=== PATIENT | female | born 1940 | race Caucasian/White ===

== ENCOUNTER 2023-05-02 14:06 | Outpatient (AMB) | payer MEDICARE, SELFPAY ==
--- NOTE | 2023-05-02 14:07 | MHC.OFFVIS ---
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 Pt states Abd pain comes and goes since she was seen in ED 03/14/23 Accompanied by: Son Allergies codeine Allergy (Mild, Verified 05/02/23 14:13) Itching HPI [employer]A HOIST OPERATOR/ Chavez Ref for Celiac Artery stenosis HPI Details Complex 83-year-old female presents to us for evaluation regarding abdominal pain. She originally presented to [facility] towards the beginning of March. At that time she was significantly worked up for her abdominal pain. She had undergone CT of the abdomen pelvis in addition to CT angio of the chest. 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 Upon workup it within the hospital she was noted to have a UTI. Upon discussion with her she notes that it is more so lower abdominal pain with random on set of this discomfort. Is more of a dull toothache. After the hospitalization and seem to resolve but it appears to be recurring. She is having difficulty urinating. Upon further discussion with her she denies any significant weight loss. She is able T a plate of poss and has no problems with any carbohydrates. In addition she reports that she did have a prior history of a DVT which was treated and she was on blood thinners but it was. Subsequently secondary to GI bleed. She now presents to us for vascular evaluation. Also of note she lost her only a few months prior. Symptoms appear to have started since this event. [facility] Medical History (Updated 05/02/23 @ 14:51 by Boby Willoughby MD) TONI (acute kidney injury) Diverticulitis DVT (deep venous thrombosis) Hypertension Surgical History (Updated 05/02/23 @ 14:17 by SEBASTIÁN Gonzales) History of appendectomy Social History (Updated 05/02/23 @ 14:19 by SEBASTIÁN Gonzales) Patient Tobacco Use Status: Former Tobacco user Review of Systems Const All systems reviewed & are unremarkable except as noted in HPI and below Reports no additional complaints ENT Reports Normal hearing present Card Denies chest pain, Denies chest pain at rest, Denies chest pain with activity and Denies pedal edema Resp Denies cough GI Denies abdominal pain Musc Denies abnormal gait, Denies muscle cramps and Denies radiating pain into limb Skin/Breast Denies skin ulcer and Denies wounds Neuro Reports Normal hearing present and Denies abnormal gait Psych Reports no additional complaints Physical Exam Vital Signs: BMI result Body Mass Index 33.8 Const General: cooperative, healthy appearing and comfortable Orientation/consciousness: oriented to person, oriented to place and oriented to time HEENT Head: Yes normal to inspection Neck Neck: Yes normal visual inspection Carotids: no bruits Chest Chest palpation & inspection: normal inspection of the chest Resp Effort & Inspection: normal respiratory effort and able to speak in complete sentences Auscultation: clear to auscultation bilaterally, no crackles, no rales, no rhonchi and no wheezes Cardio Rate: regular rate Rhythm: regular rhythm Heart sounds: S1 normal heart sound present and S2 normal heart sound present Bruits: no carotid bruits Peripheral pulses: Peripheral pulses 2+ throughout GI Inspection: Yes normal to inspection Skin Wounds: no wounds Hair: normal Neuro General: oriented to person, oriented to place and oriented to time Cranial nerves: Yes CN's II-XII intact bilaterally and Yes Normal hearing present Cognition (Neuro): normal cognition Motor exam (neuro): 5/5 motor strength present throughout Extrem Other: venous exam: No significant superficial varicosities or spider telangiectasias, minimal edema General: No clubbing, No cyanosis and No edema Psych Appearance: grossly normal Mental Status: mental status grossly normal Speech and movement: Normal speech and movement present Results Reviewed Results Reviewed: CT angio of chest dated 03/14/2023 there is concern of celiac artery stenosis. CT abdomen and pelvis of 03/14/2023 without contrast demonstrates no significant arterial problems but it is noncontrast. Written reports reviewed only as both studies were performed at [facility]. 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 Clinically she does not appear to demonstrate any symptoms as she denies any food fear or any significant weight loss and is able to tolerate carbohydrates fairly well. We will confirm this as we will get more defined CT angio of the abdomen and pelvis. My concern is that this may be more of a generalized pain secondary to urinary tract infection. She will follow up with us after testing. Thank you for allowing us to assist in her care. If there are any questions or concerns please do not hesitate to contact us. 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
[2023-05-02 14:11] VITALS: BMI 33.8
== END 2023-05-02 15:22 | disposition home or self-care (01) ==
PROVIDERS: PCP Pediatrics; Visit Provider Surgery Vascular Surgery
DX: K55.1 Chronic vascular disorders of intestine (principal)
CPT/HCPCS: 99204

== ENCOUNTER → 2023-05-02 14:06 | Outpatient (BNVA) | payer MEDICARE, SELFPAY | PROVIDERS: PCP Pediatrics; Visit Provider Surgery Vascular Surgery | DX: K55.1 Chronic vascular disorders of intestine (principal) | CPT/HCPCS: 99202 ==

== ENCOUNTER 2023-06-03 10:38 | Outpatient (REF) | payer MEDICARE, SELFPAY ==
[2023-06-03 13:01] LABS: Blood Urea Nitrogen 20 mg/dL (9-16); Estimated Glomerular Filt Rate 35
== END 2023-06-03 10:39 | disposition home or self-care (01) ==
LOC: HO.LAB 10:38
PROVIDERS: PCP Nurse Practitioner Family; Visit Provider Surgery Vascular Surgery
DX: K55.1 Chronic vascular disorders of intestine (principal)
CPT/HCPCS: 36415; 82565; 84520

== ENCOUNTER 2023-06-05 08:22 | Outpatient (REF) | payer MEDICARE, SELFPAY ==
--- NOTE | ~2023-06-05 | CT_ITS ---
EXAMINATION: CT ANGIOGRAPHY ABDOMEN AND PELVIS WITHOUT AND WITH CONTRAST CLINICAL INFORMATION: Chronic vascular disorder of intestine COMPARISON: None TECHNIQUE: Initial noncontrast localizing ammonia print operator images were obtained. A timing bolus at the level of the celiac artery was calculated. Subsequently, arterial phase multidetector volumetric imaging was performed through the abdomen and pelvis following the administration of 80 mL Omnipaque 350 intravenous contrast. No contrast reaction reported. Sagittal and coronal reformatted images were obtained on the technologist workstation. After extensive post-processing on a dedicated 3-D workstation, 3-D reformatted images were uploaded to PACS and reviewed as well. This CT examination was performed using dose optimization techniques as appropriate, variously including the following: *Automated exposure control *Adjustment of mA and/or kV according to patient size (this includes techniques or standardized protocols for targeted exams where dose is matched to indication/reason for exam; i.e. extremities or head) *Use of iterative reconstruction technique DLP: 298 mGy-cm FINDINGS: VASCULAR: 1. Supraceliac Abdominal Aorta: 37 mm 2. Infrarenal Abdominal Aorta: 26.3 mm 3. 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 4. Mesenteric Arteries: Celiac artery is occluded. The tributaries of the celiac artery, including the hepatic arteries and splenic arteries, receive retrograde supply from hypertrophied pancreaticoduodenal arcade. Superior mesenteric artery patent. Inferior mesenteric artery patent. 5. Renal arteries: Single renal arteries bilaterally. Moderate bilateral renal artery atherosclerotic disease without high-grade stenosis. NONVASCULAR: Lung Bases: The visualized lung bases are clear. Liver: Right hepatic cyst measures just centimeters. Additional small hepatic hypodensities too small to characterize, however statistically represent cysts. Gallbladder: Surgically absent. Biliary System: No intrahepatic or extrahepatic biliary dilation. Pancreas: Homogeneous in attenuation. Spleen: Normal in size. Genitourinary: Bilateral kidneys demonstrate symmetric enhancement. Innumerable bilateral focal cortical renal cysts; no follow-up needed. No perinephric fluid collection. No renal calculi. No hydroureteronephrosis. Adrenal Glands: Unremarkable. Reproductive: Anteverted uterus. Cystic right adnexal mass measuring 2.6 cm per Gastrointestinal: Small hiatal hernia. The visualized alimentary tract is normal in course. No evidence of obstruction. Severe diverticular disease of the distal descending and sigmoid colon without diverticulitis. Appendix: The appendix is seen in its entirety and is unremarkable. Peritoneum: No pneumoperitoneum. No intra-abdominal fluid collection. Lymph Nodes: No pathologically enlarged abdominal or pelvic lymph nodes. Soft Tissues/Musculoskeletal: Severe degenerative changes at L1-L3, which results in severe neural foraminal stenosis on the left at L1 to. Degenerative disc disease at L4-L5 no acute fracture. CT/CT angio abdomen pelvis IMPRESSION: 1. Complete occlusion of the celiac artery. Distal tributaries of the celiac artery receive retrograde flow from the patent SMA and pancreaticoduodenal arcade. 2. Moderate to severe mixed atherosclerotic disease of the descending abdominal aorta with areas of aneurysmal dilation. Largest diameter of the descending aorta is at the level of the supraceliac abdominal aorta, where it measures 37 mm. 3. 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 Fleischner guidelines were followed.
[2023-06-05] MEDS: iohexoL 350 MG/ML 100 ML INFUS..BTL IV (09:27)
== END 2023-06-05 08:23 | disposition home or self-care (01) ==
LOC: HO.CT 08:22
PROVIDERS: PCP Nurse Practitioner Family; Visit Provider Surgery Vascular Surgery
DX: K55.1 Chronic vascular disorders of intestine (principal)
CPT/HCPCS: 74174; Q9967

== ENCOUNTER 2023-06-11 09:54 | Outpatient (AMB) | payer MEDICARE, SELFPAY ==
[2023-06-11 09:55] VITALS: BMI 33.8
--- NOTE | 2023-06-11 09:55 | MHC.OFFVIS ---
Intake Vital Signs 06/11/23 09:55 Height 5 ft Weight 173 lb BMI 33.8 Intake Visit Reasons: follow up CTA Abd/pelvis 06/05/2023 Intake Note: follow up CTA Abd/pelvis 06/05/23, pt states that she still has on and off abdominal pain and also complains of hand numbness and pain. Family states that abdominal pain is noted more often Accompanied by: Family/Other Allergies codeine Allergy (Mild, Verified 06/11/23 09:59) Itching HPI follow up CTA Abd/pelvis 06/05/2023 HPI Details Complex 83-year-old female presents for follow-up regarding mesenteric ischemia. She has undergone CT angiogram of the abdomen and pelvis. She does report some general GI discomfort. She is able to tolerate meals on a fairly regular basis but she says ?it feels like it gets stuck and takes 2 hours for it to move down?. She is able to tolerate a slice of pizza and a little bit of pasta. She denies any significant weight loss. She now presents for follow-up with CT angiogram. Also of note she does describe lower extremity discomfort as well. She is unable to walk significant distances, about a half block at most. [facility] Medical History TONI (acute kidney injury) Diverticulitis DVT (deep venous thrombosis) Hypertension Surgical History History of appendectomy Social History Patient Tobacco Use Status: Former Tobacco user Review of Systems Const All systems reviewed & are unremarkable except as noted in HPI and below Reports no additional complaints ENT Reports Normal hearing present Card Denies chest pain, Denies chest pain at rest, Denies chest pain with activity and Denies pedal edema Resp Denies cough GI Denies abdominal pain Musc Denies abnormal gait, Denies muscle cramps and Denies radiating pain into limb Skin/Breast Denies skin ulcer and Denies wounds Neuro Reports Normal hearing present and Denies abnormal gait Psych Reports no additional complaints Physical Exam Vital Signs: BMI result Body Mass Index 33.8 Const General: cooperative, healthy appearing and comfortable Orientation/consciousness: oriented to person, oriented to place and oriented to time HEENT Head: Yes normal to inspection Neck Neck: Yes normal visual inspection Carotids: no bruits Chest Chest palpation & inspection: normal inspection of the chest Resp Effort & Inspection: normal respiratory effort and able to speak in complete sentences Auscultation: clear to auscultation bilaterally, no crackles, no rales, no rhonchi and no wheezes Cardio Other: Bilateral DP signals Rate: regular rate Rhythm: regular rhythm Heart sounds: S1 normal heart sound present and S2 normal heart sound present Bruits: no carotid bruits GI Inspection: Yes normal to inspection Skin Wounds: no wounds Hair: normal Neuro General: oriented to person, oriented to place and oriented to time Cranial nerves: Yes CN's II-XII intact bilaterally and Yes Normal hearing present Cognition (Neuro): normal cognition Motor exam (neuro): 5/5 motor strength present throughout Extrem Other: venous exam: No significant superficial varicosities or spider telangiectasias, minimal edema General: No clubbing, No cyanosis and No edema Psych Appearance: grossly normal Mental Status: mental status grossly normal Speech and movement: Normal speech and movement present Results Reviewed Results Reviewed: CT angiogram dated 06/05/2023 was reviewed written report and images. In terms of the mesenteric vessels celiac artery is occluded but does have good flow through the SMA and CAESAR with good collateral circulation. In addition there is evidence of moderate to severe bilateral iliac artery stenosis. 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 It does not appear to be mesenteric ischemia. Clinically she is able to tolerate a diet but does report of what she feels to be a decrease in transit time. She is able to tolerate carbohydrates to a small degree. She denies any weight loss. She does have good collateral circulation from SMA and CAESAR. This does not appear to be vascular in nature. Would recommend re-evaluation by GI. (2) PAD (peripheral artery disease): Code(s): I73.9 - Peripheral vascular disease, unspecified Plan: She does have evidence of peripheral vascular disease. The concern here is that she does have iliac artery disease. I have taken the liberty of ordering noninvasive lower extremity arterial ultrasounds. In addition I have started her on a baby aspirin. She does have a remote history of GI bleed but would like to try this out prior to any interventions. Once again she will follow up with us after her lower extremity noninvasive testing. (3) Back pain associated with peripheral numbness: Code(s): M54.9 - Dorsalgia, unspecified; R20.0 - Anesthesia of skin Plan: She complains of bilateral upper extremity numbness. In terms of vasculature she does have palpable brachial radial and ulnar pulses. I do believe this may be more spinal related. She may benefit from a spine surgery or pain management evaluation regarding this. Once again she will follow up with us for her lower extremities. Thank you for allowing us to assist in her care. If there are any questions or concerns please do not hesitate to contact us. The patient had an opportunity to ask questions regarding the treatment plan. All questions were answered. Imaging studies, laboratory studies and physical exam results were discussed and reviewed in detail. No major barriers to understanding were identified. The patient expressed understanding and agreement with the above treatment plan. The patient is aware they should contact our office by phone for worsening of the current condition or the appearance of new symptoms. Thank you for allowing me to participate in the vascular care of this patient. If you have any questions or concerns regarding the treatment for the above condition please do not hesitate to contact me. The office telephone contact is [phone]. This note is constructed using voice recognition software. While every effort has been made to ensure accuracy, pathology technician errors may have been included. Thank you for allowing me to participate in the care of your patient. Yours sincerely, Boby Willoughby MD, FACS, R.P.V.I. Orders: Orders US arterial duplex LE BI 1 Week I73.9 - Peripheral vascular disease, unspecified Coding Level of Care Code Est Pt Level 4 (27198) Diagnoses Mesenteric ischemia due to arterial insufficiency K55.1 PAD (peripheral artery disease) I73.9 Back pain associated with peripheral numbness M54.9; R20.0
== END 2023-06-11 10:28 | disposition home or self-care (01) ==
PROVIDERS: PCP Nurse Practitioner Family; Visit Provider Surgery Vascular Surgery
DX: I73.9 Peripheral vascular disease, unspecified (principal); R10.9 Unspecified abdominal pain; M54.9 Dorsalgia, unspecified; R20.0 Anesthesia of skin
CPT/HCPCS: 99214

== ENCOUNTER → 2023-06-11 09:54 | Outpatient (BNVA) | payer MEDICARE, SELFPAY | PROVIDERS: PCP Nurse Practitioner Family; Visit Provider Surgery Vascular Surgery | DX: K55.1 Chronic vascular disorders of intestine (principal); I73.9 Peripheral vascular disease, unspecified; M54.9 Dorsalgia, unspecified; R20.0 Anesthesia of skin | CPT/HCPCS: 99212 ==

== ENCOUNTER 2023-06-24 13:55 | Outpatient (REF) | payer MEDICARE, SELFPAY ==
--- NOTE | ~2023-06-24 | US_ITS ---
EXAMINATION: NONINVASIVE ASSESSMENT OF THE ARTERIES OF BOTH LOWER EXTREMITIES INCLUDING PVR EXAM AND BILATERAL LOWER EXTREMITY DUPLEX CLINICAL INFORMATION: Peripheral vascular disease COMPARISON: None TECHNIQUE: Ankle pulse volume recordings, ankle pressure measurements and ankle brachial indices were obtained of the lower extremity arterial system bilaterally in addition to duplex Doppler techniques with wave form analysis and measurement of velocities in the common femoral, profunda femoral, superficial femoral, popliteal, tibial and peroneal arteries. The study was performed only at rest. FINDINGS: RIGHT LEG 1. Right Ankle-Brachial Index: 0.83 (higher of the DP/PT) >0.97-1.25 = normal - no significant arterial disease 0.75-0.96 = mild peripheral arterial disease 0.5-0.74 = moderate peripheral arterial disease <0.50 = severe peripheral arterial disease <0.30 = critical arterial disease 2. Segmental Pressures (mmHg): Brachial: 148 Ankle: PT 132, DP 104 3. PVR Waveforms: Ankle: Abnormal 4. Direct Duplex: Common femoral artery: 175 cm/s, Multiphasic Profunda femoris artery: 96.3 cm/s, Multiphasic Superficial femoral artery (proximal): 93.2 cm/s, Multiphasic Superficial femoral artery (mid): 129 cm/s, Multiphasic Superficial femoral artery (distal): 122 cm/s, Multiphasic Popliteal artery: 49.4 cm/s, Multiphasic Anterior tibial artery: 67.4 cm/s, Multiphasic Distal posterior tibial artery: 65.9 cm/s, Multiphasic Peroneal artery: 36.8 cm/s, Multiphasic LEFT LE. Left Ankle-Brachial Index: 0.67 (higher of the DP/PT) >0.97-1.25 = normal - no significant arterial disease 0.75-0.96 = mild peripheral arterial disease 0.5-0.74 = moderate peripheral arterial disease <0.50 = severe peripheral arterial disease <0.30 = critical arterial disease 2. Segmental Pressures: Brachial: 159 Ankle: PT 94, DP 170 3. PVR Waveforms: Ankle: Abnormal 4. Direct Duplex: Common femoral artery: 97.1 cm/s, Multiphasic, though there is very minimal diastolic flow reversal Profunda femoris artery: 57.2 cm/s, monophasic Superficial femoral artery (proximal): 82.1 cm/s, monophasic Superficial femoral artery (mid): 116 cm/s, monophasic Collateral at the level of the mid superficial femoral artery: 92.9 cm/s, monophasic Superficial femoral artery (distal): 78.1 cm/s, monophasic Popliteal artery: 52.4 cm/s, monophasic Anterior tibial artery: 60.8 cm/s, Multiphasic Distal posterior tibial artery: 14.6 cm/s, monophasic Peroneal artery: 21.7 cm/s, monophasic US/US arterial duplex LE BI IMPRESSION: On the right the JOSE LUIS is 0.83 and PVR waveforms are abnormal. There is however multiphasic flow throughout the right lower extremity. On the left JOSE LUIS is 0.67. There is very minimal diastolic flow reversal within the common femoral artery and there is monophasic flow throughout the remainder of the lower extremitiy suggesting inflow disease.
--- NOTE | ~2023-06-24 | US_ITS ---
EXAMINATION: US RETROPERITONEAL LIMITED (AORTA) CLINICAL INFORMATION: Evaluate for inflow disease. COMPARISON: None available. TECHNIQUE: Vallejo-scale, color Doppler and spectral Doppler evaluation of the abdominal aorta. FINDINGS: The aorta is atherosclerotic. Proximal: 2.3 cm. PSV 53 cm/s. Normal waveform. Mid: 2.6 cm. PSV 95 cm/s. Normal waveform. Distal: 2.8 cm. 101 cm/s. Normal waveform. The measurements of the common iliac arteries in maximum AP and TRV dimensions are as follows: Right Common Iliac Artery: 0.9 cm. Triphasic waveform in the right external iliac artery Left Common Iliac Artery: 1.3 cm. Monophasic waveform in the left external iliac artery. US/US abdominal aortic aneurysm IMPRESSION: Negative for abdominal aortic aneurysm. Question left iliac inflow disease.
== END 2023-06-24 13:56 | disposition home or self-care (01) ==
LOC: HO.US 13:55
PROVIDERS: PCP Nurse Practitioner Family; Visit Provider Surgery Vascular Surgery
DX: I73.9 Peripheral vascular disease, unspecified (principal)
CPT/HCPCS: 76706; 93923; 93925

== ENCOUNTER 2023-07-11 12:51 | Outpatient (AMB) | payer MEDICARE, SELFPAY ==
[2023-07-11 12:57] VITALS: BMI 33.8
--- NOTE | 2023-07-11 12:57 | MHC.OFFVIS ---
Intake Vital Signs 07/11/23 12:57 07/11/23 13:03 Height 5 ft 5 ft Weight 173 lb 173 lb BMI 33.8 33.8 Intake Visit Reasons: Follow Up 06/24 Arterial Intake Note: 1 week follow up ARterial US 06/24/23 s/pCTA Abd/pelvis 06/05/23 for Abd pain.. Pt states she is still having abd pain.she also says she has bilateral hand tingling and bilateral le weakness Accompanied by: Family/Other Allergies codeine Allergy (Mild, Verified 07/11/23 13:02) Itching HPI Follow Up 06/24 Arterial HPI Details Very pleasant 83-year-old female presents for follow-up with family. The initial concern was of mesenteric ischemia. But upon workup she noted to have lower extremity pain and discomfort as well. She had undergone CT angiogram last time and it demonstrated good flow through the SMA and CAESAR. At the current time she is still having some difficulty holding food down. She is awaiting GI evaluation. She has issues in terms of lower extremity ambulation. Can barely go half a block. Left appears to be more painful than right. She now presents for follow-up with noninvasive arterial testing [facility] Medical History Hypertension TONI (acute kidney injury) Diverticulitis DVT (deep venous thrombosis) Surgical History History of appendectomy Social History Patient Tobacco Use Status: Former Tobacco user Review of Systems Const All systems reviewed & are unremarkable except as noted in HPI and below Reports no additional complaints ENT Reports Normal hearing present Card Denies chest pain, Denies chest pain at rest, Denies chest pain with activity and Denies pedal edema Resp Denies cough GI Denies abdominal pain Musc Denies abnormal gait, Denies muscle cramps and Denies radiating pain into limb Skin/Breast Denies skin ulcer and Denies wounds Neuro Reports Normal hearing present and Denies abnormal gait Psych Reports no additional complaints Physical Exam Vital Signs: BMI result Body Mass Index 33.8 Const General: cooperative, healthy appearing and comfortable Orientation/consciousness: oriented to person, oriented to place and oriented to time HEENT Head: Yes normal to inspection Neck Neck: Yes normal visual inspection Carotids: no bruits Chest Chest palpation & inspection: normal inspection of the chest Resp Effort & Inspection: normal respiratory effort and able to speak in complete sentences Auscultation: clear to auscultation bilaterally, no crackles, no rales, no rhonchi and no wheezes Cardio Other: Bilateral DP signals Rate: regular rate Rhythm: regular rhythm Heart sounds: S1 normal heart sound present and S2 normal heart sound present Bruits: no carotid bruits Peripheral pulses: Peripheral pulses 2+ throughout GI Inspection: Yes normal to inspection Skin Wounds: no wounds Hair: normal Neuro General: oriented to person, oriented to place and oriented to time Cranial nerves: Yes CN's II-XII intact bilaterally and Yes Normal hearing present Cognition (Neuro): normal cognition Motor exam (neuro): 5/5 motor strength present throughout Extrem Other: venous exam: No significant superficial varicosities or spider telangiectasias, minimal edema General: No clubbing, No cyanosis and No edema Psych Appearance: grossly normal Mental Status: mental status grossly normal Speech and movement: Normal speech and movement present Results Reviewed Results Reviewed: Noninvasive arterial testing dated 06/24/2023 demonstrates JOSE LUIS on the right of 0.83 and on the left of 0.67. There is concern of inflow disease on the left. With monophasic waveforms on down. Written report and images were reviewed. Assessment & Plan Assessment & Plan (1) PAD (peripheral artery disease): Code(s): I73.9 - Peripheral vascular disease, unspecified Plan: Patient notes leg pain when walking distances. I have discussed the pathophysiology of peripheral vascular disease with the patient. I have also discussed risk factor modification. I have reviewed the patient's arterial testing which reveals left leg inflow disease. the patient would benefit from a left leg endovascular peripheral angiogram with possible angioplasty, stent, and/or atherectomy. This has been discussed in detail with the patient along with risks, benefits, and complications. This includes but is not limited to bleeding, infection, heart attack, need for emergent surgical repair, limb ischemia, blood vessel damage, bleeding, puncture, kidney injury, bruising, allergic reaction, and skin reaction. The patient demonstrates a clear understanding. We will schedule for the next appropriate time. Thank you for allowing us to assist in this patient's care. (2) Mesenteric ischemia due to arterial insufficiency: Code(s): K55.1 - Chronic vascular disorders of intestine Plan: I do not believe this is mesenteric ischemia. She appears to have some GI a issues including reflux and possibly transit time issues. Would recommend GI evaluation and follow-up. I have requested that she reach back out to her primary care team to get the appropriate referral to a GI doctor. (3) Back pain associated with peripheral numbness: Code(s): M54.9 - Dorsalgia, unspecified; R20.0 - Anesthesia of skin Plan: She does have back pain issues. At 1st we will address her peripheral arterial disease. Should that not provide enough improvement may require pain management evaluation. This was discussed with the patient and family at bedside. Once again we will schedule her for angiogram and proceed from there. Thank you for allowing us to assist in her care. Coding Level of Care Code Est Pt Level 4 (35223) Diagnoses PAD (peripheral artery disease) I73.9 Mesenteric ischemia due to arterial insufficiency K55.1 Back pain associated with peripheral numbness M54.9; R20.0
[2023-07-11 13:03] VITALS: BMI 33.8
== END 2023-07-11 13:27 | disposition home or self-care (01) ==
PROVIDERS: PCP Nurse Practitioner Family; Visit Provider Surgery Vascular Surgery
DX: I73.9 Peripheral vascular disease, unspecified (principal); K55.1 Chronic vascular disorders of intestine; M54.9 Dorsalgia, unspecified; R20.0 Anesthesia of skin
CPT/HCPCS: 99214

== ENCOUNTER → 2023-07-11 12:51 | Outpatient (BNVA) | payer MEDICARE, SELFPAY | PROVIDERS: PCP Nurse Practitioner Family; Visit Provider Surgery Vascular Surgery | DX: K55.1 Chronic vascular disorders of intestine (principal); K73.9 Chronic hepatitis, unspecified; M54.9 Dorsalgia, unspecified; R20.0 Anesthesia of skin | CPT/HCPCS: 99212 ==

== ENCOUNTER 2023-07-17 07:18 | Day surgery (SDC) | payer MEDICARE, SELFPAY ==
[2023-07-17] VITALS (7 sets, daily range): BP systolic 132–167; BP diastolic 64–77; PULSE 71–86; RESP 16–20; TEMP 36.3; O2SAT 93–94; BMI 34.2
[2023-07-17 08:13] LABS: Blood Urea Nitrogen 25 mg/dL (9-16); Creatinine Clr Calc Pharmacy 33.4; Estimated Glomerular Filt Rate 42
--- NOTE | 2023-07-17 11:10 | W.PM.OPN ---
Operative Note Operative Note Date of Service: 07/17/23 Narrative: Angiogram report from [facility] Preoperative diagnosis: Atherosclerosis of left lower extremity with activity limiting claudication Postoperative diagnosis: Same Procedure: 1. Ultrasound-guided right common femoral access 2. Aortogram with bilateral lower extremity runoff 3. Left common iliac plasty Surgeon:Boby Willoughby M.D., FACS, RPVI Case Manager:None Anesthesia: Local with moderate conscious sedation. Total intraservice moderate sedation time was 42 minutes. I monitored the patient's level of consciousness and physiologic status continuously throughout the procedure. Specimens:none Drains:none Estimated blood loss: Less than 10 ml Implant: Medtronic Impact DCB 9 x 40 Indications: Pleasant 83-year-old female with prior history abdominal discomfort upon workup was found to have peripheral vascular disease. She then was discovered to have activity limiting claudication on left lower extremity. She now presents for endovascular intervention. The patient has signed the informed consent after reviewing risks, complications, benefits, and alternatives previously discussed with the patient. The patient was given the opportunity to ask any additional questions or voice any concerns. All questions were answered to the patient's satisfaction. Procedure in detail: Patient was brought to the angiography suite prior to which a time-out was called for patient identification and site verification. Bilateral groins were prepped and draped in the standard surgical fashion. Under ultrasound guidance right common femoral was punctured with micro puncture needle and wire. Subsequently a precision 4 Chadian sheath was then placed. Bentson wire was advanced to the level of the aorta. 4 Chadian Flush catheter was brought up and parked at the level of the renal arteries. Aortogram was then undertaken. Catheter was brought down to the level of the iliac bifurcation. Iliacs were subsequently imaged. Catheter was then brought in up and over to the left side SFA. Runoff study was then undertaken. Once this was accomplished new recognized there was a common iliac high-grade stenosis on the left. At this time 5000 units of systemic heparin was administered. After 5 minutes of circulation time we placed a Glidewire Advantage into the left SFA. We then exchanged out for 7 Chadian sheath. Through this we 1st plasty this area within 8 x 40 regular balloon. We then plasty this area with a 9 x 40 drug coated balloon. This was brought into position in under 3 minutes and insufflated for a total of 3 minutes in duration. Once this was all accomplished we brought the sheath and wire back to the ipsilateral side which was the right side. We did a runoff study through this sheath. No other additional intervention was indicated. StarClose closure device was deployed. At the end the case sponge instrument counts were correct. Interpretation of films: 1. Ultrasound demonstrates appropriate femoral puncture. Image of which was saved. 2. Aortogram demonstrates aorta had significant disease. 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 There appeared to be stenotic ring at the origin of the bifurcation.. Appropriate take-off of the renals. 3. Iliac images demonstrate high-grade stenosis at the left common iliac. 4. Left Leg Common femoral artery: No significant disease Profundus Femoris: No significant disease Superficial femoral artery: No significant disease Popliteal artery (p1,p2,p3): No significant disease Anterior tibial artery: No significant disease Peroneal artery: No significant disease Posterior tibial artery: Patent but diminutive Dorsalis pedis/plantar arch: Incomplete 5. Right Leg Common femoral artery: No significant disease Profundus Femoris: No significant disease Superficial femoral artery: No significant disease Popliteal artery (p1,p2,p3): No significant disease Anterior tibial artery: No significant disease dominant runoff Peroneal artery: No significant disease but smaller in caliber Posterior tibial artery: No significant disease Dorsalis pedis/plantar arch: Incomplete Conclusion: 1. Successful left common iliac plasty 2. Anticoagulation status: Aspirin and Plavix for 6 months This note is constructed using voice recognition software. While every effort has been made to ensure accuracy, kitchen aide errors may have been included. Thank you for allowing me to participate in the care of your patient. Yours sincerely, Boby Willoughby MD, FACS, R.P.V.I.
== END 2023-07-17 13:20 | disposition home or self-care (01) ==
PROVIDERS: PCP Nurse Practitioner Family; Visit Provider Surgery Vascular Surgery
DX: I70.212 Atherosclerosis of native arteries of extremities with intermittent claudication, left leg (principal); K55.1 Chronic vascular disorders of intestine; M54.9 Dorsalgia, unspecified; R20.0 Anesthesia of skin; R10.30 Lower abdominal pain, unspecified; I10 Essential (primary) hypertension; Z86.718 Personal history of other venous thrombosis and embolism; Z87.891 Personal history of nicotine dependence
CPT/HCPCS: 36415; 37220; 76937; 82565; 84520; 85025; 99152; 99153; C1725; C1760; C1769; C1874; C1887; C2623; J1643; J2250; J3010; Q9967

== ENCOUNTER → 2023-07-17 07:18 | Outpatient (BNV) | payer MEDICARE, SELFPAY | PROVIDERS: PCP Nurse Practitioner Family; Visit Provider Surgery Vascular Surgery | DX: I70.212 Atherosclerosis of native arteries of extremities with intermittent claudication, left leg (principal) | CPT/HCPCS: 37220; 75625; 75710; 76937; 99152 ==

== ENCOUNTER 2023-07-30 13:34 | Outpatient (AMB) | payer MEDICARE, SELFPAY ==
--- NOTE | 2023-07-30 13:45 | A.OFFVIS_ITS ---
Intake Intake Visit Reasons: 2 week follow up left leg angiogram Intake Note: 2 week follow up Left LE Angiogram 07/17/23. Pt states some post procedural pain, especially in the left thigh. Pt states she is already walking better. Accompanied by: Daughter Allergies codeine Allergy (Mild, Verified 07/30/23 13:47) Itching HPI 2 week follow up left leg angiogram HPI Details very pleasant 83-year-old female presents for follow-up regarding peripheral vascular disease. She has undergone left common iliac plasty. She appears to be doing relatively well since that time. She reports that she is ambulating better. In addition her abdominal discomfort appears to be feeling somewhat better. She is tolerating p.o. intake. She now presents for follow-up regarding peripheral vascular disease. [facility] Medical History (Updated 07/31/23 @ 09:46 by Boby Willoughby MD) S/P angiogram of extremity (07/17/23) COPD (chronic obstructive pulmonary disease) Hypertension TONI (acute kidney injury) Diverticulitis DVT (deep venous thrombosis) Surgical History History of appendectomy Social History Patient Tobacco Use Status: Former Tobacco user Review of Systems Const All systems reviewed & are unremarkable except as noted in HPI and below Reports no additional complaints ENT Reports Normal hearing present Card Denies chest pain, Denies chest pain at rest, Denies chest pain with activity and Denies pedal edema Resp Denies cough GI Denies abdominal pain Musc Denies abnormal gait, Denies muscle cramps and Denies radiating pain into limb Skin/Breast Denies skin ulcer and Denies wounds Neuro Reports Normal hearing present and Denies abnormal gait Psych Reports no additional complaints Physical Exam Const General: cooperative, healthy appearing and comfortable Orientation/consciousness: oriented to person, oriented to place and oriented to time HEENT Head: Yes normal to inspection Neck Neck: Yes normal visual inspection Carotids: no bruits Chest Chest palpation & inspection: normal inspection of the chest Resp Effort & Inspection: normal respiratory effort and able to speak in complete sentences Auscultation: clear to auscultation bilaterally, no crackles, no rales, no rhonchi and no wheezes Cardio Other: Bilateral DP signals Rate: regular rate Rhythm: regular rhythm Heart sounds: S1 normal heart sound present and S2 normal heart sound present Bruits: no carotid bruits Peripheral pulses: Peripheral pulses 2+ throughout GI Inspection: Yes normal to inspection Skin Wounds: no wounds Hair: normal Neuro General: oriented to person, oriented to place and oriented to time Cranial nerves: Yes CN's II-XII intact bilaterally and Yes Normal hearing present Cognition (Neuro): normal cognition Motor exam (neuro): 5/5 motor strength present throughout Extrem Other: venous exam: No significant superficial varicosities or spider telangiectasias, minimal edema General: No clubbing, No cyanosis and No edema Psych Appearance: grossly normal Mental Status: mental status grossly normal Speech and movement: Normal speech and movement present Assessment & Plan Assessment & Plan (1) PAD (peripheral artery disease): Comment: 07/17/2023 - left common iliac plasty Code(s): I73.9 - Peripheral vascular disease, unspecified Plan: in short patient is doing well status post endovascular intervention. She will be maintained on aspirin and Plavix for 6 months. We did discuss routine risk factor modification and the importance of ambulation. She will follow up with us in approximately 3 months time with routine arterial surveillance. Thank you for allowing us to assist in her care. Orders: Orders US arterial duplex LE BI 3 Months I73.9 - Peripheral vascular disease, unspecified Coding Level of Care Code Est Pt Level 4 (27308) Diagnoses PAD (peripheral artery disease) I73.9
== END 2023-07-30 14:11 | disposition home or self-care (01) ==
PROVIDERS: PCP Nurse Practitioner Family; Visit Provider Surgery Vascular Surgery
DX: I73.9 Peripheral vascular disease, unspecified (principal); Z98.62 Peripheral vascular angioplasty status
CPT/HCPCS: 99213

== ENCOUNTER → 2023-07-30 13:34 | Outpatient (BNVA) | payer MEDICARE, SELFPAY | PROVIDERS: PCP Nurse Practitioner Family; Visit Provider Surgery Vascular Surgery | DX: I73.9 Peripheral vascular disease, unspecified (principal); M79.652 Pain in left thigh; T82.848A Pain due to vascular prosthetic devices, implants and grafts, initial encounter; G89.18 Other acute postprocedural pain | CPT/HCPCS: 99212 ==

== ENCOUNTER 2023-11-12 14:09 | Outpatient (REF) | payer MEDICARE, SELFPAY ==
--- NOTE | ~2023-11-12 | US_ITS ---
EXAMINATION: US RETROPERITONEAL LIMITED (AORTA) US NONINVASIVE ASSESSMENT OF THE ARTERIES OF BOTH LOWER EXTREMITIES INCLUDING PVR EXAM AND BILATERAL LOWER EXTREMITY DUPLEX. CLINICAL INFORMATION: Peripheral vascular disease. COMPARISON: CTA abdomen/pelvis 06/05/2023, lower extremity duplex, JOSE LUIS, abdominal aorta ultrasound 06/24/2023 TECHNIQUE: Vallejo-scale, color Doppler and spectral Doppler evaluation of the abdominal aorta. Ankle pulse volume recordings, ankle pressure measurements and ankle brachial indices were obtained of the lower extremity arterial system bilaterally in addition to duplex Doppler techniques with wave form analysis and measurement of velocities in the common femoral, profunda femoral, superficial femoral, popliteal, tibial and peroneal arteries. The study was performed only at rest. FINDINGS: The aorta is normal. The measurements of the aorta in maximum AP and transverse dimensions respectively are as follows: Proximal: 2.4 cm. Mid: 2.0 cm. Distal: 2.6 cm. PSV: 108 cm/s. The measurements of the common iliac arteries in maximum AP and TRV dimensions are as follows: Right Common Iliac Artery: 0.7 cm. Left Common Iliac Artery: 0.9 cm. RIGHT LE. THE RIGHT ANKLE-BRACHIAL INDEX IS: 1.02 >0.97-1.25 = normal - no significant arterial disease 0.75-0.96 = mild peripheral arterial disease 0.5-0.74 = moderate peripheral arterial disease <0.50 = severe peripheral arterial disease <0.30 = critical arterial disease 2. SEGMENTAL PRESSURES (mmHg): Ankle: PT 152, DP 134 3. PVR WAVEFORMS: Ankle: Loss of dicrotic notch. 4. DIRECT DUPLEX: Common iliac artery: 96 cm/s, biphasic External iliac artery: 106 cm/s, biphasic Common femoral artery: 123 cm/s, Multiphasic Profunda femoris artery: 76 cm/s, Multiphasic Superficial femoral artery (proximal): 101 cm/s, Multiphasic Superficial femoral artery (mid): 107 cm/s, Multiphasic Superficial femoral artery (distal): 66 cm/s, Multiphasic Proximal Popliteal artery: 38 cm/s, Multiphasic Anterior tibial artery: 41 cm/s, biphasic Mid posterior tibial artery: 74 cm/s, Multiphasic Dorsalis pedis: 42 cm/s, biphasic LEFT LE. THE LEFT ANKLE-BRACHIAL INDEX IS: 0.95 >0.97-1.25 = normal - no significant arterial disease 0.75-0.96 = mild peripheral arterial disease 0.5-0.74 = moderate peripheral arterial disease <0.50 = severe peripheral arterial disease <0.30 = critical arterial disease 2. SEGMENTAL PRESSURES: Ankle: PT 136, DP 142 3. PVR WAVEFORMS: Ankle: Normal 4. DIRECT DUPLEX: Common iliac artery: 51 cm/s, biphasic External iliac artery: 1 13 cm/s, biphasic Common femoral artery: 120 cm/s, Multiphasic Profunda femoris artery: 70 cm/s, Multiphasic Superficial femoral artery (proximal): 121 cm/s, Multiphasic Superficial femoral artery (mid): 118 cm/s, Multiphasic Superficial femoral artery (distal): 86 cm/s, Multiphasic Proximal Popliteal artery: 56 cm/s, Multiphasic Anterior tibial artery: 63 cm/s, biphasic Mid posterior tibial artery: 67 cm/s, biphasic Dorsalis pedis: 50 cm/s, biphasic US/US abdominal aortic aneurysm IMPRESSION: 1. No abdominal aortic aneurysm. Previously documented supraceliac abdominal aortic aneurysm was not well imaged on this study. The visualized portions of the abdominal aorta are nonaneurysmal. 2. No hemodynamically significant lower extremity peripheral vascular disease by JOSE LUIS, PVR, or Doppler criteria. Biphasic bilateral tibial flow likely related to mild inflow disease.
== END 2023-11-12 14:10 | disposition home or self-care (01) ==
LOC: HO.US 14:09
PROVIDERS: PCP Nurse Practitioner Family; Visit Provider Surgery Vascular Surgery
DX: I73.9 Peripheral vascular disease, unspecified (principal)
CPT/HCPCS: 76706; 93923; 93925

== ENCOUNTER 2023-11-14 13:23 | Outpatient (AMB) | payer MEDICARE, SELFPAY ==
--- NOTE | 2023-11-14 13:24 | A.OFFVIS_ITS ---
Intake Vital Signs 11/14/23 13:25 Height 5 ft Weight 171 lb 15.369 oz BMI 33.6 BP 120/76 Blood Pressure Location Lt brachial Position Sitting Pulse 71 Intake Visit Reasons: follow up arterial US 11/12/23 Intake Note: Follow-up after u/s c/o still having weakness Equipment Sales Specialist Required: No Accompanied by: Family/Other Allergies codeine Allergy (Mild, Verified 07/30/23 13:47) Itching HPI follow up arterial US 11/12/23 HPI Details Very pleasant 83-year-old female presents for routine surveillance follow-up regarding peripheral vascular disease. She would originally seen us for some abdominal pain which has appear to have resolved with medication from her GI doctor. She reports no abdominal discomfort and is able to tolerate a diet fairly well. She would undergone left common iliac plasty in 07/17/2023 [facility]. She is doing fairly well with that. She is able to ambulate. Although family reports she is not very active. She now presents for routine surveillance arterial ultrasound follow-up [facility] Medical History (Updated 07/31/23 @ 09:46 by Boby Willoughby MD) S/P angiogram of extremity (07/17/23) COPD (chronic obstructive pulmonary disease) Hypertension TONI (acute kidney injury) Diverticulitis DVT (deep venous thrombosis) Surgical History History of appendectomy Social History Patient Tobacco Use Status: Former Tobacco user Review of Systems Const All systems reviewed & are unremarkable except as noted in HPI and below Reports no additional complaints ENT Reports Normal hearing present Card Denies chest pain, Denies chest pain at rest, Denies chest pain with activity and Denies pedal edema Resp Denies cough GI Denies abdominal pain Musc Denies abnormal gait, Denies muscle cramps and Denies radiating pain into limb Skin/Breast Denies skin ulcer and Denies wounds Neuro Reports Normal hearing present and Denies abnormal gait Psych Reports no additional complaints Physical Exam Vital Signs: Last Vital Signs Pulse 71 11/14/23 13:25 BP 120/76 11/14/23 13:25 BMI result Body Mass Index 33.6 Const General: cooperative, healthy appearing and comfortable Orientation/consciousness: oriented to person, oriented to place and oriented to time HEENT Head: Yes normal to inspection Neck Neck: Yes normal visual inspection Carotids: no bruits Chest Chest palpation & inspection: normal inspection of the chest Resp Effort & Inspection: normal respiratory effort and able to speak in complete sentences Auscultation: clear to auscultation bilaterally, no crackles, no rales, no rhonchi and no wheezes Cardio Rate: regular rate Rhythm: regular rhythm Heart sounds: S1 normal heart sound present and S2 normal heart sound present Bruits: no carotid bruits Peripheral pulses: Peripheral pulses 2+ throughout GI Inspection: Yes normal to inspection Skin Wounds: no wounds Hair: normal Neuro General: oriented to person, oriented to place and oriented to time Cranial nerves: Yes CN's II-XII intact bilaterally and Yes Normal hearing present Cognition (Neuro): normal cognition Motor exam (neuro): 5/5 motor strength present throughout Extrem Other: venous exam: No significant superficial varicosities or spider telangiectasias, minimal edema General: No clubbing, No cyanosis and No edema Psych Appearance: grossly normal Mental Status: mental status grossly normal Speech and movement: Normal speech and movement present Results Reviewed Results Reviewed: Noninvasive testing dated 11/12/2023 demonstrates JOSE LUIS on the right of 1.02 and on the left of 0.95 with multi phasic flow all the way down. Written report and images were reviewed. Assessment & Plan Assessment & Plan (1) PAD (peripheral artery disease): Comment: 07/17/2023 - left common iliac plasty Code(s): I73.9 - Peripheral vascular disease, unspecified Plan: In short patient has stable claudication. I did review the pathophysiology of peripheral vascular disease with the patient. In addition we did discuss routine conservative measures including a healthy diet and the importance of exercise and ambulation. We did discuss risk factor modification. The patient will continue to to follow-up with surveillance follow-up in approximately 6 months. Thank you for allowing us to participate in this patient's care. If there are any questions or concerns please do not hesitate to contact us. (2) Mesenteric ischemia due to arterial insufficiency: Code(s): K55.1 - Chronic vascular disorders of intestine Plan: Appears to be resolved. She has tolerating a diet no weight loss and it appears to be controlled by medication from GI. Orders: Orders US abdominal aortic aneurysm 6 Months I73.9 - Peripheral vascular disease, unspecified US arterial duplex LE BI 6 Months I73.9 - Peripheral vascular disease, unspecified Coding Level of Care Code Est Pt Level 4 (11755) Diagnoses PAD (peripheral artery disease) I73.9 Mesenteric ischemia due to arterial insufficiency K55.1
[2023-11-14 13:25] VITALS: BP 120/76; PULSE 71; BMI 33.6
== END 2023-11-14 14:07 | disposition home or self-care (01) ==
PROVIDERS: PCP Nurse Practitioner Family; Visit Provider Surgery Vascular Surgery
DX: I73.9 Peripheral vascular disease, unspecified (principal); K55.1 Chronic vascular disorders of intestine
CPT/HCPCS: 99213

== ENCOUNTER → 2023-11-14 13:23 | Outpatient (BNVA) | payer MEDICARE, SELFPAY | PROVIDERS: PCP Nurse Practitioner Family; Visit Provider Surgery Vascular Surgery | DX: I73.9 Peripheral vascular disease, unspecified (principal); K55.1 Chronic vascular disorders of intestine | CPT/HCPCS: 99212 ==

== ENCOUNTER 2024-05-07 10:15 | Outpatient (REF) | payer MEDICARE, SELFPAY ==
--- NOTE | ~2024-05-07 | US_ITS ---
EXAMINATION: NONINVASIVE ASSESSMENT OF THE ARTERIES OF BOTH LOWER EXTREMITIES INCLUDING PVR EXAM AND BILATERAL LOWER EXTREMITY DUPLEX Abdominal aortic ultrasound CLINICAL INFORMATION: Peripheral vascular disease COMPARISON: Noninvasive vascular imaging 11/12/2023 TECHNIQUE: Ankle pulse volume recordings, ankle pressure measurements and ankle brachial indices were obtained of the lower extremity arterial system bilaterally in addition to duplex Doppler techniques with wave form analysis and measurement of velocities in the common femoral, profunda femoral, superficial femoral, popliteal, tibial and peroneal arteries. The study was performed only at rest. Abdominal aortic ultrasound was performed as well. FINDINGS: RIGHT LEG 1. Right Ankle-Brachial Index: 1.05 (higher of the DP/PT) >0.97-1.25 = normal - no significant arterial disease 0.75-0.96 = mild peripheral arterial disease 0.5-0.74 = moderate peripheral arterial disease <0.50 = severe peripheral arterial disease <0.30 = critical arterial disease 2. Segmental Pressures (mmHg): Brachial: 149 Ankle: PT 166, DP 153 3. PVR Waveforms: Ankle: Normal 4. Direct Duplex: Common femoral artery: 116.7 cm/s, triphasic Profunda femoris artery: 61.3 cm/s, biphasic Superficial femoral artery (proximal): 95 cm/s, triphasic Superficial femoral artery (mid): 77.8 cm/s, triphasic Superficial femoral artery (distal): 79.4 cm/s, triphasic Proximal Popliteal artery: 45.8 cm/s, triphasic Mid posterior tibial artery: 96.5 cm/s, triphasic LEFT LE. Left Ankle-Brachial Index: 0.97 (higher of the DP/PT) >0.97-1.25 = normal - no significant arterial disease 0.75-0.96 = mild peripheral arterial disease 0.5-0.74 = moderate peripheral arterial disease <0.50 = severe peripheral arterial disease <0.30 = critical arterial disease 2. Segmental Pressures: Brachial: 158 Ankle: PT 154, DP 151 3. PVR Waveforms: Ankle: Normal 4. Direct Duplex: Common femoral artery: 118.2 cm/s, triphasic Profunda femoris artery: 55 cm/s, biphasic Superficial femoral artery (proximal): 137 cm/s, triphasic Superficial femoral artery (mid): 120.9 cm/s, triphasic Superficial femoral artery (distal): 91.9 cm/s, triphasic Proximal Popliteal artery: 59.2 cm/s, triphasic Mid posterior tibial artery: 68.6 cm/s, triphasic The aorta is normal. The measurements of the aorta in maximum AP and transverse dimensions respectively are as follows: Proximal: 2.3 cm. Mid: 2.1 cm. Distal: 1.5 cm. PSV: 9.1 cm/s. The measurements of the common iliac arteries in maximum AP and TRV dimensions are as follows: Right Common Iliac Artery: 0.86 cm. Left Common Iliac Artery: 0.7 cm. US/US arterial duplex BI w/ JOSE LUIS IMPRESSION: 1. No abdominal aortic aneurysm. 2. Normal bilateral ankle brachial indices. 3. Minimal atherosclerosis in the left lower extremity causing at most mild stenosis of the left SFA by velocity criteria.
== END 2024-05-07 10:16 | disposition home or self-care (01) ==
LOC: HO.US 10:15
PROVIDERS: Visit Provider Surgery Vascular Surgery
DX: I73.9 Peripheral vascular disease, unspecified (principal)
CPT/HCPCS: 76706; 93922; 93925

== ENCOUNTER 2024-05-12 11:06 | Outpatient (AMB) | payer MEDICARE, SELFPAY ==
--- NOTE | 2024-05-12 11:04 | MHC.OFFVIS ---
Vital Signs 05/12/24 11:09 Height 5 ft Weight 176 lb BMI 34.4 BP 130/70 Blood Pressure Location Rt brachial Position Sitting Intake Visit Reasons: 6 m follow up arterial US Intake Note: Chika is a 84 year old female who presents to the office today for a 6 month follow up arterial US. Pt states both of her legs are painful all the time. Pt denies any swelling in her legs or feet. Pt states the right leg hurts worse than the left. Pt states she gets numbness in her legs at nightime which wakes her up. Accompanied by: Grand Child Allergies codeine Allergy (Mild, Verified 05/12/24 11:05) Itching HPI HPI 6 m follow up arterial US: Details: Very pleasant 84-year-old female presents for follow-up regarding peripheral vascular disease. She had common iliac plasty back in 2022. She reports that she is doing fairly well. She does have pain which is typically more so in the knee and notes from a sitting position. She is able to ambulate fairly well with the use of walker. Also of note all her abdominal discomfort has resolved. She now presents for routine follow-up with noninvasive testing. [facility] Medical History S/P angiogram of extremity (07/17/23) COPD (chronic obstructive pulmonary disease) Hypertension TONI (acute kidney injury) Diverticulitis DVT (deep venous thrombosis) Surgical History History of appendectomy Social History Patient Tobacco Use Status: Former Tobacco user Review of Systems Const All systems reviewed & are unremarkable except as noted in HPI and below Reports no additional complaints ENT Reports Normal hearing present Card Denies chest pain, Denies chest pain at rest, Denies chest pain with activity and Denies pedal edema Resp Denies cough GI Denies abdominal pain Musc Denies abnormal gait, Denies muscle cramps and Denies radiating pain into limb Skin/Breast Denies skin ulcer and Denies wounds Neuro Reports Normal hearing present and Denies abnormal gait Psych Reports no additional complaints Physical Exam Vital Signs: Last Vital Signs BP 130/70 05/12/24 11:09 BMI result Body Mass Index 34.4 Const General: cooperative, healthy appearing and comfortable Orientation/consciousness: oriented to person, oriented to place and oriented to time HEENT Head: Yes normal to inspection Neck Neck: Yes normal visual inspection Carotids: no bruits Chest Chest palpation & inspection: normal inspection of the chest Resp Effort & Inspection: normal respiratory effort and able to speak in complete sentences Auscultation: clear to auscultation bilaterally, no crackles, no rales, no rhonchi and no wheezes Cardio Other: Faintly palpable dorsalis pedis pulses bilaterally Rate: regular rate Rhythm: regular rhythm Heart sounds: S1 normal heart sound present and S2 normal heart sound present Bruits: no carotid bruits Peripheral pulses: Peripheral pulses 2+ throughout GI Inspection: Yes normal to inspection Skin Wounds: no wounds Hair: normal Neuro General: oriented to person, oriented to place and oriented to time Cranial nerves: Yes CN's II-XII intact bilaterally and Yes Normal hearing present Cognition (Neuro): normal cognition Motor exam (neuro): 5/5 motor strength present throughout Extrem Other: venous exam: No significant superficial varicosities or spider telangiectasias, minimal edema General: No clubbing, No cyanosis and No edema Psych Appearance: grossly normal Mental Status: mental status grossly normal Speech and movement: Normal speech and movement present Results Reviewed Results Reviewed: Noninvasive arterial testing demonstrates JOSE LUIS on the right of 1.05 and on the left of 0.97 Assessment & Plan Assessment & Plan (1) PAD (peripheral artery disease): Comment: 07/17/2023 - left common iliac plasty Code(s): I73.9 - Peripheral vascular disease, unspecified Category: Medical Plan: In short patient is doing well from a peripheral vascular standpoint. Arterial testing is within normal limits. She will be scheduled for routine annual surveillance regarding this. Noninvasive testing was discussed with the family. In addition we did discuss risk factor modification. I do feel that some of her pain is more arthritic in nature as it does occur on direct palpation the knee and pretibial surface. Should pain persist may benefit from a pain management and or orthopedic evaluation. Once again she will follow up with us on an annual basis for noninvasive arterial testing. 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 Orders: Orders US arterial duplex LE BI 1 Year I73.9 - Peripheral vascular disease, unspecified US abdominal aortic aneurysm 1 Year I73.9 - Peripheral vascular disease, unspecified Coding Level of Care Code Est Pt Level 4 (81457) Diagnoses PAD (peripheral artery disease) I73.9 Mesenteric ischemia due to arterial insufficiency K55.1
[2024-05-12 11:09] VITALS: BP 130/70; BMI 34.4
== END 2024-05-12 11:28 | disposition home or self-care (01) ==
PROVIDERS: PCP Nurse Practitioner Family; Visit Provider Surgery Vascular Surgery
DX: I73.9 Peripheral vascular disease, unspecified (principal); K55.1 Chronic vascular disorders of intestine
CPT/HCPCS: 99214

== ENCOUNTER → 2024-05-12 11:06 | Outpatient (BNVA) | payer MEDICARE, SELFPAY | PROVIDERS: PCP Nurse Practitioner Family; Visit Provider Surgery Vascular Surgery | DX: I73.9 Peripheral vascular disease, unspecified (principal); K55.1 Chronic vascular disorders of intestine | CPT/HCPCS: 99212 ==

== ENCOUNTER 2025-02-02 09:16 | Outpatient (REF) | payer MEDICARE, SELFPAY ==
--- NOTE | ~2025-02-02 | US_ITS ---
EXAMINATION: Noninvasive assessment of the bilateral lower extremities with ARTERIAL DUPLEX, ANKLE BRACHIAL INDICES (ABIs), and PULSE VOLUME RECORDINGS (PVRs). ULTRASOUND ABDOMINAL AORTA AND ILIAC ARTERIES. CLINICAL INFORMATION: Peripheral vascular disease. Angioplasty, left iliac artery: 2022. TECHNIQUE: Duplex Doppler techniques with waveform analysis and measurement of velocities in the bilateral common femoral, profunda femoris, superficial femoral, popliteal and tibial arteries were performed. Additionally, ankle pulse volume recordings, ankle pressure measurements and ankle brachial indices were obtained of the lower extremity arterial system bilaterally. The study was performed only at rest. Spectral Doppler ultrasound of the abdominal aorta and iliac arteries. COMPARISON: May 07, 2024 FINDINGS: DIRECT DUPLEX DOPPLER FINDINGS: RIGHT LEG: Common femoral artery: 113 cm/s, phasicity: Triphasic. Profunda femoris artery: 70 cm/s, phasicity: Biphasic. Superficial femoral artery (proximal): 84 cm/s, phasicity: Triphasic. Superficial femoral artery (mid): 74 cm/s, phasicity: Triphasic. Superficial femoral artery (distal): 63 cm/s, phasicity: Biphasic. Popliteal artery: 46 cm/s, phasicity: Biphasic. Posterior tibial artery: 72 cm/s, phasicity: Biphasic. Peroneal artery: 74 cm/s, phasicity: Biphasic. Anterior tibial artery: 27 cm/s, phasicity: Biphasic. Dorsalis pedis artery: 24 cm/s, phasicity:Biphasic. LEFT LEG: Common femoral artery: 96 cm/s, phasicity: Triphasic. Profunda femoris artery: 57 cm/s, phasicity: Monophasic. Superficial femoral artery (proximal): 71 cm/s, phasicity: Biphasic. Superficial femoral artery (mid): 136 cm/s, phasicity: Triphasic. Superficial femoral artery (distal): 62 cm/s, phasicity: Biphasic. Popliteal artery: 76 cm/s, phasicity: Biphasic. Posterior tibial artery: 44 cm/s, phasicity: Biphasic. Peroneal artery: No flow on color Doppler. Anterior tibial artery: 68 cm/s, phasicity: Biphasic. Dorsalis pedis artery: 51 cm/s, phasicity: Biphasic. BRACHIAL PRESSURES: Right: 168 Left: 169 ANKLE PRESSURES: Right: PT 152, DP 144 Left: PT 149, DP 125 ANKLE-BRACHIAL INDEX: Right: 0.9 Left: 0.88. ANKLE PVR WAVEFORMS: Right: Abnormal Left: Abnormal ABDOMINAL AORTA: Proximal segment, 44 cm/s and 2.5 cm in maximum diameter. Midsegment: 34 cm/s and 2.2 cm in maximum diameter. Distal segment,: 42 cm/s and 2.0 cm in maximum diameter. RIGHT ILIAC ARTERY: Common iliac artery: 37 cm/s. External iliac artery: 71 cm/s. LEFT ILIAC ARTERY: Common iliac artery: 80 cm/s. External iliac artery: 33 cm/s. US/US arterial duplex BI w/ JOSE LUIS IMPRESSION: Right leg: Moderate inflow disease involving mostly below the knee to the ankle. Left leg: Moderate inflow disease throughout the interrogated arteries. No aneurysm or dissection, abdominal aorta. JOSE LUIS Reference: - >1.4 = calcified vessels - 0.9 - 1.4 = normal - no significant arterial disease - 0.7 - 0.89 = mild peripheral arterial disease - 0.51 - 0.69 = moderate peripheral arterial disease - d 0.50 = severe peripheral arterial disease - < .30 = critical arterial disease Electronically signed by: Ish Guajardo MD 02/04/2025 12:42 PM EDT
--- OUTSIDE RECORDS SUMMARY | 2025-02-02 10:05 | XMS_ITS | Encounter Summary ---
Author Organization [facility], Address [address] [place] [address] Phone Care Team Providers Care Client Account Manager Name Role Phone Isi Royal NP Primary Care Provider [phone] Encounter Details Date Type Department Care Team (Late st Contact Info) Description 05/23/2023 Documentation Only [facility], - [address] [place] [address] Diego Fisher MD [address] [facility] [place] [phone] Social History Tobacco Use Types Packs/Day Years Used Date Smoking Tobacco: Former Cigarettes Alcohol Use Standard Drinks/Week Comments Not Currently 0 (1 standard drink = 0.6 oz pur e alcohol) Comments Unknown Sex and Gender Information Value Date Recorded Sex Assigned at Not on file Legal Sex Female 9:43 AM EST Gender Identity Not on file Sexual Orientation Not on file Occupation Industry Job Start Date Job End Date Retired Not on file Not on file Not on file documented as of this encounter Plan of Treatment Not on file documented as of this encounter Visit Diagnoses Not on filedocumented in this encounter Care Teams Client Account Manager Relationship Specialty Start Date End Date Isi Royal NP [address] [place] [phone] PCP - General Nurse Practitioner 05/23/23 documented as of this encounter
--- OUTSIDE RECORDS SUMMARY | 2025-02-02 10:05 | XMS_ITS | Encounter Summary ---
Author Organization [facility], Address [address] [place] [address] Phone Care Team Providers Care Master Ocean Name Role Phone Isi Royal NP Primary Care Provider [phone] Encounter Details Date Type Department Care Team (Late st Contact Info) Description 05/23/2023 Documentation Only [facility], - [address] [place] [phone] Diego Fisher MD [address] [facility] [place] [phone] Social History Tobacco Use Types Packs/Day Years [...] on filedocumented in this encounter Care Teams Master Ocean Relationship Specialty Start Date End Date Isi Royal NP [address] [place] [phone] PCP - General Nurse Practitioner 05/23/23 documented as of this encounter
--- OUTSIDE RECORDS SUMMARY | 2025-02-02 10:05 | XMS_ITS | Encounter Summary ---
Author Organization [facility], Address [address] [place] [address] Phone Care Team Providers Care Machine Molder Name Role Phone Isi Royal NP Primary Care Provider Encounter Details Date Type Department Care Team (Late st Contact Info) Description 05/23/2023 Documentation Only [facility], - [address] [place] [phone] Diego Fisher MD [address] [facility] [place] [phone] Social History Tobacco Use Types Packs/Day Years [...] on filedocumented in this encounter Care Teams Machine Molder Relationship Specialty Start Date End Date Isi Royal NP [address] [place] [phone] PCP - General Nurse Practitioner 05/23/23 documented as of this encounter
--- OUTSIDE RECORDS SUMMARY | 2025-02-02 10:05 | XMS_ITS | Encounter Summary ---
Author Organization [facility], Address [address] [place] [address] Phone Care Team Providers Care Aerospace Stress Engineer Name Role Phone Isi Royal NP Primary Care Provider [phone] Encounter Details Date Type Department Care Team (Late st Contact Info) Description 05/23/2023 Documentation Only [facility], - [address] [place] [phone] Diego Fisher MD [address] [facility] [place] [phone] Social History Tobacco Use Types Packs/Day Years [...] on filedocumented in this encounter Care Teams Aerospace Stress Engineer Relationship Specialty Start Date End Date Isi Royal NP [address] [place] [phone] PCP - General Nurse Practitioner 05/23/23 documented as of this encounter
--- OUTSIDE RECORDS SUMMARY | 2025-02-02 10:05 | XMS_ITS | Encounter Summary ---
Author Organization [facility], Address [address] [place] [address] Phone Care Team Providers Care Automatic Die Cutting Machine Operator Name Role Phone Isi Royal NP Primary Care Provider [phone] Encounter Details Date Type Department Care Team (Late st Contact Info) Description 05/23/2023 Documentation Only [facility], - [address] [place] [phone] Diego Fisher MD [address] [facility] [place] [phone] Social History Tobacco Use Types Packs/Day Years [...] on filedocumented in this encounter Care Teams Automatic Die Cutting Machine Operator Relationship Specialty Start Date End Date Isi Royal NP [address] [place] [phone] PCP - General Nurse Practitioner 05/23/23 documented as of this encounter
--- OUTSIDE RECORDS SUMMARY | 2025-02-02 10:05 | XMS_ITS | Encounter Summary ---
Author Organization [facility], Address [address] [place] [address] Phone Care Team Providers Care Cylinder Loader Name Role Phone Isi Royal NP Primary Care Provider Encounter Details Date Type Department Care Team (Late st Contact Info) Description 05/23/2023 Documentation Only [facility], - [address] [place] [phone] Diego Fisher MD [address] [facility] [place] [phone] Social History Tobacco Use Types Packs/Day Years [...] on filedocumented in this encounter Care Teams Cylinder Loader Relationship Specialty Start Date End Date Isi Royal NP [address] [place] [phone] PCP - General Nurse Practitioner 05/23/23 documented as of this encounter
--- OUTSIDE RECORDS SUMMARY | 2025-02-02 10:05 | XMS_ITS | Encounter Summary ---
Author Organization [facility], Address [address] [place] [address] Phone Care Team Providers Care Senior Web Engineer Name Role Phone Isi Royal NP Primary Care Provider [phone] Encounter Details Date Type Department Care Team (Late st Contact Info) Description 05/23/2023 Documentation Only [facility], - [address] [place] [phone] Diego Fisher MD [address] [facility] [place] [phone] Social History Tobacco Use Types Packs/Day Years [...] on filedocumented in this encounter Care Teams Senior Web Engineer Relationship Specialty Start Date End Date Isi Royal NP [address] [place] [address] PCP - General Nurse Practitioner 05/23/23 documented as of this encounter
--- OUTSIDE RECORDS SUMMARY | 2025-02-02 10:05 | XMS_ITS ---
Author Organization [facility] on Care Team Providers Care Fire Safety Inspector Name Role Phone Sherrie Negro Unavailable Unavailable , Bria Unavailable Unavailable Tanya, Freeman Unavailable Unavailable Kelly, Courtney Unavailable Unavailable Allergies and adverse reactions Code CodeSystem Substance Reaction Severity StartDate Concern Status 2670 RXNORM Codeine Unknown 10/02/2019 active Care Team Name Role Address Phone Organization Dates Freeman Martínez PCP [address] [place] [address], [address], [facility] (Office): : [facility] 10/02/2019 - 10/08/2019 Sherrie Negro Attending Physician [address] [place] [address], [facility] (Office): [facility] 10/02/2019 - 10/08/2019 Bria Alfaro Attending Physician [address] [place] [address], [address], [facility] (Office): [facility] 10/02/2019 - 10/08/2019 Courtney Mendoza Attending Physician [address] [place] [address], [address], [facility] (Office): : [facility] 10/02/2019 - 10/08/2019 Immunizations Immunization Status Vaccine Details Vaccine Code CodeSystem Chapin e Notes TB 2 Step Mantoux Skin Test completed tuberculin skin test; unspecified formulation lotNumber: [id number] expiry: 02/25/2022 Mfg: [employer] Given 0.1 ml Left Forearm intradermally Step 1 of Multi-step 98 CVX created date: 10/04/2019 consent date: 10/03/2019 administere d date: 10/04/2019 Mental Status Section Date Assessment Total Score Description 10/07/2019 CAM 0 No delirium ind icated Problems Problem # Description Date of onset Resolved Date Code CodeSystem Concern Status 1 CALCULUS OF BILE DUCT WITH ACUTE CHOLECYSTITIS WITHOUT OBSTRUCTION 10/02/[address] active 2 ENCOUNTER FOR SURGICAL AFTERCARE FOLLOWING SURGERY ON THE DIGESTIVE SYSTEM 10/02/[address] active 3 HYPOTHYROIDISM, UNSPECIFIED 10/02/[address] active 4 PERIPHERAL VASCULAR DISEASE, UNSPECIFIED 10/02/[address] active 5 SEPSIS DUE TO ESCHERICHIA COLI [E. COLI] 10/02/[address] active 6 TYPE 2 DIABETES MELLITUS WITHOUT COMPLICATIONS 10/02/[address] active Reason for Referral No Reasons for Referral Entered Social History Social History Observation Description Start Date End Date Code Code System Current Smoking Status Tobacco smoking consumption unknown 040287738 SNOMED CT Sex Assigned At Female 1940 28148-2 [facility] Vital Signs Code Code System Vitals Name Values and Units Timing Information 31216-7 [facility] Pain Level Value=0.0 10/08/2019 9279-1 LOINC Respiratory Rate Value=17.0 Units=/m in 10/08/2019 8310-5 LOINC Body Temperature Value=98.7 Units=?? F 10/08/2019 14873-0 INC O2 % BldC Oximetry Value=95.0 Units= % 10/08/2019 8462-4 LOINC Blood Pressure-Diastolic Value=74 Un its=mmHg 10/08/2019 8480-6 LOINC Blood Pressure-Systolic Btipi=988 Un its=mmHg 10/08/2019 8867-4 LOINC Heart rate Value=96.0 Units=/min 11/2019 2339-0 LOINC Blood Sugar Value=92.0 Units=mg/dL 10/07/2019 88117-1 LOINC Weight Jgluy=982.0 Units=Lbs 8302-2 LOINC Height Value=60.0 Units=Inches 10/02/2019
--- OUTSIDE RECORDS SUMMARY | 2025-02-02 10:05 | XMS_ITS | Encounter Summary ---
Author Organization [facility], Address [address] [place] [address] Phone Care Team Providers Care Hedis Review Nurse Name Role Phone Isi Royal NP Primary Care Provider [phone] Encounter Details Date Type Department Care Team (Late st Contact Info) Description 05/30/2023 Documentation Only [facility], - [address] [place] [phone] Diego Fisher MD [address] [facility] [place] [phone] Social History Tobacco Use Types Packs/Day Years [...] on filedocumented in this encounter Care Teams Hedis Review Nurse Relationship Specialty Start Date End Date Isi Royal NP [address] [place] [phone] PCP - General Nurse Practitioner 05/23/23 documented as of this encounter
--- OUTSIDE RECORDS SUMMARY | 2025-02-02 10:05 | XMS_ITS | Encounter Summary ---
Author Organization [facility], Address [address] [place] [address] Phone Care Team Providers Care Case Management Associate Name Role Phone Isi Royal NP Primary Care Provider [phone] Encounter Details Date Type Department Care Team (Late st Contact Info) Description 05/23/2023 Documentation Only [facility], - [address] [place] [phone] Diego Fisher MD [address] [facility] [place] [phone] Social History Tobacco Use Types Packs/Day Years [...] on filedocumented in this encounter Care Teams Case Management Associate Relationship Specialty Start Date End Date Isi Royal NP [address] [place] [phone] PCP - General Nurse Practitioner 05/23/23 documented as of this encounter
--- OUTSIDE RECORDS SUMMARY | 2025-02-02 10:05 | XMS_ITS | Encounter Summary ---
Author Organization [facility], Address [address] [place] [address] Phone Care Team Providers Care Consulting Software Engineer Name Role Phone Isi Royal AWNING HANGER HELPER Primary Care Provider [phone] Encounter Details Date Type Department Care Team (Late st Contact Info) Description 11/02/2022 Documentation Only [facility], - [address] [place] [phone] Courtney Judge NP [address] [place] [address] Social History Tobacco Use Types Packs/Day Years Used Date Smoking Tobacco: Never Assessed Comments Unknown Sex and Gender Information Value Date Recorded Sex Assigned at Not on file Legal Sex Female 9:43 AM EST Gender Identity Not on file Sexual Orientation Not on file documented as of this encounter Plan of Treatment Not on file documented as of this encounter Visit Diagnoses Not on filedocumented in this encounter Care Teams Consulting Software Engineer Relationship Specialty Start Date End Date Isi Royal NP [address] [place] [address] PCP - General Nurse Practitioner 05/23/23 documented as of this encounter
--- OUTSIDE RECORDS SUMMARY | 2025-02-02 10:05 | XMS_ITS | Encounter Summary ---
Author Organization [facility], Address [address] [place] [address] Phone Care Team Providers Care Oracle Data Warehouse Developer Name Role Phone Isi Royal NP Primary Care Provider [phone] Encounter Details Date Type Department Care Team (Late st Contact Info) Description 05/23/2023 Documentation Only [facility], - [address] [place] [address] Diego Fisher MD [address] [facility] [place] [phone] Social History Tobacco Use Types Packs/Day Years [...] on filedocumented in this encounter Care Teams Oracle Data Warehouse Developer Relationship Specialty Start Date End Date Isi Royal NP [address] [place] [phone] PCP - General Nurse Practitioner 05/23/23 documented as of this encounter
--- OUTSIDE RECORDS SUMMARY | 2025-02-02 10:05 | XMS_ITS | Clinical Summary ---
Author Organization [facility], Address [address] [place] [address] Phone Care Team Providers Care Solid Fiber Paster Operator Name Role Phone Isi Royal NP Primary Care Provider Allergies Active Allergy Reactions Criticality Noted Date Comments Codeine 06/02/2018 Medications acetaminophen (Tylenol) 325 MG tablet Take 650 mg by mouth 10/02/2019 Active amLODIPine (NORVASC) 5 MG tablet Take 5 mg by mouth in the morning. 07/04/2022 Active aspirin 81 MG chewable tablet Chew 81 mg in the morning. Active atorvastatin (LIPITOR) 80 MG tablet Take 80 mg by mouth in the morning. Active cholecalciferol (VITAMIN D-3 SUPER STRENGTH) 50 MCG (2000 UT) tablet Take 1,000 Units by mouth in the morning. Active gabapentin (NEURONTIN) 600 MG tablet Take 600 mg by mouth in the morning. Active levothyroxine (SYNTHROID, LEVOTHROID) 100 MCG tablet Take 100 mcg by mouth every morning 06/05/2019 Active losartan (COZAAR) 100 MG tablet Take 100 mg by mouth in the morning. 05/22/2022 Active metFORMIN (GLUCOPHAGE) 500 MG tablet Take 500 mg by mouth in the morning and 500 mg in the evening. 12/06/2016 Active ondansetron (ZOFRAN) 4 MG tablet Take 4 mg by mouth Active pantoprazole (PROTONIX) 40 MG EC tablet 07/30/2022 Active senna (SENOKOT) 8.6 MG tablet Take 1 tablet by mouth in the morning. Active traMADol (ULTRAM) 50 MG tablet Take 50 mg by mouth every 6 (six) hours if needed 07/23/2022 Active Multiple Vitamin (MULTIVITAMIN PO) Take by mouth 10/02/2019 Active gabapentin (NEURONTIN) 300 MG capsule Take 600 mg by mouth every night 04/29/2023 Active Melatonin 5 MG tablet TAKE 1-2 TABLETS BY MOUTH AT BEDTIME FOR SLEEP 03/28/2023 Active Active Problems Problem Noted Date Diagnosed Date Renal disorder due to type 2 diabetes mellitus 0 05/23/2023 Essential hypertension 12/21/2022 Overview (12/21/2022): Last Assessment & Plan: Controlled --Continue losartan and amlodipine Hyperlipidemia 12/21/2022 Disorder of nervous system due to type 2 diabete s mellitus 12/21/2022 Overview (12/21/2022): Last Assessment & Plan: Sugars have been stable. Metformin is on hold. Diet will be advanced today. -monitor on SSI only for now, titrate as needed Peripheral neuropathy 12/21/2022 Stage 3b chronic kidney disease 12/21/2022 Type 2 diabetes mellitus without complication Hypokalemia 06/04/2019 Overview (12/21/2022): Last Assessment & Plan: Replace K, check Mag Acquired hypothyroidism 06/02/2018 Overview (12/21/2022): Last Assessment & Plan: Continue her usual dose lthyroxine. Iron deficiency anemia 06/02/2018 Overview (12/21/2022): Last Assessment & Plan: Etiology for her FE deficient anemia is unclear. Possibly of about 6 months duration given that is the duration of her fatigue and decreased activity level. Upper endoscopy was negative by Dr. Thorpe. Colonoscopy planned for tomorrow Immunizations Immunization Administration Dates Next Due H1N1 Inj 10/06/2009 Influenza Split High Dose Pr eservative Free IM 07/23/2020,07/06/2019,07/11/2015 Influenza TIV (IM) 06/13/2012, 1,07/05/2010,06/14 Influenza, Unspecified 07/01/2008,2006,09/03/2006,09/06,10/04/2004,07/26/2003,09/11/2000 Moderna SARS-COV-2 12/15/2020,11/17/2020 PPD Test 10/04/2019,10/03/2019 Pneumococcal Polysaccharide 09/16/2007 Td, Not Adsorbed 10/07/2006 Family History Medical History Relation Comments Hypertension Father Diabetes Sister Relation Status Comments Father Sister Social History Tobacco Use Types Packs/Day Years Used Date Smoking Tobacco: Former Cigarettes Tobacco Cessation:Counseling Given: Not Answered Alcohol Use Standard Drinks/Week Comments Not Currently [...] file Not on file Not on file Plan of Treatment Health Maintenance Due Date Last Done Comments Pneumococcal Vaccine: 50+ Years (2 of 2 - PCV) 09/16/2008 09/16/2007 Diabetes: Hemoglobin A1C 10/29/2022 Diabetes: Ophthalmology Exam 10/29/2022 Diabetes: Pedal Pulse Checked 10/29/2022 Diabetes: Sensory Foot Exam 10/29/2022 Diabetes: Visual Foot Exam 10/29/2022 Influenza Vaccine (Season Ended) 2025 07/23/2020, 07/06/2019, 07/11/2015, Additional history exists Hepatitis B Vaccine Aged Out No longe r eligible based on patient's age to complete this topic Insurance [facility] Care Teams Solid Fiber Paster Operator Relationship Specialty Start Date End Date Isi Royal NP [address] [place] [address] PCP - General Nurse Practitioner 05/23/23
--- OUTSIDE RECORDS SUMMARY | 2025-02-02 10:05 | XMS_ITS | Encounter Summary ---
Author Organization [facility], Address [address] [place] [address] Phone Care Team Providers Care Manager Of Community Relations Name Role Phone Isi Royal NP Primary Care Provider [phone] Encounter Details Date Type Department Care Team (Late st Contact Info) Description 05/23/2023 Documentation Only [facility], - [address] [place] [phone] Diego Fisher MD [address] [facility] [place] [phone] Social History Tobacco Use Types Packs/Day Years [...] on filedocumented in this encounter Care Teams Manager Of Community Relations Relationship Specialty Start Date End Date Isi Royal NP [address] [place] [phone] PCP - General Nurse Practitioner 05/23/23 documented as of this encounter
--- OUTSIDE RECORDS SUMMARY | 2025-02-02 10:05 | XMS_ITS | Encounter Summary ---
Author Organization [facility], Address [address] [place] [address] Phone Care Team Providers Care Field Examiner Name Role Phone Isi Royal NP Primary Care Provider [phone] Encounter Details Date Type Department Care Team (Late st Contact Info) Description 05/23/2023 Documentation Only [facility], - [address] [place] [phone] Diego Fisher MD [address] [facility] [place] [phone] Social History Tobacco Use Types Packs/Day Years [...] on filedocumented in this encounter Care Teams Field Examiner Relationship Specialty Start Date End Date Isi Royal NP [address] [place] [phone] PCP - General Nurse Practitioner 05/23/23 documented as of this encounter
--- OUTSIDE RECORDS SUMMARY | 2025-02-02 10:05 | XMS_ITS | Encounter Summary ---
Author Organization [facility], Address [address] [place] [address] Phone Care Team Providers Care Marketing Intelligence Analyst Name Role Phone Isi Royal NP Primary Care Provider [phone] Encounter Details Date Type Department Care Team (Late st Contact Info) Description 05/23/2023 Documentation Only [facility], - [address] [place] [phone] Diego Fisher MD [address] [place] [phone] Social History Tobacco Use Types Packs/Day Years [...] on filedocumented in this encounter Care Teams Marketing Intelligence Analyst Relationship Specialty Start Date End Date Isi Royal NP [address] [place] [phone] PCP - General Nurse Practitioner 05/23/23 documented as of this encounter
== END 2025-02-02 09:17 | disposition home or self-care (01) ==
LOC: HO.US 09:16
PROVIDERS: PCP Nurse Practitioner; Visit Provider Surgery Vascular Surgery
DX: I73.9 Peripheral vascular disease, unspecified (principal); Z98.62 Peripheral vascular angioplasty status
CPT/HCPCS: 76706; 93922; 93925

== ENCOUNTER → 2025-02-02 09:18 | Outpatient (BNV) | payer MEDICARE, SELFPAY | PROVIDERS: PCP Nurse Practitioner; Visit Provider Radiology Diagnostic Radiology | DX: I73.9 Peripheral vascular disease, unspecified (principal); Z13.6 Encounter for screening for cardiovascular disorders | CPT/HCPCS: 76706; 93922; 93925 ==

== ENCOUNTER 2025-02-11 12:54 | Outpatient (AMB) | payer MEDICARE, SELFPAY ==
--- NOTE | 2025-02-11 13:00 | A.OFFVIS_ITS ---
Vital Signs 02/11/25 13:01 Height 5 ft Weight 176 lb BMI 34.4 Intake Visit Reasons: follow up s/p AAA/Arterial US Intake Note: follow up Abd/ARterial US 02/02/25 . PT states bilateral LE pain, Right LE worse than Left LE w/ numbness during the night. Motorcycle Engine Assembler Required: No Accompanied by: Family/Other Allergies codeine Allergy (Mild, Verified 02/11/25 13:06) Itching HPI HPI follow up s/p AAA/Arterial US: Details: The patient is an 84-year-old female presenting with routine surveillance follow-up for bilateral leg pain and restless leg symptoms following an iliac stent placement on July 17, 2023. The right leg experiences more pronounced symptoms, with the patient describing ongoing involuntary movements indicating Restless Leg Syndrome, significantly affecting her nocturnal routine and overall sleep quality. She reports enduring bilateral leg soreness exacerbating upon walking, with the greatest discomfort during nighttime hours. Gabapentin usage, at a dose of 350 mg taken throughout the night, provides minimal relief to her leg symptoms. The patient highlights a persistent painful lump upon the foot's surface, identified through the conversation as a bone spur, contributing to additional discomfort. Despite being free of recent falls, her mobility is hindered, and she opts against using an assistive device like a walker, despite finding brief walks such as from a car to a store challenging due to leg soreness. The patient's medical records do not indicate recent neurological or podiatric consultations regarding these conditions. [facility] Medical History S/P angiogram of extremity (07/17/23) COPD (chronic obstructive pulmonary disease) Hypertension TONI (acute kidney injury) Diverticulitis DVT (deep venous thrombosis) Surgical History History of appendectomy Social History Patient Tobacco Use Status: Former Tobacco user Review of Systems Const All systems reviewed & are unremarkable except as noted in HPI and below Reports no additional complaints ENT Reports Normal hearing present Card Denies chest pain, Denies chest pain at rest, Denies chest pain with activity and Denies pedal edema Resp Denies cough GI Denies abdominal pain Musc Denies abnormal gait, Denies muscle cramps and Denies radiating pain into limb Skin/Breast Denies skin ulcer and Denies wounds Neuro Reports Normal hearing present and Denies abnormal gait Psych Reports no additional complaints Physical Exam Vital Signs: BMI result Body Mass Index 34.4 Const General: cooperative, healthy appearing and comfortable Orientation/consciousness: oriented to person, oriented to place and oriented to time HEENT Head: Yes normal to inspection Neck Neck: Yes normal visual inspection Carotids: no bruits Chest Chest palpation & inspection: normal inspection of the chest Resp Effort & Inspection: normal respiratory effort and able to speak in complete sentences Auscultation: clear to auscultation bilaterally, no crackles, no rales, no rhonchi and no wheezes Cardio Rate: regular rate Rhythm: regular rhythm Heart sounds: S1 normal heart sound present and S2 normal heart sound present Bruits: no carotid bruits Peripheral pulses: Peripheral pulses 2+ throughout GI Inspection: Yes normal to inspection Skin Wounds: no wounds Hair: normal Neuro General: oriented to person, oriented to place and oriented to time Cranial nerves: Yes CN's II-XII intact bilaterally and Yes Normal hearing present Cognition (Neuro): normal cognition Motor exam (neuro): 5/5 motor strength present throughout Extrem Other: venous exam: No significant superficial varicosities or spider telangiectasias, minimal edema General: No clubbing, No cyanosis and No edema Psych Appearance: grossly normal Mental Status: mental status grossly normal Speech and movement: Normal speech and movement present Results Reviewed Results Reviewed: Noninvasive testing dated 02/02/2025 demonstrates JOSE LUIS on the right of 0.9 and on the left of 0.88 written report and images were reviewed. Assessment & Plan Assessment & Plan (1) PAD (peripheral artery disease): Comment: 07/17/2023 - left common iliac plasty Code(s): I73.9 - Peripheral vascular disease, unspecified Category: Medical Plan: In short patient has stable claudication. I did review the pathophysiology of peripheral vascular disease with the patient. In addition we did discuss routine conservative measures including a healthy diet and the importance of exercise and ambulation. We did discuss risk factor modification. The patient will continue to to follow-up with surveillance follow-up in approximately 1 year. Thank you for allowing us to participate in this patient's care. If there are any questions or concerns please do not hesitate to contact us. (2) Restless leg: Code(s): G25.81 - Restless legs syndrome Category: Medical Plan: She has increasing requirements of gabapentin. Family reports generalized spasms. May benefit from neurological evaluation. (3) Bone spur of foot: Code(s): M77.50 - Other enthesopathy of unspecified foot and ankle Category: Medical Plan: Bone spur was identified on physical exam. She may benefit from a podiatric evaluation with possible shoe inserts. This was discussed with the patient as well. Thank you for allowing us to assist in her care. Orders: Orders US arterial duplex LE BI 1 Year I73.9 - Peripheral vascular disease, unspecified Coding Level of Care Code Est Pt Level 4 (53666) Complex EM visit Add On G2211 Diagnoses PAD (peripheral artery disease) I73.9 Restless leg G25.81 Bone spur of foot M77.50
[2025-02-11 13:01] VITALS: BMI 34.4
--- OUTSIDE RECORDS SUMMARY | 2025-02-11 14:02 | XMS_ITS | Encounter Summary ---
Author Organization [facility], Address [address] [place] [address] Phone Care Team Providers Care Chute Loader Name Role Phone Isi Royal NP Primary Care Provider [phone] Encounter Details Date Type Department Care Team (Late st Contact Info) Description 05/30/2023 Documentation Only [facility], - [address] [place] [phone] Diego Fisher MD [address] [facility] [address] [place] [phone] Social History Tobacco Use Types Packs/Day Years [...] on filedocumented in this encounter Care Teams Chute Loader Relationship Specialty Start Date End Date Isi Royal NP [address] [place] [phone] PCP - General Nurse Practitioner 05/23/23 documented as of this encounter
--- OUTSIDE RECORDS SUMMARY | 2025-02-11 14:02 | XMS_ITS | Encounter Summary ---
Author Organization [facility], Address [address] [place] [address] Phone Care Team Providers Care Tape Maker Name Role Phone Isi Royal NP Primary Care Provider [phone] Encounter Details Date Type Department Care Team (Late st Contact Info) Description 05/23/2023 Documentation Only [facility], - [address] [place] [phone] Diego Fisher MD [address] [facility] [place] [phone] Social History Tobacco Use Types Packs/Day Years [...] on filedocumented in this encounter Care Teams Tape Maker Relationship Specialty Start Date End Date Isi Royal NP [address] [place] [phone] PCP - General Nurse Practitioner 05/23/23 documented as of this encounter
--- OUTSIDE RECORDS SUMMARY | 2025-02-11 14:02 | XMS_ITS | Encounter Summary ---
Author Organization [facility], Address [address] [place] [address] Phone Care Team Providers Care Scaler Packer Name Role Phone Isi Royal NP Primary Care Provider [phone] Encounter Details Date Type Department Care Team (Late st Contact Info) Description 05/23/2023 Documentation Only [facility], - [address] [place] [phone] Diego Fisher MD [address] [facility] [place] [phone] Social History Tobacco Use Types Packs/Day Years [...] on filedocumented in this encounter Care Teams Scaler Packer Relationship Specialty Start Date End Date Isi Royal NP [address] [place] [phone] PCP - General Nurse Practitioner 05/23/23 documented as of this encounter
--- OUTSIDE RECORDS SUMMARY | 2025-02-11 14:02 | XMS_ITS | Encounter Summary ---
Author Organization [facility], Address [address] [place] [address] Phone Care Team Providers Care Right Of Way Manager Name Role Phone Isi Royal NP Primary Care Provider [phone] Encounter Details Date Type Department Care Team (Late st Contact Info) Description 05/23/2023 Documentation Only [facility], - [address] [place] [phone] Diego Fisher MD [address] [facility] [address] [place] [phone] Social History Tobacco Use Types Packs/Day Years [...] on filedocumented in this encounter Care Teams Right Of Way Manager Relationship Specialty Start Date End Date Isi Royal NP [address] [place] [phone] PCP - General Nurse Practitioner 05/23/23 documented as of this encounter
--- OUTSIDE RECORDS SUMMARY | 2025-02-11 14:02 | XMS_ITS | Encounter Summary ---
Author Organization [facility], Address [address] [place] [address] Phone Care Team Providers Care Supervisor Machine Setter Name Role Phone Isi Royal NP Primary Care Provider [phone] Encounter Details Date Type Department Care Team (Late st Contact Info) Description 05/23/2023 Documentation Only [facility], - [address] [place] [phone] Diego Fisher MD [address] [facility] [place] [phone] Social History Tobacco Use Types Packs/Day Years [...] on filedocumented in this encounter Care Teams Supervisor Machine Setter Relationship Specialty Start Date End Date Isi Royal NP [address] [place] [phone] PCP - General Nurse Practitioner 05/23/23 documented as of this encounter
--- OUTSIDE RECORDS SUMMARY | 2025-02-11 14:02 | XMS_ITS | Encounter Summary ---
Author Organization [facility], Address [address] [place] [address] Phone Care Team Providers Care Nuclear Fuels Research Engineer Name Role Phone Isi Royal NP Primary Care Provider [phone] Encounter Details Date Type Department Care Team (Late st Contact Info) Description 05/23/2023 Documentation Only [facility], - [address] [place] [phone] Diego Fisher MD [address] [facility] [place] [phone] Social History Tobacco Use Types Packs/Day Years [...] on filedocumented in this encounter Care Teams Nuclear Fuels Research Engineer Relationship Specialty Start Date End Date Isi Royal NP [address] [place] [phone] PCP - General Nurse Practitioner 05/23/23 documented as of this encounter
--- OUTSIDE RECORDS SUMMARY | 2025-02-11 14:02 | XMS_ITS | Encounter Summary ---
Author Organization [facility], Address [address] [place] [address] Phone Care Team Providers Care Bus Person Name Role Phone Isi Royal VOICE COACH Primary Care Provider [phone] Encounter Details Date Type Department Care Team (Late st Contact Info) Description 11/02/2022 Documentation Only [facility], - [address] [place] [phone] Courtney Judge NP [address] [place] [address] Social History Tobacco Use Types Packs/Day Years [...] on filedocumented in this encounter Care Teams Bus Person Relationship Specialty Start Date End Date Isi Royal NP [address] [place] [address] PCP - General Nurse Practitioner 05/23/23 documented as of this encounter
--- OUTSIDE RECORDS SUMMARY | 2025-02-11 14:02 | XMS_ITS | Encounter Summary ---
Author Organization [facility], Address [address] [place] [address] Phone Care Team Providers Care License Examiner Name Role Phone Isi Royal NP Primary Care Provider [phone] Encounter Details Date Type Department Care Team (Late st Contact Info) Description 05/23/2023 Documentation Only [facility], - [address] [place] [phone] Diego Fisher MD [address] [facility] [place] [phone] Social History Tobacco Use Types Packs/Day Years [...] on filedocumented in this encounter Care Teams License Examiner Relationship Specialty Start Date End Date Isi Royal NP [address] [place] [phone] PCP - General Nurse Practitioner 05/23/23 documented as of this encounter
--- OUTSIDE RECORDS SUMMARY | 2025-02-11 14:02 | XMS_ITS | Encounter Summary ---
Author Organization [facility], Address [address] [place] [address] Phone Care Team Providers Care Home Health Care Coordinator Name Role Phone Isi Royal NP Primary Care Provider Encounter Details Date Type Department Care Team (Late st Contact Info) Description 05/23/2023 Documentation Only [facility], - [address] [place] [phone] Diego Fisher MD [address] [facility] [place] [phone] Social History Tobacco Use Types Packs/Day Years [...] on filedocumented in this encounter Care Teams Home Health Care Coordinator Relationship Specialty Start Date End Date Isi Royal NP [address] [place] [phone] PCP - General Nurse Practitioner 05/23/23 documented as of this encounter
--- OUTSIDE RECORDS SUMMARY | 2025-02-11 14:02 | XMS_ITS | Encounter Summary ---
Author Organization [facility], Address [address] [place] [address] Phone Care Team Providers Care It Security Manager Name Role Phone Isi Royal NP Primary Care Provider [phone] Encounter Details Date Type Department Care Team (Late st Contact Info) Description 05/23/2023 Documentation Only [facility], - [address] [place] [phone] Diego Fisher MD [address] [facility] [place] [phone] Social History Tobacco Use Types Packs/Day Years [...] on filedocumented in this encounter Care Teams It Security Manager Relationship Specialty Start Date End Date Isi Royal NP [address] [place] [phone] PCP - General Nurse Practitioner 05/23/23 documented as of this encounter
--- OUTSIDE RECORDS SUMMARY | 2025-02-11 14:02 | XMS_ITS | Encounter Summary ---
Author Organization [facility], Address [address] [place] [address] Phone Care Team Providers Care Order Packer Name Role Phone Isi Royal NP Primary Care Provider [phone] Encounter Details Date Type Department Care Team (Late st Contact Info) Description 05/23/2023 Documentation Only [facility], - [address] [place] [phone] Diego Fisher MD [address] [facility] [place] [phone] Social History Tobacco Use Types Packs/Day Years [...] on filedocumented in this encounter Care Teams Order Packer Relationship Specialty Start Date End Date Isi Royal NP [address] [place] [phone] PCP - General Nurse Practitioner 05/23/23 documented as of this encounter
--- OUTSIDE RECORDS SUMMARY | 2025-02-11 14:02 | XMS_ITS | Encounter Summary ---
Author Organization [facility], Address [address] [place] [address] Phone Care Team Providers Care Pole Tester Name Role Phone Isi Royal NP Primary Care Provider [phone] Encounter Details Date Type Department Care Team (Late st Contact Info) Description 05/23/2023 Documentation Only [facility], - [address] [place] [phone] Diego Fisher MD [address] [facility] [place] [phone] Social History Tobacco Use Types Packs/Day Years [...] on filedocumented in this encounter Care Teams Pole Tester Relationship Specialty Start Date End Date Isi Royal NP [address] [place] [phone] PCP - General Nurse Practitioner 05/23/23 documented as of this encounter
--- OUTSIDE RECORDS SUMMARY | 2025-02-11 14:02 | XMS_ITS | Clinical Summary ---
Author Organization [facility], Address [address] [place] [address] Phone Care Team Providers Care Core Feeder Name Role Phone Isi Royal NP Primary Care Provider [phone] Allergies Active Allergy Reactions Criticality Noted Date [...] patient's age to complete this topic Insurance [facility] Care Teams Core Feeder Relationship Specialty Start Date End Date Isi Royal NP [address] [place] [address] PCP - General Nurse Practitioner 05/23/23
--- OUTSIDE RECORDS SUMMARY | 2025-02-11 14:02 | XMS_ITS | Encounter Summary ---
Author Organization [facility], Address [address] [place] [address] Phone Care Team Providers Care Cancer Center Director Name Role Phone Isi Royal NP Primary Care Provider [phone] Encounter Details Date Type Department Care Team (Late st Contact Info) Description 05/23/2023 Documentation Only [facility], - [address] [place] [phone] Diego Fisher MD [address] [facility] [place] [phone] Social History Tobacco Use Types Packs/Day Years [...] on filedocumented in this encounter Care Teams Cancer Center Director Relationship Specialty Start Date End Date Isi Royal NP [address] [place] [phone] PCP - General Nurse Practitioner 05/23/23 documented as of this encounter
--- OUTSIDE RECORDS SUMMARY | 2025-02-11 14:02 | XMS_ITS | Encounter Summary ---
Author Organization [facility], Address [address] [place] [address] Phone Care Team Providers Care Taste Tester Name Role Phone Isi Royal NP Primary Care Provider [phone] Encounter Details Date Type Department Care Team (Late st Contact Info) Description 05/23/2023 Documentation Only [facility], - [address] [place] [phone] Diego Fisher MD [address] [facility] [place] [phone] Social History Tobacco Use Types Packs/Day Years [...] on filedocumented in this encounter Care Teams Taste Tester Relationship Specialty Start Date End Date Isi Royal NP [address] [place] [phone] PCP - General Nurse Practitioner 05/23/23 documented as of this encounter
== END 2025-02-11 13:30 | disposition home or self-care (01) ==
LOC: HO.HVS 12:55
PROVIDERS: PCP Nurse Practitioner; Visit Provider Surgery Vascular Surgery
DX: I73.9 Peripheral vascular disease, unspecified (principal); G25.81 Restless legs syndrome; M77.50 Other enthesopathy of unspecified foot and ankle
CPT/HCPCS: 99214; G2211

== ENCOUNTER → 2025-02-11 12:54 | Outpatient (BNVA) | payer MEDICARE, SELFPAY | PROVIDERS: PCP Nurse Practitioner; Visit Provider Surgery Vascular Surgery | DX: I73.9 Peripheral vascular disease, unspecified (principal); G25.81 Restless legs syndrome; M77.50 Other enthesopathy of unspecified foot and ankle | CPT/HCPCS: 99212 ==

== ENCOUNTER 2025-07-20 13:10 | Outpatient (AMB) | payer MEDICARE, SELFPAY ==
--- OUTSIDE RECORDS SUMMARY | 2025-05-23 12:17 | XMS_ITS | Encounter Summary ---
Author Organization [facility] Address [address] [facility] [address] [place] [address] Phone Care Team Providers Care Director Pharmacovigilance Name Role Phone LeeRaul DO Unavailable Karely Cabrera PA-C Unavailable [phone] Raul Howard DO Unavailable Courtney Judge HAND MARKER Primary Care Provider [phone] Encounter Details Date Type Department Care Team (Late st Contact Info) Description 05/23/2025 12:17 PM EDT Hospital Encounter [facility], Emergency - [facility] [address] [place] [address] Wilton Strickland MD [address] [place] [address], [address] [place] [address] [email or web address] Social History Tobacco Use Types Packs/Day Years [...] got money to buy more. Never True 07/02/2025 Within the past 6 months the food we bought just didn't last and we didn't have enough money to get more. Never True Residential Stability Answer Date Recor ded What is your housing situation today? I have vamshi sing 07/02/2025 How many times have you move d in the past 12 months? Zero (I did not move) 07/02/2025 Paying for Meds Answer Date Recorded Do you have trouble paying for medicines? No 07/02/2025 Paying Utility Bills Answer Date Record ed Do you have trouble paying your heating or elect ricity bill? No 07/02/2025 Transportation Answer Date Recorded Has the lack of transportati on kept you from medical appointments or from getting medications? No 07/02/2025 Digital Access Answer Date Recorded No 07/02/2025 Yes 07/02/2025 Do you have reliable internet access at home? Ye s 07/02/2025 Do you have a device (e.g., phone, tablet, computer) with a working camera? Yes 07/02/2025 Intimate Partner Violence Answer Date R ecorded Are you denied basic needs s uch as food, clothing, or medical care? No 07/02/2025 In the past 12 months have y ou been in a relationship with a person who hurts, threatens, or tries to control you? No 07/02/2025 Are you denied basic needs s uch as food, clothing, or medical care? No 07/02/2025 In the past 12 months have y ou been in a relationship with a person who hurts, threatens, or tries to control you? No 07/02/2025 Comments No Sex and Gender Information Value Date Recorded Sex Assigned at Female 06/02/2018 5:26 PM EDT Legal Sex Female 10:11 PM EDT Gender Identity Female 06/02/2018 5:26 PM EDT Sexual Orientation Straight 06/02/2018 5: 26 PM EDT documented as of this encounter Functional Status * Calculated C-SSRS Risk Score (Lifetime/Recent) Answer Date of Assessment Author No Risk Indicated 07/02/2025 10:37 AM EDT Rosalva Her RN * [place] Suicide Severity Rating Scale (Screener/Recent Self-Report) Question Answer Date of Assessment Author 1. Wish to be (Past 1 Month) No 025 10:37 AM EDT Rosalva Tyson RN 2. Non-Specific Active Suici fariba Thoughts (Past 1 Month) No 07/02/2025 10:37 AM EDT Jona Tyson RN 6. Suicidal Behavior (Lifetime) No 10:37 AM EDT Rosalva Tyson RN documented as of this encounter Plan of Treatment Upcoming Encounters Date Type Department Care Team (Late st Contact Info) Description 12/27/2025 2:30 PM EDT Office [place] [facility] [place], Allergy and Critical Care Medicine [address] [place] [address] Juan Ventura MD [address] [place] [phone] [email or web address] 02/24/2026 8:30 AM EDT Office Visit [facility] Neurology [address] [place] [address] Rafael España MD [address] [place] [phone] documented as of this encounter Procedures Procedure [...] clinician's provided indication for this examination in [facility]: Outside Radiology Order; Foreign Body COMPARISON: 04/23/2025, [...] foot, initial encounter documented in this encounter Care Teams Director Pharmacovigilance Relationship Specialty Start Date End Date Courtney Judge NP [address] [place] [address] PCP - General Nurse Practitioner 07/09/24 Raul Howard DO [address] [place] [address] [email or web address] Primary Oncologist Hematology and Oncology 07/28/18 Karely Cabrera PA-C [address] [place] [address] [email or web address] Physician Incident Engineer Hematology 10/18/20 Raul Howard DO [address] [place] [address] [email or web address] Primary Oncologist Hematology and Oncology 07/31/22 documented as of this encounter Additional Source Comments The information contained in this document represents components of the legal health record. It is not the complete legal health record.[facility]
--- OUTSIDE RECORDS SUMMARY | 2025-07-07 10:00 | XMS_ITS | Encounter Summary ---
Author Organization [facility] Address [address] [place] [address] Phone Care Team Providers Care Loss Prevention Investigator Name Role Phone LeeRaul DO Unavailable Karely Cabrera PA-C Unavailable Raul Howard DO Unavailable [phone] Courtney Judge ELASTIC ATTACHER OVERLOCK Primary Care Provider [phone] Reason for Visit * Auth/Cert (Routine) Specialty Diagnoses / Procedures Referred By Boni t Referred To Contact Referral ID Status Reason Start Date Expiration Date Visits Re quested Visits Authorized [id number] 1 1 Encounter Details Date Type Department Care Team (Late st Contact Info) Description 07/07/2025 10:00 AM EDT Home Care Visit [facility] [address] [place], [place] [phone] Nancy Carmona RN [address] [place], [place] [phone] SN OASIS DISCHARGE VISIT Social History Tobacco Use Types Packs/Day Years Used Date Smoking Tobacco: Former Cigarettes 1 15 2 - 2016 Smokeless Tobacco: Never Alcohol Use [...] PM EDT documented as of this encounter Last Filed Vital Signs Vital Sign Reading Time Taken Comments Blood Pressure 110/70 07/07/2025 2:00 PM EDT Pulse 60 07/07/2025 2:00 PM EDT Temperature 36.3 C (97.4 F) 07/07/2025 2:00 PM EDT Respiratory Rate 16 07/07/2025 2:00 PM EDT Oxygen Saturation 98% 07/07/2025 2:00 PM EDT Inhaled Oxygen Concentration - - Weight - - Height - - Body Mass Index - - documented in this encounter Plan of Treatment Upcoming Encounters Date Type Department Care Team (Late st Contact Info) Description 12/27/2025 2:30 PM EDT Office Visit [facility], Allergy and Critical Care Medicine [address] [place] [phone] Juan Ventura MD [address] [place] [phone] [email or web address] 02/24/2026 8:30 AM EDT Office Visit [facility] Neurology [address] [place] [address] Rafael España MD [address] [place] [address] documented as of this encounter Visit Diagnoses Not on filedocumented in this encounter Home Health Visit - Care Plan Visit Details Visit Type -SN OASIS DISCHAR GE VISIT Discipline -Fdc Problems Problem Description Start Date Status Goals Interve ntions HH - Medication Management Disciplines: All Active Home Health Disciplines 05/21/2025 Active 1 goal linked to scheduled/document ed intervention 2 goal interventions scheduled/document ed in this visit HH - Focus of Care and Teaching Disciplines: All Active Home Health Disciplines w/RD 05/21/2025 Active 1 goal linked to scheduled/document ed intervention 1 goal intervention scheduled/document ed in this visit HH - Standard of Care Disciplines: All Active Home Health Disciplines 05/21/2025 Active 1 goal linked to scheduled/document ed intervention 2 goal interventions scheduled/document ed in this visit Goals Goal Associated Problem Outcome Goal Met? Visit Notes HH - Safe medication management, avoid unnecessary harm related to medication errors and/or interactions HH - Medication Management No HH - Communication and collaboration to achieve patient goals HH - Focus of Care and Teaching No HH - Achieve care management for a safe to home/community discharge from homecare HH - Standard of Care No Interventions Intervention Associated Problem/Goal Status Variance Visit Notes HH - I/E medication management: administration, purpose, dosages, preparation, setup, scheduling, side effects, food/drug interactions, and potential complications as indicated Description: Update patient's copy of medication list as needed. Problem: - Medication Management Goal:HH - Safe medication management, avoid unnecessary harm related to medication errors and/or interactions Completed - Complete medication review every visit and medication reconciliation as indicated. Pharmacy information: Problem: - Medication Management Goal:HH - Safe medication management, avoid unnecessary harm related to medication errors and/or interactions Completed - Focus of care, teaching completed and plan for next visit Problem: - Focus of Care and Teaching Goal:HH - Communication and collaboration to achieve patient goals Completed Primary Clinical Focus this Visit & Instruction Provided: Patient was seen today for a discharge visit, vital signs remained stable. Patient has maxed out goals and has had no falls since being on services. PCP updated on discharge. Instruction Provided to: patient and caregiver Response to Instruction/Teachin g: Is partially able to teach back topics as evidenced by verbalizing understanding. Plan for Next Visit Specific Focus & Education Needed: Patient is discharged from homecare services. New Orders: None Updated Discharge Plan: Patient is discharged. HH - Assess vital signs, pulse oximetry, pain, and as indicated, orthostatic vital signs Description: use agency-specific parameters Problem:HH - Standard of Care Goal:HH - Achieve care management for a safe to home/community discharge from homecare Completed HH - Assess skin integrity Problem: - Standard of Care Goal:HH - Achieve care management for a safe to home/community discharge from homecare Completed documented in this encounter Care Teams Loss Prevention Investigator Relationship Specialty Start Date End Date Alfie Courtney TAHIRA Winn [address] [place] [address] PCP - General Nurse Practitioner 07/09/24 Raul Howard DO [address] [place] [address] [email or web address] Primary Oncologist Hematology and Oncology 07/28/18 Karely Cabrera PA-C [address] [place] [address] [email or web address] Physician Laminating Machine Offbearer Hematology 10/18/20 Raul Howard DO [address] [place] [address] [email or web address] Primary Oncologist Hematology and Oncology 07/31/22 documented as of this encounter Additional Source Comments The information contained in this document represents components of the legal health record. It is not the complete legal health record.[facility]
[2025-07-20 13:29] VITALS: BMI 34.4
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
--- OUTSIDE RECORDS SUMMARY | 2025-07-20 15:55 | XMS_ITS | Clinical Summary ---
Author Organization [facility], Address [address] [place] [address] [place] [address] Phone Care Team Providers Care Internet Marketing Assistant Name Role Phone Courtney Judge FIELD HORTICULTURAL SPECIALTY GROWER Primary Care Provider [phone] Allergies Active Allergy Reactions Criticality Noted Date Comments Aspirin Other (see comments) 12/11/2024 Other Reaction(s): Not available Codeine 06/02/2018 Medications acetaminophen (Tylenol) 325 MG [...] Problems Problem Noted Date Diagnosed Date Renal mass 05/03/2025 Proteinuria 04/22/2025 Renal artery stenosis 03/22/2025 Kidney lesion 03/22/2025 Iron deficiency 03/06/2024 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 Thorpe. Colonoscopy planned for tomorrow Encounters Date Type Department Care Team Description 05/03/2025 2:15 PM EDT Office Visit [facility] [address] [place] [address] Diego Fisher MD Stage 3b chronic kidney disease (HCC) (Primary Dx); Essential hypertension; Renal mass 04/22/2025 Documentation Only [facility] [address] [place] [address] Hamida Fuetnes from Last 3 Months Immunizations Immunization Administration Dates Next Due H1N1 Inj 10/06/2009 Influenza (IM) Preservative Free 07/14/2013 Influenza Split High Dose Pr eservative Free IM 06/23/2024,07/23/2020,07/06/2019,06/27,06/11/2017,06/26/2016,07/11/2015 ,07/17/2014 Influenza TIV (IM) 06/13/2012, 1,07/05/2010,06/14 Influenza, Unspecified 07/01/2008,2006,09/03/2006,09/06,10/04/2004,07/26/2003,09/11/2000 Moderna SARS-COV-2 12/15/2020,11/17/2020 PPD Test 10/04/2019,10/03/2019 Pfizer SARS-COV-2 09/15/2021 Pneumococcal Conjugate 13-Valent 11/18/2014 Pneumococcal Polysaccharide 05/08/2022, 7 Td 09/26/2016 Td, Not Adsorbed 10/07/2006 Tuberculin Skin Test; Unspec ified Formulation 10/03/2019 Family History Medical History Relation Comments Hypertension [...] file Not on file Plan of Treatment Upcoming Encounters Date Type Department Care Team (Late st Contact Info) Description 08/30/2025 2:00 PM EST Office Visit [facility], [facility] [address] [place] [phone] Diego Fisher MD [address] [place] [phone] Health Maintenance Due Date Last Done Comments Diabetes: Hemoglobin A1C 10/29/2022 Diabetes: Ophthalmology Exam 10/29/2022 Diabetes: Pedal Pulse Checked 10/29/2022 Diabetes: Sensory Foot Exam 10/29/2022 Diabetes: Visual Foot Exam 10/29/2022 Influenza Vaccine (#1) 2025 , 07/23/2020, 07/06/2019, Additional history exists Pneumococcal Vaccine: 50+ Years Completed 05/08/2022, 11/18/2014, 09/16/2007 Hepatitis B Vaccine Aged Out No longe r eligible based on patient's age to complete this topic Insurance [facility] Care Teams Internet Marketing Assistant Relationship Specialty Start Date End Date Courtney Judge NP [address] [place] [phone] PCP - General 05/03/25
--- OUTSIDE RECORDS SUMMARY | 2025-07-20 15:55 | XMS_ITS | Encounter Summary ---
Author Organization [facility], Address [address] [place] [address] Phone Care Team Providers Care Pocket Stitcher Name Role Phone Courtney Judge POWERHOUSE TENDER Primary Care Provider [phone] Encounter Details Date Type Department Care Team (Late Contact Info) Description 05/23/2023 Documentation Only [facility] [place] [address] [place] [address] Diego Fisher MD [address] [place] [address] [place] [address] Social History Tobacco Use Types Packs/Day Years [...] Visit [facility] [place] [address] [place] [address] Diego Fisher MD [address] [place] [address] [place] [address] documented as of this encounter Visit Diagnoses Not on filedocumented in this encounter Care Teams Pocket Stitcher Relationship Specialty Start Date End Date Courtney Judge NP [address] [place] [phone] PCP - General 05/03/25 documented as of this encounter
--- OUTSIDE RECORDS SUMMARY | 2025-07-20 15:55 | XMS_ITS | Encounter Summary ---
Author Organization [facility] Address [address] [place] [address] Phone Care Team Providers Care Exerciser Horse Name Role Phone LeeRaul DO Unavailable Karely Cabrera PA-C Unavailable [phone] Raul Howard DO Unavailable Courtney Judge ASSEMBLER ADJUSTER Primary Care Provider [phone] Encounter Details Date Type Department Care Team (Late st Contact Info) Description 05/03/2025 Procedure [facility] [address] [place] [address] Social History Tobacco Use Types Packs/Day Years Used Date Smoking Tobacco: Former Cigarettes 1 15 2 - 2016 Smokeless Tobacco: Never Alcohol Use Standard Drinks/Week Comments No 0 (1 standard drink = 0.6 oz pur e alcohol) Home Health Assessment: Transportation Answer Date Recorded Lack of Transportation (Medical) No 04/16/2023 Lack of Transportation (Non-Medical) No 04/16/2023 Patient Unable or Declines to Respond No 04/16/2023 Education Answer Date Recorded Are you interested in more education? Not on brnenen e 02/01/2023 Are you concerned about learning? Not on file 02/01/2023 No 02/01/2023 No 02/01/2023 Food Answer Date Recorded Within the past 6 months we worried whether our food would run out before we got money to buy more. Never True 04/25/2025 Within the past 6 months the food we bought just didn't last and we didn't have enough money to get more. Never True Residential Stability Answer Date Recor ded What is your housing situation today? I have vamshi sing 04/25/2025 How many times have you move d in the past 12 months? Zero (I did not move) 04/25/2025 Paying for Meds Answer Date Recorded Do you have trouble paying for medicines? No 04/25/2025 Paying Utility Bills Answer Date Record ed Do you have trouble paying your heating or elect ricity bill? No 04/25/2025 Transportation Answer Date Recorded Has the lack of transportati on kept you from medical appointments or from getting medications? No 04/25/2025 Digital Access Answer Date Recorded No 04/25/2025 Yes 04/25/2025 Do you have reliable internet access at home? Ye s 04/25/2025 Do you have a device (e.g., phone, tablet, computer) with a working camera? Yes 04/25/2025 Intimate Partner Violence Answer Date R ecorded Are you denied basic needs s uch as food, clothing, or medical care? No 04/28/2025 In the past 12 months have y ou been in a relationship with a person who hurts, threatens, or tries to control you? No 04/28/2025 Are you denied basic needs s uch as food, clothing, or medical care? No 04/28/2025 In the past 12 months have y ou been in a relationship with a person who hurts, threatens, or tries to control you? No 04/28/2025 Comments No Sex and Gender Information Value Date Recorded Sex Assigned at Female 06/02/2018 5:26 PM EDT Legal Sex Female 10:11 PM EDT Gender Identity Female 06/02/2018 5:26 PM EDT Sexual Orientation Straight 06/02/2018 5: 26 PM EDT documented as of this encounter Plan of Treatment Upcoming Encounters Date Type Department Care Team (Late st Contact Info) Description 12/27/2025 2:30 PM EDT Office Visit [facility], Allergy [facility] Critical Care Medicine [address] [place] [address] Juan Ventura MD [address] [address] [email or web address] 02/24/2026 8:30 AM EDT Office Visit [facility] Neurology [address] [place] [address] Rafael España MD [address] [place] [phone] [email or web address] documented as of this encounter Visit Diagnoses Not on filedocumented in this encounter Additional Health Concerns Infection Onset Date Last Indicated Resolved Time CoV-Risk 04/25/2025 04/25/2025 05/06/2025 1:21 AM EDT documented as of this encounter Care Teams Exerciser Horse Relationship Specialty Start Date End Date Courtney Judge NP [address] [place] [id number] PCP - General Nurse Practitioner 07/09/24 Raul Howard DO [address] [place] [address] [email or web address] Primary Oncologist Hematology and Oncology 07/28/18 Karely Cabrera PA-C [address] [place] [phone] [email or web address] Physician Senior Treasury Consultant Hematology 10/18/20 Raul Howard DO [address] [place] [address] [email or web address] Primary Oncologist Hematology and Oncology 07/31/22 documented as of this encounter Additional Source Comments The information contained in this document represents components of the legal health record. It is not the complete legal health record.[facility]
--- OUTSIDE RECORDS SUMMARY | 2025-07-20 15:55 | XMS_ITS | Encounter Summary ---
Author Organization [facility], Address [address] [place] [address] Phone Care Team Providers Care Cocoa Milling Machine Operator Name Role Phone Courtney Judge WOOL CLEANER Primary Care Provider [phone] Encounter Details Date Type Department Care Team (Late Contact Info) Description 05/30/2023 Documentation Only [facility] [address] [place] [address] Diego Fisher MD [address] [place] [address] [place] [address] Social History Tobacco Use Types [...] Visit [facility] [place] [address] [place] [address] Diego Fisher MD [address] [place] [address] [place] [address] documented as of this encounter Visit Diagnoses Not on filedocumented in this encounter Care Teams Cocoa Milling Machine Operator Relationship Specialty Start Date End Date Courtney Judge NP [address] [place] [id number] PCP - General 05/03/25 documented as of this encounter
--- OUTSIDE RECORDS SUMMARY | 2025-07-20 15:55 | XMS_ITS | Encounter Summary ---
Author Organization [facility], Address [address] [place] [address] Phone Care Team Providers Care Atomic Spectroscopist Name Role Phone Courtney Judge BINDER AND BOX BUILDER Primary Care Provider [phone] Encounter Details Date Type Department Care Team (Late Contact Info) Description 05/23/2023 Documentation Only [facility] [address] [place] [address] Diego Fisher MD [address] [place] [address] [place] [address] Social History Tobacco Use Types [...] Visit [facility] [place] [address] [place] [address] Diego Fisher MD [address] [place] [address] [place] [address] documented as of this encounter Visit Diagnoses Not on filedocumented in this encounter Care Teams Atomic Spectroscopist Relationship Specialty Start Date End Date Courtney Judge NP [address] [place] [phone] PCP - General 05/03/25 documented as of this encounter
--- OUTSIDE RECORDS SUMMARY | 2025-07-20 15:55 | XMS_ITS | Encounter Summary ---
Author Organization [facility] Address [address] [facility] [address] [place] [address] Phone Care Team Providers Care Packaging Associate Name Role Phone Isi Royal FRUIT LOADER MACHINE OPERATOR Primary Care Provider [phone] Raul Howard DO Unavailable [phone] Karely Cabrera PA-C Unavailable [phone] Raul Howard DO Unavailable [phone] Courtney Judge FRUIT LOADER MACHINE OPERATOR Primary Care Provider Encounter Details Date Type Department Care Team (Late st Contact Info) Description 05/26/2020 Procedure Pass [facility], Ct Scan - [facility] [address] [place], [place] [id number] Social History Tobacco Use Types Packs/Day Years Used Date Smoking Tobacco: Former Cigarettes 1 15 2 2016 Smokeless Tobacco: Never Alcohol Use Standard Drinks/Week Comments No 0 (1 standard drink = 0.6 oz pur e alcohol) Comments No Sex and Gender Information Value [...] Pulmonary, Allergy and Critical Care Medicine 10 [place] [address] Juan Ventura MD [address] [address] [email or web address] 02/24/2026 8:30 AM EDT Office Visit [facility] Neurology [address] [place] [address] Rafael España MD [address] [place] [address] [email or web address] documented as of this encounter Visit Diagnoses Not on filedocumented in this encounter Additional Health Concerns Infection Onset Date Last Indicated Resolved Time CoV-Risk 04/25/2025 04/25/2025 05/06/2025 1:21 AM EDT documented as of this encounter Care Teams Packaging Associate Relationship Specialty Start Date End Date Isi Royal NP 70 [place] [address] PCP - General Family Medicine 07/03/18 07/08/24 Courtney Judge NP 70 [place] [address] PCP - General Nurse Practitioner 07/09/24 Raul Howard DO 30 [place] [address] [email or web address] Primary Oncologist Hematology and Oncology 07/28/18 Karely Cabrera PA-C [address] [place] [address] [email or web address] Physician Business Development Sales Executive Hematology 10/18/20 Raul Howard DO [address] [place] [address] [email or web address] Primary Oncologist Hematology and Oncology 07/31/22 documented as of this encounter Additional Source Comments The information contained in this document represents components of the legal health record. It is not the complete legal health record.[facility]
--- OUTSIDE RECORDS SUMMARY | 2025-07-20 15:55 | XMS_ITS | Encounter Summary ---
Author Organization [facility] Address [address] [facility] [address] [place] [address] Phone Care Team Providers Care Critical Care Cns Name Role Phone Raul Howard DO Unavailable [phone] Karely Cabrera PA-C Unavailable [phone] Raul Howard DO Unavailable Courtney Judge ANIMAL REHABILITATOR Primary Care Provider [phone] Encounter Details Date Type Department Care Team (Late st Contact Info) Description 05/23/2025 Ancillary Orders [facility], X-Ray - [facility] 30 [place] [address] Avi Pagan MD [address] [place] [address] [email or web address] Foreign body in left foot, initial encounter (Primary Dx) Social History Tobacco Use Types Packs/Day Years Used Date Smoking Tobacco: Former Cigarettes 1 15 2 - 2016 Smokeless Tobacco: Never Alcohol Use Standard Drinks/Week Comments No 0 (1 standard drink = 0.6 oz pur e alcohol) Home Health Assessment: Transportation Answer Date Recorded Lack of Transportation (Medical) No 05/21/2025 Lack of Transportation (Non-Medical) No 05/21/2025 Patient Unable or Declines to Respond No 05/21/2025 Education Answer Date Recorded Are you interested [...] Pulmonary, Allergy and Critical Care Medicine 10 [place] [address] Juan Ventura MD [address] [address] [email or web address] 02/24/2026 8:30 AM EDT Office Visit [facility] Neurology [address] [place] [address] Rafael España MD [address] [place] [address] [email or web address] documented as of this encounter Visit Diagnoses Diagnosis Foreign body in left foot, initial encounter- Primary documented in this encounter Care Teams Critical Care Cns Relationship Specialty Start Date End Date Courtney Judge NP 70 [place] [address] PCP - General Nurse Practitioner 07/09/24 Raul Howard DO 30 [place] [address] [email or web address] Primary Oncologist Hematology and Oncology 07/28/18 Karely Cabrera PA-C 30 [place] [address] Physician Physical Therapist Aide Hematology 10/18/20 Raul Howard DO [address] [place] [address] [email or web address] Primary Oncologist Hematology and Oncology 07/31/22 documented as of this encounter Additional Source Comments The information contained in this document represents components of the legal health record. It is not the complete legal health record.[facility]
--- OUTSIDE RECORDS SUMMARY | 2025-07-20 15:55 | XMS_ITS | Encounter Summary ---
Author Organization [facility] Address [address] [facility] [address] [place] [address] Phone Care Team Providers Care Roller Gold Leaf Name Role Phone Ayad Vera MD Primary Care Provider [phone] Isi Royal BRAND COMMUNICATIONS MANAGER Primary Care Provider [phone] Raul Howard DO Unavailable Karely Cabrera PA-C Unavailable [phone] Raul Howard DO Unavailable [phone] Courtney Judge BRAND COMMUNICATIONS MANAGER Primary Care Provider Encounter Details Date Type Department Care Team (Late st Contact Info) Description 06/03/2018 Procedure Pass [facility] Endoscopy Admitting Dept Virtual Department 30 [place], [place] [id number] Social History Tobacco Use Types Packs/Day Years Used Date Smoking Tobacco: Never Smokeless Tobacco: Never Alcohol Use Standard Drinks/Week [...] Pulmonary, Allergy and Critical Care Medicine 10 [place] [address] Juan Ventura MD [address] [address] [email or web address] 02/24/2026 8:30 AM EDT Office Visit [facility] Neurology [address] [place] [address] Rafael España MD [address] [place] [address] [email or web address] documented as of this encounter Visit Diagnoses Not on filedocumented in this encounter Additional Health Concerns Infection Onset Date Last Indicated Resolved Time CoV-Risk 04/25/2025 04/25/2025 05/06/2025 1:21 AM EDT documented as of this encounter Care Teams Roller Gold Leaf Relationship Specialty Start Date End Date Ayad Vera MD 70 [place] [address] [email or web address] PCP - General 07/22/17 07/02/18 Isi Royal NP 70 [place] [address] PCP - General Family Medicine 07/03/18 07/08/24 Courtney Judge NP 70 [place] [address] PCP - General Nurse Practitioner 07/09/24 Raul Howard DO 30 [place] [address] [email or web address] Primary Oncologist Hematology and Oncology 07/28/18 Karely Cabrera PA-C 30 [place] [address] [email or web address] Physician Heel Lining Paster Hematology 10/18/20 Raul Howard DO 30 [place] [address] [email or web address] Primary Oncologist Hematology and Oncology 07/31/22 documented as of this encounter Additional Source Comments The information contained in this document represents components of the legal health record. It is not the complete legal health record.[facility]
--- OUTSIDE RECORDS SUMMARY | 2025-07-20 15:55 | XMS_ITS | Encounter Summary ---
Author Organization [facility], Address [address] [place] [address] Phone Care Team Providers Care Flask Handler Name Role Phone Courtney Judge GASOLINE CATALYST OPERATOR Primary Care Provider [phone] Encounter Details Date Type Department Care Team (Late Contact Info) Description 05/23/2023 Documentation Only [facility] David [address] [place] [address] Diego Fisher MD [address] [place] [address] [place] [address] Social History Tobacco Use Types [...] Visit [facility] REYNA [address] [place] [address] Diego Fisher MD [address] [place] [address] [place] [address] documented as of this encounter Visit Diagnoses Not on filedocumented in this encounter Care Teams Flask Handler Relationship Specialty Start Date End Date Courtney Judge NP [address] [place] [address] PCP - General 05/03/25 documented as of this encounter
--- OUTSIDE RECORDS SUMMARY | 2025-07-20 15:55 | XMS_ITS | Encounter Summary ---
Author Organization [facility], Address [address] [place] [address] Phone Care Team Providers Care Glass Artist Name Role Phone Courtney Judge MOLD PREPARER Primary Care Provider [phone] Encounter Details Date Type Department Care Team (Late Contact Info) Description 05/23/2023 Documentation Only [facility] David [address] [place] [address] Diego Fisher MD [address] [place] [address] [place] [address] Social History Tobacco Use Types [...] Visit [facility] REYNA [address] [place] [address] Diego Fisher MD [address] [place] [address] [place] [address] documented as of this encounter Visit Diagnoses Not on filedocumented in this encounter Care Teams Glass Artist Relationship Specialty Start Date End Date Courtney Judge NP [address] [place] [address] PCP - General 05/03/25 documented as of this encounter
--- OUTSIDE RECORDS SUMMARY | 2025-07-20 15:55 | XMS_ITS | Encounter Summary ---
Author Organization [facility], Address [address] [place] [address] Phone Care Team Providers Care Electrical Line Worker Name Role Phone Courtney Judge LIVESTOCK TRUCKER Primary Care Provider [phone] Encounter Details Date Type Department Care Team (Late Contact Info) Description 05/23/2023 Documentation Only [facility] David [address] [place] [address] Diego Fisher MD [address] [place] [address] [place] [address] Social History Tobacco Use Types [...] Visit [facility] REYNA [address] [place] [address] Diego Fisher MD [address] [place] [address] [place] [address] documented as of this encounter Visit Diagnoses Not on filedocumented in this encounter Care Teams Electrical Line Worker Relationship Specialty Start Date End Date Courtney Judge NP [address] [place] [address] PCP - General 05/03/25 documented as of this encounter
--- OUTSIDE RECORDS SUMMARY | 2025-07-20 15:55 | XMS_ITS | Encounter Summary ---
Author Organization [facility] Address [address] [facility] [address] [place] [address] Phone Care Team Providers Care Charging Manipulator Name Role Phone Raul Howard DO Unavailable Karely Cabrera PA-C Unavailable Raul Howard DO Unavailable Courtney Judge PIPEFITTER HELPER Primary Care Provider [phone] Encounter Details Date Type Department Care Team (Late st Contact Info) Description 05/23/2025 Ancillary Orders Virtual Department 30 [place] [address] Wilton Strickland MD [facility], [address] [place] [address] [email or web address] 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); Foreign body in left foot, initial encounter Social History Tobacco Use Types Packs/Day Years [...] [facility] Pulmonary, Allergy and Critical Care Medicine [address] [place] [address] Juan Ventura MD [address] [place] [address] [email or web address] 02/24/2026 8:30 AM EDT Office Visit [facility] Neurology [address] [place] [address] Rafael España MD [address] [place] [phone] [email or web address] documented as of this encounter Results * XR FOOT 3 [...] Diagnosis Neoplasm of uncertain behavior of right kidney- Primary Foreign body in left foot, initial encounter Neoplasm of uncertain behavior of right kidney Foreign body in left foot, initial encounter documented in this encounter Care Teams Charging Manipulator Relationship Specialty Start Date End Date Courtney Judge NP [address] [place] [address] [id number] PCP - General Nurse Practitioner 07/09/24 Raul Howard DO [address] [place] [address] [email or web address] Primary Oncologist Hematology and Oncology 07/28/18 Karely Cabrera PA-C [address] [place] [address] [email or web address] Physician Clam Grower Hematology 10/18/20 Raul Howard DO [address] [place] [address] [email or web address] Primary Oncologist Hematology and Oncology 07/31/22 documented as of this encounter Additional Source Comments The information contained in this document represents components of the legal health record. It is not the complete legal health record.[facility]
--- OUTSIDE RECORDS SUMMARY | 2025-07-20 15:55 | XMS_ITS | Encounter Summary ---
Author Organization [facility], Address [address] [place] [address] Phone Care Team Providers Care Scallop Shucker Name Role Phone Courtney Judge PYTHON PROGRAMMER Primary Care Provider [phone] Encounter Details Date Type Department Care Team (Late Contact Info) Description 05/23/2023 Documentation Only [facility] David [address] [place] [address] Diego Fisher MD [address] [place] [address] [place] [address] Social History Tobacco Use Types [...] Visit [facility] REYNA HARRINGTON [address] [place] [address] Diego Fisher MD [address] [place] [address] [place] [address] documented as of this encounter Visit Diagnoses Not on filedocumented in this encounter Care Teams Scallop Shucker Relationship Specialty Start Date End Date Courtney Judge NP [address] [place] [address] PCP - General 05/03/25 documented as of this encounter
--- OUTSIDE RECORDS SUMMARY | 2025-07-20 15:56 | XMS_ITS | Clinical Summary ---
Author Organization [facility] Address [address] [facility] [address] [place] [address] Phone Care Team Providers Care Corrections Cadet Name Role Phone LeeRaul DO Unavailable Karely Cabrera PA-C Unavailable Raul Howard DO Unavailable [phone] Courtney Judge COMMISSION SPECIALIST Primary Care Provider [phone] Allergies Active Allergy Reactions Criticality Noted Date Comments Aspirin Other (See Comments) 12/11/2024 Codeine 06/02/2018 Medications levothyroxine (SYNTHROID, LEVOTHROID) 100 MCG tablet Take 88 mcg by mouth every morning. take 2 on Tuesdays 5 Active gabapentin (NEURONTIN) 600 MG tablet Take 600 mg by mouth daily. Active amLODIPine (NORVASC) 5 MG tablet Take 2.5 mg by mouth daily. 2 Active albuterol 90 mcg/actuation inhaler Inhale 2 puffs into the lungs every 6 (six) hours as needed for wheezing. 6.7 g 06/14/202 3 Active OXYGEN-AIR DELIVERY SYSTEMS MISC 1-2 L/min by continuous inhalation route continuous. 2 LPM via NC with ambulation, 1 LPM via NC with rest At night or when feeling over-exerted 3 Active losartan (COZAAR) 100 MG tablet Take 1 tablet by mouth every morning. 3 Active umeclidinium-anastasiia anteroL (ANORO ELLIPTA) 62.5-25 mcg/actuation diskus inhalerIndicatio ns:Centrilobular emphysema [The details of the medication are not available because there are pending changes by a home health clinician.] 60 each 5 4 Active Additional Information Patient not taking.Reported on 05/21/2025 aspirin 81 MG EC tablet Take 81 mg by mouth daily. Active fluticasone propionate (FLONASE) 50 mcg/actuation nasal sprayIndications :Chronic respiratory failure with hypoxia,Centrilo bular emphysema SPRAY 1 SPRAY BY NASAL ROUTE EVERY DAY 48 mL 3 4 Active ipratropium-albu teroL (DUONEB) 0.5-3 mg (2.5 mg base)/3 mL nebulizer solution INHALE CONTENTS OF 1 VIAL VIA NEBULIZER FOUR TIMES A DAY Active omeprazole (PRILOSEC) 20 MG capsule TAKE 1 CAPSULE BY MOUTH EVERY DAY 30 MINUTES BEFORE MORNING MEAL 5 Active metFORMIN (GLUCOPHAGE) 500 MG tablet Take 500 mg by mouth daily. 5 Active Active Problems Patient Care Coordination No te Formatting of this note migh t be different from the original. Height 153.7cm no shoes on 08/05/19 CA Problem Noted Date Diagnosed Date Acute bronchitis 12/11/2024 Assessment & Plan (12/11/2024 10:31 AM EST): Presents with symptoms of a viral infection leading to acute bronchitis, characterized by wheezing and production of thick mucus. Likely exacerbated by underlying emphysema. No clinical evidence of pneumonia. - Prescribe prednisone 40 mg daily for 5 days - Prescribe azithromycin 500 mg daily for 3 days - Recommend retrying DuoNeb nebulizer as needed to help open airways, clear mucus, and help with dyspnea Centrilobular emphysema 05/16/2023 Assessment & Plan (12/11/2024 10:34 AM EST): Patient carries a chart diagnosis of COPD, however, this diagnosis is not supported based on prior lung function testing. She is a former smoker. PFTs from 06/2021 did not demonstrate airflow limitation or significant postbronchodilator change and were unremarkable aside from a moderately impaired diffusion capacity. CTPA from 03/2023 was negative for PE and demonstrated moderate apical predominant centrilobular emphysema. The isolated moderate diffusion impairment is likely predominantly secondary to known emphysema. She was treated empirically for COPD exacerbation during hospitalization in 03/2023 in the context of acute on chronic hypoxic respiratory failure. Her exertional shortness of breath could be secondary to known emphysema in addition to possible COPD. Previously, we discussed a trial of LABA/LAMA inhaler therapy to see if this could help her exertional dyspnea. PFTs from 05/2023 without airflow limitation (thus, she does not have COPD and rather, has isolated emphysema) and with a mild diffusion impairment. Thus, it is possible that she may not benefit from bronchodilator therapy. Previously, Anoro (LABA/LAMA) was prescribed but she did not tolerate this medication nor did it resulted in improvement of her dyspnea. Most recent PFTs from 11/12/2024 with interval normalization of diffusion capacity (patient carries a chart history of anemia, so I wonder whether she could have been anemic during prior testing since our PFT laboratory does not adjust for HGB level). Unclear present baseline of exertional dyspnea at present due to acute bronchitis, as above. Plan: - Encourage DuoNeb as needed - Albuterol as needed - Ordered PFTs + 6MWT (on room air) 12 months from prior (approximately 11/12/2025) Assessment & Plan (01/30/2024 2:37 PM EDT): Patient carries a chart diagnosis of COPD, however, this diagnosis is not supported based on prior lung function testing. She is a former smoker. PFTs from 06/2021 did not demonstrate airflow limitation or significant postbronchodilator change and were unremarkable aside from a moderately impaired diffusion capacity. CTPA from 03/2023 was negative for PE and demonstrated moderate apical predominant centrilobular emphysema. The isolated moderate diffusion impairment is likely predominantly secondary to known emphysema. She was treated empirically for COPD exacerbation during hospitalization in 03/2023 in the context of acute on chronic hypoxic respiratory failure. Her exertional shortness of breath could be secondary to known emphysema in addition to possible COPD. We again discussed a trial of LABA/LAMA inhaler therapy to see if this helps with her exertional dyspnea. Interval PFTs from 05/2023 without airflow limitation (thus, she does not have COPD and rather, has isolated emphysema) and with a mild diffusion impairment. Thus, it is possible that she may not benefit from bronchodilator therapy. However, is reasonable to try given her ongoing mild exertional shortness of breath. Plan: -Trial of Anoro (LABA/LAMA) -Albuterol as needed Assessment & Plan (05/16/2023 3:53 PM EDT): Patient carries a chart diagnosis of COPD, however, this diagnosis is not supported based on prior lung function testing. She is a former smoker. PFTs from 06/2021 did not demonstrate airflow limitation or significant postbronchodilator change and were unremarkable aside from a moderately impaired diffusion capacity. CTPA from 03/2023 was negative for PE and demonstrated moderate apical predominant centrilobular emphysema. The isolated moderate diffusion impairment is likely predominantly secondary to known emphysema. She was treated empirically for COPD exacerbation during hospitalization in 03/2023 in the context of acute on chronic hypoxic respiratory failure. It is certainly possible that the patient has developed overt obstructive physiology since her prior PFTs in 2020, so it would be prudent to obtain interval PFTs. She was previously prescribed an ICS inhaler but is currently not on any inhaler therapy. Her exertional shortness of breath could be secondary to known emphysema in addition to possible COPD. We discussed trial of LABA/LAMA inhaler therapy to see if this helps with her exertional dyspnea. -Start Anoro (LABA/LAMA)--patient was provided with a 2 week sample and was advised to call the office after about 1 week to let us know if it is helpful (if so, would prescribe Anoro) -Albuterol as needed -Obtain interval PFTs Abnormal chest CT 05/16/2023 Assessment & Plan (12/11/2024 10:04 AM EST): Chest CT from 03/19/2023 notable for mild posterior predominant reticular changes which could represent atelectasis versus early interstitial lung disease. This study was performed during a hospitalization in the context of presumed COPD exacerbation. HRCT chest performed 8 months later with similar minimal right lower lobe bronchiectasis with minimal right lower lobe subpleural reticulation and possible early honeycombing (versus known emphysematous changes). As before, findings could reflect early interstitial lung disease (though, the stability on imaging thus far is reassuring). Interval chest CT approximately 12 months from prior on 11/12/2024 without significant change from prior. PFTs from 11/12/2024 with stable mild restrictive ventilatory defect (and as above, interval normalization of diffusion capacity). - Follow PFTs 12 months from prior (approximately 11/12/2025) Assessment & Plan (01/30/2024 2:35 PM EDT): Chest CT from 03/19/2023 notable for mild posterior predominant reticular changes which could represent atelectasis versus early interstitial lung disease. This study was performed during a hospitalization in the context of presumed COPD exacerbation. HRCT chest performed 8 months later with similar minimal right lower lobe bronchiectasis with minimal right lower lobe subpleural reticulation and possible early honeycombing (versus known emphysematous changes). As before, findings could reflect early interstitial lung disease (though, the stability on imaging thus far is reassuring). -Obtain interval chest CT 12 months from prior (approximately 11/29/2024) -Obtain interval PFTs around the same time as next chest CT Assessment & Plan (05/16/2023 3:49 PM EDT): Chest CT from 03/19/2023 notable for mild posterior predominant reticular changes which could represent atelectasis versus early interstitial lung disease. This study was performed during a hospitalization in the context of presumed COPD exacerbation. We discussed obtaining an interval chest CT 6 months from prior to assess for any interval change. -Obtain chest CT 6 months from prior (approximately 09/18/2023) Chronic respiratory failure with hypoxia 023 Assessment & Plan (12/11/2024 10:34 AM EST): Secondary to emphysema and atelectasis versus mild early interstitial lung disease. Discharged from hospitalization in 03/2023 on 1 L/min oxygen with rest and 2 L/min with exertion--subsequently on 1-2 L/min with sleep and exertion, not requiring oxygen at rest. Goal SpO2 > 89% and < 96%. Presently, patient notes maintaining adequate oxygen saturations in 1 L/min when using supplemental oxygen. Assessment & Plan (01/30/2024 2:36 PM EDT): Secondary to emphysema and atelectasis versus mild early interstitial lung disease. Discharged from hospitalization in 03/2023 on 1 L/min oxygen with rest and 2 L/min with exertion--now currently on 1-2 L/min with sleep and exertion, not requiring oxygen at rest. Goal SpO2 > 90% and < 96%. Assessment & Plan (05/16/2023 3:52 PM EDT): Secondary to emphysema and atelectasis versus mild early interstitial lung disease. Discharged from hospitalization in 03/2023 on 1 L/min oxygen with rest and 2 L/min with exertion--now currently on 2 L/min with sleep and exertion. Goal SpO2 > 88% and < 96%. Left lower quadrant abdominal pain 03/16/2023 TONI (acute kidney injury) 03/14/2023 Assessment & Plan (03/19/2023 5:25 PM EDT): Resolved. Losartan held on admission - Renal function back to baseline with creatinine of 1.2 after IV fluid hydration digesting hypovolemia as etiology. History of chronic kidney disease, baseline creatinine 1.2. She is followed by Dr. Fisher of nephrology. -Continue to hold losartan, blood pressures are adequately controlled for the time being Will continue to monitor UTI (urinary tract infection) 03/14/2023 Assessment & Plan (03/18/2023 6:05 PM EDT): Symptoms are consistent with UTI she had several weeks ago, treated with ciprofloxacin. Culture data from previous infection is not available this evening, she was seen at [facility]. -Completed 5 days ceftriaxone for what appears to be an uncomplicated UTI. -Urine cx NGTD Renal cyst 03/14/2023 Assessment & Plan (03/19/2023 5:25 PM EDT): Noted to have multiple renal cysts on CT with signs of ruptured cyst on the left. Unclear if this contributed to her abdominal discomfort. No complaints of pain for 2 days. Will continue analgesia as needed. Upper GI bleed 10/07/2019 Assessment & Plan (10/09/2019 9:31 AM EST): Upper GI bleeding in the setting of running daily dual antiplatelet therapy and daily vomiting. She had an EGD on 10/08/2019 and was found to have angiodysplasia that was actively bleeding well as multiple duodenal ulcers . Recommendations following the EGD include a twice daily PPI. Status post 2 units of packed red blood cells on 10/08. He is having no melanotic stools at this time. She has been on aspirin and Plavix secondary to vascular stent in her right femoral artery that was placed in December 2016 for an acute arterial occlusion. Discuss the case with her vascular surgeon at [facility]. Continue to hold aspirin and Plavix for now. H. Pylori stool antigen is pending. -Continue IV PPI times the next 24 hours and then to oral -Continue to monitor CBC Chronic vomiting 10/07/2019 Assessment & Plan (10/09/2019 9:32 AM EST): It was presumed that the diagnosis was gastroparesis in the setting of no diabetes prior to admission although patient did not have a gastric emptying study. During this hospitalization her Zofran was exchanged for Reglan. -Advance diet as tolerated Septicemia due to Gram negative organism 019 Assessment & Plan (09/24/2019 8:27 AM EST): Patient's blood cultures now growing gram-negative rods. MRCP demonstrated choledocholithiasis. Sepsis most likely originating from the biliary tree. She is remained afebrile since admission. Her white count still remains elevated, currently at 18.6. Will continue Zosyn for now. 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 Carries diagnosis of COPD but is on no medications. Will simply monitor and provide updrafts if indicated Arterial thrombosis 06/05/2019 Hypokalemia 06/04/2019 Assessment & Plan (06/04/2019 3:30 PM EDT): Replace K, check Mag Choledocholithiasis with acute cholecystitis Assessment & Plan (09/24/2019 8:26 AM EST): MRCP documented choledocholithiasis. Some dilatation of the common duct. Most likely etiology of her symptoms and fever. Currently on Zosyn. Have consulted surgery Dr. Morillo, and GI . Patient will need ERCP Assessment & Plan (06/04/2019 3:13 PM EDT): Localized to the LUQ. CT scan with some sludge, but no signs of cholecystitis. No dilatation of the biliary tree. Abdominal ultrasound with cholelithiasis but no acute cholecystitis, no obstruction. No Huber sign no adri-cholestatic fluid. She had a capsule endoscopy on 08/15/2018 shows normal esophagus and stomach. Vascular ectasias with bleeding in the small bowel, proximal jejunum and duodenum. Pain symptoms persist, despite relief of constipation --GI follow-up appreciated. EGD may be considered given persistent pain symptoms despite relief of constipation. Will review with Dr. Del Cid --EGD to be considered to rule out peptic ulcer disease, but given increased O2 requirement will need to be considered CKD (chronic kidney disease), stage III 06/02/20 19 Iron deficiency anemia 06/02/2018 Assessment & Plan (06/03/2018 4:43 PM EDT): Etiology for her FE deficient anemia is unclear. Possibly of about 6 months duration given that is the duration of her fatigue and decreased activity level. Upper endoscopy was negative by Dr. Thorpe. Colonoscopy planned for tomorrow Acquired hypothyroidism 06/02/2018 Assessment & Plan (06/02/2018 10:28 PM EDT): Continue her usual dose lthyroxine. Essential hypertension Assessment & Plan (06/04/2019 3:14 PM EDT): Controlled --Continue losartan and amlodipine History of DVT (deep vein thrombosis) Overview (06/02/2019): Of femoral vein. Treated with Plavix. Assessment & Plan (06/04/2019 3:16 PM EDT): She describes previous history of DVT that was treated with vascular intervention and Plavix at [facility]. 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 Metformin is on hold. Diet will be advanced today. -monitor on SSI only for now, titrate as needed Assessment & Plan (09/24/2019 8:28 AM EST): Patient on metformin as outpatient. Holding, follow POC glucose. No nutritional insulin at this time as blood sugars running in the low 100s. Her A1c was normal at 5.2. Assessment & Plan (06/04/2019 3:17 PM EDT): Blood sugar levels hovering in to upper 100 --Holding metformin. Lantus 5 units subcu at night with POC mealtime insulin ` Resolved Problems Problem Noted Date Diagnosed Date Resolved Date Acute respiratory failure with hypoxia 03/15/2023 05/16/2023 Assessment & Plan (03/19/2023 5:24 PM EDT): Found to have sats in 70swith wheeze. Does not have a diagnosis of lung disease, though a PFT done a few years ago did reveal reduced diffusion. CXR looks like it could be LLL pneumonia Patient remains hypoxic requiring 2 L of oxygen to maintain sats -Complete a 5-day course of ceftriaxone and 3 days of azithromycin today for underlying pneumonia Ongoing hypoxia of unclear etiology. -Chest x-ray with no acute findings. 04/05 - Patient now with wheezing on exam however moving better air with 4 times daily nebulizers. -D-dimer elevated to 1414 Plan - Continue DuoNebs 4 times daily -Incentive spirometry every hour throughout the course of the day -Wean O2 as tolerated. Out of bed as tolerated. -Start prednisone 40 mg daily and Flovent inhaled steroid. - Given elevated D-dimer will obtain CTPA rule out PE Encounters Date Type Department Care Team Description 07/07/2025 10:00 AM EDT Home Care Visit [facility] [address] [place] [phone] Nancy Carmona RN SN OASIS DISCHARGE VISIT 07/02/2025 11:46 AM EDT - 07/02/2025 4:16 PM EDT Emergency [facility] [address] [place] [id number] Discharge Disposition: Home or Self Care 06/30/2025 2:15 PM EDT Home Care Visit [facility] [address] [place] [address] Estrellita Elizalde LPN NEWS CLERK HOME VISIT 06/22/2025 11:30 AM EDT Home Care Visit [facility] [address] [place] [address] Shanae Fowler I, PT PT DISCIPLINE DISCHARGE VISIT 06/17/2025 10:00 AM EDT Home Care Visit [facility] [address] [place] [address] Shanae Fowler I, PT PT HOME VISIT 06/16/2025 10:00 AM EDT Home [facility] Visit [facility] [address] [place] [address] Nancy Carmona RN SN HOME VISIT 06/14/2025 Episode Documentation Update [facility] [address] [place] [address] Radha Lara 06/11/2025 9:45 AM EDT Home Care Visit [facility] [address] [place] [address] Lisette Daly, RN SN HOME VISIT 06/10/2025 12:00 PM EDT Home Care Visit [facility] [address] [place] [phone] Shanae Fowler I, PT PT HOME VISIT 06/04/2025 12:00 PM EDT Home Care Visit [facility] [address] [place] [phone] Shanae Fowler I, PT PT HOME VISIT 06/03/2025 2:06 PM EDT - 06/03/2025 11:59 PM EDT Hospital Encounter Non-Invasive Cardiology [address] [place] [address] Ronnell Ferrer MD Discharge Disposition: Home or Self Care 06/03/2025 1:02 PM EDT - 06/03/2025 2:05 PM EDT Hospital Encounter [facility] [address] [place] [address] Ronnell Ferrer MD Discharge Disposition: Home or Self Care 06/03/2025 11:00 AM EDT Home Care Visit [facility] [address] [place] [phone] AndNancy Curtis, MONICA SN HOME VISIT 06/02/2025 Episode Documentation Update [facility] [address] [place] [phone] Hue Stiles 06/02/2025 Home Care Visit [facility] [address] [place] [phone] Radha Lara CASE COMMUNICATION 06/01/2025 12:00 PM EDT Home Care Visit [facility] [address] [place] [phone] Shanae Fowler I, PT PT EVALUATION 06/01/2025 1:13 AM EDT - 06/01/2025 6:36 AM EDT Emergency [facility] [address] [place] [id number] Uday Villaseñor, DO Discharge Disposition: Home or Self Care 06/01/2025 Procedure Pass [facility], Ct Scan - [address] [address] 05/29/2025 10:14 AM EDT - 05/29/2025 11:59 PM EDT Hospital Encounter [address] [address] Ronnell Ferrer MD Discharge Disposition: Home or Self Care 05/27/2025 12:00 PM EDT Home Care Visit [facility] [address] [place] [phone] Nancy Carmona, MONICA SN HOME VISIT 05/25/2025 1:00 AM EDT Home Care Visit [facility] [address] [place] [phone] Nancy Carmona RN SN HOME VISIT 05/25/2025 Home Care Visit [facility] [address] [place] [phone] Mirta Solis, PT TELEPHONE ENCOUNTER 05/24/2025 Plan of Care Documentation [facility] [address] [place] [address] 05/23/2025 12:17 PM EDT Hospital Encounter [facility] Emergency - [address] [address] Wilton Strickland MD 05/23/2025 10:58 AM EDT - 05/23/2025 12:16 PM EDT Hospital Encounter [address] [phone] Wilton Strickland MD Discharge Disposition: Home or Self Care 05/23/2025 Ancillary Orders Virtual Department [address] [place] [id number] Wilton Strickland MD 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); Foreign body in left foot, initial encounter 05/23/2025 Ancillary Orders [facility], X-Ray - [address] [address] Avi Pagan MD Foreign body in left foot, initial encounter (Primary Dx) 05/21/2025 3:00 AM EDT [facility] [address] [place] [phone] Holli Lundy, MONICA SN OASIS START OF CARE (SOC) 05/19/2025 12:28 PM EDT - 05/19/2025 11:59 PM EDT Hospital Encounter [address] [address] Ronnell Ferrer MD Discharge Disposition: Home or Self Care 05/19/2025 Orders Only [facility] [address] [place] [phone] Homehealth, Interface ProviderMD 05/03/2025 Procedure Pass [facility] [address] [place] [address] 05/03/2025 Procedure Pass Non-Invasive Cardiology [address] [place] [id number] 05/03/2025 Procedure Pass [address] [address] 05/03/2025 Transcribe Orders Virtual Department [address] [place] [phone] Ronnell Ferrer MD Cerebrovascular accident (CVA), unspecified mechanism (Primary Dx); Seizure 04/30/2025 Procedure Pass [address] [address] 04/30/2025 Transcribe Orders Virtual Department [address] [place] [id number] Wilton Strickland MD 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) 04/29/2025 Telephone [facility] [address] [place] [id number] Juan Ventura MD Advice on Treatment Plan 04/28/2025 3:21 AM EDT - 04/28/2025 10:48 AM EDT Emergency [facility] [address] [place] [id number] Uday Villaseñor DO Chapin, Ethan Adair, MD Discharge Disposition: Home or Self Care 04/28/2025 Procedure [facility], [address] [address] 04/28/2025 Procedure [facility], [address] [address] 04/28/2025 Procedure [facility], [address] [address] 04/25/2025 8:58 PM EDT - 04/26/2025 12:22 AM EDT Emergency [facility] Emergency [address] [place] [phone] Uday Villaseñor DO Discharge Disposition: Home or Self Care 04/25/[address] [address] 04/23/2025 5:56 PM EDT - 04/23/2025 5:59 PM EDT Emergency [facility] Emergency [address] [place] [phone] Discharge Disposition: Left Without Being Seen from Last 3 Months Immunizations Immunization Administration Dates Next Due COVID-19 (Pre-07/29) Moderna Vaccine, mRNA, PF 12/15/2020,11/17/2020 INFLUENZA, SPLIT VIRUS, TRIVALENT PF 07/14/2013 INFLUENZA, SPLIT VIRUS, TRIV ALENT W/ PRESERVATIVE IM 06/13/2012,06/05/2011,07/05/2010,06/14 Influenza High-Dose Quadriva lent Preservative Free IM 07/06/2023,06/07/2023,07/13/2022,07/21,07/23/2020 Influenza High-Dose Trivalen t Preservative Free IM 06/23/2024,07/06/2019,06/27/2018,06/11,06/26/2016,07/11/2015,07/17/2014 Influenza, Unspecified Formulation 07/01,07/16/2007,09/03/2006,09/06,10/04/2004,07/26/2003,09/11/2000 Novel [id number], Injectable 10/06/2009 PPD Test 10/04/2019 Pneumococcal conjugate PCV13 11/18/2014 Pneumococcal polysaccharide PPSV23 05/08/2022, Td (adult), not adsorbed 10/07/2006 Td (adult),2 Lf Tetanus Toxo id, PF, Adsorbed 09/26/2016 Family History Medical History Relation Comments Lung cancer Mother Relation Status Comments Father Mother Social History Tobacco Use Types Packs/Day Years Used Date Smoking Tobacco: Former Cigarettes 1 15 2 - 2016 Smokeless Tobacco: Never Tobacco Cessation:Counseling Given: Not Answered Alcohol Use Standard Drinks/Week Comments No 0 [...] Orientation Straight 06/02/2018 5: 26 PM EDT Last Filed Vital Signs Vital Sign Reading Time Taken Comments Blood Pressure 110/70 07/07/2025 2:00 PM EDT Pulse 60 07/07/2025 2:00 PM EDT Temperature 36.3 C (97.4 F) 07/07/2025 2:00 PM EDT Respiratory Rate 16 07/07/2025 2:00 PM EDT Oxygen Saturation 98% 07/07/2025 2:00 PM EDT Inhaled Oxygen Concentration - - Weight 79.4 kg (175 lb) 07/02/2025 10:39 AM EDT Height 152.4 cm (5') 07/02/2025 10:39 AM EDT Body Mass Index 34.18 07/02/2025 10:39 AM EDT Plan of Treatment Upcoming Encounters Date Type Department Care Team (Late st Contact Info) Description 12/27/2025 2:30 PM EDT Office Visit [facility] [address] [place] [address] [id number] Juan Ventura MD [address] [place] [id number] [email or web address] 02/24/2026 8:30 AM EDT Office Visit [facility] Neurology [address] [place] [address] Rafael España MD [address] [facility], [address]nd [place] [address] Health Maintenance Due Date Last Done Comments DEPRESSION SCREENING 1954 ZOSTER VACCINES (1 of 2) 1992 OSTEOPOROSIS SCREENING INITIAL (ONE-TIME) 2007 LIPID PANEL 09/16/2009 09/16/2008, 01/2007, 07/16/2007, Additional history exists RSV VACCINE (1 - 1-dose 75+ series) 2017 DIABETIC EYE EXAM 06/02/2018 HEMOGLOBIN A1C 03/24/2020 09/23/2019, 05/08, 05/13/2009, Additional history exists TSH LEVEL 06/03/2020 06/03/2019 INFLUENZA VACCINE (#1) 2025 , 07/06/2023, 06/07/2023, Additional history exists COVID-19 VACCINE ( season) 2025 10/03/2022, 09/15/2021, 12/15/2020, Additional history exists BLOOD PRESSURE 01/05/2026 07/07/2025 CREATININE LEVEL 07/02/2026 07/02/2025, , 04/25/2025, Additional history exists POTASSIUM LEVEL 07/02/2026 07/02/2025, 05/08, 04/25/2025, Additional history exists Adult Td,Tdap Booster 09/26/2026 09/26/2016, 007 PNEUMOCOCCAL VACCINES (50+ years) Completed 05/08/2022, 11/18/2014, 09/16/2007 HEPATITIS A VACCINES Aged Out No long er eligible based on patient's age to complete this topic HIB VACCINES Aged Out No longer eligi ble based on patient's age to complete this topic MENINGOCOCCAL VACCINES (ACWY) Aged Out No longer eligible based on patient's age to complete this topic MENINGOCOCCAL VACCINES (B) Aged Out N o longer eligible based on patient's age to complete this topic Medical Devices Implanted Type Area [employer] Device Identifier Shelf Expiration Date Model / Serial / Lot Clip Hemostasis Resolution 360 Lf Nonsterile 2.8mm Channel 360deg 235cm Bx/20ea - [id number] Implanted:Qty: 4 on 10/08/2019 by Horacio Milian MD at [facility] N/A: [employer] [id number] 06/30/2022 [id number] / / [id number] Description:BLEEDING SOURCE LOCATED IN [employer] Procedures Procedure Name Priority Date/Time Associated Diagnosis Comments MCT (MOBILE CARDIAC TELEMETRY) Routine 07/09/2025 12:35 PM EDT Cerebrovascular accident (CVA), unspecified mechanism US LOWER EXTREMITY VEINS DUPLEX COMPLETE (BILATERAL) Routine 07/02/2025 2:26 PM EDT Left leg pain Right leg pain CPK (CREATINE KINASE) STAT 07/02/2025 12:24 PM EDT D-DIMER STAT 07/02/2025 12:24 PM EDT MAGNESIUM STAT 07/02/2025 12:24 PM EDT BASIC METABOLIC PANEL STAT 07/02/2025 12:24 PM EDT CBC AND DIFFERENTIAL STAT 07/02/2025 12:24 PM EDT TTE COMPREHENSIVE Routine 06/03/2025 2:0 5 PM EDT Cerebrovascular accident (CVA), unspecified mechanism CT ABDOMEN/PELVIS WITH CONTRAST Routine 06/01/2025 2:24 AM EDT LIPASE STAT 06/01/2025 1:43 AM EDT LFTS (HEPATIC PANEL) STAT 06/01/2025 1:43 AM EDT BASIC METABOLIC PANEL STAT 06/01/2025 1:43 AM EDT CBC AND DIFFERENTIAL STAT 06/01/2025 1:43 AM EDT MRI BRAIN (SEIZURE) WITHOUT CONTRAST Routine 05/29/2025 11:14 AM EDT Cerebrovascular accident (CVA), unspecified mechanism Seizure MRI ABDOMEN (KIDNEYS) WITH AND WITHOUT CONTRAST Routine 05/23/2025 1:43 PM EDT Neoplasm of uncertain behavior of right kidney XR FOOT 3 OR MORE VIEWS (LEFT) Urgent/patient waiting 05/23/2025 12:21 PM EDT Neoplasm of uncertain behavior of right kidney Foreign body in left foot, initial encounter US CAROTID DUPLEX COMPLETE (BILATERAL) Routine 05/19/2025 1:21 PM EDT Cerebrovascular accident (CVA), unspecified mechanism XR FOREARM 2 VIEWS (LEFT) Routine 04/28/2025 4:58 AM EDT XR HAND 3 OR MORE VIEWS (LEFT) Routine 04/28/2025 3:[address] FACE WITHOUT CONTRAST Routine 04/28/2025 3:[address] CERVICAL SPINE WITHOUT CONTRAST Routine 04/28/2025 3:[address] HEAD WITHOUT CONTRAST Routine 04/28/2025 3:32 AM EDT MAGNESIUM STAT 04/25/2025 10:50 PM EDT BASIC METABOLIC PANEL STAT 04/25/2025 10:50 PM EDT CBC AND DIFFERENTIAL STAT 04/25/2025 10:[address] CERVICAL SPINE (NEURO) WITHOUT CONTRAST Routine 04/25/2025 10:40 PM EDT XR CHEST 1 VIEW Routine 04/25/2025 10:35 PM EDT COVID PANDEMIC RESPIRATORY VIRAL ORDER (PRO) STAT 04/25/2025 10:23 PM EDT XR FOOT 3 OR MORE VIEWS (LEFT) Routine 04/23/2025 4:20 PM EDT HEMOGLOBIN A1C Routine 09/23/2019 12:35 PM EST TSH WITH REFLEX Routine 06/03/2019 5:13 AM EDT from Last 3 Months or Most Recently Relevant to Health Maintenance Results * MCT (Mobile Cardiac Telemetry) (07/09/2025 12:35 PM EDT) Anatomical Region Laterality Modality Heart Other Narrative 07/09/2025 12:37 PM EDT Impression: All normal sinus rhythm with normal minimum average and max heart rates. There is no evidence of atrial fibrillation or heart block. If this suspicion for atrial fibrillation is high as a cause of TIA or stroke consideration to implantable loop monitoring should be given. us Ronnell Ferrer MD CV CARDIAC SERVICES ORDERABL ES Final Result * US Lower Extremity Veins Duplex Complete (Bilateral) (07/02/2025 2:26 PM EDT) Anatomical Region Laterality Modality Ultrasound 07/02/2025 3:19 PM EDT Impressions 07/02/2025 3:21 PM EDT No deep vein thrombosis in the visualized veins of either lower extremity. Narrative 07/02/2025 3:21 PM EDT US LOWER EXTREMITY VEINS DUPLEX COMPLETE (BILATERAL) Referring clinician's provided indication for this examination in Epic: Left Leg Pain; Right Leg Pain TECHNIQUE: Lower extremity venous ultrasound with color and spectral Doppler. COMPARISON: Left lower extremity duplex from June 06, 2024. FINDINGS: Right lower extremity Common femoral vein: Normal compressibility and flow characteristics. Femoral vein: Normal compressibility and flow characteristics. Proximal profunda femoral vein: Normal compressibility. Popliteal vein: Normal compressibility and flow characteristics. Posterior tibial veins: Normal compressibility. Peroneal veins: Normal compressibility. Gastrocnemius veins: Normal compressibility. Great saphenous vein: Normal compressibility at the saphenofemoral junction. Other: None. Left lower extremity Common femoral vein: Normal compressibility and flow characteristics. Femoral vein: Normal compressibility and flow characteristics. Proximal profunda femoral vein: Normal compressibility. Popliteal vein: Normal compressibility and flow characteristics. Posterior tibial veins: Normal compressibility. Peroneal veins: Normal compressibility. Gastrocnemius veins: Normal compressibility. Great saphenous vein: Normal compressibility at the saphenofemoral junction. Other: None. Procedure Note Leon Ricks MD - 07/02/2025 US LOWER EXTREMITY VEINS DUPLEX COMPLETE (BILATERAL) Referring clinician's provided indication for this examination in Epic:Left Leg Pain; Right Leg Pain TECHNIQUE: Lower extremity venous ultrasound with color and spectralDoppler. COMPARISON: Left lower extremity duplex from June 06, 2024. FINDINGS: Right lower extremity Common femoral vein: Normal compressibility and flow characteristics. Femoral vein: Normal compressibility and flow characteristics. Proximal profunda femoral vein: Normal compressibility. Popliteal vein: Normal compressibility and flow characteristics. Posterior tibial veins: Normal compressibility. Peroneal veins: Normal compressibility. Gastrocnemius veins: Normal compressibility. Great saphenous vein: Normal compressibility at the saphenofemoraljunction. Other: None. Left lower extremity Common femoral vein: Normal compressibility and flow characteristics. Femoral vein: Normal compressibility and flow characteristics. Proximal profunda femoral vein: Normal compressibility. Popliteal vein: Normal compressibility and flow characteristics. Posterior tibial veins: Normal compressibility. Peroneal veins: Normal compressibility. Gastrocnemius veins: Normal compressibility. Great saphenous vein: Normal compressibility at the saphenofemoraljunction. Other: None. IMPRESSION: No deep vein thrombosis in the visualized veins of either lowerextremity. Cassie Chaudhari PA-C CV US VASCULAR Final Result * (ABNORMAL) D-dimer (07/02/2025 12:24 PM EDT) D-DIMER 679(H) <500 ng/mL FEU [facility] Comment:In patients with low to moderate pre-test probability scores for VTE (PE or DVT), a D-Dimer cut-off less than 500 ng/mL (FEU) has a negative predictive value (NPV) of 97 to 100%. Blood 07/02/2025 12:2 4 PM EDT 07/02/2025 12:34 PM EDT us Cassie Chaudhari PA-C LAB BLOOD ORDERABLES Final Result [address] [address] * (ABNORMAL) CBC and differential (07/02/2025 12:24 PM EDT) Only the most recent of3 resultswithin the time period is included. WBC 8.82 4.00 - 11.00 K/uL [facility] RBC 5.07 4.00 - 5.20 M/uL [facility] HGB 11.6(L) 12.0 - 16.0 g/dL [facility] HCT 41.0 36.0 - 46.0 % [facility] PLT 370 150 - 450 K/uL [facility] MCV 80.9 80.0 - 100.0 fL [facility] MCH 22.9(L) 27.0 - 31.0 pg [facility] MCHC 28.3(L) 32.0 - 36.0 g/dL [facility] RDW 16.4(H) 11.5 - 14.5 % [facility] MPV 9.0 8.4 - 12.0 fL [facility] NRBC 0.00 0.00 /100 WBCs [facility] ABSOLUTE NRBC 0.00 0.00 K/uL [facility] DIFF METHOD Auto [facility] NEUTS 68.7 48.0 - 76.0 % [facility] LYMPHS 15.8(L) 18.0 - 41.0 % [facility] MONOS 10.3 4.0 - 11.0 % [facility] EOS 3.9 0.0 - 5.0 % [facility] BASOS 0.8 0.0 - 1.5 % [facility] Granulocytes, immature (%) 0.5 0.0 - 0.9 % [facility] ABSOLUTE NEUTS 6.07 1.92 - 7.60 K/uL [facility] ABSOLUTE LYMPHS 1.39 0.72 - 4.10 K/uL [facility] ABSOLUTE MONOS 0.91 0.16 - 1.10 K/uL [facility] ABSOLUTE EOS 0.34 0.00 - 0.50 K/uL [facility] ABSOLUTE BASOS 0.07 0.00 - 0.15 K/uL [facility] Granulocytes, immature 0.04 0.00 - 0.09 K/uL [facility] Blood 07/02/2025 12:2 4 PM EDT 07/02/2025 12:34 PM EDT Cassie Demi RoaCAILabshaydee PA-C LAB BLOOD ORDERABLES Final Result Performing Organization Address City/[facility]/ZIP Co de Phone Number [address] [address] * Magnesium (07/02/2025 12:24 PM EDT) Only the most recent of2 resultswithin the time period is included. MAGNESIUM 2.0 1.6 - 2.6 mg/dL [facility] Blood 07/02/2025 12:2 4 PM EDT 07/02/2025 12:34 PM EDT [email or web address] PA-C LAB BLOOD ORDERABLES Final Result [address] [address] * CPK (creatine kinase) (07/02/2025 12:24 PM EDT) CREATINE KINASE 49 21 - 215 U/L [facility] Blood 07/02/2025 12:2 4 PM EDT 07/02/2025 12:34 PM EDT Cassie Demi Chaudhari PA-C LAB BLOOD ORDERABLES Final Result [address] [address] * (ABNORMAL) Basic metabolic panel (07/02/2025 12:24 PM EDT) Only the most recent of3 resultswithin the time period is included. Pathologist [facility] SODIUM 138 133 - 146 mmol/L [facility] CHLORIDE 104 96 - 108 mmol/L [facility] POTASSIUM 5.0 3.3 - 5.1 mmol/L [facility] CO2 24 21 - 35 mmol/L [facility] BUN 22(H) 6 - 19 mg/dL [facility] CREATININE 1.20 0.5 - 1.5 mg/dL [facility] GLUCOSE 138(H) 70 - 99 mg/dL [facility] CALCIUM 9.4 8.4 - 10.3 mg/dL [facility] EGFR 45(L) >59 mL/min/1.7 3m2 [facility] Comment:Estimated glomerular filtration rate calculated using the CKD-EPI refit equation. ANION GAP 15 10 - 20 mmol/L [facility] Blood 07/02/2025 12:2 4 PM EDT 07/02/2025 12:34 PM EDT Cassie Demi Chaudhari PA-C LAB BLOOD ORDERABLES Final Result [address] [address] * TTE COMPREHENSIVE (06/03/2025 2:05 PM EDT) Body Surface Area 1.76 m2 Height 152 cm Weight 79 kg Systolic BP 130 mmHg Diastolic BP 75 mmHg Interventricular Septum Thickness 12 6 - 11 mm Left Ventricle Internal Diameter End Diastole 43 37 - 52 mm Left Ventricle Internal Diameter End Systole 28 <35 mm Left Ventricular Outflow Tract Diameter 20.0 mm LVOT VTI REST 219.0 mm Left Ventricular Outflow Tract Velocity 1.0 m/s Left Ventricular Outflow Tract Gradient at Rest 4 mmHg Left Ventricular Posterior Wall Thickness 9 6 - 11 mm Left Ventricle Ea Lateral Wave Speed 7.4 cm/s Left Ventricle Ea Septal Wave Speed 6.0 cm/s Ejection Fraction 60 50 - 75 Percent Aortic Valve Mean Gradient 5 mmHg Aortic Valve Time Velocity Integral 300.0 mm Aortic Valve Peak Velocity 1.6 m/s Aortic Valve Peak Gradient 10 mmHg Aortic Arch Diameter 25 mm Aortic Sinus Diameter 34 <40 mm Ascending Aorta Diameter 38 <36 mm Inferior Vena Cava Diameter 18 <21 mm Left Ventricle A Wave Speed 106.0 cm/s Left Ventricle E Wave Speed 92.1 cm/s Mitral Valve Mean Gradient 2 mmHg Mitral Valve Peak Gradient 4 mmHg Mitral Valve Area Continuity Equation 2.20 cm2 Pulmonary Valve Peak Velocity 0.9 m/s Pulmonary Valve Peak Gradient 3 mmHg Right Ventricle Basal Diameter 34 25 - 41 mm Tricuspid Valve Peak Velocity 2.4 m/s Raw LV EF% 58 % MV E/E' Tissue Velocity Lateral 12.45 Relative Wall Thickness 0.42 0.22 - 0.42 Left Ventricle indexed to BSA 86.7 g/m2 MV E/A ratio 0.9 MV E/e' septal 15.35 Left Ventricle E/e' Average 13.9 Aortic Valve Prosthetic Peak Gradient 10 mmHg Aortic Valve Sinus Index by BSA 19 mm/m2 Aorta Sinus Index by Height 2.24 cm/m Aorta Sinus CSA index by Height 5.97 cm2/m Ascending Aorta Index 22 mm/m2 Asc Aorta CSA Index by Height 7.46 cm2/m Mitral Valve Prosthetic Peak Gradient 4 mmHg Mitral Valve Prosthetic Mean Gradient 2 mmHg Right Ventricle to Right Atrium Pressure Gradient 23 mmHg Right Ventricle Peak Systolic Pressure (Assuming RAP 10) 33 mmHg MGB CV ECHO TV RVSP (ASSUMING RAP OF 5) 28 mmHg RVSP (Exclusive of RAP) 23 mmHg Pulmonic Valve Prosthetic Peak Gradient 3 mmHg MGB CV AV DIMENSIONLESS INDEX (PEAK) - STRESS ECHO DOBUT - REST 0.63 Ascending Aorta Index 22 mm Aortic Sinus Index 19 mm Ascending Aorta Diameter 22 mm Aortic Valve Sinus Index 1 19 19 - 27 mm AO ASC DIAM BSA INDEX 21.59 Echo E/Ea 15.35 Left Atrial Volume Index 24 16 - 34 mL/m2 Right Ventricle TAPSE 18 >=17 mm Right Ventricle Pulse Doppler S Wave 15.3 >=9.5 cm/s Left Atrial Volume 42 mL Left Atrial Volume Index by Height 28 mL/m Right Atrium Area 14 cm2 Right Atrium Area index 8 cm2/m2 Aortic Valve Prosthetic Mean Gradient 5 mmHg Right Ventricle Peak Systolic Pressure 26 mmHg Right Atrium Pressure Estimated 3 mmHg Anatomical Region Laterality Modality Heart Ultrasound Narrative 06/04/2025 12:00 PM EDT Mild LVH with normal LV systolic function EF 60 to 65%. Normal PA pressure estimation. Borderline elevated E/E prime ratio Normal left atrial size. Normal RV size and function. No significant valvular heart disease is seen. No source of embolism identified. Compared to prior study from 2020, no real significant changes. Left Ventricle The left ventricle is normal in size. There is discrete upper septal hypertrophy without outflow obstruction. There is normal left ventricular systolic function. The LV ejection fraction is 60% (calculated via biplane measurement). LV diastolic function appears within normal limits for age. The E/A ratio is 0.9. The e' septal wave velocity is 6.0 cm/s. The e' lateral wave velocity is 7.4 cm/s. The average E/e' ratio is 13.9. Right Ventricle The right ventricle is normal in size. There is normal right ventricular systolic function. TAPSE is 18 mm. RV S' wave is 15.3 cm/s. Left Atrium The left atrium is normal in size. The left atrial volume is 42 mL. The left atrial volume index by BSA is 24 mL/m2. Right Atrium The right atrium is normal in size. The right atrial area is 14 cm2. The IVC is normal in size with normal inspiratory collapse. Mitral Valve There is mitral annular calcification. There is no mitral stenosis. There is trace mitral regurgitation. Tricuspid Valve The tricuspid valve appears normal. There is no tricuspid stenosis. There is trace tricuspid regurgitation. The RV systolic pressure was calculated at 26 mmHg (using TR peak velocity of 2.4 m/s and assuming an RA pressure of 3 mmHg). Aortic Valve The aortic valve is tricuspid. There is leaflet thickening. There is no aortic stenosis. There is no aortic regurgitation. The aortic sinus diameter is 34 mm. The ascending aorta is mildly dilated. The ascending aortic diameter is 38 mm. Pulmonic Valve The pulmonic valve appears normal. There is no pulmonic stenosis. There is trace pulmonic regurgitation. Pericardium There is no pericardial effusion. General Findings The image quality was fair (3). Technique(s) used in the evaluation: Color flow Doppler and Spectral Doppler. Consent was obtained from: patient The predominant rhythm during the study was sinus. Patient tolerated the procedure well. No complications observed during the procedure. Comparison Findings Compared to prior TTE on 06/20/2021, IAS/IVS The interatrial septum appears normal. us Ronnell Ferrer MD CV ECHO ORDERABLES Final Res ult * CT ABDOMEN/PELVIS WITH CONTRAST (06/01/2025 2:24 AM EDT) Anatomical Region Laterality Modality Abdomen, Pelvis Computed Tomogra phy 06/01/2025 4:55 AM EDT Impressions 06/01/2025 5:02 AM EDT 1. No acute abdominopelvic abnormality. 2. Similar abdominal aortic aneurysm. Narrative 06/01/2025 5:[address] ABDOMEN/PELVIS WITH CONTRAST Reason for exam (per EHR order): * LLQ abdominal pain TECHNIQUE: Multidetector-row CT of the abdomen and pelvis was performed after administration of intravenous contrast using tailored dose modulation techniques. Images were reconstructed in the axial, coronal, and sagittal planes. COMPARISON: CT ABDOMEN/PELVIS WITH CONTRAST FINDINGS: Lower Chest: Bibasilar atelectasis. Coronary artery atherosclerotic calcifications. Mitral annular calcifications. Liver: Subcentimeter hypodensities too small to characterize. Biliary System: Cholecystectomy. Mild biliary ductal dilatation, likely reservoir effect. Pancreas: Normal. Spleen: Normal. Adrenal Glands: Normal. Kidneys: Similar bilateral renal cysts and additional subcentimeter hypodensities, which are too small to characterize. No hydronephrosis. Bowel: Sigmoidectomy. Small hiatal hernia. Colonic diverticulosis. No bowel thickening or distention. Normal appendix. Mesentery, Omentum, and Peritoneum: Normal. Pelvic Organs: Similar thickening of the endometrium, which measures up to 6 mm. Lymph Nodes: Normal. Vasculature: Atherosclerotic calcifications. Similar abdominal aortic aneurysm measuring up to 39 mm at the level of the hiatus. Bones and Soft Tissues: Multilevel degenerative changes. Procedure Note Adriana Jones MD - 06/01/2025 CT ABDOMEN/PELVIS WITH CONTRAST Reason for exam (per EHR order): * LLQ abdominal pain TECHNIQUE: Multidetector-row CT of the abdomen and pelvis was performed afteradministration of intravenous contrast using tailored dose modulationtechniques. Images were reconstructed in the axial, coronal, and sagittalplanes. COMPARISON: CT ABDOMEN/PELVIS WITH CONTRAST FINDINGS: Lower Chest: Bibasilar atelectasis. Coronary artery atheroscleroticcalcifications. Mitral annular calcifications. Liver: Subcentimeter hypodensities too small to characterize. Biliary System: Cholecystectomy. Mild biliary ductal dilatation, likelyreservoir effect. Pancreas: Normal. Spleen: Normal. Adrenal Glands: Normal. Kidneys: Similar bilateral renal cysts and additional subcentimeterhypodensities, which are too small to characterize. No hydronephrosis. Bowel: Sigmoidectomy. Small hiatal hernia. Colonic diverticulosis. Nobowel thickening or distention. Normal appendix. Mesentery, Omentum, and Peritoneum: Normal. Pelvic Organs: Similar thickening of the endometrium, which measures up to6 mm. Lymph Nodes: Normal. Vasculature: Atherosclerotic calcifications. Similar abdominal aorticaneurysm measuring up to 39 mm at the level of the hiatus. Bones and Soft Tissues: Multilevel degenerative changes. IMPRESSION: 1. No acute abdominopelvic abnormality. 2. Similar abdominal aortic aneurysm. us Uday Villaseñor DO IMG CT ABD/PELVIS Final Resul t * (ABNORMAL) LFTs (hepatic panel) (06/01/2025 1:43 AM EDT) ALKALINE PHOSPHATASE 123(H) 39 - 117 U/L [facility] TOTAL BILIRUBIN <0.2 0.0 - 1.2 mg/dL [facility] DIRECT BILIRUBIN 0.1 0.0 - 0.2 mg/dL [facility] Bilirubin (Indirect) NOT CALCULATED 0 - 1.5 mg/dL [facility] AST 12 0 - 37 U/L [facility] ALT 8 0 - 40 U/L [facility] TOTAL PROTEIN 6.5 6.5 - 8.0 g/dL [facility] ALBUMIN 3.8(L) 3.9 - 4.8 g/dL [facility] GLOBULIN 2.7 1 - 4.8 g/dL [facility] A/G Ratio 1.41 1.00 - 4.80 RATIO [facility] Blood 06/01/2025 1:43 AM EDT 06/01/2025 1:47 AM EDT us Uday Villaseñor DO LAB BLOOD ORDERABLES Final Re sult Performing Organization Address [facility] Co de Phone Number [address] [address] * Lipase (06/01/2025 1:43 AM EDT) LIPASE 34 16 - 63 U/L [facility] Blood 06/01/2025 1:43 AM EDT 06/01/2025 1:47 AM EDT us Uday Villaseñor LAB BLOOD ORDERABLES Final Re sult Performing Organization Address [facility] Phone Number [address] [address] * MRI BRAIN (SEIZURE) WITHOUT CONTRAST (05/29/2025 11:14 AM EDT) Anatomical Region Laterality Modality Head Magnetic Resonan ce 05/31/2025 3:06 PM EDT Impressions 05/31/2025 3:17 PM EDT 1. 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 2. Moderate to severe chronic small vessel disease. 3. Diffuse cerebral and cerebellar volume loss. Narrative 05/31/2025 3:17 PM EDT MRI BRAIN (SEIZURE) WITHOUT CONTRAST Referring clinician's provided indication for this examination in Epic: Outside Radiology Order; CVA, Seizure TECHNIQUE: Multi-sequence, multi-planar MRI of the brain was performed without intravenous contrast. COMPARISON: CT head from 04/28/25 FINDINGS: Brain Parenchyma: The hippocampi are symmetric in size with symmetric volume loss. There is no abnormal signal intensity in the mesial temporal structures. No evidence of cortical dysplasia or heterotopia. Chronic infarcts in the left occipital lobe and right parietal lobe. Lacunar infarct in the lateral left basal ganglia. Moderate foci and confluent FLAIR hyperintensities in the periventricular and deep white matter as well as in the basal ganglia. No evidence of acute or subacute infarct, mass lesion or hemorrhage. Ventricular System and Extra-Axial Spaces: Diffuse prominence of the ventricles, cerebral and cerebellar sulci. No evidence of midline shift or hydrocephalus. Extracranial Structures: Expected arterial flow signal is observed at the skull base. Mild mucosal thickening in the paranasal sinuses and small fluid layering in the lateral recess of the left sphenoid sinus. Procedure Note Madai Gottlieb MD - 05/31/2025 MRI BRAIN (SEIZURE) WITHOUT CONTRAST Referring clinician's provided indication for this examination in [facility]:Outside Radiology Order; CVA, Seizure TECHNIQUE: Multi-sequence, multi-planar MRI of the brain was performedwithout intravenous contrast. COMPARISON: CT head from 04/28/25 FINDINGS: Brain Parenchyma: The hippocampi are symmetric in size with symmetricvolume loss. There is no abnormal signal intensity in the mesial temporalstructures. No evidence of cortical dysplasia or heterotopia. Chronic infarcts in the left occipital lobe and right parietal lobe.Lacunar infarct in the lateral left basal ganglia. Moderate foci andconfluent FLAIR hyperintensities in the periventricular and deep whitematter as well as in the basal ganglia. No evidence of acute or subacuteinfarct, mass lesion or hemorrhage. Ventricular System and Extra-Axial Spaces: Diffuse prominence of theventricles, cerebral and cerebellar sulci. No evidence of midline shift orhydrocephalus. Extracranial Structures: Expected arterial flow signal is observed at theskull base. Mild mucosal thickening in the paranasal sinuses and smallfluid layering in the lateral recess of the left sphenoid sinus. IMPRESSION: 1. 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 2. Moderate to severe chronic small vessel disease. 3. Diffuse cerebral and cerebellar volume loss. us Ronnell Ferrer MD IMG MR HEAD/NECK Final Resul t * MRI ABDOMEN (KIDNEYS) WITH AND WITHOUT CONTRAST (05/23/2025 1:43 PM EDT) Anatomical Region Laterality Modality Abdomen Magnetic Resonan ce 05/27/2025 10:1 0 AM EDT Impressions 05/27/2025 10:24 AM EDT 1. Motion degraded examination. 2. Multiple bilateral renal cysts, some hemorrhagic/proteinaceous. No definite solid enhancing renal mass, within the limitations of motion. Consider further follow- up with renal protocol CT. Narrative 05/27/2025 10:24 AM EDT MRI ABDOMEN (KIDNEYS) WITH AND WITHOUT CONTRAST Referring clinician's provided indication for this examination in Epic: Outside Radiology Order TECHNIQUE: Multiplanar MR imaging of the abdomen was performed using T1, T2, fat saturated, and diffusion weighted techniques. Dynamic multiphase imaging was also performed after administration of an intravenous gadolinium contrast agent. COMPARISON: MRI CHOLANGIOPANCREATOGRAPHY (MRCP) WITHOUT CONTRAST ; CT ABDOMEN/PELVIS WITH CONTRAST FINDINGS: Motion degraded examination. Lower chest: No pleural effusions. Liver: No global parenchymal signal abnormality. Multiple cysts. No suspicious focal lesions. Biliary: No biliary ductal dilatation. Noninflamed gallbladder. Spleen: No splenomegaly or focal lesions. Pancreas: No solid masses or ductal dilatation. Unchanged 4 mm cyst in the neck, likely side branch IPMN. Adrenal glands: No nodules. Kidneys/ureters: No hydronephrosis. Multiple bilateral renal cysts, some hemorrhagic/proteinaceous. No definite solid enhancing mass. Bowel: No dilation or wall thickening. Colonic diverticulosis. Peritoneum/retroperitoneum: No mass or fluid. Lymph nodes: No lymphadenopathy. Vessels: Atherosclerosis. Ectatic infrarenal abdominal aorta measuring up to 2.8 cm. Bones/soft tissues: No marrow replacing lesions. Simple right adnexal cyst measuring 3.2 cm. Procedure Note Yury Espinoza DO, MPH - 05/27/2025 MRI ABDOMEN (KIDNEYS) WITH AND WITHOUT CONTRAST Referring clinician's provided indication for this examination in Epic:Outside Radiology Order TECHNIQUE: Multiplanar MR imaging of the abdomen was performed using T1,T2, fat saturated, and diffusion weighted techniques. Dynamic multiphaseimaging was also performed after administration of an intravenousgadolinium contrast agent. COMPARISON: MRI CHOLANGIOPANCREATOGRAPHY (MRCP) WITHOUT [id number]; CT ABDOMEN/PELVIS WITH CONTRAST FINDINGS: Motion degraded examination. Lower chest: No pleural effusions. Liver: No global parenchymal signal abnormality. Multiple cysts. Nosuspicious focal lesions. Biliary: No biliary ductal dilatation. Noninflamed gallbladder. Spleen: No splenomegaly or focal lesions. Pancreas: No solid masses or ductal dilatation. Unchanged 4 mm cyst in theneck, likely side branch IPMN. Adrenal glands: No nodules. Kidneys/ureters: No hydronephrosis. Multiple bilateral renal cysts, somehemorrhagic/proteinaceous. No definite solid enhancing mass. Bowel: No dilation or wall thickening. Colonic diverticulosis. Peritoneum/retroperitoneum: No mass or fluid. Lymph nodes: No lymphadenopathy. Vessels: Atherosclerosis. Ectatic infrarenal abdominal aorta measuring upto 2.8 cm. Bones/soft tissues: No marrow replacing lesions. Simple right adnexal cystmeasuring 3.2 cm. IMPRESSION: 1. Motion degraded examination. 2. Multiple bilateral renal cysts, some hemorrhagic/proteinaceous. Nodefinite solid enhancing renal mass, within the limitations of motion.Consider further follow- up with renal protocol CT. us Wilton Strickland MD IMG MR ABDOMEN Final Result * XR FOOT 3 OR MORE VIEWS [...] clinician's provided indication for this examination in [facility]: Outside Radiology Order; Foreign Body COMPARISON: 04/23/2025, [...] clinician's provided indication for this examination in [facility]:Outside Radiology Order; Foreign Body COMPARISON: 04/23/2025, 09/23/2024 [...] foreign bodies identified within the left foot. us Wilton Strickland MD IMG XR LOWER EXTREMITY Final Re sult * US Carotid Duplex Complete (Bilateral) (05/19/2025 1:21 PM EDT) Anatomical Region Laterality Modality Heart, Thoracic Vasculature, Neck Ultrasound 05/19/2025 2:09 PM EDT Narrative 05/19/2025 10:44 PM EDT US CAROTID DUPLEX COMPLETE (BILATERAL) Referring clinician's provided indication for this examination in [facility]: Outside Radiology Order; CVA TECHNIQUE: A duplex ultrasound evaluation of the common carotid, internal carotid, external carotid, vertebral, and subclavian arteries was performed using jenkins scale, color duplex and spectral Doppler analysis. COMPARISON: No previous relevant examinations FINDINGS: Exam Quality: Technically adequate exam. RIGHT Common Carotid Artery (cm/s): Proximal Systolic: 53 Proximal Diastolic: 10 Mid Systolic: 72.4 Mid Diastolic: 19.3 Distal Systolic: 76 Distal Diastolic: 21 Internal Carotid Artery (cm/s): Proximal Systolic: 127 Proximal Diastolic: 42 Mid Systolic: 120 Mid Diastolic: 40 Distal Systolic: 153 Distal Diastolic: 34.7 External Carotid Artery (cm/s): Systolic: 113 Diastolic: 14 Vertebral Artery (cm/s): Systolic: 41 Diastolic: 9 Subclavian Artery (cm/s): Systolic: 100 Diastolic: 0 ICA/CCA Ratio: 2.0 ICA Stenosis: 50-69% ICA Plaque: Heterogeneous LEFT Common Carotid Artery (cm/s): Proximal Systolic: 54 Proximal Diastolic: 7 Mid Systolic: 52 Mid Diastolic: 9 Distal Systolic: 37 Distal Diastolic: 8 Internal Carotid Artery (cm/s): Proximal Systolic: 419 Proximal Diastolic: 169 Mid Systolic: NA Mid Diastolic: NA Distal Systolic: NA Distal Diastolic: NA External Carotid Artery (cm/s): Systolic: 116 Diastolic: 14 Vertebral Artery (cm/s): Systolic: 42 Diastolic: 11 Subclavian Artery(cm/s): Systolic: 68 Diastolic: 0 ICA/CCA Ratio: 11 ICA Stenosis: >70% ICA Plaque: Heterogeneous Abbreviations: CCA = Common Carotid Artery. ICA = Internal Carotid Artery. ECA = External Carotid Artery. Vert = Vertebral Artery. ICA/CCA Ratio = maximal ICA PSV divided by the distal CCA PSV. DIRECT TEST FINDINGS: Right: Doppler flow velocities are elevated in the internal carotid artery. Doppler flow velocities and waveform contours demonstrate no hemodynamically significant elevation in the common carotid artery. The external carotid artery demonstrates no elevated velocities. Antegrade flow is noted in the vertebral artery with no elevated velocities. The subclavian artery demonstrates no elevated velocities. Left: Doppler flow velocities are significantly elevated in the proximal internal carotid artery. Doppler flow velocities and waveform contours demonstrate no hemodynamically significant elevation in the common carotid artery. The external carotid artery demonstrates no elevated velocities. Antegrade flow is noted in the vertebral artery with no elevated velocities. The subclavian artery demonstrates no elevated velocities. IMPRESSIONS: 1. 50-69% stenosis noted in the right internal carotid artery. 2. >70% stenosis noted in the left internal carotid artery. 3. No hemodynamically significant stenosis noted in the common carotid arteries bilaterally. 4. No hemodynamically significant stenosis noted in the external carotid arteries bilaterally. 5. Antegrade flow noted in the bilateral vertebral arteries. 6. Normal examination of the visualized right and left subclavian arteries. RECOMMENDATION: A CTA of the head and neck is recommended for further evaluation of the above mentioned vessels. STENOSIS: Internal carotid artery stenosis by duplex ultrasonography has been validated by comparing findings with angiographic stenosis. NASCET methods were used, where the most severe stenosis represents the numerator, and the normal internal carotid artery diameter distal to the stenosis where the diallo are parallel represents the denominator. Procedure Note Yuli Arvizu MD - 05/19/2025 US CAROTID DUPLEX COMPLETE (BILATERAL) Referring clinician's provided indication for this examination in Epic:Outside Radiology Order; CVA TECHNIQUE: A duplex ultrasound evaluation of the common carotid, internalcarotid, external carotid, vertebral, and subclavian arteries wasperformed using jenkins scale, color duplex and spectral Doppler analysis. COMPARISON: No previous relevant examinations FINDINGS: Exam Quality: Technically adequate exam. RIGHT Common Carotid Artery (cm/s): Proximal Systolic: 53 Proximal Diastolic: 10 Mid Systolic: 72.4 Mid Diastolic: 19.3 Distal Systolic: 76 Distal Diastolic: 21 Internal Carotid Artery (cm/s): Proximal Systolic: 127 Proximal Diastolic: 42 Mid Systolic: 120 Mid Diastolic: 40 Distal Systolic: 153 Distal Diastolic: 34.7 External Carotid Artery (cm/s): Systolic: 113 Diastolic: 14 Vertebral Artery (cm/s): Systolic: 41 Diastolic: 9 Subclavian Artery (cm/s): Systolic: 100 Diastolic: 0 ICA/CCA Ratio: 2.0 ICA Stenosis: 50-69% ICA Plaque: Heterogeneous LEFT Common Carotid Artery (cm/s): Proximal Systolic: 54 Proximal Diastolic: 7 Mid Systolic: 52 Mid Diastolic: 9 Distal Systolic: 37 Distal Diastolic: 8 Internal Carotid Artery (cm/s): Proximal Systolic: 419 Proximal Diastolic: 169 Mid Systolic: NA Mid Diastolic: NA Distal Systolic: NA Distal Diastolic: NA External Carotid Artery (cm/s): Systolic: 116 Diastolic: 14 Vertebral Artery (cm/s): Systolic: 42 Diastolic: 11 Subclavian Artery(cm/s): Systolic: 68 Diastolic: 0 ICA/CCA Ratio: 11 ICA Stenosis: >70% ICA Plaque: Heterogeneous Abbreviations: CCA = Common Carotid Artery. ICA = Internal Carotid Artery. ECA =External Carotid Artery. Vert = Vertebral Artery. ICA/CCA Ratio = maximalICA PSV divided by the distal CCA PSV. DIRECT TEST FINDINGS: Right: Doppler flow velocities are elevated in the internal carotidartery. Doppler flow velocities and waveform contours demonstrate nohemodynamically significant elevation in the common carotid artery. Theexternal carotid artery demonstrates no elevated velocities. Antegradeflow is noted in the vertebral artery with no elevated velocities. Thesubclavian artery demonstrates no elevated velocities. Left: Doppler flow velocities are significantly elevated in the proximalinternal carotid artery. Doppler flow velocities and waveform contoursdemonstrate no hemodynamically significant elevation in the common carotidartery. The external carotid artery demonstrates no elevated velocities.Antegrade flow is noted in the vertebral artery with no elevatedvelocities. The subclavian artery demonstrates no elevated velocities. IMPRESSIONS: 1. 50-69% stenosis noted in the right internal carotid artery. 2. >70% stenosis noted in the left internal carotid artery. 3. No hemodynamically significant stenosis noted in the common carotidarteries bilaterally. 4. No hemodynamically significant stenosis noted in the external carotidarteries bilaterally. 5. Antegrade flow noted in the bilateral vertebral arteries. 6. Normal examination of the visualized right and left subclavianarteries. RECOMMENDATION: A CTA of the head and neck is recommended for furtherevaluation of the above mentioned vessels. STENOSIS: Internal carotid artery stenosis by duplex ultrasonography hasbeen validated by comparing findings with angiographic stenosis. NASCETmethods were used, where the most severe stenosis represents thenumerator, and the normal internal carotid artery diameter distal to thestenosis where the diallo are parallel represents the denominator. us Ronnell Ferrer MD CV US NEUROVASCULAR Final Re sult * XR Forearm 2 Views (Left) (04/28/2025 4:58 AM EDT) Anatomical Region Laterality Modality Forearm Left Computed Radiogr aphy 04/28/2025 6:31 AM EDT Impressions 04/28/2025 6:32 AM EDT Age-indeterminate fracture of the coronoid process of the ulna with associated elbow joint effusion. Narrative 04/28/2025 6:32 AM EDT XR HAND 3 OR MORE VIEWS (LEFT), XR FOREARM 2 VIEWS (LEFT) INDICATION: Pain COMPARISON: None. FINDINGS: Age-indeterminate fracture of the coronoid process of the ulna. Elbow joint effusion. Triceps insertional enthesopathy. No fracture or dislocation of the hand. The bones are diffusely osteopenic. Procedure Note Doron Maya MD - 04/28/2025 XR HAND 3 OR MORE VIEWS (LEFT), XR FOREARM 2 VIEWS (LEFT) INDICATION: Pain COMPARISON: None. FINDINGS: Age-indeterminate fracture of the coronoid process of the ulna. Elbowjoint effusion. Triceps insertional enthesopathy. No fracture ordislocation of the hand. The bones are diffusely osteopenic. IMPRESSION: Age-indeterminate fracture of the coronoid process of the ulna withassociated elbow joint effusion. us Uday Villaseñor DO IMG XR UPPER EXTREMITY Final Result * XR HAND 3 OR MORE VIEWS (LEFT) (04/28/2025 3:51 AM EDT) Anatomical Region Laterality Modality Hand Left Computed Radiogr aphy 04/28/2025 6:31 AM EDT Impressions 04/28/2025 6:32 AM EDT Age-indeterminate fracture of the coronoid process of the ulna with associated elbow joint effusion. Narrative 04/28/2025 6:32 AM EDT XR HAND 3 OR MORE VIEWS (LEFT), XR FOREARM 2 VIEWS (LEFT) INDICATION: Pain COMPARISON: None. FINDINGS: Age-indeterminate fracture of the coronoid process of the ulna. Elbow joint effusion. Triceps insertional enthesopathy. No fracture or dislocation of the hand. The bones are diffusely osteopenic. Procedure Note Doron Maya MD - 04/28/2025 XR HAND 3 OR MORE VIEWS (LEFT), XR FOREARM 2 VIEWS (LEFT) INDICATION: Pain COMPARISON: None. FINDINGS: Age-indeterminate fracture of the coronoid process of the ulna. Elbowjoint effusion. Triceps insertional enthesopathy. No fracture ordislocation of the hand. The bones are diffusely osteopenic. IMPRESSION: Age-indeterminate fracture of the coronoid process of the ulna withassociated elbow joint effusion. us Uday Villaseñor DO IMG XR UPPER EXTREMITY Final Result * CT FACE WITHOUT CONTRAST (04/28/2025 3:32 AM EDT) Anatomical Region Laterality Modality Face Computed Tomogra phy 04/28/2025 6:05 AM EDT Impressions 04/28/2025 6:10 AM EDT * Acute comminuted bilateral nasal arch fractures. * Acute fractures of the anterior bony and cartilaginous nasal septum. * No acute intracranial abnormality. * No acute fracture or traumatic malalignment of the cervical spine. Narrative 04/28/2025 6:[address] HEAD WITHOUT CONTRAST, CT FACE WITHOUT CONTRAST, CT CERVICAL SPINE WITHOUT CONTRAST TECHNIQUE: Multidetector-row CT of the head, face, and cervical spine was performed without intravenous contrast using tailored dose modulation techniques. Images were reconstructed in the axial, coronal, and sagittal planes. 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 Lacunar infarct in the left basal ganglia. Patchy hypoattenuation in the periventricular and subcortical white matter appears typical for chronic small vessel ischemic disease. Generalized cerebral and cerebellar volume loss with ex vacuo expansion of the ventricles. Calcified intracranial atherosclerosis. Ventricular System & Extra-Axial Spaces: The ventricles and sulci are prominent, reflecting ex vacuo expansion in the setting of parenchymal volume loss. No extra-axial fluid collections. Basilar cisterns are patent. No hydrocephalus. Skull & Scalp: No scalp hematoma. No fracture of the calvarium or skull base. FACE: Facial Bones: Acute comminuted bilateral nasal arch fractures. Acute fractures of the anterior bony and cartilaginous nasal septum. Orbits: The globes are symmetric. No intraorbital injury. Paranasal Sinuses & Mastoids: Blood products in the nasopharynx, left greater the right. Blood products in the sphenoid sinuses. No mastoid effusion. Oropharynx: No significant periodontal disease. Soft Tissues: No hematoma. CERVICAL SPINE: Alignment & Vertebrae: No facet malalignment. Vertebral bodies and posterior elements are intact. Discs & Endplates: Multilevel degenerative changes worst at C4-C5. Craniocervical Junction: No acute findings. Soft Tissue: No prevertebral soft tissue thickening. Upper Chest: No apical pneumothorax. Procedure Note MayaDoron MD - 04/28/2025 CT HEAD WITHOUT CONTRAST, CT FACE WITHOUT CONTRAST, CT CERVICAL SPINEWITHOUT CONTRAST TECHNIQUE: Multidetector-row CT of the head, face, and cervical spine wasperformed without intravenous contrast using tailored dose modulationtechniques. Images were reconstructed in the axial, coronal, and sagittalplanes. 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 Lacunar infarct in the left basal ganglia. Patchyhypoattenuation in the periventricular and subcortical white matterappears typical for chronic small vessel ischemic disease. Generalizedcerebral and cerebellar volume loss with ex vacuo expansion of theventricles. Calcified intracranial atherosclerosis. Ventricular System & Extra-Axial Spaces: The ventricles and sulci areprominent, reflecting ex vacuo expansion in the setting of parenchymalvolume loss. No extra-axial fluid collections. Basilar cisterns arepatent. No hydrocephalus. Skull & Scalp: No scalp hematoma. No fracture of the calvarium or skullbase. FACE: Facial Bones: Acute comminuted bilateral nasal arch fractures. Acutefractures of the anterior bony and cartilaginous nasal septum. Orbits: The globes are symmetric. No intraorbital injury. Paranasal Sinuses & Mastoids: Blood products in the nasopharynx, leftgreater the right. Blood products in the sphenoid sinuses. No mastoideffusion. Oropharynx: No significant periodontal disease. Soft Tissues: No hematoma. CERVICAL SPINE: Alignment & Vertebrae: No facet malalignment. Vertebral bodies andposterior elements are intact. Discs & Endplates: Multilevel degenerative changes worst at C4-C5. Craniocervical Junction: No acute findings. Soft Tissue: No prevertebral soft tissue thickening. Upper Chest: No apical pneumothorax. IMPRESSION: * Acute comminuted bilateral nasal arch fractures. * Acute fractures of the anterior bony and cartilaginous nasal septum. * No acute intracranial abnormality. * No acute fracture or traumatic malalignment of the cervical spine. Esther Babb PA-C IMG CT HEAD/NECK Final Resu lt * CT CERVICAL SPINE WITHOUT CONTRAST (04/28/2025 3:32 AM EDT) Anatomical Region Laterality Modality C-spine Computed Tomogra phy 04/28/2025 6:05 AM EDT Impressions 04/28/2025 6:10 AM EDT * Acute comminuted bilateral nasal arch fractures. * Acute fractures of the anterior bony and cartilaginous nasal septum. * No acute intracranial abnormality. * No acute fracture or traumatic malalignment of the cervical spine. Narrative 04/28/2025 6:[address] HEAD WITHOUT CONTRAST, CT FACE WITHOUT CONTRAST, CT CERVICAL SPINE WITHOUT CONTRAST TECHNIQUE: Multidetector-row CT of the head, face, and cervical spine was performed without intravenous contrast using tailored dose modulation techniques. Images were reconstructed in the axial, coronal, and sagittal planes. 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 Lacunar infarct in the left basal ganglia. Patchy hypoattenuation in the periventricular and subcortical white matter appears typical for chronic small vessel ischemic disease. Generalized cerebral and cerebellar volume loss with ex vacuo expansion of the ventricles. Calcified intracranial atherosclerosis. Ventricular System & Extra-Axial Spaces: The ventricles and sulci are prominent, reflecting ex vacuo expansion in the setting of parenchymal volume loss. No extra-axial fluid collections. Basilar cisterns are patent. No hydrocephalus. Skull & Scalp: No scalp hematoma. No fracture of the calvarium or skull base. FACE: Facial Bones: Acute comminuted bilateral nasal arch fractures. Acute fractures of the anterior bony and cartilaginous nasal septum. Orbits: The globes are symmetric. No intraorbital injury. Paranasal Sinuses & Mastoids: Blood products in the nasopharynx, left greater the right. Blood products in the sphenoid sinuses. No mastoid effusion. Oropharynx: No significant periodontal disease. Soft Tissues: No hematoma. CERVICAL SPINE: Alignment & Vertebrae: No facet malalignment. Vertebral bodies and posterior elements are intact. Discs & Endplates: Multilevel degenerative changes worst at C4-C5. Craniocervical Junction: No acute findings. Soft Tissue: No prevertebral soft tissue thickening. Upper Chest: No apical pneumothorax. Procedure Note MayaDoron MD - 04/28/2025 CT HEAD WITHOUT CONTRAST, CT FACE WITHOUT CONTRAST, CT CERVICAL SPINEWITHOUT CONTRAST TECHNIQUE: Multidetector-row CT of the head, face, and cervical spine wasperformed without intravenous contrast using tailored dose modulationtechniques. Images were reconstructed in the axial, coronal, and sagittalplanes. 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 Lacunar infarct in the left basal ganglia. Patchyhypoattenuation in the periventricular and subcortical white matterappears typical for chronic small vessel ischemic disease. Generalizedcerebral and cerebellar volume loss with ex vacuo expansion of theventricles. Calcified intracranial atherosclerosis. Ventricular System & Extra-Axial Spaces: The ventricles and sulci areprominent, reflecting ex vacuo expansion in the setting of parenchymalvolume loss. No extra-axial fluid collections. Basilar cisterns arepatent. No hydrocephalus. Skull & Scalp: No scalp hematoma. No fracture of the calvarium or skullbase. FACE: Facial Bones: Acute comminuted bilateral nasal arch fractures. Acutefractures of the anterior bony and cartilaginous nasal septum. Orbits: The globes are symmetric. No intraorbital injury. Paranasal Sinuses & Mastoids: Blood products in the nasopharynx, leftgreater the right. Blood products in the sphenoid sinuses. No mastoideffusion. Oropharynx: No significant periodontal disease. Soft Tissues: No hematoma. CERVICAL SPINE: Alignment & Vertebrae: No facet malalignment. Vertebral bodies andposterior elements are intact. Discs & Endplates: Multilevel degenerative changes worst at C4-C5. Craniocervical Junction: No acute findings. Soft Tissue: No prevertebral soft tissue thickening. Upper Chest: No apical pneumothorax. IMPRESSION: * Acute comminuted bilateral nasal arch fractures. * Acute fractures of the anterior bony and cartilaginous nasal septum. * No acute intracranial abnormality. * No acute fracture or traumatic malalignment of the cervical spine. Esther Babb PA-C IM CT XSPECIALTY ORDERABLE S Final Result * CT HEAD WITHOUT CONTRAST (04/28/2025 3:32 AM EDT) Anatomical Region Laterality Modality Head Computed Tomogra phy 04/28/2025 6:05 AM EDT Impressions 04/28/2025 6:10 AM EDT * Acute comminuted bilateral nasal arch fractures. * Acute fractures of the anterior bony and cartilaginous nasal septum. * No acute intracranial abnormality. * No acute fracture or traumatic malalignment of the cervical spine. Narrative 04/28/2025 6:[address] HEAD WITHOUT CONTRAST, CT FACE WITHOUT CONTRAST, CT CERVICAL SPINE WITHOUT CONTRAST TECHNIQUE: Multidetector-row CT of the head, face, and cervical spine was performed without intravenous contrast using tailored dose modulation techniques. Images were reconstructed in the axial, coronal, and sagittal planes. 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 Lacunar infarct in the left basal ganglia. Patchy hypoattenuation in the periventricular and subcortical white matter appears typical for chronic small vessel ischemic disease. Generalized cerebral and cerebellar volume loss with ex vacuo expansion of the ventricles. Calcified intracranial atherosclerosis. Ventricular System & Extra-Axial Spaces: The ventricles and sulci are prominent, reflecting ex vacuo expansion in the setting of parenchymal volume loss. No extra-axial fluid collections. Basilar cisterns are patent. No hydrocephalus. Skull & Scalp: No scalp hematoma. No fracture of the calvarium or skull base. FACE: Facial Bones: Acute comminuted bilateral nasal arch fractures. Acute fractures of the anterior bony and cartilaginous nasal septum. Orbits: The globes are symmetric. No intraorbital injury. Paranasal Sinuses & Mastoids: Blood products in the nasopharynx, left greater the right. Blood products in the sphenoid sinuses. No mastoid effusion. Oropharynx: No significant periodontal disease. Soft Tissues: No hematoma. CERVICAL SPINE: Alignment & Vertebrae: No facet malalignment. Vertebral bodies and posterior elements are intact. Discs & Endplates: Multilevel degenerative changes worst at C4-C5. Craniocervical Junction: No acute findings. Soft Tissue: No prevertebral soft tissue thickening. Upper Chest: No apical pneumothorax. Procedure Note MayaDoron MD - 04/28/2025 CT HEAD WITHOUT CONTRAST, CT FACE WITHOUT CONTRAST, CT CERVICAL SPINEWITHOUT CONTRAST TECHNIQUE: Multidetector-row CT of the head, face, and cervical spine wasperformed without intravenous contrast using tailored dose modulationtechniques. Images were reconstructed in the axial, coronal, and sagittalplanes. 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 Lacunar infarct in the left basal ganglia. Patchyhypoattenuation in the periventricular and subcortical white matterappears typical for chronic small vessel ischemic disease. Generalizedcerebral and cerebellar volume loss with ex vacuo expansion of theventricles. Calcified intracranial atherosclerosis. Ventricular System & Extra-Axial Spaces: The ventricles and sulci areprominent, reflecting ex vacuo expansion in the setting of parenchymalvolume loss. No extra-axial fluid collections. Basilar cisterns arepatent. No hydrocephalus. Skull & Scalp: No scalp hematoma. No fracture of the calvarium or skullbase. FACE: Facial Bones: Acute comminuted bilateral nasal arch fractures. Acutefractures of the anterior bony and cartilaginous nasal septum. Orbits: The globes are symmetric. No intraorbital injury. Paranasal Sinuses & Mastoids: Blood products in the nasopharynx, leftgreater the right. Blood products in the sphenoid sinuses. No mastoideffusion. Oropharynx: No significant periodontal disease. Soft Tissues: No hematoma. CERVICAL SPINE: Alignment & Vertebrae: No facet malalignment. Vertebral bodies andposterior elements are intact. Discs & Endplates: Multilevel degenerative changes worst at C4-C5. Craniocervical Junction: No acute findings. Soft Tissue: No prevertebral soft tissue thickening. Upper Chest: No apical pneumothorax. IMPRESSION: * Acute comminuted bilateral nasal arch fractures. * Acute fractures of the anterior bony and cartilaginous nasal septum. * No acute intracranial abnormality. * No acute fracture or traumatic malalignment of the cervical spine. Esther Babb PA-C IMG CT HEAD/NECK Final Resu lt * CT CERVICAL SPINE (NEURO) WITHOUT CONTRAST (04/25/2025 10:40 PM EDT) Anatomical Region Laterality Modality C-spine Computed Tomogra phy 04/25/2025 11:1 5 PM EDT Impressions 04/25/2025 11:20 PM EDT No acute fracture or malalignment. Narrative 04/25/2025 11:[address] CERVICAL SPINE (NEURO) WITHOUT CONTRAST Referring clinician's provided indication for this examination in Epic: * Neck trauma (Age >= 65y) TECHNIQUE: Multidetector-row CT of the cervical spine was performed without intravenous contrast using tailored dose modulation techniques. Images were reconstructed in the axial, coronal, and sagittal planes. COMPARISON: None FINDINGS: Alignment and Vertebrae: Alignment is atraumatic. Minimal multilevel listhesis likely degenerative. Vertebral bodies and posterior elements are intact. Discs and Endplates: Multilevel degenerative disc disease and facet osteoarthritis. Other Findings: None. Procedure Note Jonatan Delgadillo MD - 04/25/2025 CT CERVICAL SPINE (NEURO) WITHOUT CONTRAST Referring clinician's provided indication for this examination in [facility]: *Neck trauma (Age >= 65y) TECHNIQUE: Multidetector-row CT of the cervical spine was performedwithout intravenous contrast using tailored dose modulation techniques.Images were reconstructed in the axial, coronal, and sagittal planes. COMPARISON: None FINDINGS: Alignment and Vertebrae: Alignment is atraumatic. Minimal multilevellisthesis likely degenerative. Vertebral bodies and posterior elements areintact. Discs and Endplates: Multilevel degenerative disc disease and facetosteoarthritis. Other Findings: None. IMPRESSION: No acute fracture or malalignment. us Uday Villaseñor DO IMG CT XSPECIALTY ORDERABLES Final Result * XR CHEST 1 VIEW (04/25/2025 10:35 PM EDT) Anatomical Region Laterality Modality Chest Computed Radiogr aphy 04/25/2025 11:0 7 PM EDT Impressions 04/25/2025 11:43 PM EDT Pulmonary vascular congestion. ATTESTATION: I, Adriana Jones as teaching physician, have reviewed the images for this case and if necessary edited the report originally created by Delvin Grande. Narrative 04/25/2025 11:43 PM EDT XR CHEST 1 VIEW Referring clinician's provided indication for this examination in [facility]: Cough COMPARISON: XR CHEST PORTABLE FINDINGS: Devices/Tubes/Lines: None. Lungs: Engorged perihilar vasculature. Pleura: No pleural effusion or pneumothorax. Heart/Mediastinum: Unchanged in appearance. Bones/Soft Tissues: Normal. Procedure Note Adriana Jones MD - 04/25/2025 XR CHEST 1 VIEW Referring clinician's provided indication for this examination in Epic:Cough COMPARISON: XR CHEST PORTABLE FINDINGS: Devices/Tubes/Lines: None. Lungs: Engorged perihilar vasculature. Pleura: No pleural effusion or pneumothorax. Heart/Mediastinum: Unchanged in appearance. Bones/Soft Tissues: Normal. IMPRESSION: Pulmonary vascular congestion. ATTESTATION: I, Adriana Jones as teaching physician, have reviewed theimages for this case and if necessary edited the report originally createdby Delvin Grande. us Uday Villaseñor DO IMG XR CHEST Final Result * COVID Pandemic Respiratory Viral Order (PRO) (04/25/2025 10:23 PM EDT) Test Ordered Rapid COVID has been ordered [facility] Specimen Source/Description NASAL [facility] SARS-CoV 2 (COVID-19) PCR Not Detected Not Detected [facility] Comment: SARS-CoV-2 not detected Negative results do not preclude SARS-CoV-2 infection and should not be used as the sole basis for patient management decisions. Negative results must be combined with clinical observations, patient history, and epidemiological information. Other (Nasopharyngeal swab) 04/25/2025 10:23 PM EDT 04/25/2025 11:11 PM EDT us Uday Villaseñor DO BODY FLUIDS AND STOOLS ORDERA BLES Final Result [facility] [address] [place] [address] * XR FOOT 3 OR MORE VIEWS (LEFT) (04/23/2025 4:20 PM EDT) Anatomical Region Laterality Modality Foot Left Computed Radiogr aphy 04/23/2025 4:39 PM EDT Impressions 04/23/2025 4:43 PM EDT 1. No displaced fracture or dislocation. 2. 9 mm linear density along the plantar surface of the forefoot overlying the first metatarsal, suggestive of a radiopaque foreign body. Narrative 04/23/2025 4:43 PM EDT XR FOOT 3 OR MORE VIEWS (LEFT) Referring clinician's provided indication for this examination in [facility]: Pain COMPARISON: XR FOOT 3 OR MORE VIEWS (LEFT) FINDINGS: No displaced fracture or dislocation. There is a 9 mm linear density along the plantar surface/subcutaneous tissue of the forefoot and overlying the body of the first metatarsal. Mild degenerative change at the first metatarsophalangeal joint. Procedure Note Chase Douglass, [facility] - 04/23/2025 XR FOOT 3 OR MORE VIEWS (LEFT) Referring clinician's provided indication for this examination in [facility]:Pain COMPARISON: XR FOOT 3 OR MORE VIEWS (LEFT) FINDINGS: No displaced fracture or dislocation. There is a 9 mm linear density alongthe plantar surface/subcutaneous tissue of the forefoot and overlying thebody of the first metatarsal. Mild degenerative change at the firstmetatarsophalangeal joint. IMPRESSION: 1. No displaced fracture or dislocation. 2. 9 mm linear density along the plantar surface of the forefootoverlying the first metatarsal, suggestive of a radiopaque foreign body. us Elpidio Medina MD IMG XR LOWER EXTREMITY Final Re sult * Hemoglobin A1c (09/23/2019 12:35 PM EST) HEMOGLOBIN A1C 5.2 4.3 - 5.8 % [facility] Blood 09/23/2019 12:3 5 PM EST 09/23/2019 12:40 PM EST Comment:#TO BE ADDED TO AM L ABS SPOKE WITH RADHA IN HEMO us Dalton Roman MD LAB BLOOD ORDERABLES Final Result [facility] [address] [place] [address] * TSH with reflex (06/03/2019 5:13 AM EDT) TSH 0.39 0.27 - 4.20 uIU/mL [facility] Blood 06/03/2019 5:13 AM EDT 06/03/2019 6:28 AM EDT us Leon Bentley DO LAB BLOOD ORDERABLES Final Re sult [address] [address] from Last 3 Months or Most Recently Relevant to Health Maintenance Insurance PROGRESSIVE INSURANCE [facility] MEDICARE PPO BLUE REPLACEMENT Advance Directives For more information, please contact: [phone] (9AM - 5PM Mary/[facility], Saturday-Saturday) Documents on File Type Date Recorded Patient Video Game Animator Expl anation Healthcare Proxy 06/10/2019 1:37 PM HC PROX Y * Full Code (Latest Code Status on File) Date Activated Date Inactivated Comments 03/14/2023 7:52 PM Question Answer Comments Code Status Confirmed With: Patient * Full Code (Confirmed) Date Activated Date Inactivated Comments 10/07/2019 10:50 PM 10/10/2019 3:28 PM Question Answer Comments Code Status Confirmed With: Patient * Full Code (Confirmed) Date Activated Date Inactivated Comments 09/23/2019 11:43 AM 09/25/2019 3:39 PM Question Answer Comments Code Status Confirmed With: Patient Code Status Communicated To: Inpatient Attending * Full Code (Confirmed) Date Activated Date Inactivated Comments 06/02/2019 10:40 PM 06/05/2019 8:46 PM Question Answer Comments Code Status Confirmed With: Patient * Full Code (Confirmed) Date Activated Date Inactivated Comments 06/02/2018 9:40 PM 06/04/2018 5:58 PM Question Answer Comments Code Status Confirmed With: Patient Healthcare Agents on File Name Relationship Healthcare Agent Relationship Communication Doron Singer .Primary Health Care Agent (Proxy form on file) Rich Jerry II Son Alternate Heal thcare Agent (Proxy form on file) Care Teams Corrections Cadet Relationship Specialty Start Date End Date Courtney Judge NP [address] [place] [address] PCP - General Nurse Practitioner 07/09/24 Raul Howard DO [address] [place] [address] [email or web address] Primary Oncologist Hematology and Oncology 07/28/18 Karely Cabrera PA-C [address] [place] [email or web address] Physician Physician Practice Manager Hematology 10/18/20 Raul Howard DO [address] [place] [address] [email or web address] Primary Oncologist Hematology and Oncology 07/31/22 Additional Source Comments The information contained in this document represents components of the legal health record. It is not the complete legal health record.[facility]
--- OUTSIDE RECORDS SUMMARY | 2025-07-20 15:56 | XMS_ITS | Encounter Summary ---
Author Organization [facility], Address [address] [place] [address] Phone Care Team Providers Care Race And Sports Book Writer Name Role Phone Courtney Judge MACHINE COMPOSITOR Primary Care Provider [phone] Encounter Details Date Type Department Care Team (Late Contact Info) Description 05/23/2023 Documentation Only [facility] [address] [place] [address] Diego Fisher MD [address] [place] [address] [place] [address] Social History Tobacco Use Types [...] Visit [facility] REYNA [address] [place] [address] Diego Fisher MD [address] [place] [address] [place] [address] documented as of this encounter Visit Diagnoses Not on filedocumented in this encounter Care Teams Race And Sports Book Writer Relationship Specialty Start Date End Date Courtney Judge NP [address] [place] [id number] PCP - General 05/03/25 documented as of this encounter
--- OUTSIDE RECORDS SUMMARY | 2025-07-20 15:56 | XMS_ITS | Encounter Summary ---
Author Organization [facility] Address [address] [facility] [address] [place] [address] Phone Care Team Providers Care Trim Sawyer Name Role Phone LeeRaul DO Unavailable [phone] Karely Cabrera PA-C Unavailable [phone] Raul Howard DO Unavailable Courtney Judge CERTIFIED HEARING INSTRUMENT DISPENSER Primary Care Provider [phone] Encounter Details Date Type Department Care Team (Late st Contact Info) Description 06/01/2025 Procedure Pass [facility], Ct Scan - [facility] [address] [place] [address] Social History Tobacco Use Types Packs/Day Years Used Date Smoking Tobacco: Former Cigarettes 1 2016 Smokeless Tobacco: Never Alcohol Use Standard [...] got money to buy more. Never True 06/01/2025 Within the past 6 months the food we bought just didn't last and we didn't have enough money to get more. Never True Residential Stability Answer Date Recor ded What is your housing situation today? I have vamshi sing 06/01/2025 How many times have you move d in the past 12 months? Zero (I did not move) 06/01/2025 Paying for Meds Answer Date Recorded Do you have trouble paying for medicines? No 06/01/2025 Paying Utility Bills Answer Date Record ed Do you have trouble paying your heating or elect ricity bill? No 06/01/2025 Transportation Answer Date Recorded Has the lack of transportati on kept you from medical appointments or from getting medications? No 06/01/2025 Digital Access Answer Date Recorded No 06/01/2025 Yes 06/01/2025 Do you have reliable internet access at home? Ye s 06/01/2025 Do you have a device (e.g., phone, tablet, computer) with a working camera? Yes 06/01/2025 Intimate Partner Violence Answer Date R ecorded Are you denied basic needs s uch as food, clothing, or medical care? No 06/01/2025 In the past 12 months have y ou been in a relationship with a person who hurts, threatens, or tries to control you? No 06/01/2025 Are you denied basic needs s uch as food, clothing, or medical care? No 06/01/2025 In the past 12 months have y ou been in a relationship with a person who hurts, threatens, or tries to control you? No 06/01/2025 Comments No Sex and Gender Information Value Date Recorded Sex Assigned at Female 06/02/2018 5:26 PM EDT Legal Sex Female 10:11 PM EDT Gender Identity Female 06/02/2018 5:26 PM EDT Sexual Orientation Straight 06/02/2018 5: 26 PM EDT documented as of this encounter Functional Status * Calculated C-SSRS Risk Score (Lifetime/Recent) Answer Date of Assessment Author No Risk Indicated 06/01/2025 1:18 AM EDT Kary Staley RN * [place] Suicide Severity Rating Scale (Screener/Recent Self-Report) Question Answer Date of Assessment Author 1. Wish to be (Past 1 Month) No 025 1:18 AM EDT Kary Staley RN 2. Non-Specific Active Suici fariba Thoughts (Past 1 Month) No 06/01/2025 1:18 AM EDT Kary Staley RN 6. Suicidal Behavior (Lifetime) No 1:18 AM EDT Kary Staley RN documented as of this encounter Plan of Treatment Upcoming Encounters Date Type Department Care Team (Late st Contact Info) Description 12/27/2025 2:30 PM EDT Office Visit [facility] Pulmonary, Allergy and Critical Care Medicine [address] [place] [address] Juna Ventura MD [address] [place] [address] [email or web address] 02/24/2026 8:30 AM EDT Office Visit [facility] Neurology [address] [place] [id number] Rafael España MD [address] [place] [address] documented as of this encounter Visit Diagnoses Not on filedocumented in this encounter Care Teams Trim Sawyer Relationship Specialty Start Date End Date Courtney Judge NP [address] [place] [address] PCP - General Nurse Practitioner 07/09/24 Raul Howard DO [address] [place] [address] [email or web address] Primary Oncologist Hematology and Oncology 07/28/18 Karely Cabrera PA-C [address] [place] [address] [email or web address] Physician Early Childhood Educator Aide Hematology 10/18/20 Raul Howard DO [address] [place] [id number] [email or web address] Primary Oncologist Hematology and Oncology 07/31/22 documented as of this encounter Additional Source Comments The information contained in this document represents components of the legal health record. It is not the complete legal health record.[facility]
--- OUTSIDE RECORDS SUMMARY | 2025-07-20 15:56 | XMS_ITS | Encounter Summary ---
Author Organization [facility], Address [address] [place] [address] Phone Care Team Providers Care Manager Of Business Name Role Phone Courtney Judge MANAGER SOCIAL MEDIA Primary Care Provider [phone] Encounter Details Date Type Department Care Team (Late Contact Info) Description 05/23/2023 Documentation Only [facility] [address] [place] [address] Diego Fisher MD [address] [place] [address] [place] [address] Social History Tobacco Use Types [...] Visit [facility] REYNA [address] [place] [address] Diego Fisher MD [address] [place] [address] [place] [address] documented as of this encounter Visit Diagnoses Not on filedocumented in this encounter Care Teams Manager Of Business Relationship Specialty Start Date End Date Courtney Judge NP [address] [place] [address] PCP - General 05/03/25 documented as of this encounter
--- OUTSIDE RECORDS SUMMARY | 2025-07-20 15:56 | XMS_ITS | Encounter Summary ---
Author Organization [facility], Address [address] [place] [address] Phone Care Team Providers Care Automotive Service Management Teacher Name Role Phone Courtney Judge MAIL MACHINE OPERATOR Primary Care Provider [phone] Encounter Details Date Type Department Care Team (Late Contact Info) Description 05/23/2023 Documentation Only [facility] David [address] [place] [address] Diego Fisher MD [address] [place] [address] [place] [address] Social History Tobacco Use Types [...] Visit [facility] REYNA [address] [place] [address] Diego Fisher MD [address] [place] [address] [place] [address] documented as of this encounter Visit Diagnoses Not on filedocumented in this encounter Care Teams Automotive Service Management Teacher Relationship Specialty Start Date End Date Courtney Judge NP [address] [place] [address] PCP - General 05/03/25 documented as of this encounter
--- OUTSIDE RECORDS SUMMARY | 2025-07-20 15:56 | XMS_ITS | Encounter Summary ---
Author Organization [facility], Address [address] [place] [address] Phone Care Team Providers Care General Ledger Accountant Name Role Phone Courtney Judge DECKHAND SHRIMP BOAT Primary Care Provider [phone] Encounter Details Date Type Department Care Team (Late Contact Info) Description 05/23/2023 Documentation Only [facility] David [address] [place] [address] Diego Fisher MD [address] [place] [address] [place] [address] Social History Tobacco Use Types [...] Visit [facility] REYNA [address] [place] [address] Diego Fisher MD [address] [place] [address] [place] [address] documented as of this encounter Visit Diagnoses Not on filedocumented in this encounter Care Teams General Ledger Accountant Relationship Specialty Start Date End Date Courtney Judge NP [address] [place] [address] PCP - General 05/03/25 documented as of this encounter
--- OUTSIDE RECORDS SUMMARY | 2025-07-20 15:56 | XMS_ITS | Encounter Summary ---
Author Organization [facility], Address [address] [place] [address] Phone Care Team Providers Care Nut Orchardist Name Role Phone Courtney Judge HOME SERVICE TECHNICIAN Primary Care Provider [phone] Encounter Details Date Type Department Care Team (Late Contact Info) Description 05/23/2023 Documentation Only [facility] David [address] [place] [address] Diego Fisher MD [address] [place] [address] [place] [address] Social History Tobacco Use Types [...] Visit [facility] REYNA [address] [place] [address] Diego Fisher MD [address] [place] [address] [place] [address] documented as of this encounter Visit Diagnoses Not on filedocumented in this encounter Care Teams Nut Orchardist Relationship Specialty Start Date End Date Courtney Judge NP [address] [place] [address] PCP - General 05/03/25 documented as of this encounter
--- OUTSIDE RECORDS SUMMARY | 2025-07-20 15:56 | XMS_ITS | Encounter Summary ---
Author Organization [facility] [place], Address [address] [place] [address] Phone Care Team Providers Care Toll Settlement Clerk Name Role Phone Courtney Judge INTERNET DEVELOPER Primary Care Provider [phone] Encounter Details Date Type Department Care Team (Late Contact Info) Description 05/23/2023 Documentation Only [facility] David H[address] [place] [address] Diego Fisher MD [address] [place] [address] [place] [address] Social History Tobacco Use Types [...] Visit [facility] REYNA H[address] [place] [address] Diego Fisher MD [address] [place] [address] [place] [address] documented as of this encounter Visit Diagnoses Not on filedocumented in this encounter Care Teams Toll Settlement Clerk Relationship Specialty Start Date End Date Courtney Judge NP [address] [place] [address] PCP - General 05/03/25 documented as of this encounter
--- OUTSIDE RECORDS SUMMARY | 2025-07-20 15:56 | XMS_ITS | Encounter Summary ---
Author Organization [facility] Address [address] [facility] [address] [place] [address] Phone Care Team Providers Care Production Hand Name Role Phone LeeRaul DO Unavailable Karely Cabrera PA-C Unavailable [phone] Raul Howard DO Unavailable Courtney Judge R D MANAGER Primary Care Provider [phone] Encounter Details Date Type Department Care Team (Late st Contact Info) Description 05/03/2025 Procedure Pass [facility] Echo Lab 30 [place] [address] Social History Tobacco Use Types Packs/Day Years [...] Pulmonary, Allergy and Critical Care Medicine 10 [place] [address] Juan Ventura MD [address] [address] [email or web address] 02/24/2026 8:30 AM EDT Office Visit [facility] Neurology [address] [place] [address] Rafael España MD [address] [place] [address] [email or web address] documented as of this encounter Visit Diagnoses Not on filedocumented in this encounter Additional Health Concerns Infection Onset Date Last Indicated Resolved Time CoV-Risk 04/25/2025 04/25/2025 05/06/2025 1:21 AM EDT documented as of this encounter Care Teams Production Hand Relationship Specialty Start Date End Date Courtney Judge NP [address] [place] [address] PCP - General Nurse Practitioner 07/09/24 Raul Howard DO 30 [place] [address] [email or web address] Primary Oncologist Hematology and Oncology 07/28/18 Karely Cabrera PA-C [address] [place] [address] Physician Tobacco Packing Machine Operator Hematology 10/18/20 Raul Howard DO 30 [place] [address] [email or web address] Primary Oncologist Hematology and Oncology 07/31/22 documented as of this encounter Additional Source Comments The information contained in this document represents components of the legal health record. It is not the complete legal health record.[facility]
--- OUTSIDE RECORDS SUMMARY | 2025-07-20 15:58 | XMS_ITS | Encounter Summary ---
Author Organization [facility] [place], Address [address] [place] [address] Phone Care Team Providers Care Manager Of Exhibitions And Collections Name Role Phone Courtney Judge AUTO POLISHER Primary Care Provider [phone] Encounter Details Date Type Department Care Team (Late Contact Info) Description 03/24/2025 Documentation Only [facility] [address] [place] [address] Valeri Witt [address] [place] [address] Social History Tobacco Use Types Packs/Day Years [...] Visit [facility] Colt H[place] [address] [place] [address] Diego Fisher MD [address] [place] [address] [place] [phone] documented as of this encounter Visit Diagnoses Not on filedocumented in this encounter Care Teams Manager Of Exhibitions And Collections Relationship Specialty Start Date End Date Courtney Judge NP [address] [place] [address] PCP - General 05/03/25 documented as of this encounter
--- OUTSIDE RECORDS SUMMARY | 2025-07-20 15:58 | XMS_ITS | Encounter Summary ---
Author Organization [facility] Address [address] [facility] [address] [facility] [address] [place] [address] Phone Care Team Providers Care Lamp Shade Joiner Name Role Phone Isi Royal CARDROOM ATTENDANT Primary Care Provider [phone] Raul Howard DO Unavailable [phone] Karely Cabrera PA-C Unavailable [phone] Raul Howard DO Unavailable Courtney Judge CARDROOM ATTENDANT Primary Care Provider [phone] Encounter Details Date Type Department Care Team (Latest Contact Info) Description 03/19/2019 Transcribe Orders [facility] Laboratory 30 [place] [address] Raul Howard DO 30 [place] [address] [email or web address] Screening for unspecified condition (Primary Dx) Social History Tobacco Use Types Packs/Day Years Used Date Smoking Tobacco: Former Cigarettes 016 - 2017 Smokeless Tobacco: Never Alcohol Use Standard Drinks/Week [...] [facility] Pulmonary, Allergy and Critical Care Medicine [address] [place] [address] Juan Ventura MD [address] [place] [address] [email or web address] 02/24/2026 8:30 AM EDT Office Visit [facility] Neurology [address] [place] [address] Rafael España MD [address] [place] [address] [email or web address] documented as of this encounter Visit Diagnoses Diagnosis Screening for unspecified condition- Primary documented in this encounter Additional Health Concerns Infection Onset Date Last Indicated Resolved Time CoV-Risk 04/25/2025 04/25/2025 05/06/2025 1:21 AM EDT documented as of this encounter Care Teams Lamp Shade Joiner Relationship Specialty Start Date End Date Isi Royal NP 70 [place] [address] PCP - General Family Medicine 07/03/18 07/08/24 Courtney Judge NP 70 [place] [address] PCP - General Nurse Practitioner 07/09/24 Raul Howard DO 30 [place] [address] [email or web address] Primary Oncologist Hematology and Oncology 07/28/18 Karely Cabrera PA-C [address] [place] [address] [email or web address] Physician Electric Welder Hematology 10/18/20 Raul Howard DO [address] [place] [address] [email or web address] Primary Oncologist Hematology and Oncology 07/31/22 documented as of this encounter Additional Source Comments The information contained in this document represents components of the legal health record. It is not the complete legal health record.[facility]
--- OUTSIDE RECORDS SUMMARY | 2025-07-20 15:58 | XMS_ITS | Encounter Summary ---
Author Organization [facility] Address [address] [facility] [address] [place] [address] Phone Care Team Providers Care Lode Miner Name Role Phone Ayad Vera MD Primary Care Provider [phone] Isi Royal MAIL CARRIER AND CLERK Primary Care Provider [phone] Raul Howard DO Unavailable [phone] Karely Cabrera PA-C Unavailable [phone] Raul Howard DO Unavailable [phone] Courtney Judge MAIL CARRIER AND CLERK Primary Care Provider Encounter Details Date Type Department Care Team (Late st Contact Info) Description 06/04/2018 Procedure Pass [facility] Endoscopy Admitting Dept Virtual Department 30 [place], [place] [id number] Social History Tobacco Use Types Packs/Day Years [...] Pulmonary, Allergy and Critical Care Medicine 10 [place] [address] Juan Ventura MD [address] [address] [email or web address] 02/24/2026 8:30 AM EDT Office Visit [facility] Neurology [address] [place] [address] Rafael España MD [address] [place] [address] [email or web address] documented as of this encounter Visit Diagnoses Not on filedocumented in this encounter Additional Health Concerns Infection Onset Date Last Indicated Resolved Time CoV-Risk 04/25/2025 04/25/2025 05/06/2025 1:21 AM EDT documented as of this encounter Care Teams Lode Miner Relationship Specialty Start Date End Date Ayad Vera MD 70 [place] [address] [email or web address] PCP - General 07/22/17 07/02/18 Isi Royal NP 70 [place] [address] PCP - General Family Medicine 07/03/18 07/08/24 Courtney Judge NP 70 [place] [address] PCP - General Nurse Practitioner 07/09/24 Raul Howard DO 30 [place] [address] [email or web address] Primary Oncologist Hematology and Oncology 07/28/18 Karely Cabrera PA-C 30 [place] [address] [email or web address] Physician Caddie Supervisor Hematology 10/18/20 Raul Howard DO 30 [place] [address] [email or web address] Primary Oncologist Hematology and Oncology 07/31/22 documented as of this encounter Additional Source Comments The information contained in this document represents components of the legal health record. It is not the complete legal health record.[facility]
--- OUTSIDE RECORDS SUMMARY | 2025-07-20 15:58 | XMS_ITS | Encounter Summary ---
Author Organization [facility] Address [address] [facility] [address] [place] [address] Phone Care Team Providers Care Manager Group Name Role Phone Isi Royal CUSTOMER SERVICE REP Primary Care Provider [phone] Raul Howard DO Unavailable [phone] Karely Cabrera PA-C Unavailable [phone] Raul Howard DO Unavailable [phone] Courtney Judge CUSTOMER SERVICE REP Primary Care Provider [phone] Encounter Details Date Type Department Care Team (Late st Contact Info) Description 05/08/2021 Procedure Pass [facility] Echo Lab 30 [place], [place] [phone] Social History Tobacco Use Types Packs/Day Years [...] Pulmonary, Allergy and Critical Care Medicine 10 [place] [address] Juan Ventura MD [address] [address] [email or web address] 02/24/2026 8:30 AM EDT Office Visit [facility] Neurology [address] [place] [address] Rafael España MD [address] [place] [address] [email or web address] documented as of this encounter Visit Diagnoses Not on filedocumented in this encounter Additional Health Concerns Infection Onset Date Last Indicated Resolved Time CoV-Risk 04/25/2025 04/25/2025 05/06/2025 1:21 AM EDT documented as of this encounter Care Teams Manager Group Relationship Specialty Start Date End Date Isi Royal NP 70 [place] [address] PCP - General Family Medicine 07/03/18 07/08/24 Courtney Judge NP 70 [place] [address] PCP - General Nurse Practitioner 07/09/24 Raul Howard DO [address] [place] [address] [email or web address] Primary Oncologist Hematology and Oncology 07/28/18 Karely Cabrera PA-C [address] [place] [address] [email or web address] Physician Court Collections Officer Hematology 10/18/20 Raul Howard DO 30 [place] [address] [email or web address] Primary Oncologist Hematology and Oncology 07/31/22 documented as of this encounter Additional Source Comments The information contained in this document represents components of the legal health record. It is not the complete legal health record.[facility]
--- OUTSIDE RECORDS SUMMARY | 2025-07-20 15:58 | XMS_ITS | Encounter Summary ---
Author Organization [facility] [place], Address [address] [place] [address] Phone Care Team Providers Care Hammer Repairer Name Role Phone Courtney Judge WESTERN PHILOSOPHY PROFESSOR Primary Care Provider [phone] Encounter Details Date Type Department Care Team (Late Contact Info) Description 04/02/2025 Documentation Only [facility] [address] [place] [address] Es Garcia [address] [place] [phone] Social History Tobacco Use Types Packs/Day [...] Visit [facility] Colt HARRINGTON [address] [place] [address] Diego Fisher MD [address] [place] [address] [place] [address] documented as of this encounter Visit Diagnoses Not on filedocumented in this encounter Care Teams Hammer Repairer Relationship Specialty Start Date End Date Courtney Judge NP [address] [place] [address] PCP - General 05/03/25 documented as of this encounter
--- OUTSIDE RECORDS SUMMARY | 2025-07-20 15:58 | XMS_ITS | Encounter Summary ---
Author Organization [facility] Address [address] [facility] [address] [place] [address] Phone Care Team Providers Care Stable Cleaner Name Role Phone Isi Royal HARDWOOD FLOOR REFINISHER Primary Care Provider [phone] Raul Howard DO Unavailable Karely Cabrera PA-C Unavailable [phone] Raul Howard DO Unavailable [phone] Courtney Judge HARDWOOD FLOOR REFINISHER Primary Care Provider Encounter Details Date Type Department Care Team (Late st Contact Info) Description 03/19/2023 Procedure Pass [facility], Ct Scan - [facility] 30 [place], [place] [id number] Social History Tobacco Use Types Packs/Day Years Used Date Smoking Tobacco: Former Cigarettes 1 15 2 - 2016 Smokeless Tobacco: Never Alcohol Use Standard Drinks/Week Comments No 0 (1 standard drink = 0.6 oz pur e alcohol) Education Answer Date Recorded Are you interested in more education? Not on brennen e 02/01/2023 Are you concerned about learning? Not on file 02/01/2023 No 02/01/2023 No 02/01/2023 Digital Access Answer Date Recorded No 03/02/2023 No 03/02/2023 Reliable internet access at home? Not on file 03/02/2023 Device with a working camera? Not on file Comments No Sex and Gender Information Value Date Recorded Sex Assigned at Female 06/02/2018 5:26 PM EDT Legal Sex Female 10:11 PM EDT Gender Identity Female 06/02/2018 5:26 PM EDT Sexual Orientation Straight 06/02/2018 5: 26 PM EDT documented as of this encounter Plan of Treatment Upcoming Encounters Date Type Department Care Team ([facility] st Contact Info) Description 12/27/2025 2:30 PM EDT Office Visit [facility] Pulmonary, Allergy and Critical Care Medicine 10 [place] [address] Juan Ventura MD [address] [place] [address] [email or web address] 02/24/2026 8:30 AM EDT Office Visit [facility] Neurology [address] [place] [address] Rafael España MD [address] [place] [address] documented as of this encounter Visit Diagnoses Not on filedocumented in this encounter Additional Health Concerns Infection Onset Date Last Indicated Resolved Time CoV-Risk 04/25/2025 04/25/2025 05/06/2025 1:21 AM EDT documented as of this encounter Care Teams Stable Cleaner Relationship Specialty Start Date End Date Isi Royal NP 70 [place] [address] PCP - General Family Medicine 07/03/18 07/08/24 Courtney Judge NP 70 [place] [address] PCP - General Nurse Practitioner 07/09/24 Raul Howard DO [address] [place] [address] [email or web address] Primary Oncologist Hematology and Oncology 07/28/18 Karely Cabrera PA-C [address] [place] [address] [email or web address] Physician Bonderizer Hematology 10/18/20 Raul Howard DO [address] [place] [address] [email or web address] Primary Oncologist Hematology and Oncology 07/31/22 documented as of this encounter Additional Source Comments The information contained in this document represents components of the legal health record. It is not the complete legal health record.[facility]
--- OUTSIDE RECORDS SUMMARY | 2025-07-20 15:58 | XMS_ITS | Encounter Summary ---
Author Organization [facility] Address [address] [email or web address] [address] [place] [address] Phone Care Team Providers Care Construction Estimator Name Role Phone Isi Royal JOURNEYMAN LINEMAN Primary Care Provider [phone] Raul Howard DO Unavailable [phone] Karely Cabrera PA-C Unavailable [phone] Raul Howard DO Unavailable [phone] Courtney Judge JOURNEYMAN LINEMAN Primary Care Provider Encounter Details Date Type Department Care Team (Late st Contact Info) Description 03/14/2023 Procedure Pass [facility], Ct Scan - [facility] 30 [place], [place] [id number] Social History Tobacco Use Types Packs/Day Years [...] Date of Assessment Author No Risk Indicated 03/14/2023 8:00 PM EDT Tri Tucker RN * Thayer Suicide Severity Rating Scale (Screener/Recent Self-Report) Question Answer Date of Assessment Author 1. Wish to be (Past 1 Month) No 03/14/2023 8:00 PM EDT Bar Tucker RN 2. Non-Specific Active Suicidal Thoughts (Past 1 Month) No 03/14/2023 8:00 PM EDT Bar Tucker RN 6. Suicidal Behavior (Lifetime) No 03/14/2023 8:00 PM EDT Bar Tucker RN documented as of this encounter Plan of Treatment Upcoming Encounters Date Type Department Care Team (Late st Contact Info) Description 12/27/2025 2:30 PM EDT Office Visit [facility] Pulmonary, Allergy and Critical Care Medicine [address] [place] [address] Juan Ventura MD [address] [place] [address] [email or web address] 02/24/2026 8:30 AM EDT Office Visit [facility] Neurology [address] [place] [address] Rafael España MD [address] [place] [address] [email or web address] documented as of this encounter Visit Diagnoses Not on filedocumented in this encounter Additional Health Concerns Infection Onset Date Last Indicated Resolved Time CoV-Risk 04/25/2025 04/25/2025 05/06/2025 1:21 AM EDT documented as of this encounter Care Teams Construction Estimator Relationship Specialty Start Date End Date Isi Royal NP 70 [place] [address] PCP - General Family Medicine 07/03/18 07/08/24 Courtney Judge NP 70 [place] [address] PCP - General Nurse Practitioner 07/09/24 Raul Howard DO [address] [place] [address] [email or web address] Primary Oncologist Hematology and Oncology 07/28/18 Karely Cabrera PA-C [address] [place] [address] [email or web address] Physician Oracle Distribution Consultant Hematology 10/18/20 Raul Howard DO [address] [place] [address] [email or web address] Primary Oncologist Hematology and Oncology 07/31/22 documented as of this encounter Additional Source Comments The information contained in this document represents components of the legal health record. It is not the complete legal health record.[facility]
--- OUTSIDE RECORDS SUMMARY | 2025-07-20 15:58 | XMS_ITS | Encounter Summary ---
Author Organization [facility] Address [address] [facility] [address] [place] [address] Phone Care Team Providers Care Plating Inspector Name Role Phone Isi Royal SQUADRON WORKER Primary Care Provider [phone] Raul Howard DO Unavailable Karely Cabrera PA-C Unavailable [phone] Raul Howard DO Unavailable Courtney Judge SQUADRON WORKER Primary Care Provider [phone] Reason for Referral * MRI/CAT Scan - Closed Specialty Diagnoses / Procedures Referred By Boni abdul Referred To Contact Radiology Diagnoses Left lower quadrant pain Procedures CT Abdomen/Pelvis Isi Royal NP Phone: tel: Referral ID Status Reason Start Date Expiration Date Visits Re quested Visits Authorized [id number] Closed 01/30/2019 03/30/2019 1 1 Encounter Details Date Type Department Care Team (Latest Contact Info) Description 01/30/2019 Transcribe Orders Virtual Department 30 [place] [address] Isi Royal NP 70 [place] [address] Left lower quadrant pain (Primary Dx) Social History Tobacco Use Types [...] Upcoming Encounters Date Type Department Care Team ([facility] st Contact Info) Description 12/27/2025 2:30 PM EDT Office Visit [facility] Pulmonary, Allergy and Critical Care Medicine 10 [place] [address] Juan Ventura MD [address] [place] [address] [email or web address] 02/24/2026 8:30 AM EDT Office Visit [facility] Neurology [address] [place] [phone] Rafael España MD [address] [place] [address] documented as of this encounter Results * CT ABDOMEN/PELVIS WITH CONTRAST (02/05/2019 1:48 PM EDT) Anatomical Region Laterality Modality Abdomen, Pelvis Computed Tomogra phy 02/05/2019 1:57 PM EDT Impressions 02/05/2019 2:10 PM EDT Sigmoid diverticulosis with a prominent amount of stool present in the upper sigmoid but without evidence of acute diverticulitis. No progressive colonic distention. Numerous chronic hepatic and renal cysts and non-obstructing right nephrolithiasis. Chronic cholelithiasis. No other acute intra-abdominal pathology apparent. Minimal interval enlargement of chronic thrombus-containing distal thoracic aortic aneurysm and minimal progressive enlargement of the distal abdominal aorta. TOTAL CTDIvol: 10.20 mGy POS - [id number] Narrative 02/05/2019 2:10 PM EDT COMPARISON: 11/20/2014 CT TECHNIQUE: After the administration of oral and intravenous contrast, multidetector CT is obtained from dome of the liver through the inferior pubic rami. Multiplanar reformatted images generated. Automated exposure control utilized FINDINGS: Numerous chronic hypodense lesions scattered throughout the liver are consistent with cysts measuring up to approximately 1.5 cm in diameter in the medial left hepatic lobe lobe. There are a few small calcifications consistent with granulomas scattered throughout the right lobe. No solid hepatic mass, duct dilatation, or perihepatic ascites are noted. There is chronic cholelithiasis. Gallbladder is currently contracted. Chronic prominence of the extrahepatic biliary tree without choledocholithiasis apparent. Portal vein is grossly patent. No splenic mass apparent. Chronic fullness of the adrenal glands is unchanged and may reflect an element of hyperplasia. No pancreatic mass, duct dilatation, or peripancreatic inflammatory changes are noted. Numerous chronic bilateral renal cortical cysts of varying density are present without discrete solid renal mass identified. There are small chronic non-obstructing calculi in the right kidney. Tiny calculi previously evident on the left could be obscured by the enhanced renal parenchyma. No hydronephrosis or perinephric stranding identified. Bladder is unremarkable in appearance. There is no evidence of small bowel obstruction. Appendix unremarkable in appearance. Stool and gas are present throughout nonopacified colonic loops with a moderate amount of stool present in the upper sigmoid. There is chronic sigmoid diverticulosis without surrounding inflammatory stranding to imply acute diverticulitis. No significant free fluid collections are seen in the dependent portion of the pelvis. No uterine or adnexal enlargement apparent. There has been slight interval increase in size of the chronic thrombus- containing aortic aneurysm at the level of the diaphragmatic hiatus, currently measuring approximately 4.3 x 3.7 cm in transverse dimensions at a level level where prior measurements of 3.7 x 3.3 cm were obtained. There is minimal progressive distention of the terminal abdominal aorta which is currently measured at 2.9 x 2.3 cm in transverse dimensions where prior measurements of 2.6 x 2.1 cm was present. No iliac artery aneurysm. No pathologically enlarged mesenteric, para-aortic, iliac chain, or inguinal lymph nodes have developed. No bowel-containing abdominal wall hernia. No acute infiltrate or pleural effusion noted at the lung bases. Chronic and progressive degenerative disc changes are demonstrated at the L1-2 level. No acute traumatic or destructive skeletal lesions are seen. Procedure Note Nataly Morris MD - 02/05/2019 COMPARISON: 11/20/2014 CT TECHNIQUE: After the administration of oral and intravenous contrast,multidetector CT is obtained from dome of the liver through the inferiorpubic rami. Multiplanar reformatted images generated. Automated exposurecontrol utilized FINDINGS: Numerous chronic hypodense lesions scattered throughout the liver areconsistent with cysts measuring up to approximately 1.5 cm in diameter inthe medial left hepatic lobe lobe. There are a few small calcificationsconsistent with granulomas scattered throughout the right lobe. No solidhepatic mass, duct dilatation, or perihepatic ascites are noted. There ischronic cholelithiasis. Gallbladder is currently contracted. Chronicprominence of the extrahepatic biliary tree without choledocholithiasisapparent. Portal vein is grossly patent. No splenic mass apparent. Chronic fullness of the adrenal glands isunchanged and may reflect an element of hyperplasia. No pancreatic mass,duct dilatation, or peripancreatic inflammatory changes are noted. Numerous chronic bilateral renal cortical cysts of varying density arepresent without discrete solid renal mass identified. There are smallchronic non-obstructing calculi in the right kidney. Tiny calculipreviously evident on the left could be obscured by the enhanced renalparenchyma. No hydronephrosis or perinephric stranding identified.Bladder is unremarkable in appearance. There is no evidence of small bowel obstruction. Appendix unremarkable inappearance. Stool and gas are present throughout nonopacified colonicloops with a moderate amount of stool present in the upper sigmoid. Thereis chronic sigmoid diverticulosis without surrounding inflammatorystranding to imply acute diverticulitis. No significant free fluidcollections are seen in the dependent portion of the pelvis. No uterineor adnexal enlargement apparent. There has been slight interval increase in size of the chronicthrombus- containing aortic aneurysm at the level of the diaphragmatichiatus, currently measuring approximately 4.3 x 3.7 cm in transversedimensions at a level level where prior measurements of 3.7 x 3.3 cm wereobtained. There is minimal progressive distention of the terminalabdominal aorta which is currently measured at 2.9 x 2.3 cm in transversedimensions where prior measurements of 2.6 x 2.1 cm was present. No iliacartery aneurysm. No pathologically enlarged mesenteric, para-aortic,iliac chain, or inguinal lymph nodes have developed. No bowel-containingabdominal wall hernia. No acute infiltrate or pleural effusion noted at the lung bases. Chronicand progressive degenerative disc changes are demonstrated at the L1-2level. No acute traumatic or destructive skeletal lesions are seen. IMPRESSION: Sigmoid diverticulosis with a prominent amount of stool present in theupper sigmoid but without evidence of acute diverticulitis. Noprogressive colonic distention. Numerous chronic hepatic and renal cysts and non-obstructing rightnephrolithiasis. Chronic cholelithiasis. No other acute intra-abdominalpathology apparent. Minimal interval enlargement of chronic thrombus-containing distalthoracic aortic aneurysm and minimal progressive enlargement of the distalabdominal aorta. TOTAL CTDIvol: 10.20 mGy POS - [id number] Isi Royal NP IMG CT ABD/PELVIS Final Result documented in this encounter Visit Diagnoses Diagnosis Left lower quadrant pain- Primary Abdominal pain, left lower quadrant Left lower quadrant pain Abdominal pain, left lower quadrant documented in this encounter Additional Health Concerns Infection Onset Date Last Indicated Resolved Time CoV-Risk 04/25/2025 04/25/2025 05/06/2025 1:21 AM EDT documented as of this encounter Care Teams Plating Inspector Relationship Specialty Start Date End Date Isi Royal NP 70 [place] [address] PCP - General Family Medicine 07/03/18 07/08/24 Courtney Judge NP 70 [place] [address] PCP - General Nurse Practitioner 07/09/24 Raul Howard DO [address] [place] [address] [email or web address] Primary Oncologist Hematology and Oncology 07/28/18 Karely Cabrera PA-C [address] [place] [address] [email or web address] Physician Guide Escort Hematology 10/18/20 Raul Howard DO [address] [place] [address] [email or web address] Primary Oncologist Hematology and Oncology 07/31/22 documented as of this encounter Additional Source Comments The information contained in this document represents components of the legal health record. It is not the complete legal health record.[facility]
--- OUTSIDE RECORDS SUMMARY | 2025-07-20 15:58 | XMS_ITS | Encounter Summary ---
Author Organization [facility] Address [address] [facility] [address] [place] [address] Phone Care Team Providers Care Cardiac Tech Name Role Phone Isi Royal NP Primary Care Provider [phone] Raul Howard DO Unavailable Karely Cabrera PA-C Unavailable [phone] Raul Howard DO Unavailable Courtney Judge ASSEMBLER KNIFE Primary Care Provider [phone] Encounter Details Date Type Department Care Team (Late st Contact Info) Description 05/08/2021 Transcribe Orders Virtual Department 30 [place], [place] [phone] Isi Royal NP 70 [place], [place] [phone] Social History Tobacco Use Types Packs/Day Years [...] Pulmonary, Allergy and Critical Care Medicine 10 [place] [address] Juan Ventura MD [address] [address] [email or web address] 02/24/2026 8:30 AM EDT Office Visit [facility] Neurology [address] [place] [address] Rafael España MD [address] [place] [address] [email or web address] documented as of this encounter Visit Diagnoses Not on filedocumented in this encounter Additional Health Concerns Infection Onset Date Last Indicated Resolved Time CoV-Risk 04/25/2025 04/25/2025 05/06/2025 1:21 AM EDT documented as of this encounter Care Teams Cardiac Tech Relationship Specialty Start Date End Date Isi Royal NP 70 [place] [address] PCP - General Family Medicine 07/03/18 07/08/24 Courtney Judge NP 70 [place] [address] PCP - General Nurse Practitioner 07/09/24 Raul Howard DO 30 [place] [address] [email or web address] Primary Oncologist Hematology and Oncology 07/28/18 Karely Cabrera PA-C [address] [place] [address] [email or web address] Physician Film Examiner Hematology 10/18/20 Raul Howard DO [address] [place] [address] [email or web address] Primary Oncologist Hematology and Oncology 07/31/22 documented as of this encounter Additional Source Comments The information contained in this document represents components of the legal health record. It is not the complete legal health record.[facility]
--- OUTSIDE RECORDS SUMMARY | 2025-07-20 15:58 | XMS_ITS | Encounter Summary ---
Author Organization [facility], Address [address] [place] [address] Phone Care Team Providers Care Jewelry Drilling Machine Operator Name Role Phone Courtney Judge LABORATORY ANALYST Primary Care Provider [phone] Encounter Details Date Type Department Care Team (Late st Contact Info) Description 04/22/2025 Documentation Only [facility] [address] [place] [address] Hamida Fuentes [address] [place] [phone] Social History Tobacco Use Types Packs/Day [...] Visit [facility] [place] [address] Diego Fisher MD [address] [place] [phone] documented as of this encounter Visit Diagnoses Not on filedocumented in this encounter Care Teams Jewelry Drilling Machine Operator Relationship Specialty Start Date End Date Courtney Judge NP [address] [place] [address] PCP - General 05/03/25 documented as of this encounter
--- OUTSIDE RECORDS SUMMARY | 2025-07-20 15:58 | XMS_ITS | Encounter Summary ---
Author Organization [facility] Address [address] [facility] [address] [place] [address] Phone Care Team Providers Care Agricultural Engineer Name Role Phone Isi Royal LIFE SCIENCES TEACHER Primary Care Provider [phone] Raul Howard DO Unavailable Karely Cabrera PA-C Unavailable [phone] Raul Howard DO Unavailable [phone] Courtney Judge LIFE SCIENCES TEACHER Primary Care Provider [phone] Encounter Details Date Type Department Care Team (Late st Contact Info) Description 06/07/2021 Transcribe Orders [facility] 30 [place] [address] Isi Royal NP 70 [place], [place] [phone] Social History Tobacco Use Types Packs/Day Years Used Date Smoking Tobacco: Former Cigarettes 1 15 2 - 2017 Smokeless Tobacco: Never Alcohol Use [...] Allergy and Critical Care Medicine 10 [place] [address] Juan Ventura MD [address] [address] [email or web address] 02/24/2026 8:30 AM EDT Office Visit [facility] Neurology [address] [place] [address] Rafael España MD [address] [place] [address] [email or web address] documented as of this encounter Visit Diagnoses Not on filedocumented in this encounter Additional Health Concerns Infection Onset Date Last Indicated Resolved Time CoV-Risk 04/25/2025 04/25/2025 05/06/2025 1:21 AM EDT documented as of this encounter Care Teams Agricultural Engineer Relationship Specialty Start Date End Date Isi Royal NP [address] [place] [address] PCP - General Family Medicine 07/03/18 07/08/24 Courtney Judge NP 70 [place] [address] PCP - General Nurse Practitioner 07/09/24 Raul Howard DO 30 [place] [address] [email or web address] Primary Oncologist Hematology and Oncology 07/28/18 Karely Cabrera PA-C [address] [place] [address] [email or web address] Physician Exceptional Needs Teacher Hematology 10/18/20 Raul Howard DO [address] [place] [address] [email or web address] Primary Oncologist Hematology and Oncology 07/31/22 documented as of this encounter Additional Source Comments The information contained in this document represents components of the legal health record. It is not the complete legal health record.[facility]
--- OUTSIDE RECORDS SUMMARY | 2025-07-20 15:58 | XMS_ITS | Encounter Summary ---
Author Organization [facility], Address [address] [place] [address] Phone Care Team Providers Care High School Professional Name Role Phone Courtney Judge RIVER CROSSING SUPERVISOR Primary Care Provider [phone] Encounter Details Date Type Department Care Team (Late Contact Info) Description 04/02/2025 Documentation Only [facility] [address] [place] [address] Es Garcia [address] [place] [phone] Social History Tobacco Use Types Packs/Day [...] [facility] [address] [place] [address] [place] [phone] Diego Fisher MD [address] [place] [address] [place] [address] documented as of this encounter Visit Diagnoses Not on filedocumented in this encounter Care Teams High School Professional Relationship Specialty Start Date End Date Courtney Judge NP [address] [place] [address] PCP - General 05/03/25 documented as of this encounter
--- OUTSIDE RECORDS SUMMARY | 2025-07-20 15:58 | XMS_ITS | Encounter Summary ---
Author Organization [facility] Address [address] [facility] [address] [place] [address] Phone Care Team Providers Care Foam Gun Operator Name Role Phone Isi Royal LATHE SCALPER OPERATOR Primary Care Provider [phone] Raul Howard DO Unavailable [phone] Karely Cabrera PA-C Unavailable [phone] Lee Raul Pedroza DO Unavailable [phone] Courtney Judge LATHE SCALPER OPERATOR Primary Care Provider Encounter Details Date Type Department Care Team (Latest Contact Info) Description 08/26/2018 Transcribe Orders [facility] [address] 2[address] [place] [address] Christophe Del Cid MD [address] [facility] 2 [place], [place] [phone] Iron deficiency anemia secondary to blood loss (chronic) (Primary Dx) Social History Tobacco Use Types Packs/Day Years Used Date Smoking Tobacco: Former Cigarettes 1 10 08 016 - 2017 Smokeless Tobacco: Never Alcohol [...] [facility] Pulmonary, Allergy and Critical Care Medicine [address] [place] [address] Juan Ventura MD [address] [place] [address] [email or web address] 02/24/2026 8:30 AM EDT Office Visit [facility] Neurology [address] [place] [address] Rafael España MD [address] [place] [address] [email or web address] documented as of this encounter Results * Ferritin (08/26/2018 8:41 AM EST) FERRITIN 28 13 - 150 ug/L [facility] Blood 08/26/2018 8:41 AM EST 08/26/2018 8:47 AM EST us Christophe Del Cid MD LAB BLOOD ORDERABLES Final Result [facility] 30 [place] [address] * Iron and iron binding capacity (08/26/2018 8:41 AM EST) IRON 52 30 - 160 ug/dL [facility] IRON BINDING CAPACITY 303 228 - 428 ug/dL [facility] TRANSFERRIN SATURAT. 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 documented in this encounter Additional Health Concerns Infection Onset Date Last Indicated Resolved Time CoV-Risk 04/25/2025 04/25/2025 05/06/2025 1:21 AM EDT documented as of this encounter Care Teams Foam Gun Operator Relationship Specialty Start Date End Date Isi Royal NP 70 [place] [address] PCP - General Family Medicine 07/03/18 07/08/24 Courtney Judge NP 70 [place] [address] PCP - General Nurse Practitioner 07/09/24 Raul Howard DO [address] [place] [address] [email or web address] Primary Oncologist Hematology and Oncology 07/28/18 Karely Cabrera PA-C [address] [place] [email or web address] Physician Chain Carrier Hematology 10/18/20 Raul Howard DO [address] [place] [address] [email or web address] Primary Oncologist Hematology and Oncology 07/31/22 documented as of this encounter Additional Source Comments The information contained in this document represents components of the legal health record. It is not the complete legal health record.[facility]
--- OUTSIDE RECORDS SUMMARY | 2025-07-20 15:59 | XMS_ITS | Encounter Summary ---
Author Organization [facility] Address [address] [place] [address] Phone Care Team Providers Care Refrigerator Repair Technician Name Role Phone LeeRaul DO Unavailable [phone] Karely Cabrera PA-C Unavailable [phone] Raul Howard DO Unavailable Courtney Judge AMBULANCE PARAMEDIC Primary Care Provider [phone] Encounter Details Date Type Department Care Team (Late st Contact Info) Description 03/06/2025 Procedure Pass [facility], Ct Scan - [facility] [address] [place] [address] Social History Tobacco Use Types Packs/Day Years [...] got money to buy more. Never True 03/06/2025 Within the past 6 months the food we bought just didn't last and we didn't have enough money to get more. Never True Residential Stability Answer Date Recor ded What is your housing situation today? I have vamshi sing 03/06/2025 How many times have you move d in the past 12 months? Zero (I did not move) 03/06/2025 Paying for Meds Answer Date Recorded Do you have trouble paying for medicines? No 03/06/2025 Paying Utility Bills Answer Date Record ed Do you have trouble paying your heating or elect ricity bill? No 03/06/2025 Transportation Answer Date Recorded Has the lack of transportati on kept you from medical appointments or from getting medications? No 03/06/2025 Digital Access Answer Date Recorded No 03/06/2025 Yes 03/06/2025 Do you have reliable internet access at home? Ye s 03/06/2025 Do you have a device (e.g., phone, tablet, computer) with a working camera? Yes 03/06/2025 Intimate Partner Violence Answer Date R ecorded Are you denied basic needs s uch as food, clothing, or medical care? No 03/06/2025 In the past 12 months have y ou been in a relationship with a person who hurts, threatens, or tries to control you? No 03/06/2025 Are you denied basic needs s uch as food, clothing, or medical care? No 03/06/2025 In the past 12 months have y ou been in a relationship with a person who hurts, threatens, or tries to control you? No 03/06/2025 Comments No Sex and Gender Information Value Date Recorded Sex Assigned at Female 06/02/2018 5:26 PM EDT Legal Sex Female 10:11 PM EDT Gender Identity Female 06/02/2018 5:26 PM EDT Sexual Orientation Straight 06/02/2018 5: 26 PM EDT documented as of this encounter Functional Status * Calculated C-SSRS Risk Score (Lifetime/Recent) Answer Date of Assessment Author No Risk Indicated 03/06/2025 11:35 AM EDT Disha Archibald RN * [place] Suicide Severity Rating Scale (Screener/Recent Self-Report) Question Answer Date of Assessment Author 1. Wish to be (Past 1 Month) No 025 11:35 AM EDT Disha Archibald RN 2. Non-Specific Active Suici fariba Thoughts (Past 1 Month) No 03/06/2025 11:35 AM EDT Disha Archibald RN 6. Suicidal Behavior (Lifetime) No 11:35 AM EDT Disha Archibald RN documented as of this encounter Plan of Treatment Upcoming Encounters Date Type Department Care Team (Late st Contact Info) Description 12/27/2025 2:30 PM EDT Office Visit [facility] Pulmonary, Allergy and Critical Care Medicine [address] [place] [address] Juan Ventura MD [address] [address] [email or web address] 02/24/2026 8:30 AM EDT Office Visit [facility] Neurology [address] [place] [address] Rafael España MD [address] [place] [phone] documented as of this encounter Visit Diagnoses Not on filedocumented in this encounter Additional Health Concerns Infection Onset Date Last Indicated Resolved Time CoV-Risk 04/25/2025 04/25/2025 05/06/2025 1:21 AM EDT documented as of this encounter Care Teams Refrigerator Repair Technician Relationship Specialty Start Date End Date Courtney Judge NP [address] [place] [address] PCP - General Nurse Practitioner 07/09/24 Raul Howard DO [address] [place] [phone] [email or web address] [email or web address] Primary Oncologist Hematology and Oncology 07/28/18 Karely Cabrera PA-C [address] [place] [phone] [email or web address] Physician Dairy Farm Supervisor Hematology 10/18/20 Raul Howard DO [address] [place] [phone] [email or web address] [email or web address] Primary Oncologist Hematology and Oncology 07/31/22 documented as of this encounter Additional Source Comments The information contained in this document represents components of the legal health record. It is not the complete legal health record.[facility]
--- OUTSIDE RECORDS SUMMARY | 2025-07-20 15:59 | XMS_ITS | Encounter Summary ---
Author Organization [facility] Address [address] [address] [facility] [address] [place] [address] Phone Care Team Providers Care Brokerage Coordinator Name Role Phone Isi Royal DYEHOUSE WORKER Primary Care Provider [phone] Lee Raul Pedroza DO Unavailable [phone] Karely Cabrera PA-C Unavailable Lee Carter Kasia DO Unavailable [phone] Courtney Judge DYEHOUSE WORKER Primary Care Provider Encounter Details Date Type Department Care Team (Latest Contact Info) Description 08/25/2019 Transcribe Orders Virtual Department [address] [place] [address] Christophe Del Cid MD [address] [place] [address] [phone] [email or web address] Vomiting, intractability of vomiting not specified, presence of nausea not specified, unspecified vomiting type (Primary Dx) Social History Tobacco Use Types Packs/Day Years Used Date Smoking Tobacco: Former Cigarettes 1 1 2 016 2016 Smokeless Tobacco: Never Alcohol Use Standard [...] Description 12/27/2025 2:30 PM EDT Office Visit [facility] Pulmonary, Allergy and Critical Care Medicine [address] [place] [address] Juan Ventura MD [address] [place] [address] [email or web address] 02/24/2026 8:30 AM EDT Office Visit [facility] Neurology [address] [place] [address] Rafael España MD [address] [place] [phone] [email or web address] documented as of this encounter Results * FL UGI SERIES SINGLE CONTRAST (09/07/2019 10:17 AM EST) Anatomical Region Laterality Modality Abdomen Radiographic Betty ging 09/07/2019 9:50 AM EST Impressions 09/07/2019 10:35 AM EST No findings to account for the patient's vomiting. FLUOROSCOPY TIME: 2 min. 24 sec; 33 IMAGES/FRAMES POS - [id number] Narrative 09/07/2019 10:35 AM EST COMPARISON: CT abdomen pelvis 06/02/2019. CTPA 06/04/2019. No prior Upper GI series. UPPER GI SERIES FINDINGS: Lube Worker abdomen radiograph was obtained. Lung bases are clear. Heart is normal in size. Chronic osteopenia, lumbar scoliosis and multilevel disc disease. Bowel gas pattern is unremarkable. Stable multiple small right renal calculi and cortical calcifications. A single contrast upper GI series was performed the patient could not tolerate the effervescent crystals due to nausea. Low dose pulsed fluoroscopy was utilized with limited exposures to reduce radiation dose. Chronic small hiatal hernia. No mass, ulceration or reflux. No gastric outlet obstruction, mass or ulceration. Duodenal bulb and C sweep are unremarkable. The barium tablet passed into the stomach without difficulty. Procedure Note Mario Alberto Brown MD - 09/07/2019 COMPARISON: CT abdomen pelvis 06/02/2019. CTPA 06/04/2019. No priorUpper GI series. UPPER GI SERIES FINDINGS: Lube Worker abdomen radiograph was obtained. Lung bases are clear. Heart isnormal in size. Chronic osteopenia, lumbar scoliosis and multilevel discdisease. Bowel gas pattern is unremarkable. Stable multiple small rightrenal calculi and cortical calcifications. A single contrast upper GIseries was performed the patient could not tolerate the effervescentcrystals due to nausea. Low dose pulsed fluoroscopy was utilized withlimited exposures to reduce radiation dose. Chronic small hiatal hernia.No mass, ulceration or reflux. No gastric outlet obstruction, mass orulceration. Duodenal bulb and C sweep are unremarkable. The bariumtablet passed into the stomach without difficulty. IMPRESSION: No findings to account for the patient's vomiting. FLUOROSCOPY TIME: 2 min. 24 sec; 33 IMAGES/FRAMES POS - [id number] [facility] lt documented in this encounter Visit Diagnoses Diagnosis Vomiting, intractability of vomiting not specified, presence of nausea not specified, unspecified vomiting type- Primary Vomiting, intractability of vomiting not specified, presence of nausea not specified, unspecified vomiting type documented in this encounter Additional Health Concerns Infection Onset Date Last Indicated Resolved Time CoV-Risk 04/25/2025 04/25/2025 05/06/2025 1:21 AM EDT documented as of this encounter Care Teams Brokerage Coordinator Relationship Specialty Start Date End Date Isi Royal NP [address] [place] [address] PCP - General Family Medicine 07/03/18 07/08/24 Courtney Judge NP [address] [place] [address] PCP - General Nurse Practitioner 07/09/24 Raul Howard DO [address] [place] [address] [email or web address] Primary Oncologist Hematology and Oncology 07/28/18 Karely Cabrera PA-C [address] [place] [address] [email or web address] Physician Office Rep Hematology 10/18/20 Raul Howard DO [address] [place] [address] [email or web address] Primary Oncologist Hematology and Oncology 07/31/22 documented as of this encounter Additional Source Comments The information contained in this document represents components of the legal health record. It is not the complete legal health record.[facility]
--- OUTSIDE RECORDS SUMMARY | 2025-07-20 15:59 | XMS_ITS | Encounter Summary ---
Author Organization [facility] Address [address] [employer] [facility] [address] [place] [address] Phone Care Team Providers Care Balance Engineer Name Role Phone Isi Royal ASSEMBLER SURGICAL GARMENT Primary Care Provider [phone] Raul Howard DO Unavailable [phone] Karely Cabrera PA-C Unavailable [phone] Raul Howard DO Unavailable [phone] Courtney Judge ASSEMBLER SURGICAL GARMENT Primary Care Provider Encounter Details Date Type Department Care Team (Late st Contact Info) Description 01/30/2024 Procedure Pass [facility], Ct Scan - [address] [phone] Social History Tobacco Use Types Packs/Day Years [...] Upcoming Encounters Date Type Department Care Team ([facility] st Contact Info) Description 12/27/2025 2:30 PM EDT Office Visit [facility] Pulmonary, Allergy and Critical Care Medicine [address] [place] [address] Juan Ventura MD [address] [place] [phone] [email or web address] 02/24/2026 8:30 AM EDT Office Visit [facility] Neurology [address] [place] [address] Rafael España MD [address] [place] [address] documented as of this encounter Visit Diagnoses Not on filedocumented in this encounter Additional Health Concerns Infection Onset Date Last Indicated Resolved Time CoV-Risk 04/25/2025 04/25/2025 05/06/2025 1:21 AM EDT documented as of this encounter Care Teams Balance Engineer Relationship Specialty Start Date End Date Isi Royal NP [address] [place] [address] PCP - General Family Medicine 07/03/18 07/08/24 Alfie Courtneylillian Winn NP [address] [place] [address] PCP - General Nurse Practitioner 07/09/24 Raul Howard DO [address] [place] [address] [email or web address] Primary Oncologist Hematology and Oncology 07/28/18 Karely Cabrera PA-C [address] [place] [address] [email or web address] Physician Nematology Teacher Hematology 10/18/20 Raul Howard DO [address] [place] [address] [email or web address] Primary Oncologist Hematology and Oncology 07/31/22 documented as of this encounter Additional Source Comments The information contained in this document represents components of the legal health record. It is not the complete legal health record.[facility]
--- OUTSIDE RECORDS SUMMARY | 2025-07-20 15:59 | XMS_ITS | Encounter Summary ---
Author Organization [facility] Address [address] [facility] [address] [place] [address] Phone Care Team Providers Care Self Sealing Fuel Tank Repairer Name Role Phone Isi Royal VENUE COORDINATOR Primary Care Provider [phone] Raul Howard DO Unavailable Karely Cabrera PA-C Unavailable [phone] Raul Howard DO Unavailable [phone] Courtney Judge VENUE COORDINATOR Primary Care Provider [phone] Encounter Details Date Type Department Care Team (Late st Contact Info) Description 10/08/2019 Procedure Pass [facility] Endoscopy Admitting Dept Virtual Department [address] [place], [place] [phone] Social History Tobacco Use Types Packs/Day Years [...] Upcoming Encounters Date Type Department Care Team ([facility] st Contact Info) Description 12/27/2025 2:30 PM EDT Office Visit [facility] Pulmonary, Allergy and Critical Care Medicine [address] [place] [address] Juan Ventura MD [address] [address] [email or web address] 02/24/2026 8:30 AM EDT Office Visit [facility] Neurology [address] [place] [address] Rafael España MD [address] [place] [phone] [email or web address] documented as of this encounter Visit Diagnoses Not on filedocumented in this encounter Additional Health Concerns Infection Onset Date Last Indicated Resolved Time CoV-Risk 04/25/2025 04/25/2025 05/06/2025 1:21 AM EDT documented as of this encounter Care Teams Self Sealing Fuel Tank Repairer Relationship Specialty Start Date End Date Isi Royal NP [address] [place] [address] PCP - General Family Medicine 07/03/18 07/08/24 Courtney Judge NP [address] [place] [address] PCP - General Nurse Practitioner 07/09/24 Raul Howard DO [address] [place] [phone] [email or web address] Primary Oncologist Hematology and Oncology 07/28/18 Karely Cabrera PA-C [address] [place] [address] [email or web address] Physician Warp Hand Hematology 10/18/20 Raul Howard DO [address] [place] [address] [email or web address] Primary Oncologist Hematology and Oncology 07/31/22 documented as of this encounter Additional Source Comments The information contained in this document represents components of the legal health record. It is not the complete legal health record.[facility]
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
--- OUTSIDE RECORDS SUMMARY | 2025-07-20 15:59 | XMS_ITS | Encounter Summary ---
Author Organization [facility], Address [address] [place] [address] Phone Care Team Providers Care Cloth Cutting Inspector Name Role Phone Courtney Judge INTEGRATED LOGISTICS OPERATIONS MANAGER Primary Care Provider [phone] Encounter Details Date Type Department Care Team (Late st Contact Info) Description 11/02/2022 Documentation Only [facility] [address] Colt H[place] [address] [place] [phone] Courtney Judge NP [address] [place] [address] Social History Tobacco Use Types Packs/Day Years [...] Visit [facility] David [address] [place] [phone] Diego Fisher MD [address] [facility] [place] [phone] documented as of this encounter Visit Diagnoses Not on filedocumented in this encounter Care Teams Cloth Cutting Inspector Relationship Specialty Start Date End Date Courtney Judge NP [address] [place], [place] [phone] PCP - General 05/03/25 documented as of this encounter
--- OUTSIDE RECORDS SUMMARY | 2025-07-20 15:59 | XMS_ITS | Encounter Summary ---
Author Organization [facility] Address [address] [address] [facility] [address] [place] [address] Phone Care Team Providers Care Pmo Lead Name Role Phone LeeRaul DO Unavailable Karely Cabrera PA-C Unavailable [phone] Raul Howard DO Unavailable [phone] Courtney Judge TUNE UP MECHANIC Primary Care Provider [phone] Encounter Details Date Type Department Care Team (Late st Contact Info) Description 04/25/2025 Procedure Pass [facility], Ct Scan - [facility] [address] [place] [address] Social History Tobacco Use Types Packs/Day Years [...] Date of Assessment Author No Risk Indicated 04/28/2025 3:33 AM EDT Javon Leija RN * [place] Suicide Severity Rating Scale (Screener/Recent Self-Report) Question Answer Date of Assessment Author 1. Wish to be (Past 1 Month) No 3:33 AM EDT Javon Leija RN 2. Non-Specific Active Suici fariba Thoughts (Past 1 Month) No 04/28/2025 3:33 AM EDT Javon Leija RN 6. Suicidal Behavior (Lifetime) No 3:33 AM EDT Javon Leija RN documented as of this encounter Plan of Treatment Upcoming Encounters Date Type Department Care Team (Late st Contact Info) Description 12/27/2025 2:30 PM EDT Office Visit [facility] Pulmonary, Allergy and Critical Care Medicine [address] [place] [address] Juan Ventura MD [address] [place] [address] [email or web address] 02/24/2026 8:30 AM EDT [facility] Neu[facility] [address] [place] [address] Rafael España MD [address] [place] [phone] documented as of this encounter Visit Diagnoses Not on filedocumented in this encounter Additional Health Concerns Infection Onset Date Last Indicated Resolved Time CoV-Risk 04/25/2025 04/25/2025 05/06/2025 1:21 AM EDT documented as of this encounter Care Teams Pmo Lead Relationship Specialty Start Date End Date Courtney Judge NP [address] [place] [address] PCP - General Nurse Practitioner 07/09/24 Raul Howard DO [address] [place] [address] [email or web address] Primary Oncologist Hematology and Oncology 07/28/18 Karely Cabrera PA-C [address] [place] [phone] [email or web address] Physician Drug Inspector Hematology 10/18/20 Raul Howard DO [address] [place] [address] [email or web address] Primary Oncologist Hematology and Oncology 07/31/22 documented as of this encounter Additional Source Comments The information contained in this document represents components of the legal health record. It is not the complete legal health record.[facility]
--- OUTSIDE RECORDS SUMMARY | 2025-07-20 15:59 | XMS_ITS | Encounter Summary ---
Author Organization [facility] Address [address] [facility] [address] [place] [address] Phone Care Team Providers Care Automation Qtp Tester Name Role Phone LeeRaul DO Unavailable Karely Cabrera PA-C Unavailable [phone] Raul Howard DO Unavailable Courtney Judge AGRONOMY TEACHER Primary Care Provider [phone] Encounter Details Date Type Department Care Team (Late st Contact Info) Description 02/19/2025 Procedure Pass [facility], Ct Scan - [facility] [address] [place] [address] Social History Tobacco Use Types Packs/Day Years [...] got money to buy more. Never True 02/19/2025 Within the past 6 months the food we bought just didn't last and we didn't have enough money to get more. Never True Residential Stability Answer Date Recor ded What is your housing situation today? I have vamshi sing 02/19/2025 How many times have you move d in the past 12 months? Zero (I did not move) 02/19/2025 Paying for Meds Answer Date Recorded Do you have trouble paying for medicines? No 02/19/2025 Paying Utility Bills Answer Date Record ed Do you have trouble paying your heating or elect ricity bill? No 02/19/2025 Transportation Answer Date Recorded Has the lack of transportati on kept you from medical appointments or from getting medications? No 02/19/2025 Digital Access Answer Date Recorded No 02/19/2025 Yes 02/19/2025 Do you have reliable internet access at home? Ye s 02/19/2025 Do you have a device (e.g., phone, tablet, computer) with a working camera? Yes 02/19/2025 Intimate Partner Violence Answer Date R ecorded Are you denied basic needs s uch as food, clothing, or medical care? No 02/19/2025 In the past 12 months have y ou been in a relationship with a person who hurts, threatens, or tries to control you? No 02/19/2025 Are you denied basic needs s uch as food, clothing, or medical care? No 02/19/2025 In the past 12 months have y ou been in a relationship with a person who hurts, threatens, or tries to control you? No 02/19/2025 Comments No Sex and Gender Information Value Date Recorded Sex Assigned at Female 06/02/2018 5:26 PM EDT Legal Sex Female 10:11 PM EDT Gender Identity Female 06/02/2018 5:26 PM EDT Sexual Orientation Straight 06/02/2018 5: 26 PM EDT documented as of this encounter Functional Status * Calculated C-SSRS Risk Score (Lifetime/Recent) Answer Date of Assessment Author No Risk Indicated 02/19/2025 4:22 PM EDT Ita Linton RN * [place] Suicide Severity Rating Scale (Screener/Recent Self-Report) Question Answer Date of Assessment Author 1. Wish to be (Past 1 Month) No 02/19/2025 4:22 PM EDT Ita Linton RN 2. Non-Specific Active Suici fariba Thoughts (Past 1 Month) No 02/19/2025 4:22 PM EDT Ita Linton, MONICA 6. Suicidal Behavior (Lifetime) No 4:22 PM EDT Ita Linton RN documented as of this encounter Plan of Treatment Upcoming Encounters Date Type Department Care Team (Late st Contact Info) Description 12/27/2025 2:30 PM EDT Office [place] [facility] [place]monary, Allergy and Critical Care Medicine [address] [place] [address] Juan Ventura MD [address] [address] [email or web address] 02/24/2026 8:30 AM EDT Office Visit [facility] Neurology [address] [place] [address] Rafael España MD [address] [place] [address] [email or web address] documented as of this encounter Visit Diagnoses Not on filedocumented in this encounter Additional Health Concerns Infection Onset Date Last Indicated Resolved Time CoV-Risk 04/25/2025 04/25/2025 05/06/2025 1:21 AM EDT documented as of this encounter Care Teams Automation Qtp Tester Relationship Specialty Start Date End Date Courtney Judge NP [address] [place] [address] PCP - General Nurse Practitioner 07/09/24 Raul Howard DO [address] [place] [phone] [email or web address] Primary Oncologist Hematology and Oncology 07/28/18 Karely Cabrera PA-C [address] [place] [address] [email or web address] Physician Needle Molder Hematology 10/18/20 Raul Howard DO [address] [place] [phone] [email or web address] Primary Oncologist Hematology and Oncology 07/31/22 documented as of this encounter Additional Source Comments The information contained in this document represents components of the legal health record. It is not the complete legal health record.[facility]
--- OUTSIDE RECORDS SUMMARY | 2025-07-20 15:59 | XMS_ITS | Encounter Summary ---
Author Organization [facility] Address [address] [facility] [address] [place] [address] Phone Care Team Providers Care Sandblaster Supervisor Name Role Phone LeeRaul DO Unavailable Karely Cabrera PA-C Unavailable [phone] Raul Howard DO Unavailable Courtney Judge ANTISQUEAK CHALKER Primary Care Provider [phone] Encounter Details Date Type Department Care Team (Late st Contact Info) Description 04/28/2025 Procedure Pass [facility], Ct Scan - [facility] [address] [place] [address] Social History Tobacco Use Types Packs/Day Years [...] 3:33 AM EDT Javon Leija RN * [place] Suicide Severity Rating Scale (Screener/Recent Self-Report) Question [...] Description 12/27/2025 2:30 PM EDT Office Visit [facility] Pulmonary, Allergy and Critical Care Medicine [address] [place] [address] Juan Ventura MD [address] [place] [address] [email or web address] 02/24/2026 8:30 AM EDT [facility] [address] [place] [address] Rafael España MD [address] [place] [phone] documented as of this encounter Visit Diagnoses Not on filedocumented in this encounter Additional Health Concerns Infection Onset Date Last Indicated Resolved Time CoV-Risk 04/25/2025 04/25/2025 05/06/2025 1:21 AM EDT documented as of this encounter Care Teams Sandblaster Supervisor Relationship Specialty Start Date End Date Courtney Judge NP [address] [place] [address] PCP - General Nurse Practitioner 07/09/24 Raul Howard DO [address] [place] [phone] [email or web address] Primary Oncologist Hematology and Oncology 07/28/18 Karely Cabrera PA-C [address] [place] [address] [email or web address] Physician Mold Polisher Hematology 10/18/20 Raul Howard DO [address] [place] [phone] [email or web address] Primary Oncologist Hematology and Oncology 07/31/22 documented as of this encounter Additional Source Comments The information contained in this document represents components of the legal health record. It is not the complete legal health record.[facility]
--- OUTSIDE RECORDS SUMMARY | 2025-07-20 15:59 | XMS_ITS | Encounter Summary ---
Author Organization [facility] Address [address] [facility] [address] [place] [address] Phone Care Team Providers Care Veneer Stock Layer Name Role Phone Isi Royal PEOPLESOFT PROGRAMMER Primary Care Provider [phone] Raul Howard DO Unavailable Karely Cabrera PA-C Unavailable [phone] Raul Howard DO Unavailable [phone] Courtney Judge PEOPLESOFT PROGRAMMER Primary Care Provider [phone] Encounter Details Date Type Department Care Team (Late st Contact Info) Description 09/23/2019 Procedure Pass [facility] [address] [place] [address] Social History Tobacco Use Types Packs/Day Years [...] Pulmonary, Allergy and Critical Care Medicine 10 [place] [address] Juan Ventura MD [address] [address] [email or web address] 02/24/2026 8:30 AM EDT Office Visit [facility] Neurology [address] [place] [address] Rafael España MD [address] [place] [phone] [email or web address] documented as of this encounter Visit Diagnoses Not on filedocumented in this encounter Additional Health Concerns Infection Onset Date Last Indicated Resolved Time CoV-Risk 04/25/2025 04/25/2025 05/06/2025 1:21 AM EDT documented as of this encounter Care Teams Veneer Stock Layer Relationship Specialty Start Date End Date Isi [place] NP 70 [place] [address] PCP - General Family Medicine 07/03/18 07/08/24 Courtney Judge NP [address] [place] [address] PCP - General Nurse Practitioner 07/09/24 Raul Howard DO [address] [place] [phone] [email or web address] Primary Oncologist Hematology and Oncology 07/28/18 Karely Cabrera PA-C [address] [place] [phone] @[email or web address] Physician Food Management Aide Hematology 10/18/20 Raul Howard DO [address] [place] [address] [email or web address] Primary Oncologist Hematology and Oncology 07/31/22 documented as of this encounter Additional Source Comments The information contained in this document represents components of the legal health record. It is not the complete legal health record.[facility]
--- OUTSIDE RECORDS SUMMARY | 2025-07-20 15:59 | XMS_ITS | Encounter Summary ---
Author Organization [facility] Address [address] [facility] [address] [place] [address] Phone Care Team Providers Care Steam Shovel Oiler Name Role Phone Isi [place] BEAM SAW OPERATOR Primary Care Provider [phone] Raul Howard DO Unavailable [phone] Karely Cabrera PA-C Unavailable [phone] Raul Howard DO Unavailable [phone] Courtney Judge BEAM SAW OPERATOR Primary Care Provider Encounter Details Date Type Department Care Team (Latest Contact Info) Description 08/28/2023 Transcribe Orders [facility] Laboratory [address] [facility] 2nd Floor [place], [place] [phone] Liliana Arenas CNP 10 [place], [place] [phone] Abdominal pain, unspecified abdominal location (Primary Dx); Iron deficiency anemia, unspecified iron deficiency anemia type Social History Tobacco Use Types Packs/Day Years [...] Description 12/27/2025 2:30 PM EDT Office Visit [facility] Pulmonary, Allergy and Critical Care Medicine [address] [place] [address] Juan Ventura MD [address] [place] [address] [email or web address] 02/24/2026 8:30 AM EDT Office Visit [facility] Neurology [address] [place] [address] Rafael España MD [address] [place] [address] documented as of this encounter Results * (ABNORMAL) LFTs (hepatic panel) (08/28/2023 2:56 PM EST) ALKALINE PHOSPHATASE 130(H) 39 - 117 U/L [facility] TOTAL BILIRUBIN 0.3 0.0 - 1.2 mg/dL [facility] DIRECT BILIRUBIN <0.2 0 - 0.3 mg/dL [facility] Bilirubin (Indirect) NOT CALCULATED 0 - 1.5 mg/dL [facility] AST 23 0 - 37 U/L [facility] ALT 9 0 - 40 U/L [facility] TOTAL PROTEIN 7.2 6.5 - 8.0 g/dL [facility] ALBUMIN 4.0 3.9 - 4.8 g/dL [facility] GLOBULIN 3.2 1 - 4.8 g/dL [facility] A/G Ratio 1.25 1.00 - 4.80 RATIO [facility] Blood 08/28/2023 2:56 PM EST 08/28/2023 2:59 PM EST Liliana Arenas [facility] BLOOD ORDERABLES Final Result Performing Organization Address [facility] Co de Phone Number [address] [address] * GGT (Gamma glutamyl transferase) (08/28/2023 2:56 PM EST) GGT 30 7 - 33 U/L [facility] Blood 08/28/2023 2:56 PM EST 08/28/2023 2:59 PM EST Result [facility] Liliana Willaalethea Arenas [facility] BLOOD ORDERABLES Final Result Performing Organization Address [facility] Co de Phone Number [address] [address] documented in this encounter Visit Diagnoses Diagnosis Abdominal pain, unspecified abdominal location- Primary Iron deficiency anemia, unspecified iron deficiency anemia type documented in this encounter Additional Health Concerns Infection Onset Date Last Indicated Resolved Time CoV-Risk 04/25/2025 04/25/2025 05/06/2025 1:21 AM EDT documented as of this encounter Care Teams Steam Shovel Oiler Relationship Specialty Start Date End Date Isi [place] NP [address] [place] [address] PCP - General Family Medicine 07/03/18 07/08/24 Courtney Judge NP [address] [place] [address] PCP - General Nurse Practitioner 07/09/24 Raul Howard DO [address] [place] [address] [email or web address] Primary Oncologist Hematology and Oncology 07/28/18 Karely Cabrera PA-C [address] [place] [address] [email or web address] Physician Status Controller Hematology 10/18/20 Raul Howard DO [address] [place] [address] [email or web address] Primary Oncologist Hematology and Oncology 07/31/22 documented as of this encounter Additional Source Comments The information contained in this document represents components of the legal health record. It is not the complete legal health record.[facility]
--- OUTSIDE RECORDS SUMMARY | 2025-07-20 15:59 | XMS_ITS | Encounter Summary ---
Author Organization [facility] Address [address] [facility] [address] [place] [address] Phone Care Team Providers Care Hl7 Interface Developer Name Role Phone LeeRaul DO Unavailable Karely Cabrera PA-C Unavailable [phone] Raul Howard DO Unavailable Courtney Judge PROJECT PORTFOLIO ANALYST Primary Care Provider [phone] Encounter Details Date Type Department Care Team (Late st Contact Info) Description 04/28/2025 Procedure Pass [facility], Ct Scan - [facility] 30 [place] [address] Social History Tobacco Use Types Packs/Day Years [...] 3:33 AM EDT Javon Leija RN * [place] Suicide Severity Rating Scale (Screener/Recent Self-Report) Question [...] Description 12/27/2025 2:30 PM EDT Office Visit [facility] Pulmonary, Allergy and Critical Care Medicine [address] [place] [address] Juan Ventura MD [address] [place] [address] [email or web address] 02/24/2026 8:30 AM EDT [facility] [address] [place] [address] Rafael España MD [address] [place] [address] documented as of this encounter Visit Diagnoses Not on filedocumented in this encounter Additional Health Concerns Infection Onset Date Last Indicated Resolved Time CoV-Risk 04/25/2025 04/25/2025 05/06/2025 1:21 AM EDT documented as of this encounter Care Teams Hl7 Interface Developer Relationship Specialty Start Date End Date Courtney Judge NP 70 [place] [address] PCP - General Nurse Practitioner 07/09/24 Raul Howard DO [address] [place] [phone] [email or web address] Primary Oncologist Hematology and Oncology 07/28/18 Karely Cabrera PA-C [address] [place] [address] [email or web address] Physician Medicare Compliance Auditor Hematology 10/18/20 Raul Howard DO [address] [place] [phone] [email or web address] Primary Oncologist Hematology and Oncology 07/31/22 documented as of this encounter Additional Source Comments The information contained in this document represents components of the legal health record. It is not the complete legal health record.[facility]
--- OUTSIDE RECORDS SUMMARY | 2025-07-20 15:59 | XMS_ITS | Encounter Summary ---
Author Organization [facility] Address [address] [facility] [address] [place] [address] Phone Care Team Providers Care Commercial Designer Name Role Phone Isi [place] STITCHING MACHINE FEEDER OR OFFBEARER Primary Care Provider [phone] Raul Howard DO Unavailable [phone] Karely Cabrera PA-C Unavailable [phone] Raul Howard DO Unavailable [phone] Courtney Judge STITCHING MACHINE FEEDER OR OFFBEARER Primary Care Provider Encounter Details Date Type Department Care Team (Late st Contact Info) Description 05/16/2023 Procedure Pass [facility], Ct Scan - [address] [phone] Social History Tobacco Use Types Packs/Day Years [...] Upcoming Encounters Date Type Department Care Team ([facility] st Contact Info) Description 12/27/2025 2:30 PM EDT Office Visit [facility] Pulmonary, Allergy and Critical Care Medicine 10 [place] [address] Juan Ventura MD [address] [place] [phone] [email or web address] 02/24/2026 8:30 AM EDT Office Visit [facility] Neurology [address] [place] [address] Rafael España MD [address] [place] [address] documented as of this encounter Visit Diagnoses Not on filedocumented in this encounter Additional Health Concerns Infection Onset Date Last Indicated Resolved Time CoV-Risk 04/25/2025 04/25/2025 05/06/2025 1:21 AM EDT documented as of this encounter Care Teams Commercial Designer Relationship Specialty Start Date End Date Isi [place] NP 70 [place] [address] PCP - General Family Medicine 07/03/18 07/08/24 Alfie Courtneylillian Winn NP 70 [place] [address] PCP - General Nurse Practitioner 07/09/24 Raul [place] DO 30 [place] [address] [email or web address] Primary Oncologist Hematology and Oncology 07/28/18 Karely Cabrera PA-C 30 [place] [address] @[email or web address] Physician Clinical Transplant Coordinator Hematology 10/18/20 Raul Howard DO 30 [place] [address] [email or web address] Primary Oncologist Hematology and Oncology 07/31/22 documented as of this encounter Additional Source Comments The information contained in this document represents components of the legal health record. It is not the complete legal health record.[facility]
--- OUTSIDE RECORDS SUMMARY | 2025-07-20 16:00 | XMS_ITS | Encounter Summary ---
Author Organization [facility] Address [address] [place] [address] Phone Care Team Providers Care Superintendent Menagerie Name Role Phone Isi Royal PROFESSOR OF FRENCH Primary Care Provider [phone] Raul Howard DO Unavailable Karely Cabrera PA-C Unavailable [phone] Raul Howard DO Unavailable [phone] Courtney Judge PROFESSOR OF FRENCH Primary Care Provider [phone] Encounter Details Date Type Department Care Team (Late st Contact Info) Description 12/09/2019 Procedure Pass [facility] Endoscopy Admitting Dept Virtual Department 30 [place], [place] [phone] Social History Tobacco Use Types Packs/Day Years [...] Upcoming Encounters Date Type Department Care Team ([facility] st Contact Info) Description 12/27/2025 2:30 PM EDT Office Visit [facility] Pulmonary, Allergy and Critical Care Medicine 10 [place] [address] Juan Ventura MD [address] [address] [email or web address] 02/24/2026 8:30 AM EDT Office Visit [facility] Neurology [address] [place] [address] Rafael España MD [address] [place] [address] [email or web address] documented as of this encounter Visit Diagnoses Not on filedocumented in this encounter Additional Health Concerns Infection Onset Date Last Indicated Resolved Time CoV-Risk 04/25/2025 04/25/2025 05/06/2025 1:21 AM EDT documented as of this encounter Care Teams Superintendent Menagerie Relationship Specialty Start Date End Date Isi Royal NP 70 [place] [address] PCP - General Family Medicine 07/03/18 07/08/24 Courtney Judge NP 70 [place] [address] PCP - General Nurse Practitioner 07/09/24 Raul Howard DO [address] [place] [address] [email or web address] Primary Oncologist Hematology and Oncology 07/28/18 Karely Cabrera PA-C [address] [place] [address] [email or web address] Physician Naturopathic Doctor Hematology 10/18/20 Raul Howard DO [address] [place] [address] [email or web address] Primary Oncologist Hematology and Oncology 07/31/22 documented as of this encounter Additional Source Comments The information contained in this document represents components of the legal health record. It is not the complete legal health record.[facility]
--- OUTSIDE RECORDS SUMMARY | 2025-07-20 16:00 | XMS_ITS | Encounter Summary ---
Author Organization [facility] Address [address] [place] [address] Phone Care Team Providers Care Coating Mixer Tender Name Role Phone Isi Royal CASTING FINISHER Primary Care Provider [phone] Raul Howard DO Unavailable [phone] Karely Cabrera PA-C Unavailable [phone] Raul Howard DO Unavailable [phone] Courtney Judge CASTING FINISHER Primary Care Provider Encounter Details Date Type Department Care Team (Latest Contact Info) Description 11/09/2019 Transcribe Orders [facility] Laboratory [address] [phone] Liliana Arenas CNP 10 [place], [place] [id number] [email or web address] Duodenal ulcer (Primary Dx); Iron deficiency anemia secondary to blood loss (chronic) Social History Tobacco Use Types Packs/Day Years [...] [facility] Pulmonary, Allergy and Critical Care Medicine [address] [place] [address] Juan Ventura MD [address] [place] [address] [email or web address] 02/24/2026 8:30 AM EDT Office Visit [facility] Neurology [address] [place] [address] Rafael España MD [address] [place] [address] [email or web address] documented as of this encounter Results * Vitamin B12 (11/09/2019 2:01 PM EST) VITAMIN B12 556 232 - 1,245 pg/mL [facility] Blood 11/09/2019 2:01 PM EST 11/09/2019 2:05 PM EST us Liliana Arenas [facility] BLOOD ORDERABLES Final Result [facility] [address] [place] [address] * Ferritin (11/09/2019 2:01 PM EST) FERRITIN 18 13 - 150 ug/L [facility] Blood 11/09/2019 2:01 PM EST 11/09/2019 2:05 PM EST Liliana Arenas [facility] BLOOD ORDERABLES Final Result Performing Organization Address City/[facility] Co de Phone Number [address] [address] * Folate (11/09/2019 2:01 PM EST) FOLIC ACID 8.8 4.2 - 19.9 ng/mL [facility] Blood 11/09/2019 2:01 PM EST 11/09/2019 2:05 PM EST Liliana Arenas [facility] BLOOD ORDERABLES Final Result Performing Organization Address [facility] de Phone Number [address] [address] * (ABNORMAL) Iron and iron binding capacity (11/09/2019 2:01 PM EST) Pathologist [facility] IRON 20(L) 30 - 160 ug/dL [facility] IRON BINDING CAPACITY 266 228 - 428 ug/dL [facility] TRANSFERRIN SATURAT. 8(L) 15 - 50 % [facility] Blood 11/09/2019 2:01 PM EST 11/09/2019 2:05 PM EST Liliana Arenas [facility] BLOOD ORDERABLES Final Result Performing Organization Address [facility] Co de Phone Number [address] [address] * (ABNORMAL) Comprehensive metabolic panel (11/09/2019 2:01 PM EST) SODIUM 138 133 - 146 mmol/L [facility] POTASSIUM 4.8 3.3 - 5.1 mmol/L [facility] CHLORIDE 102 96 - 108 mmol/L [facility] CO2 24 21 - 35 mmol/L [facility] BUN 15 6 - 19 mg/dL [facility] CREATININE 1.10 0.5 - 1.5 mg/dL [facility] GLUCOSE 131(H) 70 - 99 mg/dL [facility] ALBUMIN 3.7(L) 3.9 - 4.8 g/dL [facility] TOTAL PROTEIN 7.4 6.5 - 8.0 g/dL [facility] CALCIUM 9.6 8.4 - 10.3 mg/dL [facility] ALKALINE PHOSPHATASE 117 39 - 117 U/L [facility] TOTAL BILIRUBIN 0.3 0.0 - 1.2 mg/dL [facility] AST 19 0 - 37 U/L [facility] ALT 8 0 - 40 U/L [facility] GLOBULIN 3.7 1 - 4.8 g/dL [facility] EGFR 48(L) >59 mL/min/1.7 3m2 [facility] Comment:If patient is black, multiply result by 1.159. Estimated glomerular filtration rate calculated using the CKD-EPI equation. ANION GAP 17 10 - 20 mmol/L [facility] Blood 11/09/2019 2:01 PM EST 11/09/2019 2:05 PM EST Liliana Arenas [facility] BLOOD ORDERABLES Final Result [facility] [address] [place] [address] * (ABNORMAL) CBC and differential (11/09/2019 2:01 PM EST) WBC 11.69(H) 4.00 - 11.00 K/uL [facility] Comment:Note Reference Range updates to all CBC and Differential results. RBC 4.65 3.72 - 5.30 M/uL [facility] HGB 11.0(L) 11.4 - 15.9 g/dL [facility] Comment:Note updated Referen ce Ranges for all CBC and Differential results. HCT 37.1 34.2 - 46.8 % [facility] PLT 720(H) 140 - 430 K/uL [facility] MCV 79.8 78.0 - 97.0 fL [facility] MCH 23.7(L) 25.0 - 33.0 pg [facility] MCHC 29.6(L) 32.0 - 36.0 g/dL [facility] RDW 18.0(H) 11.0 - 16.0 % [facility] MPV 10.6 8.4 - 12.8 fl [facility] NRBC 0.00 0 /100 WBCs [facility] ABSOLUTE NRBC 0.00 0 K/uL [facility] DIFF METHOD Auto [facility] NEUTS 72.9 43.0 - 75.0 % [facility] LYMPHS 16.1(L) 18.2 - 47.4 % [facility] MONOS 7.1 4.00 - 11.00 % [facility] EOS 2.8 0.0 - 8.0 % [facility] BASOS 0.8 0.0 - 2.0 % [facility] Granulocytes, immature (%) 0.3 0.0 - 0.9 % [facility] ABSOLUTE NEUTS 8.52(H) 1.80 - 7.70 K/uL [facility] ABSOLUTE LYMPHS 1.88 1.00 - 3.10 K/uL [facility] ABSOLUTE MONOS 0.83(H) 0.20 - 0.80 K/uL [facility] ABSOLUTE EOS 0.33 0.00 - 0.80 K/uL [facility] ABSOLUTE BASOS 0.09 0.00 - 0.09 K/uL [facility] Granulocytes, immature 0.04 0.00 - 0.05 K/uL [facility] Blood 11/09/2019 2:01 PM EST 11/09/2019 2:05 PM EST Liliana Arenas [facility] BLOOD ORDERABLES Final Result Performing Organization Address City/State/[facility] Co de Phone Number [address] [address] documented in this encounter Visit Diagnoses Diagnosis Duodenal ulcer- Primary Iron deficiency anemia secondary to blood loss (chronic) documented in this encounter Additional Health Concerns Infection Onset Date Last Indicated Resolved Time CoV-Risk 04/25/2025 04/25/2025 05/06/2025 1:21 AM EDT documented as of this encounter Care Teams Coating Mixer Tender Relationship Specialty Start Date End Date Isi Royal NP 70 [place] [address] PCP - General Family Medicine 07/03/18 07/08/24 Courtney Judge NP 70 [place] [address] PCP - General Nurse Practitioner 07/09/24 Raul Howard DO 30 [place] [address] [email or web address] Primary Oncologist Hematology and Oncology 07/28/18 Karely Cabrera PA-C 30 [place] [address] [email or web address] Physician Coffee Shop Attendant Hematology 10/18/20 Raul Howard DO 30 [place] [address] [email or web address] Primary Oncologist Hematology and Oncology 07/31/22 documented as of this encounter Additional Source Comments The information contained in this document represents components of the legal health record. It is not the complete legal health record.[facility]
--- OUTSIDE RECORDS SUMMARY | 2025-07-20 16:00 | XMS_ITS | Encounter Summary ---
Author Organization [facility] Address [address] [address] [place] [address] Phone Care Team Providers Care Front End Driver Name Role Phone Isi Royal CORPORATE ASSOCIATE Primary Care Provider [phone] Raul Howard DO Unavailable Karely Cabrera PA-C Unavailable [phone] Lee Raul Pedroza DO Unavailable [phone] Courtney Judeg CORPORATE ASSOCIATE Primary Care Provider Encounter Details Date Type Department Care Team (Latest Contact Info) Description 03/16/2020 Transcribe Orders Virtual Department 30 [place] [address] Christophe Del Cid MD [address] [place] [address] [phone] Duodenal stricture (Primary Dx) Social History Tobacco Use Types [...] CD Pulmonary, Allergy and Critical Care Medicine [address] [place] [address] Juan Ventura MD [address] [place] [address] [email or web address] 02/24/2026 8:30 AM EDT Office Visit [facility] Neurology [address] [place] [address] Rafael España MD [address] [place] [address] [email or web address] documented as of this encounter Results * FL UGI SERIES SINGLE CONTRAST (05/05/2020 9:35 AM EDT) Anatomical Region Laterality Modality Abdomen Computed Radiogr aphy 05/05/2020 10:0 2 AM EDT Addenda Addendum by Christophe Ding MD on 05/05/2020 4:42 PM EDT ADDENDUM: Spontaneous gastroesophageal reflux was also noted during course of this examination. The results were reviewed with Dr. Del Cid on the afternoon of 05/05/2020. Impressions 05/05/2020 10:15 AM EDT No mechanical obstructing lesion or other significant esophageal, gastric, or duodenal mucosal pathology apparent. Jejunal diverticulum. FLUOROSCOPY TIME: 2 min. 31 sec; 20 IMAGES/FRAMES POS - [id number] Narrative 05/05/2020 10:15 AM EDT COMPARISON: 09/07/2019 FINDINGS: A preliminary view of the abdomen reveals an unremarkable bowel gas pattern. As the patient declined effervescent agent a single contrast study was performed. Following ingestion of the contrast mixture deglutition was assessed fluoroscopically and found to be grossly normal. No mechanical obstructing lesion or merari aspiration noted. Stomach and duodenal cap filled moderately well and without evidence of intrinsic disease or involvement of or displacement by extrinsic lesions. It was difficult to obtain optimal gastric distention and subtle rugal fold abnormalities could be occult. Proximal duodenum unremarkable. 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 Procedure Note Christpohe Ding MD - 05/05/2020 COMPARISON: 09/07/2019 FINDINGS: A preliminary view of the abdomen reveals an unremarkable bowel gaspattern. As the patient declined effervescent agent a single contraststudy was performed. Following ingestion of the contrast mixturedeglutition was assessed fluoroscopically and found to be grossly normal.No mechanical obstructing lesion or merari aspiration noted. Stomach andduodenal cap filled moderately well and without evidence of intrinsicdisease or involvement of or displacement by extrinsic lesions. It wasdifficult to obtain optimal gastric distention and subtle rugal foldabnormalities could be occult. Proximal duodenum unremarkable. Thereappears to be at least one jejunal diverticulum present. IMPRESSION: No mechanical obstructing lesion or other significant esophageal, gastric,or duodenal mucosal pathology apparent. Jejunal diverticulum. FLUOROSCOPY TIME: 2 min. 31 sec; 20 IMAGES/FRAMES POS - [id number] Christophe Del Cid MD [facility] [place] MISC Edited Res ult - Final documented in this encounter Visit Diagnoses Diagnosis Duodenal stricture- Primary Other obstruction of duodenum Duodenal stricture Other obstruction of duodenum documented in this encounter Additional Health Concerns Infection Onset Date Last Indicated Resolved Time CoV-Risk 04/25/2025 04/25/2025 05/06/2025 1:21 AM EDT documented as of this encounter Care Teams Front End Driver Relationship Specialty Start Date End Date Isi Royal NP 70 [place] [address] PCP - General Family Medicine 07/03/18 07/08/24 Courtney Judge, TAHIRA 70 [place] [address] PCP - General Nurse Practitioner 07/09/24 Raul Howard DO 30 [place] [address] [email or web address] Primary Oncologist Hematology and Oncology 07/28/18 Karely Cabrera PA-C 30 [place] [address] [email or web address] Physician Eeg Technician Hematology 10/18/20 Raul Howard DO 30 [place] [address] [email or web address] Primary Oncologist Hematology and Oncology 07/31/22 documented as of this encounter Additional Source Comments The information contained in this document represents components of the legal health record. It is not the complete legal health record.[facility]
--- OUTSIDE RECORDS SUMMARY | 2025-07-20 16:00 | XMS_ITS | Encounter Summary ---
Author Organization [facility] Address [address] [facility] [address] [place] [address] Phone Care Team Providers Care Junior Web Developer Name Role Phone LeeRaul DO Unavailable Karely Cabrera PA-C Unavailable [phone] Raul Howard DO Unavailable Courtney Judge LEVELER Primary Care Provider [phone] Encounter Details Date Type Department Care Team (Late st Contact Info) Description 04/30/2025 Procedure Pass [facility], [facility] 30 [place] [address] Social History Tobacco Use Types Packs/Day Years [...] Pulmonary, Allergy and Critical Care Medicine 10 [place] [address] Juan Ventura MD [address] [address] [email or web address] 02/24/2026 8:30 AM EDT Office Visit [facility] Neurology [address] [place] [address] Rafael España MD [address] [place] [address] [email or web address] documented as of this encounter Visit Diagnoses Not on filedocumented in this encounter Additional Health Concerns Infection Onset Date Last Indicated Resolved Time CoV-Risk 04/25/2025 04/25/2025 05/06/2025 1:21 AM EDT documented as of this encounter Care Teams Junior Web Developer Relationship Specialty Start Date End Date Courtney Judge NP [address] [place] [address] PCP - General Nurse Practitioner 07/09/24 Raul Howard DO 30 [place] [address] [email or web address] Primary Oncologist Hematology and Oncology 07/28/18 Karely Cabrera PA-C [address] [place] [address] Physician Manager Of Allied Health Services Hematology 10/18/20 Raul Howard DO 30 [place] [address] [email or web address] Primary Oncologist Hematology and Oncology 07/31/22 documented as of this encounter Additional Source Comments The information contained in this document represents components of the legal health record. It is not the complete legal health record.[facility]
--- OUTSIDE RECORDS SUMMARY | 2025-07-20 16:00 | XMS_ITS | Encounter Summary ---
Author Organization [facility] Address [address] [facility] [address] [place] [address] Phone Care Team Providers Care Doctor Of Veterinary Medicine Name Role Phone eLeaRul DO Unavailable Karely Cabrera PA-C Unavailable [phone] Raul Howard DO Unavailable oCurtney Judge SPINNER CAP FRAME Primary Care Provider [phone] Encounter Details Date Type Department Care Team (Late st Contact Info) Description 04/28/2025 Procedure Pass [facility], Ct Scan - [facility] 30 [place] [address] Social History Tobacco Use Types Packs/Day Years [...] 3:33 AM EDT Javon Leija RN * [place] Suicide Severity Rating Scale (Screener/Recent Self-Report) Question [...] Description 12/27/2025 2:30 PM EDT Office Visit [facility] Pulmonary, Allergy and Critical Care Medicine [address] [place] [address] Juan Ventura MD [address] [place] [address] [email or web address] 02/24/2026 8:30 AM EDT [facility] Neurology [address] [place] [address] Rafael España MD [address] [place] [address] documented as of this encounter Visit Diagnoses Not on filedocumented in this encounter Additional Health Concerns Infection Onset Date Last Indicated Resolved Time CoV-Risk 04/25/2025 04/25/2025 05/06/2025 1:21 AM EDT documented as of this encounter Care Teams Doctor Of Veterinary Medicine Relationship Specialty Start Date End Date Courtney Judge NP 70 [place] [address] PCP - General Nurse Practitioner 07/09/24 Raul Howard DO [address] [place] [address] [email or web address] Primary Oncologist Hematology and Oncology 07/28/18 Karely Cabrera PA-C [address] [place] [address] [email or web address] Physician Alarm Investigator Hematology 10/18/20 Raul Howard DO [address] [place] [address] [email or web address] Primary Oncologist Hematology and Oncology 07/31/22 documented as of this encounter Additional Source Comments The information contained in this document represents components of the legal health record. It is not the complete legal health record.[facility]
== END 2025-07-20 14:03 | disposition home or self-care (01) ==
PROVIDERS: PCP Nurse Practitioner; Visit Provider Surgery Vascular Surgery
DX: I65.23 Occlusion and stenosis of bilateral carotid arteries (principal)
CPT/HCPCS: 99214

== ENCOUNTER → 2025-07-20 13:10 | Outpatient (BNVA) | payer MEDICARE, SELFPAY | PROVIDERS: PCP Nurse Practitioner; Visit Provider Surgery Vascular Surgery | DX: Z71.2 Person consulting for explanation of examination or test findings (principal); I65.23 Occlusion and stenosis of bilateral carotid arteries | CPT/HCPCS: 99212 ==

== ENCOUNTER 2025-08-26 13:01 | Outpatient (REF) | payer MEDICARE, SELFPAY ==
[2025-08-26 14:31] LABS: Blood Urea Nitrogen 22 mg/dL (9-16); Estimated Glomerular Filt Rate 39
--- OUTSIDE RECORDS SUMMARY | 2025-08-26 18:39 | XMS_ITS | Data Portability ---
Author Organization [place] [facility] Address [address] [facility] [address] [place] [address] Care Team Providers Care Horse Farm Manager Name Role Phone SILVANO JEAN Primary Care Provider [phone] Assessment Encounter Date Assessment Date Assessment LastModified [...] contr ast No observ ation record ed. [email or web address] Not Available 10/2024 14:20:10 Result Notes None recorded. Problems Name Problem SNOMED Code Status Onset Date Resolution Date Notes Provider Name and Address Organization Details Recorded Time Closed fracture of nasal bones 40997039 Active 025 CAITLYN WEINER MD [address] [facility], [facility] [place], [address], [facility] - [facility] 5 11:52:00 Deviated nasal septum 586961614 Active 025 CAITLYN WEINER MD [address] [facility], [facility] [place], [address], [facility] - [facility] 5 11:52:05 Pulmonary emphysema 10943045 Active 025 CAITLYN WEINER MD [address] [facility], [facility] [place], [address], [facility] - [facility] 5 11:52:28 Problem Notes None recorded. Medical Equipment None Reported. Allergies Allergen ID Allergen Name Allergen Category Reaction Reaction Severity Criticality Documentation Date Start Date Code Code System Note Provider Name and Address Organization Details Recorded Time 542445 codeine medicatio n Not available Not available Not available 05/04/2025 2670 RxNorm ABDIEL felipe [place] [facility] 5 11:41:28 Medications Name Sig Start Date [...] Updated DateTime 05/04/2025 152.4 cm 34.2 kg/m2 02688.66 g ABDIEL QUINN [place] [facility] 05/04/2025 11:41:23 Social History None recorded. Functional Status None recorded. Mental Status None recorded. Family History Nothing Reported. Medical History No medical history recorded. Gynecological HistoryNo gynecological history recorded. Obstetrics History GPAL:G 0 P 0 0 0 0 Past Encounters Encounter ID Performer Location Encounter Start Date Encounter Closed Date Diagnosis/Indication Diagnosis SNOMED-CT Code Diagnosis ICD10 Code Diagnosis IMO Codes Diagnosis Note [id number] CAITLYN WEINER MD [facility] [address] [address] 05/04/2025 11:18:48 05/04/2025 11:53:56 Closed fracture of nasal bones 42589742 S02.2XXA 7402189 Deviated nasal septum 12 9623500 J34.2 230464 Pulmonary emphysema 8743 3001 J43.9 138852300 Health Concerns Section Related Observation LastModified by Organization Detai ls LastModified Time None Recorded Concern Status LastModified by Organization Details LastModified Time None Recorded Advance Directives Directive None Recorded Payers Insurance Date Sequence Insurance Name Policy Number Policy Lara Covered Member ID Lara Member ID Guarantor Name 05/04/2025 1 [facility]IC[place]PO BLUE (MEDICARE REPLACEMENT PPO) [id number] Chika Jerry [id number] Chika Jerry Notes Date Note Type [...] bony and cartilaginous septum CAITLYN WEINER MD [address] [place] [address], [place], [address], [place] [facility] 05/04/2025 11:55:06 OBGyn Episode No OBEpisode recorded.
== END 2025-08-26 13:02 | disposition home or self-care (01) ==
LOC: HO.LAB 13:01
PROVIDERS: PCP Nurse Practitioner; Visit Provider Surgery Vascular Surgery
DX: I65.23 Occlusion and stenosis of bilateral carotid arteries (principal)
CPT/HCPCS: 36415; 82565; 84520

== ENCOUNTER 2025-08-31 13:58 | Outpatient (REF) | payer MEDICARE, SELFPAY ==
--- OUTSIDE RECORDS SUMMARY | 2025-05-23 11:17 | XMS_ITS | Encounter Summary ---
Author Organization [facility] Address [address] [facility] [address] [place] [address] Phone Care Team Providers Care Director Speech And Hearing Name Role Phone Lee Raul Pedroza DO Unavailable Karely Cabrera PA-C Unavailable Lee Raul Pedroza DO Unavailable [phone] Courtney Judge GREENKEEPER Primary Care Provider [phone] Encounter Details Date Type Department Care Team (Late st Contact Info) Description 05/23/2025 12:17 PM EDT Hospital Encounter [facility], Emergency - [address] [address] Wilton Strickland MD [address] [place] [address], [address] [place], [place] [phone] [email or web address] Social History Tobacco Use Types Packs/Day Years Used Date Smoking Tobacco: Former Cigarettes 1 - 2016 Smokeless Tobacco: Never Alcohol Use Standard Drinks/Week Comments No 0 (1 standard drink = 0.6 oz pur e alcohol) Home Health Assessment: Transportation Answer Date Recorded Lack of Transportation (Medical) No 07/07/2025 Lack of Transportation (Non-Medical) No 07/07/2025 Patient Unable or Declines to Respond No 07/07/2025 Education Answer Date Recorded Are you interested in more education? Not on brennen e 02/01/2023 Are you concerned about learning? Not on file 02/01/2023 No 02/01/2023 No 02/01/2023 Food Answer Date Recorded Within the past 6 months we worried whether our food would run out before we got money to buy more. Never True 08/23/2025 Within the past 6 months the food we bought just didn't last and we didn't have enough money to get more. Never True Residential Stability Answer Date Recor ded What is your housing situation today? I have vamshi sing 08/23/2025 How many times have you move d in the past 12 months? Zero (I did not move) 08/23/2025 Paying for Meds Answer Date Recorded Do you have trouble paying for medicines? No 08/23/2025 Paying Utility Bills Answer Date Record ed Do you have trouble paying your heating or elect ricity bill? No 08/23/2025 Transportation Answer Date Recorded Has the lack of transportati on kept you from medical appointments or from getting medications? No 08/23/2025 Digital Access Answer Date Recorded No 08/23/2025 Yes 08/23/2025 Do you have reliable internet access at home? Ye s 08/23/2025 Do you have a device (e.g., phone, tablet, computer) with a working camera? Yes 08/23/2025 Intimate Partner Violence Answer Date R ecorded Are you denied basic needs s uch as food, clothing, or medical care? No 08/23/2025 In the past 12 months have y ou been in a relationship with a person who hurts, threatens, or tries to control you? No 08/23/2025 Are you denied basic needs s uch as food, clothing, or medical care? No 08/23/2025 In the past 12 months have y ou been in a relationship with a person who hurts, threatens, or tries to control you? No 08/23/2025 Comments No Sex and Gender Information Value Date Recorded Sex Assigned at Female 06/02/2018 5:26 PM EDT Legal Sex Female 10:11 PM EDT Gender Identity Female 06/02/2018 5:26 PM EDT Sexual Orientation Straight 06/02/2018 5: 26 PM EDT documented as of this encounter Functional Status * Calculated C-SSRS Risk Score (Lifetime/Recent) Answer Date of Assessment Author No Risk Indicated 08/23/2025 6:27 PM Jojo Eastman RN * [place] Suicide Severity Rating Scale (Screener/Recent Self-Report) Question Answer Date of Assessment Author 1. Wish to be (Past 1 Month) No 025 6:27 PM Jojo Eastman RN 2. Non-Specific Active Suici fariba Thoughts (Past 1 Month) No 08/23/2025 6:27 PM Lisa Eastman RN 6. Suicidal Behavior (Lifetime) No 6:27 PM Jojo Eastman RN documented as of this encounter Plan of Treatment Upcoming Encounters Date Type Department Care Team (Late st Contact Info) Description 12/27/2025 2:30 PM EDT Office Visit [facility] Pulmonary, Allergy and Critical Care Medicine [address] [place] [address] Juan Ventura MD [address] [place] [phone] [email or web address] 02/24/2026 8:30 AM EDT Office Visit [facility] Neurology [address] [place] [address] [place] [address] Rafael España MD [address] [place] [phone] documented as of this encounter Procedures Procedure Name Priority Date/Time Associated Diagnosis Comments XR FOOT 3 OR MORE VIEWS (LEFT) Urgent/patient waiting 05/23/2025 12:21 PM EDT Neoplasm of uncertain behavior of right kidney Foreign body in left foot, initial encounter documented in this encounter Results * XR FOOT 3 OR MORE VIEWS (LEFT) (05/23/2025 12:21 PM EDT) Anatomical Region Laterality Modality Foot Left Computed Radiogr aphy 05/23/2025 12:3 6 PM EDT Impressions 05/23/2025 12:42 PM EDT Redemonstration of 8 mm linear radiopaque foreign body in the superficial plantar soft tissues of the forefoot at the level of the first metatarsal bone unchanged. No radiopaque metallic foreign bodies identified within the left foot. Narrative 05/23/2025 12:42 PM EDT XR FOOT 3 OR MORE VIEWS (LEFT) Referring clinician's provided indication for this examination in Epic: Outside Radiology Order; Foreign Body COMPARISON: 04/23/2025, 09/23/2024 FINDINGS: No acute displaced fracture or dislocation. Mild degenerative changes in the interphalangeal joints. There is redemonstration 8 mm linear radiopaque foreign body that appears less dense than metal within the superficial plantar soft tissues of the forefoot level of the midshaft of the first metatarsal bone. This appears unchanged in size and position compared to prior examination. There is a small spur off the plantar and posterior surface the calcaneus. No radiopaque metallic foreign bodies identified in the left foot Procedure Note Leon Trevizo MD - 05/23/2025 XR FOOT 3 OR MORE VIEWS (LEFT) Referring clinician's provided indication for this examination in Epic:Outside Radiology Order; Foreign Body COMPARISON: 04/23/2025, 09/23/2024 FINDINGS: No acute displaced fracture or dislocation. Mild degenerative changes inthe interphalangeal joints. There is redemonstration 8 mm linearradiopaque foreign body that appears less dense than metal within thesuperficial plantar soft tissues of the forefoot level of the midshaft ofthe first metatarsal bone. This appears unchanged in size and positioncompared to prior examination. There is a small spur off the plantar andposterior surface the calcaneus. No radiopaque metallic foreign bodiesidentified in the left foot IMPRESSION: Redemonstration of 8 mm linear radiopaque foreign body in the superficialplantar soft tissues of the forefoot at the level of the first metatarsalbone unchanged. No radiopaque metallic foreign bodies identified within the left foot. 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 body in left foot, initial encounter documented in this encounter Additional Health Concerns Infection Onset Date Last Indicated Resolved Time Resp-Risk 08/23/2025 08/23/2025 documented as of this encounter Care Teams Director Speech And Hearing Relationship Specialty Start Date End Date Courtney Judge NP [address] [place] [address] PCP - General Nurse Practitioner 07/09/24 Raul Howard DO [address] [place] [phone] [email or web address] Primary Oncologist Hematology and Oncology 07/28/18 Karely Cabrera PA-C [address] [place] [address] [email or web address] Physician Marketing Account Manager Hematology 10/18/20 Raul Howard DO [address] [place] [address] [email or web address] Primary Oncologist Hematology and Oncology 07/31/22 documented as of this encounter Additional Source Comments The information contained in this document represents components of the legal health record. It is not the complete legal health record.[facility]
--- NOTE | ~2025-08-31 | CT_ITS ---
EXAMINATION: CT ANGIOGRAM NECK CLINICAL INFORMATION: Occlusion and stenosis of bilateral carotid arteries. COMPARISON: None available. TECHNIQUE: Test bolus sequences and neck intravenous bolus administration 70 mL of Omnipaque 350. Helical imaging was performed in the axial plane from the aortic arch to the skull base. The data was processed at the medical technologist hematology's workstation for generation of MIP sequences. Angled MIPs and volume rendered reformatted images were also generated at an offline 3D workstation. Stenoses are assessed in accordance with NASCET criteria unless otherwise indicated. This CT examination was performed using dose optimization techniques as appropriate, variously including the following: *Automated exposure control *Adjustment of mA and/or kV according to patient size (this includes techniques or standardized protocols for targeted exams where dose is matched to indication/reason for exam; i.e. extremities or head) *Use of iterative reconstruction technique NECK CTA: -AORTIC ARCH: Normal in caliber. Abundant soft and calcific plaque present with plaque ulcerations visualized in the proximal descending aorta and distal aortic arch (for example, series 7, image 383). No aneurysm. Diameter of the ascending aorta is 3.8 cm. 2-vessel branching pattern. -GREAT VESSEL ORIGINS: Abundant soft plaque at the origin of the brachiocephalic artery results in an approximate 40% stenosis (series 7, image 319). Mild stenosis of the left common carotid artery at the origin from soft plaque. -RIGHT COMMON CAROTID ARTERY: Proximal CCA is tortuous. Otherwise normal in course and caliber to the level of the bifurcation. -CERVICAL RIGHT INTERNAL CAROTID ARTERY: There is an approximate 50% short segment stenosis of the ICA just after the origin due to calcific plaque (series 7, image 211). The vessel then maintains a retropharyngeal course, is tortuous, but patent into the skull base. -LEFT COMMON CAROTID ARTERY: Proximal CCA is tortuous. Otherwise normal in course and caliber to the level of the bifurcation. -CERVICAL LEFT INTERNAL CAROTID ARTERY: There is a severe 4 mm short segment stenosis with string sign (approximate 95% stenosis) just after the bifurcation (series 7, image 202) the vessel then attains a more normal caliber, course is in the retropharyngeal space, is tortuous, and somewhat small with adaptive narrowing into the skull base. -CERVICAL RIGHT VERTEBRAL ARTERY: Codominant. Mild stenosis at the origin, otherwise normal in course and caliber into the skull base. -CERVICAL LEFT VERTEBRAL ARTERY: Codominant. Normal in origin, tortuous proximally however otherwise normal in course and caliber into the skull base. OTHER, SOFT TISSUES: -No lymphadenopathy or mass. No abnormal fluid collection or soft tissue swelling. -The thyroid is either absent or atrophic. -Imaged superior mediastinal structures normal. -Imaged lung apices demonstrate centrilobular emphysema, and mosaic attenuation, likely hypoventilatory changes from expiratory state. There is an indwelling of the posterior membranous trachea. There is dependent atelectasis. -There is a prominent pulmonary trunk. CTA OF THE IMAGED BRAIN: -INTRACRANIAL INTERNAL CAROTID ARTERIES: Adaptive narrowing of the left ICA . Otherwise mild calcification bilaterally without flow-limiting stenosis. -RIGHT ANTERIOR CEREBRAL ARTERY: Normal A1 segment.. Normal arborization of the distal segments. -LEFT ANTERIOR CEREBRAL ARTERY: Normal A1 segment.. Normal arborization of the distal segments. -ANTERIOR COMMUNICATING ARTERY: Normal. -RIGHT MIDDLE CEREBRAL ARTERY: Normal M1 segment of the MCA without focal stenosis or occlusion. Normal arborization of the distal segments. -LEFT MIDDLE CEREBRAL ARTERY: Normal M1 segment of the MCA without focal stenosis or occlusion. Normal arborization of the distal segments. -RIGHT VERTEBRAL ARTERY V4: Normal in course and caliber. There is an AICA/PICA. -LEFT VERTEBRAL ARTERY V4: Normal in course and caliber. There is an AICA/PICA. -BASILAR ARTERY: Normal without focal stenosis or occlusion. Normal appearance of the proximal superior cerebellar arteries. Normal basilar tip. -RIGHT POSTERIOR CEREBRAL ARTERY: Normal P1 segment. Normal opacification of the distal STONE SAWYER segments. -LEFT POSTERIOR CEREBRAL ARTERY: Normal P1 segment. Normal opacification of the distal STONE SAWYER segments. -POSTERIOR COMMUNICATING ARTERIES: Normal opacification of the imaged major cortical and dural venous sinuses. No space-occupying hemorrhage or definite evolving infarct. CT/CT angio neck IMPRESSION: CTA NECK: 1. There is a severe, approximately 95+% stenosis of the left ICA just after the origin with string sign present. There is adaptive narrowing of more distal cervical left ICA. 2. There is an approximate 50% stenosis of the right ICA just after the origin secondary to calcific plaque. 3. There is extensive soft plaque of the aortic arch with several prominent plaque ulcerations present. 4. Abundant soft plaque at the origin of the brachiocephalic artery results in short segment approximately 40% stenosis. 5. Centrilobular emphysema in the imaged lung apices. CTA HEAD: 1. No high-grade stenosis, occlusion, dissection, or aneurysm in the imaged intracranial arterial vasculature. 2. Imaged major cortical and dural venous sinuses are patent. Electronically signed by: Dmitriy Pemberton MD 08/31/2025 03:17 PM [facility]
[2025-08-31] MEDS: iohexoL 350 MG/ML 100 ML INFUS..BTL IV (14:38)
--- OUTSIDE RECORDS SUMMARY | 2025-08-31 17:53 | XMS_ITS | Encounter Summary ---
Author Organization [facility] Address [address] [facility] [address] [place] [address] Phone Care Team Providers Care Marker Machine Name Role Phone Isi Royal SHANK BREAKER Primary Care Provider [phone] Raul Howard DO Unavailable Karely Cabrera PA-C Unavailable [phone] Raul Howard DO Unavailable [phone] Courtney Judge SHANK BREAKER Primary Care Provider Encounter Details Date Type Department Care Team (Late st Contact Info) Description 05/26/2020 Procedure Pass [facility], Ct Scan - [address] [id number] Social History Tobacco Use Types Packs/Day Years [...] Pulmonary, Allergy and Critical Care Medicine 10 [place] [address] Juan Ventura MD [address] [address] [email or web address] 02/24/2026 8:30 AM EDT Office Visit [facility] Neurology [address] [place] [address] Rafael España MD [address] [place] [address] [email or web address] documented as of this encounter Visit Diagnoses Not on filedocumented in this encounter Additional Health Concerns Infection Onset Date Last Indicated Resolved Time CoV-Risk 04/25/2025 04/25/2025 05/06/2025 1:21 AM EDT Resp-Risk 08/23/2025 08/23/2025 documented as of this encounter Care Teams Marker Machine Relationship Specialty Start Date End Date Isi Royal NP 70 [place] [address] PCP - General Family Medicine 07/03/18 07/08/24 Courtney Judge NP 70 [place] [address] PCP - General Nurse Practitioner 07/09/24 Raul Howard DO 30 [place] [address] [email or web address] Primary Oncologist Hematology and Oncology 07/28/18 Karely Cabrera PA-C 30 [place] [address] [email or web address] Physician Rear Load Truck Driver Hematology 10/18/20 Raul Howard DO [address] [place] [address] [email or web address] Primary Oncologist Hematology and Oncology 07/31/22 documented as of this encounter Additional Source Comments The information contained in this document represents components of the legal health record. It is not the complete legal health record.[facility]
--- OUTSIDE RECORDS SUMMARY | 2025-08-31 17:53 | XMS_ITS | Encounter Summary ---
Author Organization [facility], Address [address] [place] [address] Phone Care Team Providers Care Charge Accounts Audit Clerk Name Role Phone Courtney Judge TRAFFIC INVESTIGATOR Primary Care Provider [phone] Encounter Details Date Type Department Care Team (Late st Contact Info) Description 05/23/2023 Documentation Only [facility] David [address] [place] [address] Diego Fisher MD [address] [place] [address] [place] [address] Social History Tobacco Use Types [...] Care Team (Late st Contact Info) Description 10/11/2025 3:00 PM EST Office Visit [facility] REYNA [place] [address] [place] [address] Diego Fisher MD [address] [place] [address] [place] [address] documented as of this encounter Visit Diagnoses Not on filedocumented in this encounter Care Teams Charge Accounts Audit Clerk Relationship Specialty Start Date End Date Courtney Judge NP [address] [place] [address] PCP - General 05/03/25 documented as of this encounter
--- OUTSIDE RECORDS SUMMARY | 2025-08-31 17:53 | XMS_ITS | Encounter Summary ---
Author Organization [facility] Address [address] [facility] [address] [place] [address] Phone Care Team Providers Care Pharmacy Laboratory Technician Name Role Phone Raul Howard DO Unavailable Karely Cabrera PA-C Unavailable [phone] Raul Howard DO Unavailable Courtney Judge [employer] Primary Care Provider [phone] Encounter Details Date Type Department Care Team (Late st Contact Info) Description 05/23/2025 Ancillary Orders Virtual Department 30 [place] [address] Wilton Strickland MD [facility], [address] [place] [address] [email or web address] 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); Foreign body in left foot, initial encounter Social History Tobacco Use Types Packs/Day Years Used Date Smoking Tobacco: Former Cigarettes 1 15 - 2017 Smokeless Tobacco: Never Alcohol Use [...] CD Pulmonary, Allergy and Critical Care Medicine [address] [place] [address] Juan Ventura MD [address] [place] [address] [email or web address] 02/24/2026 8:30 AM EDT Office Visit [facility] Neurology [address] [place] [address] Rafael España MD [address] [place] [address] documented as of this encounter Results * [...] documented as of this encounter Care Teams Pharmacy Laboratory Technician Relationship Specialty Start Date End Date Courtney Judge NP [address] [place] [address] [phone] PCP - General Nurse Practitioner 07/09/24 Raul Howard DO [address] [place] [address] [email or web address] Primary Oncologist Hematology and Oncology 07/28/18 Karely Cabrera PA-C [address] [place] [address] [email or web address] Physician Certified Dental Assistant Hematology 10/18/20 Raul Howard DO [address] [place] [address] [email or web address] Primary Oncologist Hematology and Oncology 07/31/22 documented as of this encounter Additional Source Comments The information contained in this document represents components of the legal health record. It is not the complete legal health record.[facility]
--- OUTSIDE RECORDS SUMMARY | 2025-08-31 17:53 | XMS_ITS | Encounter Summary ---
Author Organization [facility] Address [address] [employer] [facility] [address] [place] [address] Phone Care Team Providers Care Vp Of Customer Experience Strategy Name Role Phone Lee Raul Pedroza DO Unavailable Karely Cabrera PA-C Unavailable [phone] Lee Raul Pedroza DO Unavailable [phone] Courtney Judge FEATHER EDGER Primary Care Provider [phone] Encounter Details Date Type Department Care Team (Late st Contact Info) Description 05/03/2025 Procedure Pass [facility], [facility] 30 [place] [address] Social History Tobacco Use Types Packs/Day Years [...] Pulmonary, Allergy and Critical Care Medicine 10 [place] [address] Juan Ventura MD [address] [address] [email or web address] 02/24/2026 8:30 AM EDT Office Visit [facility] Neurology [address] [place] [address] Rafael España MD [address] [place] [address] [email or web address] documented as of this encounter Visit Diagnoses Not on filedocumented in this encounter Additional Health Concerns Infection Onset Date Last Indicated Resolved Time CoV-Risk 04/25/2025 04/25/2025 05/06/2025 1:21 AM EDT Resp-Risk 08/23/2025 08/23/2025 documented as of this encounter Care Teams Vp Of Customer Experience Strategy Relationship Specialty Start Date End Date Courtney Judge NP 70 [place] [address] PCP - General Nurse Practitioner 07/09/24 Raul Howard DO 30 [place] [address] [email or web address] [place] Primary Oncologist Hematology and Oncology 07/28/18 Karely Cabrera PA-C 30 [place] [address] Physician Fire Control Technician B Hematology 10/18/20 Raul Howard DO [address] [place] [address] [email or web address] Primary Oncologist Hematology and Oncology 07/31/22 documented as of this encounter Additional Source Comments The information contained in this document represents components of the legal health record. It is not the complete legal health record.[facility]
--- OUTSIDE RECORDS SUMMARY | 2025-08-31 17:53 | XMS_ITS | Encounter Summary ---
Author Organization [facility] Address [address] [employer] [facility] [address] [place] [address] Phone Care Team Providers Care Ice Carver Name Role Phone Lee Carter Kasia DO Unavailable Karely Cabrera PA-C Unavailable [phone] Raul Howard DO Unavailable [phone] Courtney Judge LEGAL RESEARCHER Primary Care Provider [phone] Encounter Details Date Type Department Care Team (Late st Contact Info) Description 05/23/2025 Ancillary Orders [facility], X-Ray - [facility] 30 [place] [address] Avi Pagan MD [address] [place] [address] [email or web address] Foreign body in left foot, initial encounter [...] Pulmonary, Allergy and Critical Care Medicine 10 [place] [address] Juan Ventura MD [address] [place] [address] [email or web address] 02/24/2026 8:30 AM EDT Office Visit [facility] Neurology [address] [place] [address] Rafael España MD [address] [place] [address] [email or web address] documented as of this encounter Visit Diagnoses Diagnosis Foreign body in left foot, initial encounter- Primary documented in this encounter Additional Health Concerns Infection Onset Date Last Indicated Resolved Time Resp-Risk 08/23/2025 08/23/2025 documented as of this encounter Care Teams Ice Carver Relationship Specialty Start Date End Date Courtney Judge NP 70 [place] [address] PCP - General Nurse Practitioner 07/09/24 Raul Howard DO 30 [place] [address] [email or web address] Primary Oncologist Hematology and Oncology 07/28/18 Karely Cabrera PA-C 30 [place] [address] [email or web address] Physician Forensic Specialist Hematology 10/18/20 Raul Howard DO [address] [place] [address] [email or web address] Primary Oncologist Hematology and Oncology 07/31/22 documented as of this encounter Additional Source Comments The information contained in this document represents components of the legal health record. It is not the complete legal health record.[facility]
--- OUTSIDE RECORDS SUMMARY | 2025-08-31 17:53 | XMS_ITS | Encounter Summary ---
Author Organization [facility], Address [address] [place] [address] Phone Care Team Providers Care Regional Sales Engineer Name Role Phone Courtney Judge PUBLIC INFORMATION DIRECTOR Primary Care Provider [phone] Encounter Details Date Type Department Care Team (Late st Contact Info) Description 05/23/2023 Documentation Only [facility] David [address] [place] [address] Diego Fisher MD [address] [place] [address] [place] [address] Social History Tobacco Use Types [...] Visit [facility] REYNA [place] [address] [place] [address] Diego Fisher MD [address] [place] [address] [place] [address] documented as of this encounter Visit Diagnoses Not on filedocumented in this encounter Care Teams Regional Sales Engineer Relationship Specialty Start Date End Date Courtney Judge NP [address] [place] [address] PCP - General 05/03/25 documented as of this encounter
--- OUTSIDE RECORDS SUMMARY | 2025-08-31 17:53 | XMS_ITS | Encounter Summary ---
Author Organization [facility], Address [address] [place] [address] Phone Care Team Providers Care Dealer Support Technician Name Role Phone Courtney Judge STAFFING CLERK Primary Care Provider [phone] Encounter Details Date Type Department Care Team (Late st Contact Info) Description 05/23/2023 Documentation Only [facility] David [address] [place] [address] Diego Fisher MD [address] [address] [place] [address] Social History Tobacco Use Types [...] Of [facility] REYNA [address] [place] [address] Diego Fisher MD [address] [place] [address] [place] [address] documented as of this encounter Visit Diagnoses Not on filedocumented in this encounter Care Teams Dealer Support Technician Relationship Specialty Start Date End Date Courtney Judge NP [address] [place] [address] PCP - General 05/03/25 documented as of this encounter
--- OUTSIDE RECORDS SUMMARY | 2025-08-31 17:53 | XMS_ITS | Clinical Summary ---
Author Organization [facility], Address [address] [address] [place] [address] Phone Care Team Providers Care Assistant Fitness Manager Name Role Phone Courtney Judge MARKETING LIAISON Primary Care Provider [phone] Allergies Active Allergy Reactions Criticality Noted Date [...] MOUTH AT BEDTIME FOR SLEEP 03/28/2023 Active famotidine (PEPCID) 40 MG tablet 08/24/2025 Active amLODIPine (NORVASC) 2.5 MG tablet 08/24/2025 Active Active Problems Problem Noted Date Diagnosed [...] Encounters Date Type Department Care Team Description 08/30/2025 Documentation Only [facility] [place], REYNA [address] [facility] [address] [place] [address] Hamida Fuentes from Last 3 Months Immunizations Immunization Administration [...] Visit [facility], REYNA - [address] [place] [address] Diego Fisher MD [address] [place] [id number] Health Maintenance Due Date Last Done Comments [...] patient's age to complete this topic Insurance [facility] Care Teams Assistant Fitness Manager Relationship Specialty Start Date End Date Courtney Judge NP [address] [place] [address] PCP - General 05/03/25
--- OUTSIDE RECORDS SUMMARY | 2025-08-31 17:53 | XMS_ITS | Encounter Summary ---
Author Organization [facility], Address [address] [place] [address] Phone Care Team Providers Care Laboratory Scientist Name Role Phone Courtney Judge INTEGRATION ARCHITECT Primary Care Provider [phone] Encounter Details Date Type Department Care Team (Late st Contact Info) Description 05/23/2023 Documentation Only [facility] David H[address] [place] [address] Diego Fisher MD [address] [place] [address] [place] [address] Social History Tobacco Use Types [...] Visit [facility] REYNA H[place] [place] [address] Diego Fisher MD [address] [place] [address] [place] [address] documented as of this encounter Visit Diagnoses Not on filedocumented in this encounter Care Teams Laboratory Scientist Relationship Specialty Start Date End Date Courtney Judge NP [address] [place] [address] PCP - General 05/03/25 documented as of this encounter
--- OUTSIDE RECORDS SUMMARY | 2025-08-31 17:53 | XMS_ITS | Encounter Summary ---
Author Organization [facility], Address [address] [place] [address] Phone Care Team Providers Care Maternity Nurse Name Role Phone Courtney Judge OPHTHALMIC TECHNICIAN Primary Care Provider [phone] Encounter Details Date Type Department Care Team (Late st Contact Info) Description 05/23/2023 Documentation Only [facility] David [address] [place] [address] Diego Fisher MD [address] [place] [address] [place] [address] Social History Tobacco Use Types [...] Of [facility] REYNA [address] [place] [address] Diego Fisher MD [address] [place] [address] [place] [address] documented as of this encounter Visit Diagnoses Not on filedocumented in this encounter Care Teams Maternity Nurse Relationship Specialty Start Date End Date Courtney Judge NP [address] [place] [address] PCP - General 05/03/25 documented as of this encounter
--- OUTSIDE RECORDS SUMMARY | 2025-08-31 17:53 | XMS_ITS | Encounter Summary ---
Author Organization [facility] Address [address] [place] [address] [place] [address] Phone Care Team Providers Care Provider Relations Advocate Name Role Phone Ayad Vera MD Primary Care Provider [phone] Isi Royal NP Primary Care Provider [phone] Raul Howard DO Unavailable [phone] Karely Cabrera PA-C Unavailable [phone] Raul Howard DO Unavailable [phone] Courtney Judge PARAMEDICAL AIDE Primary Care Provider Encounter Details Date Type Department Care Team (Late st Contact Info) Description 06/03/2018 Procedure Pass [facility] Admitting Dept Virtual Department 30 [place], [place] [id number] Social History Tobacco Use Types Packs/Day Years [...] Pulmonary, Allergy and Critical Care Medicine 10 [place] [address] Juan Ventura MD [address] [address] [email or web address] 02/24/2026 8:30 AM EDT Office Visit [facility] Neurology [address] [place] [address] Rafael España MD [address] [place] [address] [email or web address] documented as of this encounter Visit Diagnoses Not on filedocumented in this encounter Additional Health Concerns Infection Onset Date Last Indicated Resolved Time CoV-Risk 04/25/2025 04/25/2025 05/06/2025 1:21 AM EDT Resp-Risk 08/23/2025 08/23/2025 documented as of this encounter Care Teams Provider Relations Advocate Relationship Specialty Start Date End Date Ayad Vera MD 70 [place] [address] [email or web address] PCP - General 07/22/17 07/02/18 Isi Royal NP 70 [place] [address] PCP - General Family Medicine 07/03/18 07/08/24 Courtney Judge NP 70 [place] [address] PCP - General Nurse Practitioner 07/09/24 Raul Howard DO [address] [place] [address] [email or web address] Primary Oncologist Hematology and Oncology 07/28/18 Karely Cabrera PA-C [address] [place] [address] [email or web address] Physician Multi Slide Machine Tender Hematology 10/18/20 Raul Howard DO [address] [place] [address] [email or web address] Primary Oncologist Hematology and Oncology 07/31/22 documented as of this encounter Additional Source Comments The information contained in this document represents components of the legal health record. It is not the complete legal health record.[facility]
--- OUTSIDE RECORDS SUMMARY | 2025-08-31 17:53 | XMS_ITS | Encounter Summary ---
Author Organization [facility] [place], Address [address] [place] [address] Phone Care Team Providers Care Director Of Curriculum And Instruction Name Role Phone Courtney Judge ENGINEERING TECHNICAL WRITER Primary Care Provider [phone] Encounter Details Date Type Department Care Team (Late st Contact Info) Description 05/23/2023 Documentation Only [facility] David [address] [place] [address] Diego Fisher MD [address] [place] [address] [place] [address] Social History Tobacco Use Types [...] Visit [facility] REYNA [place] [address] [place] [address] Diego Fisher MD [address] [place] [address] [place] [address] documented as of this encounter Visit Diagnoses Not on filedocumented in this encounter Care Teams Director Of Curriculum And Instruction Relationship Specialty Start Date End Date Courtney Judge NP [address] [place] [address] PCP - General 05/03/25 documented as of this encounter
--- OUTSIDE RECORDS SUMMARY | 2025-08-31 17:53 | XMS_ITS | Encounter Summary ---
Author Organization [facility] [place], Address [address] [place] [address] Phone Care Team Providers Care Patrol Police Lieutenant Name Role Phone Courtney Judge ROVING SIZER Primary Care Provider [phone] Encounter Details Date Type Department Care Team (Late st Contact Info) Description 05/30/2023 Documentation Only [facility] David [address] [place] [address] Diego Fisher MD [address] [place] [address] [place] [address] Social History Tobacco Use Types [...] Visit [facility] REYNA HARR[address] [place] [address] Diego Fisher MD [address] [place] [address] [place] [address] documented as of this encounter Visit Diagnoses Not on filedocumented in this encounter Care Teams Patrol Police Lieutenant Relationship Specialty Start Date End Date Courtney Judge NP [address] [place] [address] PCP - General 05/03/25 documented as of this encounter
--- OUTSIDE RECORDS SUMMARY | 2025-08-31 17:54 | XMS_ITS | Encounter Summary ---
Author Organization [facility], Address [address] [place] [address] Phone Care Team Providers Care Warehouse Packer Name Role Phone Courtney Judge OCCUPANCY SPECIALIST Primary Care Provider [phone] Encounter Details Date Type Department Care Team (Late st Contact Info) Description 05/23/2023 Documentation Only [facility] David [address] [place] [address] Diego Fisher MD [address] [place] [address] [place] [address] Social History Tobacco Use Types [...] Visit [facility] REYNA HARRINGTON [address] [place] [address] Diego Fisher MD [address] [place] [address] [place] [address] documented as of this encounter Visit Diagnoses Not on filedocumented in this encounter Care Teams Warehouse Packer Relationship Specialty Start Date End Date Courtney Judge NP [address] [place] [address] PCP - General 05/03/25 documented as of this encounter
--- OUTSIDE RECORDS SUMMARY | 2025-08-31 17:54 | XMS_ITS | Encounter Summary ---
Author Organization [facility] Address [address] [facility] [address] [place] [address] Phone Care Team Providers Care Computer Meteorologist Name Role Phone Lee Raul Pedroza DO Unavailable Karely Cabrera PA-C Unavailable [phone] Lee Raul Pedroza DO Unavailable Courtney Judge LEARNING AND DEVELOPMENT INTERN Primary Care Provider [phone] Encounter Details Date Type Department Care Team (Late st Contact Info) Description 06/01/2025 Procedure Pass [facility], Ct Scan - [facility] [address] [place] [address] Social History Tobacco Use Types Packs/Day Years [...] 1:18 AM EDT Kary Staley RN * Constantine Suicide Severity Rating Scale (Screener/Recent Self-Report) Question [...] Pulmonary, Allergy and Critical Care Medicine 10 [place] [address] Juan Ventura MD [address] [address] [email or web address] 02/24/2026 8:30 AM EDT Office Visit [facility] Neurology [address] [place] [address] Rafael España MD [address] [place] [address] documented as of this encounter Visit Diagnoses Not on filedocumented in this encounter Additional Health Concerns Infection Onset Date Last Indicated Resolved Time Resp-Risk 08/23/2025 08/23/2025 documented as of this encounter Care Teams Computer Meteorologist Relationship Specialty Start Date End Date Courtney Judge NP [address] [place] [address] PCP - General Nurse Practitioner 07/09/24 Raul Howard DO [address] [place] [phone] [email or web address] Primary Oncologist Hematology and Oncology 07/28/18 Karely Cabrera PA-C [address] [place] [address] [email or web address] Physician International Account Representative Hematology 10/18/20 Raul Howard DO [address] [place] [address] [email or web address] Primary Oncologist Hematology and Oncology 07/31/22 documented as of this encounter Additional Source Comments The information contained in this document represents components of the legal health record. It is not the complete legal health record.[facility]
--- OUTSIDE RECORDS SUMMARY | 2025-08-31 17:54 | XMS_ITS | Encounter Summary ---
Author Organization [facility], Address [address] [place] [address] Phone Care Team Providers Care Quality Assurance Manager Name Role Phone Courtney Judge NUCLEAR EQUIPMENT SALES ENGINEER Primary Care Provider [phone] Encounter Details Date Type Department Care Team (Late st Contact Info) Description 05/23/2023 Documentation Only [facility] David [address] [place] [address] Diego Fisher MD [address] [place] [address] [place] [address] Social History Tobacco Use Types [...] [facility] REYNA [address] [place] [address] Diego Fisher MD [address] [place] [address] [place] [address] documented as of this encounter Visit Diagnoses Not on filedocumented in this encounter Care Teams Quality Assurance Manager Relationship Specialty Start Date End Date Courtney Judge NP [address] [place] [address] PCP - General 05/03/25 documented as of this encounter
--- OUTSIDE RECORDS SUMMARY | 2025-08-31 17:54 | XMS_ITS | Encounter Summary ---
Author Organization [facility] Address [address] [facility] [address] [place] [address] Phone Care Team Providers Care Bottle Washer Machine Name Role Phone Lee Raul Pedroza DO Unavailable Karely Cabrera PA-C Unavailable [phone] Lee Raul Kasia DO Unavailable [phone] Courtney Judge TABLE MACHINE OPERATOR Primary Care Provider [phone] Encounter Details Date Type Department Care Team (Late st Contact Info) Description 05/03/2025 Procedure Pass Non-Invasive Cardiology 30 [place] [address] Social History Tobacco Use Types Packs/Day Years [...] Pulmonary, Allergy and Critical Care Medicine 10 [place] [address] Juan Ventura MD [address] [address] [email or web address] 02/24/2026 8:30 AM EDT Office Visit [facility] Neurology [address] [place] [address] Rafael España MD [address] [place] [address] [email or web address] documented as of this encounter Visit Diagnoses Not on filedocumented in this encounter Additional Health Concerns Infection Onset Date Last Indicated Resolved Time CoV-Risk 04/25/2025 04/25/2025 05/06/2025 1:21 AM EDT Resp-Risk 08/23/2025 08/23/2025 documented as of this encounter Care Teams Bottle Washer Machine Relationship Specialty Start Date End Date Courtney Judge NP 70 [place] [address] PCP - General Nurse Practitioner 07/09/24 Raul Howard DO [address] [place] [address] [email or web address] Primary Oncologist Hematology and Oncology 07/28/18 Karely Cabrera PA-C [address] [place] [address] [email or web address] Physician Hybrid Corn Breeder Hematology 10/18/20 Raul Howard DO [address] [place] [address] [email or web address] Primary Oncologist Hematology and Oncology 07/31/22 documented as of this encounter Additional Source Comments The information contained in this document represents components of the legal health record. It is not the complete legal health record.[facility]
--- OUTSIDE RECORDS SUMMARY | 2025-08-31 17:54 | XMS_ITS | Encounter Summary ---
Author Organization [facility], Address [address] [place] [address] Phone Care Team Providers Care Clam Bed Laborer Name Role Phone Courtney Judge CLIENT RESOURCE SPECIALIST Primary Care Provider [phone] Encounter Details Date Type Department Care Team (Late st Contact Info) Description 05/23/2023 Documentation Only [facility] David [address] [place] [address] Diego Fisher MD [address] [place] [address] [place] [address] Social History Tobacco Use Types [...] Visit [facility] REYNA H[address] [place] [address] Diego Fisher MD [address] [place] [address] [place] [address] documented as of this encounter Visit Diagnoses Not on filedocumented in this encounter Care Teams Clam Bed Laborer Relationship Specialty Start Date End Date Courtney Judge NP [address] [place] [id number] PCP - General 05/03/25 documented as of this encounter
--- OUTSIDE RECORDS SUMMARY | 2025-08-31 17:54 | XMS_ITS | Encounter Summary ---
Author Organization [facility] Address [address] [place] [address] Phone Care Team Providers Care Can Reforming Machine Operator Name Role Phone Isi [place] BRAZER CRAWLER TORCH Primary Care Provider [phone] Raul Howard DO Unavailable [phone] Karely Cabrera PA-C Unavailable [phone] Raul Howard DO Unavailable [phone] Courtney Judge BRAZER CRAWLER TORCH Primary Care Provider [phone] Reason for Referral * Outpatient Procedure - Closed Specialty Diagnoses / Procedures Referred By Contac t Referred To Contact Diagnoses Other form of dyspnea Procedures Adult Echo TTE Isi [place] NP Phone: tel: Referral ID Status Reason Start Date Expiration Date Visits Re quested Visits Authorized [id number] Closed 05/08/2021 05/08/2022 1 1 Encounter Details Date Type Department Care Team (Latest Contact Info) Description 05/08/2021 Transcribe Orders Virtual Department [address] [place] [address] Isi [place] NP [address] [place] [address] Other form of dyspnea (Primary Dx) Social History Tobacco Use Types [...] Pulmonary, Allergy and Critical Care Medicine 10 [place] [address] Juan Ventura MD [address] [address] [email or web address] 02/24/2026 8:30 AM EDT Office Visit [facility] Neurology [address] [place] [address] Rafael España MD [address] [place] [address] documented as of this encounter Results * TTE COMPREHENSIVE (06/20/2021 1:15 PM EDT) Body Surface Area 1.9 m2 Height 157 cm Weight 91 kg Systolic BP 117 mmHg Diastolic BP 73 mmHg Left Atrium Dimension Anterior-Posterior 35 15 - 40 mm Aortic Valve Mean Gradient 2 mmHg Aortic Valve Time Velocity Integral 207 mm Aortic Valve Peak Velocity 103.0 cm/s Aortic Valve Peak Gradient 4 mmHg Aortic Sinus Diameter 30 mm Inferior Vena Cava Diameter 13 0 - 21 mm Interventricular Septum Thickness 6 mm Left Ventricle Internal Diameter End Diastole 42 37 - 52 mm Left Ventricle Internal Diameter End Systole 25 22 - 35 mm Left Ventricular Outflow Tract Diameter 19.0 mm LVOT VTI REST 190 mm Left Ventricular Outflow Tract Velocity 0.9 m/s Left Ventricular Outflow Tract Gradient at Rest 3 mmHg Left Ventricular Posterior Wall Thickness 6 mm Ejection Fraction 65 50 - 75 Percent Mitral Valve A Wave Speed 96.7 cm/s Mitral Valve E Wave Speed 51.8 cm/s Right Ventricle Basal Diameter 29.9 25 - 41 mm Tricuspid Valve Peak Velocity 2.6 m/s Raw LV EF% 65 % Left Atrial Volume 35 mL Left Atrial Volume Index 18.42 mL/m2 Right Ventricle Peak Systolic Pressure 30 mmHg Right Ventricle TAPSE 16 mm Right Atrium Pressure Estimated 3 mmHg Right Ventricle to Right Atrium Pressure Gradient 27 mmHg Right Ventricle Pulse Doppler S Wave 8.5 cm/s Aortic Valve Sinus Index 1 16 19 - 27 mm Aortic Sinus Index 16 mm Anatomical Region Laterality Modality Heart Ultrasound Narrative 06/20/2021 2:11 PM EDT The left ventricle is normal in size and thickness. The left ventricular systolic function is normal with ejection fraction of 65%. There is no significant left ventricular wall motion abnormality. There is normal right ventricular size and function. There is trace mitral, pulmonary, and tricuspid valve regurgitation. Pulmonary artery systolic pressure is normal. No previous studies are available for comparison. Left Ventricle The left ventricular cavity size and wall thickness are normal. Left ventricular systolic function is normal. There are no segmental left ventricular wall motion abnormalities noted. The estimated ejection fraction is 65% (Normal 50-75%). The left ventricular ejection fraction was measured by visual estimate. Left ventricular diastolic function appears within normal limits for age. There is no evidence of left ventricular thrombus. Right Ventricle The right ventricular size is normal. The right ventricular systolic function is normal. Left Atrium The left atrium is normal in size. The LA volume is 35 mL. The LA volume index is 18.42 mL/m2 (normal indexed value is 16-34 mL/m2). Right Atrium The right atrium is normal in size. The IVC measures 13 mm (normal <=21 mm). The IVC demonstrates normal collapse with inspiration which is consistent with normal RA pressure. Mitral Valve E/A ratio is 0.5. E/E' avg is 7.0. Lat E' velocity is 8.81cm/s. Med E' velocity is 5.98cm/s. There is no evidence of mitral stenosis. There is no evidence of mitral valve prolapse. There is trace mitral regurgitation detected by spectral and color Doppler. Tricuspid Valve The tricuspid valve appears normal. There is no evidence of tricuspid stenosis. There is evidence of trace tricuspid regurgitation by color and spectral Doppler. Normal pulmonary pressure. The RV systolic pressure was estimated from the peak TV regurgitant velocity. The estimated RV systolic pressure is 30 mmHg assuming a right atrial pressure of 3 mmHg. The calculated peak RV-RA pressure gradient is 27 mmHg. Aortic Valve Mild aortic valve calcification. The aortic valve is tricuspid. There is no evidence of valvular aortic stenosis. The peak aortic valve gradient is 4 mmHg. The mean aortic gradient is 2 mmHg. There is no evidence of aortic regurgitation by color and spectral Doppler. The visualized portions of the thoracic aorta appear normal. Pulmonic Valve The pulmonary valve appears normal. There is no evidence of pulmonic stenosis. There is evidence of trace pulmonary regurgitation by color and spectral Doppler. Pericardium There is no evidence of pericardial effusion. Interatrial Septum The interatrial septum appears normal. General Findings Technically adequate echocardiogram. Technique(s) used in the evaluation: Color flow Doppler and Spectral Doppler. The predominant rhythm during the study was sinus. Comparison Findings No prior studies for comparison. Isi [place] NP CV ECHO ORDERABLES Final Result documented in this encounter Visit Diagnoses Diagnosis Other form of dyspnea- Primary Other form of dyspnea documented in this encounter Additional Health Concerns Infection Onset Date Last Indicated Resolved Time CoV-Risk 04/25/2025 04/25/2025 05/06/2025 1:21 AM EDT Resp-Risk 08/23/2025 08/23/2025 documented as of this encounter Care Teams Can Reforming Machine Operator Relationship Specialty Start Date End Date Isi [place] NP [address] [place] [address] PCP - General Family Medicine 07/03/18 07/08/24 Courtney Judge NP [address] [place] [address] PCP - General Nurse Practitioner 07/09/24 Raul Howard DO [address] [place] [address] [email or web address] Primary Oncologist Hematology and Oncology 07/28/18 Karely Cabrera PA-C [address] [place] [address] @[email or web address] Physician Screw Down Hematology 10/18/20 Raul Howard DO [address] [place] [address] [email or web address] Primary Oncologist Hematology and Oncology 07/31/22 documented as of this encounter Additional Source Comments The information contained in this document represents components of the legal health record. It is not the complete legal health record.[facility]
--- OUTSIDE RECORDS SUMMARY | 2025-08-31 17:54 | XMS_ITS | Encounter Summary ---
Author Organization [facility], Address [address] [place] [address] Phone Care Team Providers Care Adjuster And Inspector Name Role Phone Courtney Judge SIGNALS INTELLIGENCE SUPERINTENDENT Primary Care Provider [phone] Encounter Details Date Type Department Care Team (Late st Contact Info) Description 05/23/2023 Documentation Only [facility] David [address] [place] [address] Diego Fisehr MD [address] [place] [address] [place] [address] Social History Tobacco Use Types [...] Visit [facility] REYNA H[address] [place] [address] Diego Fisher MD [address] [place] [address] [place] [address] documented as of this encounter Visit Diagnoses Not on filedocumented in this encounter Care Teams Adjuster And Inspector Relationship Specialty Start Date End Date Courtney Judge NP [address] [place] [address] PCP - General 05/03/25 documented as of this encounter
--- OUTSIDE RECORDS SUMMARY | 2025-08-31 17:54 | XMS_ITS | Encounter Summary ---
Author Organization [facility], Address [address] [place] [address] Phone Care Team Providers Care Punch Machine Operator Name Role Phone Courtney Judge ALUMINUM MOLDER Primary Care Provider [phone] Encounter Details Date Type Department Care Team (Late st Contact Info) Description 05/23/2023 Documentation Only [facility] David [address] [place] [address] Diego Fisher MD [address] [place] [address] [place] [address] Social History Tobacco Use Types [...] [facility] REYNA H[address] [place] [address] Diego Fisher MD [address] [place] [address] [place] [address] documented as of this encounter Visit Diagnoses Not on filedocumented in this encounter Care Teams Punch Machine Operator Relationship Specialty Start Date End Date Courtney Judge NP [address] [place] [address] PCP - General 05/03/25 documented as of this encounter
--- OUTSIDE RECORDS SUMMARY | 2025-08-31 17:54 | XMS_ITS | Clinical Summary ---
Author Organization [facility] Address [address] [address] [place] [address] Phone Care Team Providers Care Barn Boss Name Role Phone Lee Raul Pedroza DO Unavailable Karely Cabrera PA-C Unavailable [phone] Lee Raul Pedroza DO Unavailable Courtney Judge STAIN SPRAYER Primary Care Provider [phone] Allergies Active Allergy Reactions Criticality Noted Date Comments Aspirin Other (See Comments) 12/11/2024 Codeine 06/02/2018 Medications levothyroxine (SYNTHROID, LEVOTHROID) 100 MCG tablet Take 88 mcg by mouth every morning. take 2 on Tuesdays05/21/20 25 Active gabapentin (NEURONTIN) 600 MG tablet Take 600 mg by mouth daily. Active amLODIPine (NORVASC) 5 MG tablet Take 2.5 mg by mouth daily. 07/04/20 22 Active albuterol 90 mcg/actuation inhaler Inhale 2 puffs into the lungs every 6 (six) hours as needed for wheezing. 6.7 g 03/20/20 23 Active OXYGEN-AIR DELIVERY SYSTEMS MISC 1-2 L/min by continuous inhalation route continuous. 2 LPM via NC with ambulation, 1 LPM via NC with rest At night or when feeling over-exerted 03/23/20 Active losartan (COZAAR) 100 MG tablet Take 1 tablet by mouth every morning. 05/10/20 23 Active umeclidinium-vi lanteroL (ANORO ELLIPTA) 62.5-25 mcg/actuation diskus inhalerIndicati ons:Centrilobul ar emphysema Inhale 1 puff into the lungs daily. 60 each 5 01/30/20 24 Active aspirin 81 MG EC tablet Take 81 mg by mouth daily. Active fluticasone propionate (FLONASE) 50 mcg/actuation nasal sprayIndication s:Chronic respiratory failure with hypoxia,Centril obular emphysema SPRAY 1 SPRAY BY NASAL ROUTE EVERY DAY 48 mL 3 08/31/20 24 Active ipratropium-alb uteroL (DUONEB) 0.5-3 mg (2.5 mg base)/3 mL nebulizer solution Active metFORMIN (GLUCOPHAGE) 500 MG tablet Take 500 mg by mouth daily. 06/16/20 Active traMADoL (ULTRAM) 50 mg tablet Take 50 mg by mouth every 6 (six) hours as needed for pain (specific location in comments). Active famotidine (PEPCID) 40 MG tablet TAKE 1 TABLET BY MOUTH EVERYDAY AT BEDTIME 90 tablet 3 08/24/20 25 Active omeprazole (PRILOSEC) 20 MG capsule TAKE 1 CAPSULE BY MOUTH EVERY DAY 30 MINUTES BEFORE MORNING MEAL 90 capsule 3 08/24/20 25 Active omeprazole (PRILOSEC) 20 MG capsule Take 1 capsule (20 mg total) by mouth daily. 08/25/20 25 Active omeprazole (PRILOSEC) 20 MG capsule TAKE 1 CAPSULE BY MOUTH EVERY DAY 30 MINUTES BEFORE MORNING MEAL 11/30/19 25 025 Discontinued Active Problems Patient Care Coordination No te Formatting of this note migh t be different from the original. Height 153.7cm no shoes on 08/05/19 CA Problem Noted Date Diagnosed Date Shaking 08/23/2025 Assessment & Plan (08/24/2025 5:19 PM EST): - Unclear if this event was a seizure, patient did not have a postictal period, other etiologies can include a convulsive syncope, no further episodes here but shakes which have been common for her, other neurologic disorders could also be considered including movement disorders-I think infection is much less likely as she has had no fevers or focal complaints and has no leukocytosis. Plan: Teleneurology consulted recs appreciated, did not recommend initiation of AEDs at this time, MRI was unremarkable but noted possible lack of flow in the carotid but I think this is known as she follows with vascular although they did suggest CTA I can check with her vascular team to see if this already been done -Follow-up EEG results Continue telemetry monitoring Seizure precautions Patient no longer is driving for the last few years. Assessment & Plan (08/23/2025 11:45 PM EST): - Unclear if this event was a seizure, patient did not have a postictal period, other etiologies can include a convulsive syncope. -Asymptomatic at this time, patient did not have recollection of the event -Has had prior history of stroke, is on ASA. Plan: Teleneurology consulted recs appreciated, did not recommend initiation of AEDs at this time MRI of the brain seizure protocol ordered and pending Check EEG in the a.m. Continue telemetry monitoring Seizure precautions Patient no longer is driving for the last few years. Elevated serum creatinine 08/23/2025 Assessment & Plan (08/24/2025 5:19 PM EST): See above holding metformin in the setting of CKD as well Assessment & Plan (08/23/2025 11:45 PM EST): Underlying history of CKD stage III, baseline serum creatinine anywhere from 1.2-1.5, creatinine currently 1.6 Plan: Hold nephrotoxic medications including losartan at this time, encourage p.o. hydration Recheck creatinine in the a.m. Recommend discontinuation of metformin given chronic kidney disease. Acute bronchitis 12/11/2024 Assessment & Plan (12/11/2024 [...] (approximately 09/18/2023) Chronic respiratory failure with hypoxia Assessment & Plan (12/11/2024 10:34 AM EST): [...] available this evening, she was seen at [facility]. -Completed 5 days ceftriaxone for what appears [...] the case with her vascular surgeon at [facility]. Continue to hold aspirin and Plavix for [...] CKD (chronic kidney disease), stage III 06/02/20 Iron deficiency anemia 06/02/2018 Assessment & Plan [...] dose lthyroxine. Essential hypertension Assessment & Plan (08/24/2025 5:19 PM EST): - Losartan held amlodipine continued patient's initial creatinine was 1.6 and now improved to 1.4 which is around her baseline Assessment & Plan (08/23/2025 11:45 PM EST): - Hold losartan at this time as creatinine is 1.6, mildly elevated from patient's baseline although not technically TONI. -Continue amlodipine Assessment & Plan (06/04/2019 3:14 PM EDT): Controlled --Continue losartan and amlodipine History of DVT (deep vein thrombosis) Overview (06/02/2019): Of femoral vein. Treated with Plavix. Assessment & Plan (06/04/2019 3:16 PM EDT): She describes previous history of DVT that was treated with vascular intervention and Plavix at [facility]. Will obtain records Hyperlipidemia Peripheral neuropathy Type [...] Encounters Date Type Department Care Team Description 08/24/2025 Procedure [address] [facility] Echo Lab [address] [place] [address] 08/24/[address] [facility] [address] [address] Liliana Arenas CNP Medication Refill 08/23/2025 6:24 PM EST - 08/25/2025 4:37 PM EST Hospital Encounter [facility] [address] [place] [address] Fran Jesus MD Wong, MD Nicolas Cavazos Evan K, DO, MPH Bar Monroy DO Discharge Disposition: Home or Self Care 08/23/2025 Procedure Pass [facility], Mri - [address] [address] 08/23/2025 Procedure Pass [facility], Ct Scan - [address] [address] 07/07/2025 10:00 AM EDT Home Care Visit [facility] [address] [place] [address] Nancy Carmona RN SN OASIS DISCHARGE VISIT 07/02/2025 11:46 AM EDT - 07/02/2025 4:16 PM EDT Emergency [facility] Emergency [address] [place] [address] Discharge Disposition: Home or Self Care 06/30/2025 2:15 PM EDT Home Care Visit [facility] [address] [place] [address] Estrellita Elizalde LPN [employer] HOME VISIT 06/22/2025 11:30 AM EDT Home Care Visit [facility] [address] [place] [address] Shanae Fowler I, PT PT DISCIPLINE DISCHARGE VISIT 06/17/2025 10:00 AM EDT Home Care Visit [facility] [address] [place] [address] Shanae Fowler I, PT PT HOME VISIT 06/16/2025 10:00 AM EDT Home Care Visit [facility] [address] [place] [address] Nancy Carmona RN SN HOME VISIT 06/14/2025 Episode Documentatio n Update [facility] [address] [place] [address] Radha Lara 06/11/2025 9:45 AM EDT Home Care Visit [facility] [address] [place] [address] Lisette Daly, RN SN HOME VISIT 06/10/2025 12:00 PM EDT Home Care Visit [facility] [address] [place] [address] Shanae Fowler I, PT PT HOME VISIT 06/04/2025 12:00 PM EDT Home Care Visit [facility] [address] [place], [place] [phone] Shanae Fowler I, PT PT HOME VISIT 06/03/2025 2:06 PM EDT - 06/03/2025 11:59 PM EDT Hospital Encounter Non-Invasive Cardiology [address] [place] [id number] Ronnell Ferrer MD Discharge Disposition: Home or Self Care 06/03/2025 1:02 PM EDT - 06/03/2025 2:05 PM EDT Hospital Encounter [facility] Echo Lab [address] [place] [id number] Ronnell Ferrer MD Discharge Disposition: Home or Self Care 06/03/2025 11:00 AM EDT Home Care Visit [facility] [address] [place] [address] Nancy Carmona RN SN HOME VISIT 06/02/2025 Episode Documentatio n Update [facility] [address] [place] [address] Hue Stiles 06/02/2025 Home Care Visit [facility] [address] [place] [address] Radha Lara CASE COMMUNICATION 06/01/2025 12:00 PM EDT Home Care Visit [facility] [address] [place] [address] Shanae Fowler I, PT PT EVALUATION 06/01/2025 1:13 AM EDT - 06/01/2025 6:36 AM EDT Emergency [facility] Emergency [address] [place] [id number] Uday Villaseñor, DO Discharge Disposition: Home or Self Care 06/01/2025 Procedure Pass [facility], Ct Scan - [facility] [address] [place] [address] 05/03/2025 Procedure Pass [facility] Echo Lab [address] [place] [address] 05/03/2025 Procedure Pass Non-Invasive Cardiology [address] [place] [address] from Last 3 Months Immunizations Immunization Administration Dates Next Due COVID-19 (Pre-07/29) Moderna Vaccine, mRNA, PF 12/15/2020,11/17/2020 INFLUENZA, SPLIT VIRUS, TRIVALENT PF 07/14/2013 INFLUENZA, SPLIT VIRUS, TRIV ALENT W/ PRESERVATIVE IM 06/13/2012,06/05/2011,07/05/2010,06/14 Influenza High-Dose Quadriva lent Preservative Free IM 07/06/2023,06/07/2023,07/13/2022,07/21,07/23/2020 Influenza High-Dose Trivalen t Preservative Free IM 06/23/2024,07/06/2019,06/27/2018,06/11,06/26/2016,07/11/2015,07/17/2014 Influenza, Unspecified Formulation 07/01,07/16/2007,09/03/2006,09/06,10/04/2004,07/26/2003,09/11/2000 Novel [id number], Injectable 10/06/2009 PPD Test 10/04/2019 Pneumococcal conjugate PCV13 11/18/2014 Pneumococcal polysaccharide PPSV23 05/08/2022, Td (adult), not adsorbed 10/07/2006 Td (adult),2 Lf Tetanus Toxo id, PF, Adsorbed 09/26/2016 Family History Medical History Relation Comments Lung cancer Mother Relation Status Comments Father Mother Social History Tobacco Use Types Packs/Day Years Used Date Smoking Tobacco: Former Cigarettes 1 15 2 - 2017 Smokeless Tobacco: Never Tobacco Cessation:Counseling Given: Not [...] your housing situation today? I have vamshi gray 08/23/2025 How many times have you move [...] Sign Reading Time Taken Comments Blood Pressure 151/83 08/25/2025 11:45 AM EST Pulse 72 08/25/2025 11:45 AM EST Temperature 36.8 C (98.2 F) 08/25/2025 11:45 AM EST Respiratory Rate 16 08/25/2025 11:45 AM EST Oxygen Saturation 91% 08/25/2025 11:45 AM EST Inhaled Oxygen Concentration - - Weight 79.4 kg (175 lb) 08/24/2025 1:22 PM EST Height 152.4 cm (5') 08/24/2025 1:22 PM EST Body Mass Index 34.18 08/24/2025 1:22 PM EST Plan of Treatment Upcoming Encounters Date Type Department Care Team (Late st Contact Info) Description 12/27/2025 2:30 PM EDT Office Visit [facility] Pulmonary, Allergy and Critical Care Medicine [address] [place] [id number] Juan Ventura MD [address] [place] [id number] [email or web address] 02/24/2026 8:30 AM EDT Office Visit [facility] Neurology [address] [place] [id number] Rafael España MD [address] [place] [phone] [email or web address] Health Maintenance Due Date Last Done Comments DEPRESSION SCREENING 1954 ZOSTER VACCINES (1 of 2) 1992 OSTEOPOROSIS SCREENING INITIAL (ONE-TIME) 2007 LIPID PANEL 09/16/2009 09/16/2008, 01/2007, 07/16/2007, Additional history exists RSV VACCINE (1 - 1-dose 75+ series) 2017 DIABETIC EYE EXAM 06/02/2018 HEMOGLOBIN A1C 03/24/2020 09/23/2019, 0805/2019, 05/13/2009, Additional history exists TSH LEVEL 06/03/2020 06/03/2019 INFLUENZA VACCINE (#1) 2025 , 07/06/2023, 06/07/2023, Additional history exists COVID-19 VACCINE ( season) 2025 10/03/2022, 09/15/2021, 12/15/2020, Additional history exists BLOOD PRESSURE 01/05/2026 07/07/2025 CREATININE LEVEL 08/25/2026 08/25/2025, , 08/23/2025, Additional history exists POTASSIUM LEVEL 08/25/2026 08/25/2025, 08/07, 08/23/2025, Additional history exists Adult Td,Tdap Booster 09/26/2026 [...] this topic Medical Devices Implanted Type Area Mill Set Up Device Identifier Shelf Expiration Date Model / Serial / Lot Clip Hemostasis Resolution 360 Lf Nonsterile 2.8mm Channel 360deg 235cm Bx/20ea - [id number] Implanted:Qty: 4 on 10/08/2019 by Horacio Milian MD at [facility] N/A: [id number] [id number] 06/30/2022 [id number] / / [id number] Description:BLEEDING SOURCE LOCATED IN [employer] Procedures Procedure Name Priority Date/Time Associated Diagnosis Comments TTE COMPREHENSIVE Routine 08/25/2025 1:3 7 PM EST Shortness of breath BASIC METABOLIC PANEL (BMP) Timed 08/25/2025 5:53 AM EST CBC Timed 08/25/2025 5:53 AM EST XR CHEST PORTABLE STAT 08/24/2025 10: 23 PM EST MRI BRAIN WITHOUT CONTRAST Required for discharge 08/24/2025 3:42 PM EST EEG Routine 08/24/2025 12:17 PM EST CBC AND DIFFERENTIAL Routine 08/24/2025 6:00 AM EST CBC AND DIFFERENTIAL Routine 08/24/2025 6:00 AM EST PHOSPHORUS Routine 08/24/2025 6:00 AM EST MAGNESIUM Routine 08/24/2025 6:00 AM EST COMPREHENSIVE METABOLIC PANEL (CMP) Routine 08/24/2025 6:00 AM EST D-DIMER STAT 08/23/2025 10:04 PM EST XR CHEST PORTABLE Routine 08/23/2025 10: 01 PM EST SARS-COV-2, INFLUENZA A/B, PCR SAMIRA STAT 08/23/2025 10:01 PM EST COVID PANDEMIC RESPIRATORY VIRAL ORDER (PRO) STAT 08/23/2025 10:01 PM EST ECG 12-LEAD STAT 08/23/2025 9:53 PM EST LAB ADD-ON STAT 08/23/2025 9:48 PM EST URINE SEDIMENT STAT 08/23/2025 8:56 PM EST URINALYSIS WITH REFLEX TO URINE CULTURE STAT 08/23/2025 8:56 PM EST URINE CULTURE STAT 08/23/2025 8:56 PM EST TROPONIN STAT 08/23/2025 7:[address] HEAD WITHOUT CONTRAST Routine 08/23/2025 7:23 PM EST NT-PROBNP STAT 08/23/2025 6:53 PM EST ETHANOL, BLOOD STAT 08/23/2025 6:53 PM EST MAGNESIUM STAT 08/23/2025 6:53 PM EST BASIC METABOLIC PANEL (BMP) STAT 08/23/2025 6:53 PM EST CBC AND DIFFERENTIAL STAT 08/23/2025 6:52 PM EST TROPONIN STAT 08/23/2025 6:52 PM EST LACTATE (BLOOD GAS) STAT 08/23/2025 6 :52 PM EST CBC AND DIFFERENTIAL STAT 08/23/2025 6:52 PM EST POCT GLUCOSE STAT 08/23/2025 6:42 PM EST MCT (MOBILE CARDIAC TELEMETRY) Routine 07/09/2025 12:35 PM EDT Cerebrovascular accident (CVA), unspecified mechanism US LOWER EXTREMITY VEINS DUPLEX COMPLETE (BILATERAL) Routine 07/02/2025 2:26 PM EDT Left leg pain Right leg pain CREATINE KINASE (CK) STAT 07/02/2025 12:24 PM EDT D-DIMER STAT 07/02/2025 12:24 PM EDT MAGNESIUM STAT 07/02/2025 12:24 PM EDT BASIC METABOLIC PANEL (BMP) STAT 07/02/2025 12:24 PM EDT CBC AND DIFFERENTIAL STAT 07/02/2025 12:24 PM EDT TTE COMPREHENSIVE Routine 06/03/2025 2:0 5 PM EDT Cerebrovascular accident (CVA), unspecified mechanism CT ABDOMEN/PELVIS WITH CONTRAST Routine 06/01/2025 2:24 AM EDT LIPASE STAT 06/01/2025 1:43 AM EDT LFTS (HEPATIC PANEL) STAT 06/01/2025 1:43 AM EDT BASIC METABOLIC PANEL (BMP) STAT 06/01/2025 1:43 AM EDT CBC AND DIFFERENTIAL STAT 06/01/2025 1:43 AM EDT HEMOGLOBIN A1C Routine 09/23/2019 12:35 PM EST TSH WITH REFLEX Routine 06/03/2019 5:13 AM EDT from Last 3 Months or Most Recently Relevant to Health Maintenance Results * TTE COMPREHENSIVE (08/25/2025 1:37 PM EST) Body Surface Area 1.76 m2 Height 152 cm Weight 79 kg Systolic BP 152 mmHg Diastolic BP 83 mmHg Interventricular Septum Thickness 14 6 - 11 mm Left Ventricle Internal Diameter End Diastole 35 37 - 52 mm Left Ventricle Internal Diameter End Systole 24 <35 mm Left Ventricular Outflow Tract Diameter 22.0 mm LVOT VTI REST 167.0 mm Left Ventricular Outflow Tract Velocity 0.9 m/s Left Ventricular Outflow Tract Gradient at Rest 4 mmHg Left Ventricular Posterior Wall Thickness 13 6 - 11 mm Left Ventricle Ea Lateral Wave Speed 5.9 cm/s Left Ventricle Ea Septal Wave Speed 3.7 cm/s Ejection Fraction 69 50 - 75 Percent Aortic Valve Mean Gradient 4 mmHg Aortic Valve Time Velocity Integral 271.0 mm Aortic Valve Peak Velocity 1.4 m/s Aortic Valve Peak Gradient 7 mmHg Aortic Sinus Diameter 33 <40 mm Ascending Aorta Diameter 35 <36 mm Mitral Valve Area Pressure Half Time Eq 2,430.0 mm/s2 MV stenosis pressure 1/2 time 100 ms Left Ventricle A Wave Speed 104.0 cm/s Left Ventricle E Wave Speed 64.5 cm/s Mitral Valve Mean Gradient 1 mmHg Mitral Valve Peak Gradient 4 mmHg Mitral Valve Area Continuity Equation 2.90 cm2 Pulmonary Valve Peak Velocity 0.9 m/s Pulmonary Valve Peak Gradient 3 mmHg Right Ventricle Basal Diameter 36 25 - 41 mm Tricuspid Valve Peak Velocity 2.2 m/s Raw LV EF% 53 % MV E/E' Tissue Velocity Lateral 10.93 Relative Wall Thickness 0.74 0.22 - 0.42 Left Ventricle indexed to BSA 92.7 g/m2 MV E/A ratio 0.6 MV E/e' septal 17.43 Left Ventricle E/e' Average 14.2 Aortic Valve Prosthetic Peak Gradient 7 mmHg Aortic Valve Prosthetic Mean Gradient 4 mmHg Aortic Valve Sinus Index by BSA 19 mm/m2 Aorta Sinus Index by Height 2.17 cm/m Aorta Sinus CSA index by Height 5.62 cm2/m Ascending Aorta Index 20 mm/m2 Asc Aorta CSA Index by Height 6.33 cm2/m Mitral Valve Prosthetic Peak Gradient 4 mmHg Mitral Valve Prosthetic Mean Gradient 1 mmHg MV valve area p 1/2 method 2.2 cm2 Mitral Valve Area DT Method 29.0 cm2 Right Ventricle to Right Atrium Pressure Gradient 19 mmHg Right Ventricle Peak Systolic Pressure (Assuming RAP 10) 29 mmHg MGB CV ECHO TV RVSP (ASSUMING RAP OF 5) 24 mmHg RVSP (Exclusive of RAP) 19 mmHg Pulmonic Valve Prosthetic Peak Gradient 3 mmHg MGB CV AV DIMENSIONLESS INDEX (PEAK) - STRESS ECHO DOBUT - REST 0.64 Ascending Aorta Index 20 mm Aortic Sinus Index 19 mm Ascending Aorta Diameter 20 mm Aortic Valve Sinus Index 1 19 19 - 27 mm AO ASC DIAM BSA INDEX 19.89 Echo E/Ea 17.43 Left Atrial Volume Index 31 16 - 34 mL/m2 Right Ventricle Peak Systolic Pressure 22 mmHg GLS 15.7 % Right Ventricle TAPSE 24 >=17 mm Right Ventricle Pulse Doppler S Wave 12.0 >=9.5 cm/s Left Atrial Volume 54 mL Left Atrial Volume Index by Height 36 mL/m Right Atrium Pressure Estimated 3 mmHg Anatomical Region Laterality Modality Heart Ultrasound Narrative 08/25/2025 3:15 PM EST Images from the original result were not included. Moderate concentric LVH. LV cavity size is normal. LV systolic function is normal with EF 65 to 70%. There are no regional wall motion abnormalities. Normal diastolic function. Normal RV size and function. Global longitudinal strain is normal at -15.7%. There is no hemodynamically significant valvular disease. Comparison is made to the prior study report dated 05/26/2025. There is no significant change. Left Ventricle The left ventricle is normal in size. There is moderate concentric hypertrophy. The LV ejection fraction is 69%. Average global longitudinal strain (GLS) is - 15.7%. There are no wall motion abnormalities. The E/A ratio is 0.6. The e' septal wave velocity is 3.7 cm/s. The e' lateral wave velocity is 5.9 cm/s. The average E/e' ratio is 14.2. Right Ventricle The right ventricle is normal in size. The RV basal dimension is 36 mm. There is normal right ventricular systolic function. Left Atrium The left atrium is normal in size. The left atrial volume index by BSA is 31 mL/m2. Right Atrium The right atrium is normal in size. The IVC is suboptimally visualized. Mitral Valve The mitral valve appears normal. There is no mitral stenosis. There is trace mitral regurgitation. Tricuspid Valve The tricuspid valve appears normal. There is no tricuspid stenosis. There is trace tricuspid regurgitation. The RV systolic pressure was calculated at 22 mmHg (using TR peak velocity of 2.2 m/s and assuming an RA pressure of 3 mmHg). Aortic Valve The aortic valve is tricuspid. There is mild leaflet thickening. There is no aortic stenosis. There is no aortic regurgitation. The visualized portions of the thoracic aorta appear normal in size. Pulmonic Valve The pulmonic valve appears normal. There is no pulmonic stenosis. There is trace pulmonic regurgitation. Pericardium The pericardium appears normal. General Findings The image quality was adequate. Strain performed. Technique(s) used in the evaluation: Color flow Doppler and Spectral Doppler. The predominant rhythm during the study was sinus. Comparison Findings Compared to prior TTE on 05/14/2025, IAS/IVS There is no evidence of patent foramen ovale (PFO). us Sheldon Valenzuela DO, MPH CV ECHO ORDERABLES Final R esult * (ABNORMAL) CBC (08/25/2025 5:53 AM EST) WBC 7.41 4.00 - 11.00 K/uL 08/25/2025 6:42 AM EST [facility] RBC 4.69 4.00 - 5.20 M/uL 08/25/2025 6:42 AM EST [facility] Hemoglobin 10.5(L) 12.0 - 16.0 g/dL 08/25/2025 6:42 AM [facility] Hematocrit 37.6 36.0 - 46.0 % 08/25/2025 6:42 AM [facility] MCV 80.2 80.0 - 100.0 fL 08/25/2025 6:42 AM [facility] MCH 22.4(L) 27.0 - 31.0 pg 08/25/2025 6:42 AM [facility] MCHC 27.9(L) 32.0 - 36.0 g/dL 08/25/2025 6:42 AM [facility] PLT 379 150 - 450 K/uL 08/25/2025 6:42 AM [facility] MPV 9.2 8.4 - 12.0 fL 08/25/2025 6:42 AM [facility] RDW-CV 16.7(H) 11.5 - 14.5 % 08/25/2025 6:42 AM [facility] Absolute NRBC 0.00 <=0.00 K cells/uL 08/25/2025 6:42 AM [facility] NRBC 0.0 <=0.0 /100 WBCs 08/25/2025 6:42 AM [facility] Blood (Blood) Venipuncture / Unknown 08/25/2025 5:53 AM EST 08/25/2025 6:18 AM EST us Sheldon Valenzuela DO, MPH LAB BLOOD BKR ORDERABLES F inal Result [address] [address] * (ABNORMAL) Basic Metabolic Panel (BMP) (08/25/2025 5:53 AM EST) Only the most recent of4 resultswithin the time period is included. Sodium 141 136 - 145 mmol/L 08/25/2025 6:52 AM [facility] Potassium 4.2 3.4 - 5.1 mmol/L 08/25/2025 6:52 AM [facility] Chloride 106 98 - 107 mmol/L 08/25/2025 6:52 AM [facility] CO2 23 20 - 31 mmol/L 08/25/2025 6:52 AM [facility] Anion Gap 12 3 - 17 mmol/L 08/25/2025 6:52 AM [facility] BUN 22 6 - 23 mg/dL 08/25/2025 6:52 AM [facility] Creatinine 1.20(H) 0.50 - 1.00 mg/dL 08/25/2025 6:52 AM [facility] eGFR 45(L) >59 mL/min/1.7 3m2 08/25/2025 6:52 AM [facility] Comment:Estimated glomerular filtration rate calculated using the CKD-EPI refit equation. Glucose 142(H) 70 - 99 mg/dL 08/25/2025 6:52 AM [facility] Calcium 8.8 8.5 - 10.5 mg/dL 08/25/2025 6:52 AM [facility] Blood (Blood) Venipuncture / Unknown 08/25/2025 5:53 AM EST 08/25/2025 6:18 AM EST us Sheldon Valenzuela DO, MPH LAB BLOOD BKR ORDERABLES F inal Result Performing Organization Address City/State/[facility] Co de Phone Number [address] [address] * XR Chest Portable (08/24/2025 10:23 PM EST) Anatomical Region Laterality Modality Chest Computed Radiogr aphy 08/25/2025 7:55 AM EST Impressions 08/25/2025 8:00 AM EST 1. Mild bilateral increase in bronchovascular markings with no focal consolidation. Narrative 08/25/2025 8:00 AM EST XR CHEST PORTABLE Referring clinician's provided indication for this examination in Epic: Hypoxia COMPARISON: XR CHEST PORTABLE FINDINGS: Devices/Tubes/Lines: None. Lungs: Lung hypoexpansion. Mild bilateral increase in bronchovascular markings. No focal consolidation or pulmonary edema. Pleura: No pleural effusion or pneumothorax. Heart/Mediastinum: Unchanged in appearance. Bones/Soft Tissues: Mild degenerative changes of the spine and bilateral AC joints. No significant skeletal abnormality. Procedure Note Adarsh Dickerson MD - 08/25/2025 XR CHEST PORTABLE Referring clinician's provided indication for this examination in [facility]:Hypoxia COMPARISON: XR CHEST PORTABLE FINDINGS: Devices/Tubes/Lines: None. Lungs: Lung hypoexpansion. Mild bilateral increase in bronchovascularmarkings. No focal consolidation or pulmonary edema. Pleura: No pleural effusion or pneumothorax. Heart/Mediastinum: Unchanged in appearance. Bones/Soft Tissues: Mild degenerative changes of the spine and bilateralAC joints. No significant skeletal abnormality. IMPRESSION: 1. Mild bilateral increase in bronchovascular markings with no focalconsolidation. us Leon Bentley DO IMG XR CHEST Final Result * MRI BRAIN WITHOUT CONTRAST (08/24/2025 3:42 PM EST) B IMG RECOMMENDATION COMMENT Lack of flow void in the left petrous ICA.; Lack of flow void in the left petrous ICA. [facility] MGB IMG RECOMMENDATION COMMENT Lack of flow void in the left petrous ICA.; Lacvk of flow void in the left petrous ICA. [facility] Anatomical Region Laterality Modality Head Magnetic Resonan ce 08/24/2025 3:47 PM EST Impressions 08/24/2025 4:04 PM EST 1. No acute intracranial abnormality. 2. Suggestion of lack of flow in the left petrous ICA, similar compared to prior MRI brain dated May 29, 2025. Further evaluation with nonemergent CTA or MRA head and neck could be performed for better evaluation. Narrative 08/24/2025 4:04 PM EST MRI BRAIN WITHOUT CONTRAST Referring clinician's provided indication for this examination in [facility]: * Seizure, nontraumatic (Age >= 41y) TECHNIQUE: MRI BRAIN WITHOUT CONTRAST Multi-sequence, multi-planar MRI of the brain was performed without intravenous contrast. COMPARISON: CT HEAD WITHOUT CONTRAST ; MRI BRAIN (SEIZURE) WITHOUT CONTRAST FINDINGS: Please note that this study is markedly limited due to motion artifact. Within these confines: Brain Parenchyma: There are chronic infarct in the right parietal and left occipital lobes, unchanged. There are patchy and confluent T2 hyperintense foci in the supratentorial white matter, nonspecific, likely sequela of chronic small vessel disease changes. There is no acute infarct or intracranial hemorrhage. There is moderate generalized parenchymal volume loss. Ventricular System and Extra-Axial Spaces: The ventricles and cortical sulci are prominent, as commonly seen in patients of this age. No evidence of midline shift or hydrocephalus. Extracranial Structures: There is suggestion of lack of flow void in the left petrous ICA, appear similar compared to prior MRI of brain dated May 29, 2025. There is the remainder of the major intracranial arterial flow voids are preserved. The visualized paranasal sinuses appear clear. The mastoid air cells appear clear. The orbits are unremarkable. Procedure Note Asia Higginbotham MD - 08/24/2025 MRI BRAIN WITHOUT CONTRAST Referring clinician's provided indication for this examination in [facility]: *Seizure, nontraumatic (Age >= 41y) TECHNIQUE: MRI BRAIN WITHOUT CONTRAST Multi-sequence, multi-planar MRI of the brain was performed withoutintravenous contrast. COMPARISON: CT HEAD WITHOUT CONTRAST ; MRI BRAIN (SEIZURE)WITHOUT CONTRAST FINDINGS: Please note that this study is markedly limited due to motion artifact.Within these confines: Brain Parenchyma: There are chronic infarct in the right parietal and leftoccipital lobes, unchanged. There are patchy and confluent T2 hyperintensefoci in the supratentorial white matter, nonspecific, likely sequela ofchronic small vessel disease changes. There is no acute infarct orintracranial hemorrhage. There is moderate generalized parenchymal volumeloss. Ventricular System and Extra-Axial Spaces: The ventricles and corticalsulci are prominent, as commonly seen in patients of this age. No evidenceof midline shift or hydrocephalus. Extracranial Structures: There is suggestion of lack of flow void in theleft petrous ICA, appear similar compared to prior MRI of brain datedA2024. There is the remainder of the major intracranial arterialflow voids are preserved. The visualized paranasal sinuses appear clear.The mastoid air cells appear clear. The orbits are unremarkable. IMPRESSION: 1. No acute intracranial abnormality. 2. Suggestion of lack of flow in the left petrous ICA, similar comparedto prior MRI brain dated May 29, 2025. Further evaluation withnonemergent CTA or MRA head and neck could be performed for betterevaluation. us Bar Monroy DO IMG MR HEAD/NECK Final Result * EEG (08/24/2025 12:17 PM EST) Anatomical Region Laterality Modality EEG Impressions 08/26/2025 10:27 AM EST This was a normal adult EEG in the awake and briefly drowsy states.Interpretation limited by near continuous myogenic and movement artifacts. No epileptiform discharges or seizures were observed. COMPARISON: No prior EEG available INDICATION: 85 year old female with a history of of COPD, CKD, prior history of stroke presenting to the ED with complaints of concern of possible seizure. Witnessed event while seated in car reported to consist of complaints of shortness of breath, followed by then becoming unresponsive, shaking and her arm went out to the side lasting seconds to over a minute. PERTINENT MEDICATIONS: Gabapentin and Lorazepam. METHOD: Standard 10-20 electrode placement, single lead EKG and continuous video. DETAIL: Interpretation is limited due to near continuous high amplitude myogenic and movement artifact. The best observed background was continuous, symmetric, and demonstrated poor AP organization. There was occasional detection of a 40-50 uV, 8-9 Hz, posterior dominant rhythm. At 11:52:27, technologist notes that the patient reported that they are shaking. Patient appears (audio not functioning) to continue to talk throughout the event. Cannot appreciate shaking movements on camera as patient under blankets, unclear if related to report of restless leg syndrome. Temporal and frontal chains are largely obscured by myogenic artifact. No epileptiform activity or seizures were appreciated during the event. Patient was given lorazepam for comfort by nursing at 12:07:28 during the recording. Drowsiness was characterized by relative paucity of eye blink artifact and decrease in muscle/motion artifact. Stage II sleep was not seen. No epileptiform discharges were observed. No seizures were seen. Photic stimulation and hyperventilation were not performed. EKG: No clear dysrhythmia at a HR of 88-92 BPM. Boni Church EEG T. 08/24/25 I ([facility]) have reviewed the study and edited this report. Start Time: 08/24/2025 11:49 AM End Time: 08/24/2025 12:17 PM us Bar Monroy DO NEUROLOGY ORDERABLES Final Res ult * (ABNORMAL) Comprehensive Metabolic Panel (CMP) (08/24/2025 6:00 AM EST) Sodium 137 136 - 145 mmol/L 08/24/2025 7:17 AM [facility] Potassium 4.3 3.4 - 5.1 mmol/L 08/24/2025 7:17 AM [facility] Chloride 104 98 - 107 mmol/L 08/24/2025 7:17 AM [facility] CO2 23 20 - 31 mmol/L 08/24/2025 7:17 AM [facility] Anion Gap 10 3 - 17 mmol/L 08/24/2025 7:17 AM [facility] BUN 20 6 - 23 mg/dL 08/24/2025 7:17 AM [facility] Creatinine 1.40(H) 0.50 - 1.00 mg/dL 08/24/2025 7:17 AM [facility] eGFR 37(L) >59 mL/min/1.7 3m2 08/24/2025 7:17 AM [facility] Comment:Estimated glomerular filtration rate calculated using the CKD-EPI refit equation. Glucose 157(H) 70 - 99 mg/dL 08/24/2025 7:17 AM [facility] Calcium 8.8 8.5 - 10.5 mg/dL 08/24/2025 7:17 AM [facility] AST 14 <33 U/L 08/24/2025 7:17 AM [facility] ALT 10 <34 U/L 08/24/2025 7:17 AM [facility] Alkaline Phosphatase 84 40 - 130 U/L 08/24/2025 7:17 AM [facility] Bilirubin, Total 0.3 0.0 - 1.2 mg/dL 08/24/2025 7:17 AM [facility] Total Protein 6.5 6.4 - 8.3 g/dL 08/24/2025 7:17 AM [facility] Albumin 3.9 3.5 - 5.2 g/dL 08/24/2025 7:17 AM [facility] Globulin 2.6 1.9 - 4.1 g/dL 08/24/2025 7:17 AM [facility] Blood (Blood) Venipuncture / Unknown 08/24/2025 6:00 AM EST 08/24/2025 6:14 AM EST us Bar Monroy DO LAB BLOOD BKR ORDERABLES Final Result [address] [address] * (ABNORMAL) CBC and Differential (08/24/2025 6:00 AM EST) Only the most recent of2 resultswithin the time period is included. WBC 8.74 4.00 - 11.00 K/uL 08/24/2025 6:47 AM [facility] RBC 4.37 4.00 - 5.20 M/uL 08/24/2025 6:47 AM [facility] Hemoglobin 10.1(L) 12.0 - 16.0 g/dL 08/24/2025 6:47 AM [facility] Hematocrit 34.4(L) 36.0 - 46.0 % 08/24/2025 6:47 AM [facility] MCV 78.7(L) 80.0 - 100.0 fL 08/24/2025 6:47 AM [facility] MCH 23.1(L) 27.0 - 31.0 pg 08/24/2025 6:47 AM [facility] MCHC 29.4(L) 32.0 - 36.0 g/dL 08/24/2025 6:47 AM [facility] MPV 9.2 8.4 - 12.0 fL 08/24/2025 6:47 AM [facility] RDW-CV 16.5(H) 11.5 - 14.5 % 08/24/2025 6:47 AM [facility] PLT 363 150 - 450 K/uL 08/24/2025 6:47 AM [facility] Neutrophils 67.5 % 08/24/2025 6:47 AM [facility] Lymphocytes 18.6 % 08/24/2025 6:47 AM [facility] Monocytes 10.0 % 08/24/2025 6:47 AM [facility] Eosinophils 2.7 % 08/24/2025 6:47 AM [facility] Basophils 0.9 % 08/24/2025 6:47 AM [facility] Imm Grans 0.3 % 08/24/2025 6:47 AM [facility] NRBC 0.0 <=0.0 /100 WBCs 08/24/2025 6:47 AM [facility] Absolute Neutrophils 5.89 1.92 - 7.60 K/uL 08/24/2025 6:47 AM [facility] Absolute Lymphocytes 1.63 0.72 - 4.10 K/uL 08/24/2025 6:47 AM [facility] Absolute Monocytes 0.87 0.16 - 1.10 K/uL 08/24/2025 6:47 AM [facility] Absolute Eosinophils 0.24 0.00 - 0.50 K/uL 08/24/2025 6:47 AM [facility] Absolute Basophils 0.08 0.00 - 0.15 K/uL 08/24/2025 6:47 AM [facility] Absolute Imm Grans 0.03 0.00 - 0.09 K/uL 08/24/2025 6:47 AM [facility] Absolute NRBC 0.00 <=0.00 K cells/uL 08/24/2025 6:47 AM [facility] Absolute Neutrophils 5.89 1.92 - 7.60 K/uL 08/24/2025 6:47 AM [facility] Comment:Automated cell count . Manual ANC may differ if performed. Diff Type Auto 08/24/2025 6:47 AM EST [facility] Blood (Blood) Venipuncture / Unknown 08/24/2025 6:00 AM EST 08/24/2025 6:14 AM EST us Bar Rimachev DO LAB BLOOD BKR ORDERABLES Final Result Performing Organization Address City/[facility]/ZIP Co de Phone Number [address] [address] * Phosphorus (08/24/2025 6:00 AM EST) Phosphorus 3.4 2.5 - 4.5 mg/dL 08/24/2025 7:17 AM EST [facility] Blood (Blood) Venipuncture / Unknown 08/24/2025 6:00 AM EST 08/24/2025 6:14 AM EST us Bar [email or web address] DO LAB BLOOD BKR ORDERABLES Final Result Performing Organization Address [facility] Co de Phone Number [address] [address] * Magnesium (08/24/2025 6:00 AM EST) Only the most recent of3 resultswithin the time period is included. Magnesium 2.1 1.7 - 2.6 mg/dL 08/24/2025 7:17 AM EST [facility] Blood (Blood) Venipuncture / Unknown 08/24/2025 6:00 AM EST 08/24/2025 6:14 AM EST us Bar Rimachev DO LAB BLOOD BKR ORDERABLES Final Result Performing Organization Address [facility] Co de Phone Number [address] [address] * (ABNORMAL) D-Dimer (08/23/2025 10:04 PM EST) Only the most recent of2 resultswithin the time period is included. D-Dimer 667(H) <500 ng/mL FEU 08/23/2025 10:19 PM EST [facility] Comment:A negative D-dimer r esult (at a cut off of 500 ng/mL FEU) when combined with a clinical assessment of low pretest probability has been shown to have a high negative predictive value for DVT or PE. Clinical correlation is required. Blood (Blood) Venipuncture / Unknown 08/23/2025 10:04 PM EST 08/23/2025 10:07 PM EST us Fran Jesus MD LAB BLOOD BKR ORD ERABLES Final Result [address] [address] * XR Chest Portable (08/23/2025 10:01 PM EST) Anatomical Region Laterality Modality Chest Computed Radiogr aphy 08/24/2025 12:2 6 AM EST Impressions 08/24/2025 12:29 AM EST No acute abnormality. Narrative 08/24/2025 12:29 AM EST XR CHEST PORTABLE Referring clinician's provided indication for this examination in [facility]: Cough COMPARISON: XR CHEST 1 VIEW FINDINGS: Devices/Tubes/Lines: None. Lungs: No focal consolidation or pulmonary edema. Pleura: No pleural effusion or pneumothorax. Heart/Mediastinum: Unchanged in appearance. Bones/Soft Tissues: No appreciable acute abnormality. Procedure Note Valentin Mackenzie MD - 08/24/2025 XR CHEST PORTABLE Referring clinician's provided indication for this examination in [facility]:Cough COMPARISON: XR CHEST 1 VIEW FINDINGS: Devices/Tubes/Lines: None. Lungs: No focal consolidation or pulmonary edema. Pleura: No pleural effusion or pneumothorax. Heart/Mediastinum: Unchanged in appearance. Bones/Soft Tissues: No appreciable acute abnormality. IMPRESSION: No acute abnormality. us Fran Jesus MD IMG XR CHEST F inal Result * SARS-CoV-2, INFLUENZA A/B, PCR (08/23/2025 10:01 PM EST) [facility] SARS-CoV-2 RNA PCR Not Detected Not Detected 08/23/2025 10:38 PM EST [facility] Influenza A PCR Not Detected Not Detected 08/23/2025 10:38 PM [facility] Influenza B PCR Not Detected Not Detected 08/23/2025 10:38 PM [facility] Swab (Nasopharynx, Bilateral) 08/23/2025 10:01 PM EST 08/23/2025 10:07 PM EST Result [facility] Fran Jesus MD LAB GENERAL ORDER GALI Final Result Performing Organization Address [facility] Co de Phone Number [address] [address] * Symptomatic Respiratory Virus Testing Panel (ED/IP) (08/23/2025 10:01 PM EST) [facility] SARS Comment 08/23/2025 10:08 PM [facility] Comment:This test automatica lly orders a COVID-19 PCR and may add Flu, RSV, or other viral tests based on patient clinical factors and site protocols. Results will appear below and separately in chart review when available. Swab (Nasopharynx, Bilateral) 08/23/2025 10:01 PM EST 08/23/2025 10:07 PM EST Fran Jesus MD LAB GENERAL ORDER GALI Final Result Performing Organization Address [facility] Co de Phone Number [address] [address] * ECG 12-LEAD (08/23/2025 9:53 PM EST) [facility] Ventricular Rate EKG/MIN 77 BPM [facility] Atrial Rate 77 BPM [facility] MT Interval 148 ms [facility] QRS Duration 76 ms [facility] QT Interval 388 ms [facility] QTC Interval 439 ms [facility] P [place] 87 degrees [facility] R Wave [place] 4 degrees [facility] T Wave [place] 37 degrees [facility] 08/23/2025 9:53 PM EST 08/24/2025 2:07 PM EST Narrative [facility] - 08/24/2025 2:07 PM EST Normal sinus rhythm Normal ECG When compared with ECG of 06-Mar-2025 11:43, No significant change was found Confirmed by Dane Stringer ([id number]) on 08/24/2025 2:07:04 PM us Fran Jesus MD ECG ORDERABLES F inal Result [facility] * Lab Add-On (08/23/2025 9:48 PM EST) Specimen Date/Time 08/28/2025 11:35 PM [facility] Test Requested pro-bnp 08/28/2025 11:35 PM [facility] Specimen Description 08/28/2025 11:35 PM [facility] Comments 08/28/2025 11:35 PM [facility] Was this request processed? Yes 08/28/2025 11:35 PM [facility] Other (Other) 08/23/2025 9:4 8 PM EST 08/23/2025 9:48 PM EST us Fran Jesus MD LAB GENERAL ORDER GALI Final Result [address] [address] * (ABNORMAL) Urinalysis with Reflex to Urine Culture (08/23/2025 8:56 PM EST) Color Yellow Yellow 08/23/2025 9:32 PM [facility] Clarity Clear Clear 08/23/2025 9:32 PM [facility] Glucose Negative Negative 08/23/2025 9:32 PM [facility] Bilirubin Urine Negative Negative 9:32 PM [facility] Ketone Urine Negative Negative 08/23/2025 9:32 PM [facility] Specific [place]rober[place] <=1.005 1.001 - 1.035 08/23/2025 9:32 PM [facility] Blood Negative Negative 08/23/2025 9:32 PM [facility] pH 5.5 5.0 - 8.0 08/23/2025 9:32 PM [facility] Protein Negative Negative 08/23/2025 9:32 PM [facility] Nitrites Negative Negative 08/23/2025 9:32 PM [facility] Leukocyte Esterase 1+(A) Negative 08/23/2025 9:32 PM [facility] Urobilinogen Negative Negative 08/23/2025 9:32 PM [facility] Urine (Urine, Voided) 08/23/2025 8:56 PM EST 08/23/2025 9:07 PM EST Esther Babb PA-C LAB URINE ORDERABLES Final Result Performing Organization Address City/[facility]/ZIP Co de Phone Number [address] [address] * Urine Culture (08/23/2025 8:56 PM EST) Urine Culture/Test Mixed bob, culture indicates contamination 08/25/2025 8:00 AM [facility] Urine (Urine, Voided) 08/23/2025 8:56 PM EST 08/23/2025 9:39 PM EST Esther Babb PA-C LAB MICROBIOLOGY CULTURE OR DERABLES Final Result Performing Organization Address City/[facility]/ZIP Co de Phone Number [address] [address] * (ABNORMAL) URINE SEDIMENT (08/23/2025 8:56 PM EST) WBC 10-20(A) 0 - 9 /hpf 08/23/2025 9:39 PM [facility] RBC 3-5(A) 0 - 2 /hpf 08/23/2025 9:39 PM EST [facility] Squamous Epithelial Cells 6-9(A) Not Present /hpf 08/23/2025 9:39 PM EST [facility] Urine (Urine, Voided) 08/23/2025 8:56 PM EST 08/23/2025 9:07 PM EST Esther Babb PA-C LAB URINE ORDERABLES Final Result [address] [address] * (ABNORMAL) Troponin (08/23/2025 7:46 PM EST) Only the most recent of2 resultswithin the time period is included. Troponin-T HS Gen5 14(H) 0 - 9 ng/L 08/23/2025 8:12 PM EST [facility] Blood (Blood) Venipuncture / Unknown 08/23/2025 7:46 PM EST 08/23/2025 7:51 PM EST Esther Babb PA-C LAB BLOOD BKR ORDERABLES Fi nal Result Performing Organization Address City/[facility]/ZIP Co de Phone Number [address] [address] * CT HEAD WITHOUT CONTRAST (08/23/2025 7:23 PM EST) Anatomical Region Laterality Modality Head Computed Tomogra phy 08/23/2025 9:49 PM EST Impressions 08/23/2025 9:56 PM EST No acute intracranial findings. Narrative 08/23/2025 9:[address] HEAD WITHOUT CONTRAST Referring clinician's provided indication for this examination in Epic: * Mental status change, unknown cause TECHNIQUE: CT of the head was performed without intravenous contrast using tailored dose modulation techniques. Images were reconstructed in the axial, coronal, and sagittal planes. COMPARISON: MRI BRAIN (SEIZURE) WITHOUT CONTRAST ; CT HEAD WITHOUT CONTRAST FINDINGS: Brain Parenchyma: No midline shift, mass effect, parenchymal hemorrhage, or evidence of acute territorial infarct. Hypodensities in the periventricular white matter, likely a manifestation of chronic small vessel disease. Similar chronic infarcts in the left occipital and right parietal lobes. Ventricular System and Extra-Axial Spaces: The ventricles and sulci are prominent. No extra-axial fluid collections. Basilar cisterns are patent. No hydrocephalus. Osseous and Extracranial Structures: No calvarial fracture or significant soft tissue hematoma. No significant paranasal sinus disease. No orbital abnormality. Procedure Note Valentin Mackenzie MD - 08/23/2025 CT HEAD WITHOUT CONTRAST Referring clinician's provided indication for this examination in [facility]: *Mental status change, unknown cause TECHNIQUE: CT of the head was performed without intravenous contrast usingtailored dose modulation techniques. Images were reconstructed in theaxial, coronal, and sagittal planes. COMPARISON: MRI BRAIN (SEIZURE) WITHOUT CONTRAST ; CT HEADWITHOUT CONTRAST FINDINGS: Brain Parenchyma: No midline shift, mass effect, parenchymal hemorrhage,or evidence of acute territorial infarct. Hypodensities in theperiventricular white matter, likely a manifestation of chronic smallvessel disease. Similar chronic infarcts in the left occipital and rightparietal lobes. Ventricular System and Extra-Axial Spaces: The ventricles and sulci areprominent. No extra-axial fluid collections. Basilar cisterns are patent.No hydrocephalus. Osseous and Extracranial Structures: No calvarial fracture or significantsoft tissue hematoma. No significant paranasal sinus disease. No orbitalabnormality. IMPRESSION: No acute intracranial findings. us Esther Babb PA-C IMG CT HEAD/NECK Final Resu lt * Ethanol, Blood (08/23/2025 6:53 PM EST) Ethanol <10 Negative; <11 mg/dL 08/23/2025 7:41 PM EST [facility] Blood (Blood) Venipuncture / Unknown 08/23/2025 6:53 PM EST 08/23/2025 6:58 PM EST Esther Babb PA-C LAB BLOOD BKR ORDERABLES Fi nal Result Performing Organization Address [facility]/ZIP Co de Phone Number [address] [address] * NT-proBNP (08/23/2025 6:53 PM EST) NT-ProBNP 270 0 - 1,800 pg/mL 08/23/2025 11:15 PM EST [facility] Comment: Age <50 years: 0-450 pg/ml Age 50-75 years: 0-900 pg/ml Age >75 years: 0-1800 pg/ml A NT-proBNP <300 pg/ml effectively rules out acute congestive heart failure, with 99% negative predictive value. NT-proBNP cutoffs were developed for the diagnosis of heart failure. Marked elevations in NT-proBNP levels may be observed in states other than left ventricular congestive heart failure. Falsely low NT-proBNP in congestive heart failure patients may be observed with increasing body-mass index. Blood (Blood) Venipuncture / Unknown 08/23/2025 6:53 PM EST 08/23/2025 6:58 PM EST Fran Jesus MD LAB BLOOD BKR ORD ERABLES Final Result Performing Organization Address [facility]/ZIP Co de Phone Number [address] [address] * Lactate, Whole Blood (08/23/2025 6:52 PM EST) Lactate, Whole Blood 1.9 0.5 - 2.0 mmol/L 08/23/2025 7:06 PM EST [facility] Blood (Blood, Venous) Venipuncture / Unknown 08/23/2025 6:52 PM EST 08/23/2025 6:58 PM EST Esther Babb PA-C LAB BLOOD BKR ORDERABLES Fi nal Result Performing Organization Address City/[facility]/ZIP Co de Phone Number [address] [address] * (ABNORMAL) POCT Glucose (08/23/2025 6:42 PM EST) Glucose 152(H) 70 - 99 mg/dL 08/23/2025 6:44 PM EST [facility] Blood (Blood) 08/23/2025 6:4 2 PM EST 08/23/2025 6:44 PM EST us Unknown Unknown MD LAB POCT DOCKED DEVICE UNSOLI CTED RESULTS Final Result Performing Organization Address [facility] Co de Phone Number [address] [address] * MCT (Mobile Cardiac Telemetry) (07/09/2025 12:35 [...] in the visualized veins of either lowerextremity. us Cassie Chaudhari PA-C CV US VASCULAR Final Result * (ABNORMAL) CBC and differential (07/02/2025 12:24 PM EDT) Only the most recent of2 resultswithin the time period is included. WBC 8.82 4.00 - 11.00 K/uL [facility] RBC 5.07 4.00 - 5.20 M/uL [facility] HGB 11.6(L) 12.0 - 16.0 g/dL [facility] HCT 41.0 36.0 - 46.0 % [facility] PLT 370 150 - 450 K/uL [facility] MCV 80.9 80.0 - 100.0 fL [facility] MCH 22.9(L) 27.0 - 31.0 pg [facility] MCHC 28.3(L) 32.0 - 36.0 g/dL [facility] RDW 16.4(H) 11.5 - 14.5 % [facility] MPV 9.0 8.4 - 12.0 fL [facility] NRBC 0.00 0.00 /100 WBCs [facility] ABSOLUTE NRBC 0.00 0.00 K/uL [facility] DIFF METHOD Auto [facility] NEUTS 68.7 48.0 - 76.0 % [facility] LYMPHS 15.8(L) 18.0 - 41.0 % [facility] MONOS 10.3 4.0 - 11.0 % [facility] EOS 3.9 0.0 - 5.0 % [facility] BASOS 0.8 0.0 - 1.5 % [facility] Granulocytes, immature (%) 0.5 0.0 - 0.9 % [facility] ABSOLUTE NEUTS 6.07 1.92 - 7.60 K/uL [facility] ABSOLUTE LYMPHS 1.39 0.72 - 4.10 K/uL [facility] ABSOLUTE MONOS 0.91 0.16 - 1.10 K/uL [facility] ABSOLUTE EOS 0.34 0.00 - 0.50 K/uL [facility] ABSOLUTE BASOS 0.07 0.00 - 0.15 K/uL [facility] Granulocytes, immature 0.04 0.00 - 0.09 K/uL [facility] Blood 07/02/2025 12:2 4 PM EDT 07/02/2025 12:34 PM EDT us Cassie Demi Fara PA-C LAB BLOOD BKR ORDERAB LES Final Result [address] [address] * CPK (creatine kinase) (07/02/2025 12:24 PM EDT) Pathologist [facility] CREATINE KINASE 49 21 - 215 U/L [facility] Blood 07/02/2025 12:2 4 PM EDT 07/02/2025 12:34 PM EDT us Cassie Chaudhari PA-C LAB BLOOD BKR ORDERAB LES Final Result Performing Organization Address City/[facility]/ZIP Co de Phone Number [address] [address] * TTE COMPREHENSIVE (06/03/2025 2:05 PM EDT) [...] ALKALINE PHOSPHATASE 123(H) 39 - 117 U/L [facility] TOTAL BILIRUBIN <0.2 0.0 - 1.2 mg/dL [facility] DIRECT BILIRUBIN 0.1 0.0 - 0.2 mg/dL [facility] Bilirubin (Indirect) NOT CALCULATED 0 - 1.5 mg/dL [facility] AST 12 0 - 37 U/L [facility] ALT 8 0 - 40 U/L [facility] TOTAL PROTEIN 6.5 6.5 - 8.0 g/dL [facility] ALBUMIN 3.8(L) 3.9 - 4.8 g/dL [facility] GLOBULIN 2.7 1 - 4.8 g/dL [facility] A/G Ratio 1.41 1.00 - 4.80 RATIO [facility] Blood 06/01/2025 1:43 AM EDT 06/01/2025 1:47 AM EDT us Uday Doe Villaseñor DO LAB BLOOD BKR ORDERABLES Adri l Result [address] [address] * Lipase (06/01/2025 1:43 AM EDT) LIPASE 34 16 - 63 U/L [facility] Blood 06/01/2025 1:43 AM EDT 06/01/2025 1:47 AM EDT us Uday Villaseoñr DO LAB BLOOD BKR ORDERABLES Adri l Result Performing Organization Address [facility] Co de Phone Number [address] [address] * Hemoglobin A1c (09/23/2019 12:35 PM EST) HEMOGLOBIN A1C 5.2 4.3 - 5.8 % [facility] Blood 09/23/2019 12:3 5 PM EST 09/23/2019 12:40 PM EST Comment:#TO BE ADDED TO AM L ABS SPOKE WITH RADHA IN HEMO us Dalton Roman MD LAB BLOOD BKR ORDERABLES Fi nal Result Performing Organization Address [facility] Co de Phone Number [address] [address] * TSH with reflex (06/03/2019 5:13 AM EDT) TSH 0.39 0.27 - 4.20 uIU/mL [facility] Blood 06/03/2019 5:13 AM EDT 06/03/2019 6:28 AM EDT us Leon Bentley DO LAB BLOOD BKR ORDERABLES Adri l Result Performing Organization Address City/[facility]/ZIP Co de Phone Number [address] [address] from Last 3 Months or Most Recently Relevant to Health Maintenance Additional Health Concerns Infection Onset Date Last Indicated Resp-Risk 08/23/2025 08/23/[address] [place] [address] MEDICARE PPO BLUE REPLACEMENT [address] [address] MEDICARE PPO BLUE [place]PLACEMENT [place] [address] MEDICARE PPO BLUE REPLACEMENT Member Subscriber Plan / Payer (Ef fective 2007-Present) Name:Joaquin Jerryire Relation to Subscriber:Self Name:Joaquin Jerryire Payer ID:[id number] (NAIC) Type:Medicare Address: [place] [id number] [place] [address] MEDICARE PPO BLUE REPLACEMENT [employer] [place] MEDICARE P[place] BLUE REPLACEMENT Advance Directives For more information, please contact: [phone] (9AM - 5PM 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 06/10/2019 1:37 PM HC PROX Y * Full Code (Latest Code Status on File) Date Activated Date Inactivated Comments 08/24/2025 2:14 AM Question Answer Comments Code Status Confirmed With: Patient Code Status Communicated To: Inpatient Attending * Full Code Date Activated Date Inactivated Comments 03/14/2023 7:52 PM 08/24/2025 2:14 AM Question Answer Comments Code Status Confirmed With: [...] Name Relationship Healthcare Agent Relationship Communication Doron Jerry Son .Primary Health Care Agent (Proxy form on file) Rich Jerry II Son Alternate Heal thcare Agent (Proxy form on file) Care Teams Barn Boss Relationship Specialty Start Date End Date Alfie Courtney TAHIRA Winn [address] [place] [address] PCP - General Nurse Practitioner 07/09/24 Raul Howard DO [address] [place] [address] [email or web address] Primary Oncologist Hematology and Oncology 07/28/18 Kraely Cabrera PA-C [address] [place] [address] [email or web address] Physician Lead Pressman [employer] Hematology 10/18/20 Raul Howard DO [address] [place] [address] [email or web address] Primary Oncologist Hematology and Oncology 07/31/22 Additional Source Comments The information contained in this document represents components of the legal health record. It is not the complete legal health record.[facility]
--- OUTSIDE RECORDS SUMMARY | 2025-08-31 17:54 | XMS_ITS | Encounter Summary ---
Author Organization [facility] Address [address] [facility] [address] [place] [address] Phone Care Team Providers Care Quality Control Lead Name Role Phone Lee Raul Pedroza DO Unavailable Karely Cabrera PA-C Unavailable [phone] Lee Carter Kasia DO Unavailable [phone] Courtney Judge INSPECTOR EXPERIMENTAL ASSEMBLY Primary Care Provider [phone] Encounter Details Date Type Department Care Team (Late st Contact Info) Description 05/03/2025 Procedure Pass [facility] Echo [facility] [address] [place] [address] Social History Tobacco Use Types Packs/Day Years [...] Pulmonary, Allergy and Critical Care Medicine 10 [place] [address] Juan Ventura MD [address] [address] [email or web address] 02/24/2026 8:30 AM EDT Office Visit [facility] Neurology [address] [place] [address] Rafael España MD [address] [place] [address] [email or web address] documented as of this encounter Visit Diagnoses Not on filedocumented in this encounter Additional Health Concerns Infection Onset Date Last Indicated Resolved Time CoV-Risk 04/25/2025 04/25/2025 05/06/2025 1:21 AM EDT Resp-Risk 08/23/2025 08/23/2025 documented as of this encounter Care Teams Quality Control Lead Relationship Specialty Start Date End Date Courtney Judge NP [address] [place] [address] PCP - General Nurse Practitioner 07/09/24 Raul Howard DO [address] [place] [address] [email or web address] Primary Oncologist Hematology and Oncology 07/28/18 Karely Cabrera PA-C [address] [place] [address] [email or web address] Physician Group Fitness Manager Hematology 10/18/20 Raul Howard DO [address] [place] [address] [email or web address] Primary Oncologist Hematology and Oncology 07/31/22 documented as of this encounter Additional Source Comments The information contained in this document represents components of the legal health record. It is not the complete legal health record.[facility]
--- OUTSIDE RECORDS SUMMARY | 2025-08-31 17:54 | XMS_ITS | Encounter Summary ---
Author Organization [facility], Address [address] [place] [address] Phone Care Team Providers Care Carbon Paste Mixer Operator Name Role Phone Courtney Judge SUSTAINABLE DESIGN CONSULTANT Primary Care Provider [phone] Encounter Details Date Type Department Care Team (Late st Contact Info) Description 05/23/2023 Documentation Only [facility] David [address] [place] [address] Diego Fisher MD [address] [place] [address] [place] [address] Social History Tobacco Use Types [...] Visit [facility] REYNA [address] [place] [address] Diego Fisher MD [address] [place] [address] [place] [address] documented as of this encounter Visit Diagnoses Not on filedocumented in this encounter Care Teams Carbon Paste Mixer Operator Relationship Specialty Start Date End Date Courtney Judge NP [address] [place] [address] PCP - General 05/03/25 documented as of this encounter
--- OUTSIDE RECORDS SUMMARY | 2025-08-31 17:54 | XMS_ITS | Encounter Summary ---
Author Organization [facility] Address [address] [facility] [address] [place] [address] Phone Care Team Providers Care Carbon Coating Machine Operator Name Role Phone Isi Royal SEMICONDUCTOR PROCESSING TECHNICIAN Primary Care Provider Raul Howard DO Unavailable [phone] Karely Cabrera PA-C Unavailable [phone] Raul Howard DO Unavailable [phone] Courtney Judge SEMICONDUCTOR PROCESSING TECHNICIAN Primary Care Provider Encounter Details Date Type Department Care Team (Late st Contact Info) Description 05/08/2021 Transcribe Orders Virtual Department [address] [place], [place] [phone] Isi Royal NP [address] [place], [place] [id number] Social History Tobacco Use Types Packs/Day Years [...] Pulmonary, Allergy and Critical Care Medicine 10 [place] [address] Juan Ventura MD [address] [place] [address] [email or web address] 02/24/2026 8:30 AM EDT Office Visit [facility] Neurology [address] [place] [address] Rafael España MD [address] [place] [address] [email or web address] documented as of this encounter Visit Diagnoses Not on filedocumented in this encounter Additional Health Concerns Infection Onset Date Last Indicated Resolved Time CoV-Risk 04/25/2025 04/25/2025 05/06/2025 1:21 AM EDT Resp-Risk 08/23/2025 08/23/2025 documented as of this encounter Care Teams Carbon Coating Machine Operator Relationship Specialty Start Date End Date Isi Royal NP [address] [place] [address] PCP - General Family Medicine 07/03/18 07/08/24 Courtney Judge NP [address] [place] [address] PCP - General Nurse Practitioner 07/09/24 Raul Howard DO [address] [place] [address] [email or web address] Primary Oncologist Hematology and Oncology 07/28/18 Karely Cabrera PA-C [address] [place] [address] [email or web address] Physician Tank Terminal Gauger Hematology 10/18/20 Raul Howard DO [address] [place] [address] [email or web address] Primary Oncologist Hematology and Oncology 07/31/22 documented as of this encounter Additional Source Comments The information contained in this document represents components of the legal health record. It is not the complete legal health record.[facility]
--- OUTSIDE RECORDS SUMMARY | 2025-08-31 17:55 | XMS_ITS | Encounter Summary ---
Author Organization [facility] Address [address] [facility] [address] [place] [address] Phone Care Team Providers Care Silica Filter Operator Name Role Phone Isi Royal STARTER CUP POWDER MIXER Primary Care Provider [phone] Raul Howard DO Unavailable [phone] Karely Cabrera PA-C Unavailable [phone] Raul Howard DO Unavailable [phone] Courtney Judge STARTER CUP POWDER MIXER Primary Care Provider Encounter Details Date Type Department Care Team (Late st Contact Info) Description 12/09/2019 Procedure Pass [facility] Endoscopy Admitting Dept Virtual Department 30 [place], [place] [id number] Social History Tobacco Use Types Packs/Day Years [...] Pulmonary, Allergy and Critical Care Medicine 10 [place] [address] Juan Ventura MD [address] [address] [email or web address] 02/24/2026 8:30 AM EDT Office Visit [facility] Neurology [address] [place] [address] Rafael España MD [address] [place] [address] [email or web address] documented as of this encounter Visit Diagnoses Not on filedocumented in this encounter Additional Health Concerns Infection Onset Date Last Indicated Resolved Time CoV-Risk 04/25/2025 04/25/2025 05/06/2025 1:21 AM EDT Resp-Risk 08/23/2025 08/23/2025 documented as of this encounter Care Teams Silica Filter Operator Relationship Specialty Start Date End Date Isi Royal NP [address] [place] [address] PCP - General Family Medicine 07/03/18 07/08/24 Courtney Judge NP [address] [place] [address] PCP - General Nurse Practitioner 07/09/24 Raul Howard DO 30 [place] [address] [email or web address] Primary Oncologist Hematology and Oncology 07/28/18 Karely Cabrera PA-C [address] [place] [address] [email or web address] Physician Vascular Manager Hematology 10/18/20 Raul Howard DO [address] [place] [address] [email or web address] Primary Oncologist Hematology and Oncology 07/31/22 documented as of this encounter Additional Source Comments The information contained in this document represents components of the legal health record. It is not the complete legal health record.[facility]
--- OUTSIDE RECORDS SUMMARY | 2025-08-31 17:55 | XMS_ITS | Encounter Summary ---
Author Organization [facility], Address [address] [place] [address] Phone Care Team Providers Care Chief Nurse Anesthetist Name Role Phone Courtney Judge VETERINARY DENTIST Primary Care Provider [phone] Encounter Details Date Type Department Care Team (Late st Contact Info) Description 04/22/2025 Documentation Only [facility] [address] [place] [address] Hamida Fuentes [address] [place] [address] Social History Tobacco Use Types Packs/Day [...] Visit [facility] [address] [place] [address] Diego Fisher MD [address] [place] [phone] documented as of this encounter Visit Diagnoses Not on filedocumented in this encounter Care Teams Chief Nurse Anesthetist Relationship Specialty Start Date End Date Courtney Judge NP [address] [place] [address] PCP - General 05/03/25 documented as of this encounter
--- OUTSIDE RECORDS SUMMARY | 2025-08-31 17:55 | XMS_ITS | Encounter Summary ---
Author Organization [facility] Address [address] [facility] [address] [place] [address] Phone Care Team Providers Care Office Technology Instructor Name Role Phone Lee Raul Pedroza DO Unavailable [phone] Karely Cabrera PA-C Unavailable [phone] Lee Raul Pedroza DO Unavailable [phone] Courtney Judge FLEET MAINTENANCE FOREMAN Primary Care Provider [phone] Encounter Details Date Type Department Care Team (Late st Contact Info) Description 04/30/2025 Procedure Pass [facility] [address] [place] [address] Social History Tobacco Use Types Packs/Day Years [...] Pulmonary, Allergy and Critical Care Medicine [address] [place] [address] Juan Ventura MD [address] [address] [email or web address] 02/24/2026 8:30 AM EDT Office Visit [facility] Neurology [address] [place] [address] Rafael España MD [address] [place] [phone] [email or web address] documented as of this encounter Visit Diagnoses Not on filedocumented in this encounter Additional Health Concerns Infection Onset Date Last Indicated Resolved Time CoV-Risk 04/25/2025 04/25/2025 05/06/2025 1:21 AM EDT Resp-Risk 08/23/2025 08/23/2025 documented as of this encounter Care Teams Office Technology Instructor Relationship Specialty Start Date End Date Courtney Judge NP [address] [place] [address] PCP - General Nurse Practitioner 07/09/24 Raul Howard DO [address] [place] [address] [email or web address] Primary Oncologist Hematology and Oncology 07/28/18 Karely Cabrera PA-C [address] [place] [address] [email or web address] Physician Commercial Roofing Estimator Hematology 10/18/20 Raul Howard DO [address] [place] [address] [email or web address] Primary Oncologist Hematology and Oncology 07/31/22 documented as of this encounter Additional Source Comments The information contained in this document represents components of the legal health record. It is not the complete legal health record.[facility]
--- OUTSIDE RECORDS SUMMARY | 2025-08-31 17:55 | XMS_ITS | Encounter Summary ---
Author Organization [facility] Address [address] [facility] [address] [place] [address] Phone Care Team Providers Care Web Engineer Name Role Phone Isi Royal HOSPICE HOME HEALTH AIDE Primary Care Provider Raul Howard DO Unavailable [phone] Karely Cabrera PA-C Unavailable Lee Raul Pedroza DO Unavailable [phone] Courtney Judge HOSPICE HOME HEALTH AIDE Primary Care Provider Encounter Details Date Type Department Care Team (Latest Contact Info) Description 08/25/2019 Transcribe Orders Virtual Department 30 [place] [address] Christophe Del Cid MD [address] [place] [address] [email or web address] Vomiting, intractability of vomiting not specified, presence of nausea not specified, unspecified vomiting type (Primary Dx) Social History Tobacco Use Types Packs/Day Years Used Date Smoking Tobacco: Former Cigarettes 1 1 2 2016 Smokeless Tobacco: Never Alcohol Use [...] CD Pulmonary, Allergy and Critical Care Medicine [address] [place] [address] Juan Ventura MD [address] [place] [address] [email or web address] 02/24/2026 8:30 AM EDT Office Visit [facility] Neurology [address] [place] [address] Rafael España MD [address] [place] [address] [email or web address] documented as of this encounter Results * [...] Upper GI series. UPPER GI SERIES FINDINGS: Pin Drafting Machine Tender abdomen radiograph was obtained. Lung bases are [...] priorUpper GI series. UPPER GI SERIES FINDINGS: Pin Drafting Machine Tender abdomen radiograph was obtained. Lung bases are [...] POS - [id number] Christophe Del Cid MD [facility] Final Resu lt documented in this encounter [...] documented as of this encounter Care Teams Web Engineer Relationship Specialty Start Date End Date Isi Royal NP [address] [place] [address] PCP - General Family Medicine 07/03/18 07/08/24 Courtney Judge NP [address] [place] [address] PCP - General Nurse Practitioner 07/09/24 Raul Howard DO 30 [place] [address] [email or web address] Primary Oncologist Hematology and Oncology 07/28/18 Karely Cabrera PA-C [address] [place] [address] [email or web address] Physician House Fellow Hematology 10/18/20 Raul Howard DO [address] [place] [address] [email or web address] Primary Oncologist Hematology and Oncology 07/31/22 documented as of this encounter Additional Source Comments The information contained in this document represents components of the legal health record. It is not the complete legal health record.[facility]
--- OUTSIDE RECORDS SUMMARY | 2025-08-31 17:55 | XMS_ITS | Encounter Summary ---
Author Organization [facility] Address [address] [place] [address] Phone Care Team Providers Care Sales And Service Consultant Name Role Phone Isi Royal BEEHIVE KILN SUPERVISOR Primary Care Provider Raul Howard DO Unavailable [phone] Karely Cabrera PA-C Unavailable LeeRaul weir DO Unavailable [phone] Courtney Judge BEEHIVE KILN SUPERVISOR Primary Care Provider [phone] Encounter Details Date Type Department Care Team (Latest Contact Info) Description 03/16/2020 Transcribe Orders Virtual Department 30 [place] [address] Christophe Del Cid MD [address] [place] [address] [email or web address] Duodenal stricture (Primary Dx) Social History Tobacco Use Types Packs/Day Years Used Date Smoking Tobacco: Former Cigarettes 1 15 2 002 - 2017 Smokeless Tobacco: Never Alcohol Use [...] CITY Pulmonary, Allergy and Critical Care Medicine [address] [place] [address] Juan Ventura MD [address] [place] [address] [email or web address] 02/24/2026 8:30 AM EDT Office Visit [facility] Neurology [address] [place] [address] Rafael España MD [address] [place] [address] [email or web address] documented as of this encounter Results * [...] min. 31 sec; 20 IMAGES/FRAMES POS - [id number] Narrative 05/05/2020 10:15 AM EDT COMPARISON: 09/07/2019 [...] least one jejunal diverticulum present. Procedure Note Christophe Ding MD - 05/05/2020 COMPARISON: 09/07/2019 FINDINGS: [...] min. 31 sec; 20 IMAGES/FRAMES POS - [id number] Christophe Del Cid MD [facility] Edited Res ult - Final documented in this encounter Visit Diagnoses Diagnosis Duodenal stricture- Primary Other obstruction of duodenum Duodenal stricture Other obstruction of duodenum documented in this encounter Additional Health Concerns Infection Onset Date Last Indicated Resolved Time CoV-Risk 04/25/2025 04/25/2025 05/06/2025 1:21 AM EDT Resp-Risk 08/23/2025 08/23/2025 documented as of this encounter Care Teams Sales And Service Consultant Relationship Specialty Start Date End Date Isi Royal NP [address] [place] [address] PCP - General Family Medicine 07/03/18 07/08/24 Courtney Judge, TAHIRA [address] [place] [address] PCP - General Nurse Practitioner 07/09/24 Raul Howard DO 30 [place] [address] [email or web address] Primary Oncologist Hematology and Oncology 07/28/18 Karely Cabrera PA-C [address] [place] [address] [email or web address] Physician Staff Toxicologist Hematology 10/18/20 Raul Howard DO [address] [place] [address] [email or web address] Primary Oncologist Hematology and Oncology 07/31/22 documented as of this encounter Additional Source Comments The information contained in this document represents components of the legal health record. It is not the complete legal health record.[facility]
--- OUTSIDE RECORDS SUMMARY | 2025-08-31 17:55 | XMS_ITS | Encounter Summary ---
Author Organization [facility] Address [address] [facility] [address] [place] [address] Phone Care Team Providers Care Measurement Psychologist Name Role Phone Lee Raul Pedroza DO Unavailable Karely Cabrera PA-C Unavailable [phone] Lee Raul Pedroza DO Unavailable Courtney Judge MELTER CASTER Primary Care Provider [phone] Encounter Details Date Type Department Care Team (Late st Contact Info) Description 04/28/2025 Procedure Pass [facility], Ct Scan - [facility] 30 [place], [place] [id number] Social History Tobacco Use Types Packs/Day Years [...] 3:33 AM EDT Javon Leija RN * [place] Suicide Severity Rating Scale (Screener/Recent Self-Report) Question Answer Date of Assessment Author 1. Wish to be (Past 1 Month) No 025 3:33 AM EDT Javon Leija RN 2. [...] CD Pulmonary, Allergy and Critical Care Medicine [address] [place] [address] Juan Ventura MD [address] [place] [address] [email or web address] 02/24/2026 8:30 AM EDT Office Visit [facility] Neurology [address] [place] [address] Rafael España MD [address] [place] [address] [email or web address] documented as of this encounter Visit Diagnoses Not on filedocumented in this encounter Additional Health Concerns Infection Onset Date Last Indicated Resolved Time CoV-Risk 04/25/2025 04/25/2025 05/06/2025 1:21 AM EDT Resp-Risk 08/23/2025 08/23/2025 documented as of this encounter Care Teams Measurement Psychologist Relationship Specialty Start Date End Date Courtney Judge NP [address] [place] [address] PCP - General Nurse Practitioner 07/09/24 Raul Howard DO [address] [place] [address] [email or web address] Primary Oncologist Hematology and Oncology 07/28/18 Karely Cabrera PA-C [address] [place] [address] [email or web address] Physician Puppet Maker Hematology 10/18/20 Raul Howard DO [address] [place] [address] [email or web address] Primary Oncologist Hematology and Oncology 07/31/22 documented as of this encounter Additional Source Comments The information contained in this document represents components of the legal health record. It is not the complete legal health record.[facility]
--- OUTSIDE RECORDS SUMMARY | 2025-08-31 17:55 | XMS_ITS | Encounter Summary ---
Author Organization [facility] Address [address] [facility] [address] [place] [address] Phone Care Team Providers Care Therapy Coordinator Name Role Phone Lee Raul Pedroza DO Unavailable Karely Cabrera PA-C Unavailable [phone] Lee Carter Kasia DO Unavailable [phone] Courtney Judge ARBORICULTURE TEACHER Primary Care Provider [phone] Encounter Details Date Type Department Care Team (Late st Contact Info) Description 08/24/2025 Procedure Pass [facility] [address] [place] [address] Social History Tobacco Use Types Packs/Day Years [...] Pulmonary, Allergy and Critical Care Medicine 10 [place] [address] Juan Ventura MD [address] [address] [email or web address] 02/24/2026 8:30 AM EDT Office Visit [facility] Neurology [address] [place] [address] Rafael España MD [address] [place] [address] documented as of this encounter Visit Diagnoses Not on filedocumented in this encounter Additional Health Concerns Infection Onset Date Last Indicated Resolved Time Resp-Risk 08/23/2025 08/23/2025 documented as of this encounter Care Teams Therapy Coordinator Relationship Specialty Start Date End Date Courtney Judge NP 70 [place] [address] PCP - General Nurse Practitioner 07/09/24 aRul Howard DO 30 [place] [address] [email or web address] Primary Oncologist Hematology and Oncology 07/28/18 Karely Cabrera PA-C 30 [place] [address] Physician Consumer Insights Specialist Hematology 10/18/20 Raul Howard DO 30 [place] [address] [email or web address] Primary Oncologist Hematology and Oncology 07/31/22 documented as of this encounter Additional Source Comments The information contained in this document represents components of the legal health record. It is not the complete legal health record.[facility]
--- OUTSIDE RECORDS SUMMARY | 2025-08-31 17:55 | XMS_ITS | Encounter Summary ---
Author Organization [facility] Address [address] [employer] [facility] [address] [place] [address] Phone Care Team Providers Care Supply Tech Name Role Phone Isi Royal CONSTRUCTION PERSON Primary Care Provider Raul Howard DO Unavailable [phone] Karely Cabrera PA-C Unavailable [phone] Raul Howard DO Unavailable [phone] Courtney Judge CONSTRUCTION PERSON Primary Care Provider Encounter Details Date Type Department Care Team (Late st Contact Info) Description 06/07/2021 Transcribe Orders [facility] 30 [place] [address] Isi Royal NP 70 [place], [place] [phone] Social History Tobacco Use Types Packs/Day Years [...] Pulmonary, Allergy and Critical Care Medicine 10 [place] [address] Juan Ventura MD [address] [place] [address] [email or web address] 02/24/2026 8:30 AM EDT Office Visit [facility] [address] [place] [address] Rafael España MD [address] [place] [address] [email or web address] documented as of this encounter Visit Diagnoses Not on filedocumented in this encounter Additional Health Concerns Infection Onset Date Last Indicated Resolved Time CoV-Risk 04/25/2025 04/25/2025 05/06/2025 1:21 AM EDT Resp-Risk 08/23/2025 08/23/2025 documented as of this encounter Care Teams Supply Tech Relationship Specialty Start Date End Date Isi Royal CONSTRUCTION PERSON 70 [place] [address] PCP - General Family Medicine 07/03/18 07/08/24 Courtney Judge NP 70 [place] [address] PCP - General Nurse Practitioner 07/09/24 Raul Howard DO 30 [place] [address] [email or web address] Primary Oncologist Hematology and Oncology 07/28/18 Karely Cabrera PA-C [address] [place] [address] [email or web address] Physician Teasel Setter Hematology 10/18/20 Raul Howard DO [address] [place] [address] [email or web address] Primary Oncologist Hematology and Oncology 07/31/22 documented as of this encounter Additional Source Comments The information contained in this document represents components of the legal health record. It is not the complete legal health record.[facility]
--- OUTSIDE RECORDS SUMMARY | 2025-08-31 17:55 | XMS_ITS | Encounter Summary ---
Author Organization [facility] Address [address] [facility] [address] [place] [address] Phone Care Team Providers Care Repair Technician Name Role Phone Lee Raul Pedroza DO Unavailable Karely Cabrera PA-C Unavailable [phone] Lee Raul Pedroza DO Unavailable [phone] Courtney Judge TUBE SORTER Primary Care Provider [phone] Encounter Details Date Type Department Care Team (Late st Contact Info) Description 04/28/2025 Procedure Pass , Ct Scan - [facility] 30 [place], [place] [phone] Social History Tobacco Use Types Packs/Day Years [...] 3:33 AM EDT Javon Leija RN * [place] Suicide Severity Rating Scale (Screener/Recent Self-Report) Question [...] CD Pulmonary, Allergy and Critical Care Medicine [address] [place] [address] Juan Ventura MD [address] [place] [address] [email or web address] 02/24/2026 8:30 AM EDT Office Visit [facility] Neurology [address] [place] [address] Rafael España MD [address] [place] [address] [email or web address] documented as of this encounter Visit Diagnoses Not on filedocumented in this encounter Additional Health Concerns Infection Onset Date Last Indicated Resolved Time CoV-Risk 04/25/2025 04/25/2025 05/06/2025 1:21 AM EDT Resp-Risk 08/23/2025 08/23/2025 documented as of this encounter Care Teams Repair Technician Relationship Specialty Start Date End Date Courtney Judge NP [address] [place] [address] PCP - General Nurse Practitioner 07/09/24 Raul Howard DO [address] [place] [address] [email or web address] Primary Oncologist Hematology and Oncology 07/28/18 Karely Cabrera PA-C [address] [place] [address] [email or web address] Physician Senior Patrol Agent Hematology 10/18/20 Raul Howard DO [address] [place] [address] [email or web address] Primary Oncologist Hematology and Oncology 07/31/22 documented as of this encounter Additional Source Comments The information contained in this document represents components of the legal health record. It is not the complete legal health record.[facility]
--- OUTSIDE RECORDS SUMMARY | 2025-08-31 17:55 | XMS_ITS | Encounter Summary ---
Author Organization [facility], Address [address] [place] [address] Phone Care Team Providers Care Director Compensation Name Role Phone Courtney Judge ORACLE MANAGER Primary Care Provider [phone] Encounter Details Date Type Department Care Team (Late st Contact Info) Description 11/02/2022 Documentation Only [facility] [address] [place] [address] [place] [phone] Courtney Judge NP [address] [place] [address] Social History Tobacco Use Types Packs/Day Years [...] Visit [facility] David [place] [address] [place] [phone] Diego Fisher MD [address] [facility] [address] [place] [phone] documented as of this encounter Visit Diagnoses Not on filedocumented in this encounter Care Teams Director Compensation Relationship Specialty Start Date End Date Courtney Judge NP [address] [place], [place] [phone] PCP - General 05/03/25 documented as of this encounter
--- OUTSIDE RECORDS SUMMARY | 2025-08-31 17:55 | XMS_ITS | Data Portability ---
Author Organization [place] [facility] Address [address] [facility] [address] [place] [address] Care Team Providers Care Kiln Car Unloader Name Role Phone SILVANO JEAN Primary Care Provider [phone] Assessment Encounter Date Assessment Date Assessment LastModified [...] contr ast No observ ation record ed. [email or web address] Not Available 10/2024 14:20:10 Result Notes None recorded. Problems Name Problem SNOMED Code Status Onset Date Resolution Date Notes Provider Name and Address Organization Details Recorded Time Closed fracture of nasal bones 42107555 Active 025 CAITLYN WEINER MD [address] [facility], [place], [address], [facility] - [facility] 5 11:52:00 Deviated nasal septum 170459233 Active 025 CAITLYN WEINER MD [address] [facility], [place], [address], [facility] - [facility] 5 11:52:05 Pulmonary emphysema 30893911 Active 025 CAITLYN WEINER MD [address] [facility], [place], [address], [facility] - [facility] 5 11:52:28 Problem Notes None recorded. Medical Equipment None Reported. Allergies Allergen ID Allergen Name Allergen Category Reaction Reaction Severity Criticality Documentation Date Start Date Code Code System Note Provider Name and Address Organization Details Recorded Time 603316 codeine medicatio n Not available Not available Not available 05/04/2025 2670 RxNorm ABDIEL felipe [place] [facility] 5 11:41:28 Medications Name Sig Start Date [...] Updated DateTime 05/04/2025 152.4 cm 34.2 kg/m2 90422.66 g ABDIEL QUINN [place] [facility] 05/04/2025 11:41:23 Social History None recorded. Functional Status None recorded. Mental Status None recorded. Family History Nothing Reported. Medical History No medical history recorded. Gynecological HistoryNo gynecological history recorded. Obstetrics History GPAL:G 0 P 0 0 0 0 Past Encounters Encounter ID Performer Location Encounter Start Date Encounter Closed Date Diagnosis/Indication Diagnosis SNOMED-CT Code Diagnosis ICD10 Code Diagnosis IMO Codes Diagnosis Note [id number] CAITLYN WEINER MD [facility] [address] [phone] 05/04/2025 11:18:48 05/04/2025 11:53:56 Closed fracture of nasal bones 25291785 S02.2XXA 9406609 Deviated nasal septum 12 2000443 J34.2 179337 Pulmonary emphysema 8743 3001 J43.9 941048179 Health Concerns Section Related Observation LastModified by Organization Detai ls LastModified Time None Recorded Concern Status LastModified by Organization Details LastModified Time None Recorded Advance Directives Directive None Recorded Payers Insurance Date Sequence Insurance Name Policy Number Policy Lara Covered Member ID Lara Member ID Guarantor Name 05/04/2025 1 [facility]UE (MEDICARE REPLACEMENT PPO) [id number] Chika Jerry [id number] Chika Jerry Notes Date Note Type [...] bony and cartilaginous septum CAITLYN WEINER MD [address] [place] [address], [place], [address], [place] [facility] 05/04/2025 11:55:06 OBGyn Episode No OBEpisode recorded.
--- OUTSIDE RECORDS SUMMARY | 2025-08-31 17:55 | XMS_ITS | Encounter Summary ---
Author Organization [facility] Address [address] [facility] [address] [place] [address] Phone Care Team Providers Care Salon Supervisor Name Role Phone Lee Raul Pedroza DO Unavailable [phone] Karely Cabrera PA-C Unavailable [phone] Lee Raul Pedroza DO Unavailable [phone] Courtney Judge BOBBIN DRIER Primary Care Provider [phone] Encounter Details Date Type Department Care Team (Late st Contact Info) Description 04/28/2025 Procedure Pass [facility], Ct Scan - [facility] 30 [place], [place] [phone] Social History Tobacco Use Types Packs/Day Years [...] 3:33 AM EDT Javon Leija RN * [place] Suicide Severity Rating Scale (Screener/Recent Self-Report) Question [...] CD Pulmonary, Allergy and Critical Care Medicine [address] [place] [address] Juan Ventura MD [address] [place] [address] [email or web address] 02/24/2026 8:30 AM EDT Office Visit [facility] Neurology [address] [place] [address] Rafael España MD [address] [place] [address] [email or web address] documented as of this encounter Visit Diagnoses Not on filedocumented in this encounter Additional Health Concerns Infection Onset Date Last Indicated Resolved Time CoV-Risk 04/25/2025 04/25/2025 05/06/2025 1:21 AM EDT Resp-Risk 08/23/2025 08/23/2025 documented as of this encounter Care Teams Salon Supervisor Relationship Specialty Start Date End Date Courtney Judge NP [address] [place] [address] PCP - General Nurse Practitioner 07/09/24 Raul Howard DO [address] [place] [address] [email or web address] Primary Oncologist Hematology and Oncology 07/28/18 Karely Cabrera PA-C [address] [place] [address] [email or web address] Physician Professor Of Environmental Studies Hematology 10/18/20 Raul Howard DO [address] [place] [address] [email or web address] Primary Oncologist Hematology and Oncology 07/31/22 documented as of this encounter Additional Source Comments The information contained in this document represents components of the legal health record. It is not the complete legal health record.[facility]
--- OUTSIDE RECORDS SUMMARY | 2025-08-31 17:55 | XMS_ITS | Encounter Summary ---
Author Organization [facility] Address [address] [place] [address] [address] [place] [address] Phone Care Team Providers Care It Architecture Consultant Name Role Phone Isi Royal BLACK JACK DEALER Primary Care Provider [phone] Raul Howard DO Unavailable [phone] Karely Cabrera PA-C Unavailable [phone] Raul Howard DO Unavailable [phone] Courtney Judge BLACK JACK DEALER Primary Care Provider Encounter Details Date Type Department Care Team (Late st Contact Info) Description 05/08/2021 Procedure Pass [facility] 30 [place], [place] [id number] Social History Tobacco Use Types Packs/Day Years Used Date Smoking Tobacco: Former Cigarettes 1 15 2016 Smokeless Tobacco: Never Alcohol Use Standard [...] Pulmonary, Allergy and Critical Care Medicine 10 [place] [address] Juan Ventura MD [address] [address] [email or web address] 02/24/2026 8:30 AM EDT Office Visit [facility] Neurology [address] [place] [address] Rafael España MD [address] [place] [address] [email or web address] documented as of this encounter Visit Diagnoses Not on filedocumented in this encounter Additional Health Concerns Infection Onset Date Last Indicated Resolved Time CoV-Risk 04/25/2025 04/25/2025 05/06/2025 1:21 AM EDT Resp-Risk 08/23/2025 08/23/2025 documented as of this encounter Care Teams It Architecture Consultant Relationship Specialty Start Date End Date Isi Royal NP 70 [place] [address] PCP - General Family Medicine 07/03/18 07/08/24 Courtney Judge NP 70 [place] [address] PCP - General Nurse Practitioner 07/09/24 Raul Howard DO 30 [place] [address] [email or web address] Primary Oncologist Hematology and Oncology 10/22/18 Karely Cabrera PA-C 30 [place] [address] [email or web address] Physician Porcelain Enamel Laborer Hematology 10/18/20 Raul Howard DO [address] [place] [address] [email or web address] Primary Oncologist Hematology and Oncology 07/31/22 documented as of this encounter Additional Source Comments The information contained in this document represents components of the legal health record. It is not the complete legal health record.[facility]
--- OUTSIDE RECORDS SUMMARY | 2025-08-31 17:55 | XMS_ITS | Encounter Summary ---
Author Organization [facility], Address [address] [place] [address] Phone Care Team Providers Care Oracle Webcenter Consultant Name Role Phone Courtney Judge EDUCATIONAL PROGRAM ASSISTANT Primary Care Provider [phone] Encounter Details Date Type Department Care Team (Late Contact Info) Description 04/02/2025 Documentation Only [facility] [address] [place] [address] Es Garcia [address] [place] [phone] Social History Tobacco Use Types Packs/Day [...] Visit [facility] [place] [address] [place] [phone] Diego Fisher MD [address] [place] [address] [place] [address] documented as of this encounter Visit Diagnoses Not on filedocumented in this encounter Care Teams Oracle Webcenter Consultant Relationship Specialty Start Date End Date Courtney Judge NP [address] [place] [address] PCP - General 05/03/25 documented as of this encounter
--- OUTSIDE RECORDS SUMMARY | 2025-08-31 17:55 | XMS_ITS | Encounter Summary ---
Author Organization [facility] Address [address] [facility] [address] [place] [address] Phone Care Team Providers Care Blind Eyeletter Name Role Phone Isi Royal NURSE FIRST AID Primary Care Provider [phone] Raul Howard DO Unavailable [phone] Karely Cabrera PA-C Unavailable [phone] Raul Howard DO Unavailable [phone] Courtney Judge NURSE FIRST AID Primary Care Provider Encounter Details Date Type Department Care Team (Late st Contact Info) Description 05/16/2023 Procedure Pass [facility], Ct Scan - [address] [phone] Social History Tobacco Use Types Packs/Day Years [...] Pulmonary, Allergy and Critical Care Medicine [address] [place] [address] Juan Ventura MD [address] [place] [address] [email or web address] 02/24/2026 8:30 AM EDT Office Visit [facility] Neurology [address] [place] [address] Rafael España MD [address] [place] [address] documented as of this encounter Visit Diagnoses Not on filedocumented in this encounter Additional Health Concerns Infection Onset Date Last Indicated Resolved Time CoV-Risk 04/25/2025 04/25/2025 05/06/2025 1:21 AM EDT Resp-Risk 08/23/2025 08/23/2025 documented as of this encounter Care Teams Blind Eyeletter Relationship Specialty Start Date End Date Isi Royal NP [address] [place] [address] PCP - General Family Medicine 07/03/18 07/08/24 Courtney Judge NP 70 [place] [address] PCP - General Nurse Practitioner 07/09/24 Raul Howard DO 30 [place] [address] [email or web address] Primary Oncologist Hematology and Oncology 07/28/18 Karely Cabrera PA-C 30 [place] [address] [email or web address] Physician Design/Animation Instructor Hematology 10/18/20 Raul Howard DO 30 [place] [address] [email or web address] Primary Oncologist Hematology and Oncology 07/31/22 documented as of this encounter Additional Source Comments The information contained in this document represents components of the legal health record. It is not the complete legal health record.[facility]
--- OUTSIDE RECORDS SUMMARY | 2025-08-31 17:55 | XMS_ITS | Encounter Summary ---
Author Organization [facility] Address [address] [facility] [address] [place] [address] Phone Care Team Providers Care Track Helper Name Role Phone Lee Raul Pedroza DO Unavailable Karely Cabrera PA-C Unavailable [phone] Lee Raul Pedroza DO Unavailable [phone] Courtney Judge FORMING AND ASSEMBLING SUPERVISOR Primary Care Provider [phone] Encounter Details Date Type Department Care Team (Late st Contact Info) Description 08/23/2025 Procedure Pass [facility] [address] [place] [address] Social History Tobacco Use Types Packs/Day Years [...] 08/23/2025 6:27 PM Jojo Eastman RN * [place] Suicide Severity Rating Scale (Screener/Recent Self-Report) Question [...] Pulmonary, Allergy and Critical Care Medicine 10 [place] [address] Juan Ventura MD [address] [address] [email or web address] 02/24/2026 8:30 AM EDT Office Visit [facility] Neurology [address] [place] [address] Rafael España MD [address] [place] [address] documented as of this encounter Visit Diagnoses Not on filedocumented in this encounter Additional Health Concerns Infection Onset Date Last Indicated Resolved Time Resp-Risk 08/23/2025 08/23/2025 documented as of this encounter Care Teams Track Helper Relationship Specialty Start Date End Date Courtney Judge NP 70 [place] [address] PCP - General Nurse Practitioner 07/09/24 Raul Howard DO [address] [place] [address] [email or web address] Primary Oncologist Hematology and Oncology 07/28/18 Karely Cabrera PA-C [address] [place] [address] [email or web address] Physician Air Purifier Servicer Hematology 10/18/20 Raul Howard DO [address] [place] [address] [email or web address] Primary Oncologist Hematology and Oncology 07/31/22 documented as of this encounter Additional Source Comments The information contained in this document represents components of the legal health record. It is not the complete legal health record.[facility]
--- OUTSIDE RECORDS SUMMARY | 2025-08-31 17:55 | XMS_ITS | Encounter Summary ---
Author Organization [facility] Address [address] [facility] [address] [place] [address] Phone Care Team Providers Care Precision Instrument Maker And Repairer Name Role Phone Lee Raul Pedroza DO Unavailable Karely Cabrera PA-C Unavailable [phone] Lee Raul Pedroza DO Unavailable Courtney Judge REFINERY OPERATOR Primary Care Provider [phone] Encounter Details Date Type Department Care Team (Late st Contact Info) Description 02/19/2025 Procedure Pass [facility], Ct Scan - [facility] 30 [place], [place] [id number] Social History Tobacco Use Types Packs/Day Years [...] 4:22 PM EDT Ita Linton RN * [place] Suicide Severity Rating Scale (Screener/Recent Self-Report) Question Answer Date of Assessment Author 1. Wish to be (Past 1 Month) No 02/19/2025 4:22 PM EDT Ita Linton RN 2. Non-Specific Active Suici fariba Thoughts (Past 1 Month) No 02/19/2025 4:22 PM EDT Ita Linton RN 6. Suicidal Behavior (Lifetime) No 4:22 PM EDT Ita Linton RN documented as of this encounter Plan of Treatment Upcoming Encounters Date Type Department Care Team (Late st Contact Info) Description 12/27/2025 2:30 PM EDT Office Visit [facility] Pulmonary, Allergy and Critical Care Medicine 10 [place] [address] Juan Ventura MD [address] [place] [address] [email or web address] 02/24/2026 8:30 AM EDT Office Visit [facility] Neurology [address] [place] [address] Rafael España MD [address] [place] [address] documented as of this encounter Visit Diagnoses Not on filedocumented in this encounter Additional Health Concerns Infection Onset Date Last Indicated Resolved Time CoV-Risk 04/25/2025 04/25/2025 05/06/2025 1:21 AM EDT Resp-Risk 08/23/2025 08/23/2025 documented as of this encounter Care Teams Precision Instrument Maker And Repairer Relationship Specialty Start Date End Date Courtney Judge NP [address] [place] [address] PCP - General Nurse Practitioner 07/09/24 Raul Howard DO 30 [place] [address] [email or web address] Primary Oncologist Hematology and Oncology 07/28/18 Karely Cabrera PA-C 30 [place] [address] [email or web address] Physician Exec. Creative Director Hematology 10/18/20 Raul Howard DO 30 [place] [address] [email or web address] Primary Oncologist Hematology and Oncology 07/31/22 documented as of this encounter Additional Source Comments The information contained in this document represents components of the legal health record. It is not the complete legal health record.[facility]
--- OUTSIDE RECORDS SUMMARY | 2025-08-31 17:55 | XMS_ITS | Encounter Summary ---
Author Organization [facility] Address [address] [facility] [address] [place] [address] Phone Care Team Providers Care Um Nurse Name Role Phone Isi Royal HORTICULTURAL FARMWORKER Primary Care Provider [phone] Raul Howard DO Unavailable [phone] Karely Cabrera PA-C Unavailable [phone] Raul Howard DO Unavailable [phone] Courtney Judge HORTICULTURAL FARMWORKER Primary Care Provider Encounter Details Date Type Department Care Team (Late st Contact Info) Description 01/30/2024 Procedure Pass [facility], Ct Scan - [address] [id number] Social History Tobacco Use Types Packs/Day Years [...] [facility] Pulmonary, Allergy and Critical Care Medicine [address] [place] [address] Juan Ventura MD [address] [place] [address] [email or web address] 02/24/2026 8:30 AM EDT Office Visit [facility] Neurology [address] [place] [address] 269[address] Rafael España MD [address] [place] [address] documented as of this encounter Visit Diagnoses Not on filedocumented in this encounter Additional Health Concerns Infection Onset Date Last Indicated Resolved Time CoV-Risk 04/25/2025 04/25/2025 05/06/2025 1:21 AM EDT Resp-Risk 08/23/2025 08/23/2025 documented as of this encounter Care Teams Um Nurse Relationship Specialty Start Date End Date Isi Royal NP 70 [place] [address] PCP - General Family Medicine 07/03/18 07/08/24 Courtney Judge NP 70 [place] [address] PCP - General Nurse Practitioner 07/09/24 Raul Howard DO 30 [place] [address] [email or web address] Primary Oncologist Hematology and Oncology 07/28/18 Karely Cabrera PA-C 30 [place] [address] [email or web address] Physician Operations And Maintenance Manager Hematology 10/18/20 Raul Howard DO 30 [place] [address] [email or web address] Primary Oncologist Hematology and Oncology 07/31/22 documented as of this encounter Additional Source Comments The information contained in this document represents components of the legal health record. It is not the complete legal health record.[facility]
--- OUTSIDE RECORDS SUMMARY | 2025-08-31 17:55 | XMS_ITS | Encounter Summary ---
Author Organization [facility], Address [address] [place] [address] Phone Care Team Providers Care Technical Testing Engineer Name Role Phone Courtney Judge DAIRY FROZEN MANAGER Primary Care Provider [phone] Encounter Details Date Type Department Care Team (Late Contact Info) Description 04/02/2025 Documentation Only [facility] [address] [place] [address] Es Garcia [address] [place] [phone] Social History Tobacco Use Types Packs/Day [...] Visit [facility] [address] [place] [address] [place] [phone] Diego Fisher MD [address] [place] [address] [place] [address] documented as of this encounter Visit Diagnoses Not on filedocumented in this encounter Care Teams Technical Testing Engineer Relationship Specialty Start Date End Date Courtney Judge NP [address] [place] [address] PCP - General 05/03/25 documented as of this encounter
--- OUTSIDE RECORDS SUMMARY | 2025-08-31 17:55 | XMS_ITS | Encounter Summary ---
Author Organization [facility] Address [address] [employer] [facility] [address] [place] [address] Phone Care Team Providers Care Supervisor Special Effects Name Role Phone Isi Royal SALES ENABLEMENT LEAD Primary Care Provider [phone] Raul Howard DO Unavailable [phone] Karely Cabrera PA-C Unavailable [phone] Raul Howard DO Unavailable [phone] Courtney Judge SALES ENABLEMENT LEAD Primary Care Provider Encounter Details Date Type Department Care Team (Late st Contact Info) Description 03/19/2023 Procedure Pass [facility], Ct Scan - [address] [phone] Social History Tobacco Use Types Packs/Day Years [...] Upcoming Encounters Date Type Department Care Team ([facility] st Contact Info) Description 12/27/2025 2:30 PM EDT Office Visit [facility] Pulmonary, Allergy and Critical Care Medicine [address] [place] [address] Juan Ventura MD [address] [place] [address] [email or web address] 02/24/2026 8:30 AM EDT Office Visit [facility] Neurology [address] [place] [address] Rafael España MD [address] [place] [address] documented as of this encounter Visit Diagnoses Not on filedocumented in this encounter Additional Health Concerns Infection Onset Date Last Indicated Resolved Time CoV-Risk 04/25/2025 04/25/2025 05/06/2025 1:21 AM EDT Resp-Risk 08/23/2025 08/23/2025 documented as of this encounter Care Teams Supervisor Special Effects Relationship Specialty Start Date End Date Isi Royal NP 70 [place] [address] PCP - General Family Medicine 07/03/18 07/08/24 Courtney Judge NP [address] [place] [address] PCP - General Nurse Practitioner 07/09/24 Raul Howard DO [address] [place] [address] [email or web address] Primary Oncologist Hematology and Oncology 07/28/18 Karely Cabrera PA-C [address] [place] [address] [email or web address] Physician Web Site Specialist Hematology 10/18/20 Raul Howard DO [address] [place] [address] [email or web address] Primary Oncologist Hematology and Oncology 07/31/22 documented as of this encounter Additional Source Comments The information contained in this document represents components of the legal health record. It is not the complete legal health record.[facility]
--- OUTSIDE RECORDS SUMMARY | 2025-08-31 17:55 | XMS_ITS | Encounter Summary ---
Author Organization [facility] Address [address] [place] [address] 985 [place] [address] Phone Care Team Providers Care Receiving Teller Name Role Phone Isi Royal SPRAY MACHINE LOADER Primary Care Provider [phone] Raul Howard DO Unavailable Karely Cabrera PA-C Unavailable [phone] Raul Howard DO Unavailable [phone] Courtney Judge SPRAY MACHINE LOADER Primary Care Provider [phone] Reason for Referral * MRI/CAT Scan - Closed Specialty Diagnoses / Procedures Referred By Boni t Referred To Contact Radiology Diagnoses Left lower quadrant pain Procedures CT Abdomen/Pelvis Isi Royal NP Phone: tel: Referral ID Status Reason Start Date Expiration Date Visits Re quested Visits Authorized [id number] Closed 01/30/2019 03/30/2019 1 1 Encounter Details Date Type Department Care Team (Latest Contact Info) Description 01/30/2019 Transcribe Orders Virtual Department 30 [place] [address] Isi Royal NP 70 [place] [address] Left lower quadrant pain (Primary Dx) Social [...] Pulmonary, Allergy and Critical Care Medicine 10 [place] [address] Juan Ventura MD [address] [address] [email or web address] 02/24/2026 8:30 AM EDT Office Visit [facility] Neurology [address] [place] [address] Rafael España MD [address] [place] [address] documented as of this encounter Results * [...] documented as of this encounter Care Teams Receiving Teller Relationship Specialty Start Date End Date Isi Royal NP 70 [place] [address] PCP - General Family Medicine 07/03/18 07/08/24 Courtney Judge NP [address] [place] [address] PCP - General Nurse Practitioner 07/09/24 Raul Howard DO 30 [place] [address] [email or web address] Primary Oncologist Hematology and Oncology 07/28/18 Karely Cabrera PA-C [address] [place] [address] [email or web address] Physician Principal Gifts Officer Hematology 10/18/20 Raul Howard DO 30 [place] [address] [email or web address] Primary Oncologist Hematology and Oncology 07/31/22 documented as of this encounter Additional Source Comments The information contained in this document represents components of the legal health record. It is not the complete legal health record.[facility]
--- OUTSIDE RECORDS SUMMARY | 2025-08-31 17:55 | XMS_ITS | Encounter Summary ---
Author Organization [facility], Address [address] [place] [address] Phone Care Team Providers Care Child Day Care Center Worker Name Role Phone Courtney Judge KNURLING MACHINE OPERATOR Primary Care Provider [phone] Encounter Details Date Type Department Care Team (Late Contact Info) Description 03/24/2025 Documentation Only [facility] [address] [place] [address] Valeri Witt [address] [place] [phone] Social History Tobacco Use Types Packs/Day [...] Visit [facility] [address] [place] [address] [place] [address] Diego Fisher MD [address] [place] [address] [place] [address] documented as of this encounter Visit Diagnoses Not on filedocumented in this encounter Care Teams Child Day Care Center Worker Relationship Specialty Start Date End Date Courtney Judge NP [address] [place] [address] PCP - General 05/03/25 documented as of this encounter
--- OUTSIDE RECORDS SUMMARY | 2025-08-31 17:55 | XMS_ITS | Encounter Summary ---
Author Organization [facility] Address [address] [place] [address] 985 [place] [address] Phone Care Team Providers Care Fleet Driver Name Role Phone Isi Royal MELT SUPERVISOR Primary Care Provider Raul Howard DO Unavailable [phone] Karely Cabrera PA-C Unavailable Raul Howard DO Unavailable [phone] Courtney Judge MELT SUPERVISOR Primary Care Provider Encounter Details Date Type Department Care Team (Latest Contact Info) Description 08/28/2023 Transcribe Orders [facility] [address] [place] [address] [phone] Liliana Arenas CNP 10 [place], [place] [phone] Abdominal pain, unspecified abdominal location (Primary Dx); [...] Description 12/27/2025 2:30 PM EDT Office Visit [facility] Pulmonary, Allergy and Critical Care Medicine [address] [place] [address] Juan Ventura MD [address] [place] [address] [email or web address] 02/24/2026 8:30 AM EDT Office Visit [facility] Neurology [address] [place] [address] [place] [address] Rafael España MD [address] [place] [address] documented as of this encounter Results * (ABNORMAL) LFTs (hepatic panel) (08/28/2023 2:56 PM EST) ALKALINE PHOSPHATASE 130(H) 39 - 117 U/L [facility] TOTAL BILIRUBIN 0.3 0.0 - 1.2 mg/dL [facility] DIRECT BILIRUBIN <0.2 0 - 0.3 mg/dL [facility] Bilirubin (Indirect) NOT CALCULATED 0 - 1.5 mg/dL [facility] AST 23 0 - 37 U/L [facility] ALT 9 0 - 40 U/L [facility] TOTAL PROTEIN 7.2 6.5 - 8.0 g/dL [facility] ALBUMIN 4.0 3.9 - 4.8 g/dL [facility] GLOBULIN 3.2 1 - 4.8 g/dL [facility] A/G Ratio 1.25 1.00 - 4.80 RATIO [facility] Blood 08/28/2023 2:56 PM EST 08/28/2023 2:59 PM EST [facility] LAB BLOOD BKR ORDERABLES F inal Result Performing Organization Address [facility] Co de Phone Number [address] [address] * GGT (Gamma glutamyl transferase) (08/28/2023 2:56 PM EST) Pathologist [facility] GGT 30 7 - 33 U/L [facility] Blood 08/28/2023 2:56 PM EST 08/28/2023 2:59 PM EST [facility] LAB BLOOD BKR ORDERABLES F inal Result Performing Organization Address [facility] Co de Phone Number [address] [address] documented in this encounter Visit Diagnoses Diagnosis Abdominal pain, unspecified abdominal location- Primary Iron deficiency anemia, unspecified iron deficiency anemia type documented in this encounter Additional Health Concerns Infection Onset Date Last Indicated Resolved Time CoV-Risk 04/25/2025 04/25/2025 05/06/2025 1:21 AM EDT Resp-Risk 08/23/2025 08/23/2025 documented as of this encounter Care Teams Fleet Driver Relationship Specialty Start Date End Date Isi Royal NP 70 [place] [address] PCP - General Family Medicine 07/03/18 07/08/24 Courtney Judge NP 70 [place] [address] PCP - General Nurse Practitioner 07/09/24 Raul Howard DO 30 [place] [address] [email or web address] Primary Oncologist Hematology and Oncology 07/28/18 Karely Cabrera PA-C 30 [place] [address] [email or web address] Physician Income Tax Investigator Hematology 10/18/20 Raul Howard DO 30 [place] [address] [email or web address] Primary Oncologist Hematology and Oncology 07/31/22 documented as of this encounter Additional Source Comments The information contained in this document represents components of the legal health record. It is not the complete legal health record.[facility]
--- OUTSIDE RECORDS SUMMARY | 2025-08-31 17:55 | XMS_ITS | Encounter Summary ---
Author Organization [facility], Address [address] [place] [address] Phone Care Team Providers Care Staple Side Laster Name Role Phone Courtney Judge ENTRY SPECIALIST Primary Care Provider [phone] Encounter Details Date Type Department Care Team (Late st Contact Info) Description 08/30/2025 Documentation Only [facility] [address] [place] [address] Hamida Fuentes [address] [place] [phone] Social History Tobacco Use Types Packs/Day [...] Visit [facility] [address] [place] [address] Diego Fisher MD [address] [place] [phone] documented as of this encounter Visit Diagnoses Not on filedocumented in this encounter Care Teams Staple Side Laster Relationship Specialty Start Date End Date Courtney Judeg NP [address] [place] [address] PCP - General 05/03/25 documented as of this encounter
--- OUTSIDE RECORDS SUMMARY | 2025-08-31 17:55 | XMS_ITS | Encounter Summary ---
Author Organization [facility] Address [address] [facility] [address] [place] [address] Phone Care Team Providers Care Ese Teacher Name Role Phone Lee Raul Pedroza DO Unavailable Karely Cabrera PA-C Unavailable [phone] Lee Raul Pedroza DO Unavailable Courtney Judge MOTORS AND GENERATORS INSPECTOR Primary Care Provider [phone] Encounter Details Date Type Department Care Team (Late st Contact Info) Description 04/25/2025 Procedure Pass [facility], Ct Scan - [facility] 30 [place], [place] [id number] Social History Tobacco Use Types Packs/Day Years [...] 3:33 AM EDT Javon Leija RN * [place] Suicide Severity Rating Scale (Screener/Recent Self-Report) Question [...] Pulmonary, Allergy and Critical Care Medicine [address] [place] [address] Juan Ventura MD [address] [place] [address] [email or web address] 02/24/2026 8:30 AM EDT Office Visit [facility] Neurology [address] [place] [address] Rafael España MD [address] [place] [address] [email or web address] documented as of this encounter Visit Diagnoses Not on filedocumented in this encounter Additional Health Concerns Infection Onset Date Last Indicated Resolved Time CoV-Risk 04/25/2025 04/25/2025 05/06/2025 1:21 AM EDT Resp-Risk 08/23/2025 08/23/2025 documented as of this encounter Care Teams Ese Teacher Relationship Specialty Start Date End Date Courtney Judge NP [address] [place] [address]796 PCP - General Nurse Practitioner 07/09/24 Raul Howard DO [address] [place] [address] [email or web address] Primary Oncologist Hematology and Oncology 07/28/18 Karely Cabrera PA-C [address] [place] [address] [email or web address] Physician Shutdown Coordinator Hematology 10/18/20 Raul Howard DO [address] [place] [address] [email or web address] Primary Oncologist Hematology and Oncology 07/31/22 documented as of this encounter Additional Source Comments The information contained in this document represents components of the legal health record. It is not the complete legal health record.[facility]
--- OUTSIDE RECORDS SUMMARY | 2025-08-31 17:55 | XMS_ITS | Encounter Summary ---
Author Organization [facility] Address [address] [facility] [address] [place] [address] Phone Care Team Providers Care Stratigraphy Teacher Name Role Phone Isi Royal ORNAMENT STAPLER Primary Care Provider [phone] Raul Howard DO Unavailable [phone] Karely Cabrera PA-C Unavailable [phone] Raul Howard DO Unavailable [phone] Courtney Judge ORNAMENT STAPLER Primary Care Provider Encounter Details Date Type Department Care Team (Late st Contact Info) Description 10/08/2019 Procedure Pass [facility] Endoscopy Admitting Dept Virtual Department 30 [place], [place] [id number] Social History Tobacco Use Types Packs/Day Years [...] Pulmonary, Allergy and Critical Care Medicine 10 [place] [address] Juan Ventura MD [address] [address] [email or web address] 02/24/2026 8:30 AM EDT Office Visit [facility] Neurology [address] [place] [address] Rafael España MD [address] [place] [address] [email or web address] documented as of this encounter Visit Diagnoses Not on filedocumented in this encounter Additional Health Concerns Infection Onset Date Last Indicated Resolved Time CoV-Risk 04/25/2025 04/25/2025 05/06/2025 1:21 AM EDT Resp-Risk 08/23/2025 08/23/2025 documented as of this encounter Care Teams Stratigraphy Teacher Relationship Specialty Start Date End Date Isi Royal NP 70 [place] [address] PCP - General Family Medicine 07/03/18 07/08/24 Courtney Judge NP 70 [place] [address] PCP - General Nurse Practitioner 07/09/24 Raul Howard DO 30 [place] [address] [email or web address] Primary Oncologist Hematology and Oncology 07/28/18 Karely Cabrera PA-C [address] [place] [address] [email or web address] [email or web address] Physician Players Assistant Hematology 10/18/20 Raul Howard DO [address] [place] [address] [email or web address] Primary Oncologist Hematology and Oncology 07/31/22 documented as of this encounter Additional Source Comments The information contained in this document represents components of the legal health record. It is not the complete legal health record.[facility]
--- OUTSIDE RECORDS SUMMARY | 2025-08-31 17:55 | XMS_ITS | Encounter Summary ---
Author Organization [facility] Address [address] [place] [address] [address] [place] [address] Phone Care Team Providers Care Elementary Librarian Name Role Phone Isi Royal BRONZER Primary Care Provider Raul Howard DO Unavailable [phone] Karely Cabrera PA-C Unavailable [phone] LeeRaul weir DO Unavailable [phone] Courtney Judge BRONZER Primary Care Provider Encounter Details Date Type Department Care Team (Latest Contact Info) Description 08/26/2018 Transcribe Orders [facility] Phleb [place] [address] [place], [place] [phone] Christophe Del Cid MD [address] [address] [email or web address] Iron deficiency anemia secondary to blood loss (chronic) (Primary Dx) Social History Tobacco Use Types Packs/Day Years Used Date Smoking Tobacco: Former Cigarettes 1 1 2 016 - 2016 Smokeless Tobacco: Never Alcohol Use [...] CD Pulmonary, Allergy and Critical Care Medicine [address] [place] [address] Juan Ventura MD [address] [place] [address] [email or web address] 02/24/2026 8:30 AM EDT Office Visit [facility] Neurology [address] [place] [address] Rafael España MD [address] [place] [address] [email or web address] documented as of this encounter Results * Ferritin (08/26/2018 8:41 AM EST) FERRITIN 28 13 - 150 ug/L [facility] Blood 08/26/2018 8:41 AM EST 08/26/2018 8:47 AM EST us Christophe Del Cid MD LAB BLOOD BKR ORDERABLES F inal Result [facility] 30 [place] [address] * Iron and iron binding capacity (08/26/2018 8:41 AM EST) Pathologist [facility] IRON 52 30 - 160 ug/dL [facility] IRON BINDING CAPACITY 303 228 - 428 ug/dL [facility] TRANSFERRIN SATURAT. 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 Primary Oncologist Hematology and Oncology 07/28/18 Karely Cabrera PA-C [address] [place] [address] [email or web address] Physician General Lithographic Worker Hematology 10/18/20 Raul Howard DO 30 [place] [address] [email or web address] Primary Oncologist Hematology and Oncology 07/31/22 documented as of this encounter Additional Source Comments The information contained in this document represents components of the legal health record. It is not the complete legal health record.[facility]
--- OUTSIDE RECORDS SUMMARY | 2025-08-31 17:55 | XMS_ITS | Encounter Summary ---
Author Organization [facility] Address [address] [facility] [address] [place] [address] Phone Care Team Providers Care Mechanical Research Engineer Name Role Phone Isi Royal MOOSE HUNTER Primary Care Provider [phone] Raul Howard DO Unavailable [phone] Karely Cabrera PA-C Unavailable [phone] Raul Howard DO Unavailable [phone] Courtney Judge MOOSE HUNTER Primary Care Provider Encounter Details Date Type Department Care Team (Late st Contact Info) Description 03/14/2023 Procedure Pass [facility], Ct Scan - [address] [id number] Social History Tobacco Use Types Packs/Day Years [...] 8:00 PM EDT Tri Tucker RN * [place] Suicide Severity Rating Scale (Screener/Recent Self-Report) Question [...] [facility] Pulmonary, Allergy and Critical Care Medicine [address] [place] [address] [place] [address] Juan Ventura MD [address] [place] [address] [email or web address] 02/24/2026 8:30 AM EDT Office Visit [facility] Neurology [address] [place] [address] [place] [address] Rafael España MD [address] [place] [address] [place] [address] [email or web address] documented as of this encounter Visit Diagnoses Not on filedocumented in this encounter Additional Health Concerns Infection Onset Date Last Indicated Resolved Time CoV-Risk 04/25/2025 04/25/2025 05/06/2025 1:21 AM EDT Resp-Risk 08/23/2025 08/23/2025 documented as of this encounter Care Teams Mechanical Research Engineer Relationship Specialty Start Date End Date Isi Royal MOOSE HUNTER 70 [place] [address] PCP - General Family Medicine 07/03/18 07/08/24 Courtney Judge NP 70 [place] [address] PCP - General Nurse Practitioner 07/09/24 Raul Howard DO [address] [place] [address] [email or web address] Primary Oncologist Hematology and Oncology 07/28/18 Karely Cabrera PA-C [address] [place] [address] [email or web address] Physician Supervisor Coffee Hematology 10/18/20 Raul Howard DO [address] [place] [address] [email or web address] Primary Oncologist Hematology and Oncology 07/31/22 documented as of this encounter Additional Source Comments The information contained in this document represents components of the legal health record. It is not the complete legal health record.[facility]
--- OUTSIDE RECORDS SUMMARY | 2025-08-31 17:55 | XMS_ITS | Encounter Summary ---
Author Organization [facility] Address [address] [facility] [address] [place] [address] Phone Care Team Providers Care Manufacturing Production Manager Name Role Phone Lee Raul Pedroza DO Unavailable [phone] Karely Cabrera PA-C Unavailable [phone] Lee Raul Pedroza DO Unavailable [phone] Courtney Judge HOUSE FATHER Primary Care Provider [phone] Encounter Details Date Type Department Care Team (Late st Contact Info) Description 03/06/2025 Procedure Pass [facility], Ct Scan - [facility] 30 [place], [place] 168[address] Social History Tobacco Use Types Packs/Day Years [...] 11:35 AM EDT Disha Archibald RN * [place] Suicide Severity Rating Scale (Screener/Recent Self-Report) Question [...] [facility] Pulmonary, Allergy and Critical Care Medicine [address] [place] [address] Juan Ventura MD [address] [address] [email or web address] 02/24/2026 8:30 AM EDT Office Visit [facility] Neurology [address] [place] [address] Rafael España MD [address] [place] [address] documented as of this encounter Visit Diagnoses Not on filedocumented in this encounter Additional Health Concerns Infection Onset Date Last Indicated Resolved Time CoV-Risk 04/25/2025 04/25/2025 05/06/2025 1:21 AM EDT Resp-Risk 08/23/2025 08/23/2025 documented as of this encounter Care Teams Manufacturing Production Manager Relationship Specialty Start Date End Date Courtney Judge NP 70 [place] [address] PCP - General Nurse Practitioner 07/09/24 Raul Howard DO [address] [place] [address] [email or web address] Primary Oncologist Hematology and Oncology 07/28/18 Karely Cabrera PA-C [address] [place] [address] [email or web address] Physician Development Scientist Hematology 10/18/20 Raul Howard DO [address] [place] [address] [email or web address] Primary Oncologist Hematology and Oncology 07/31/22 documented as of this encounter Additional Source Comments The information contained in this document represents components of the legal health record. It is not the complete legal health record.[facility]
--- OUTSIDE RECORDS SUMMARY | 2025-08-31 17:55 | XMS_ITS | Encounter Summary ---
Author Organization [facility] Address [address] [place] [address] 985 [place] [address] Phone Care Team Providers Care Chemical Checker Name Role Phone Isi Royal NAILING MACHINE OPERATOR AUTOMATIC Primary Care Provider [phone] Raul Howard DO Unavailable Karely Cabrera PA-C Unavailable [phone] Raul Howard DO Unavailable [phone] Courtney Judge NAILING MACHINE OPERATOR AUTOMATIC Primary Care Provider Encounter Details Date Type Department Care Team (Late st Contact Info) Description 09/23/2019 Procedure Pass [facility], [address] [id number] Social History Tobacco Use Types Packs/Day Years [...] Pulmonary, Allergy and Critical Care Medicine 10 [place] [address] Juan Ventura MD [address] [address] [email or web address] 02/24/2026 8:30 AM EDT Office Visit [facility] Neurology [address] [place] [address] Rafael España MD [address] [place] [address] [email or web address] documented as of this encounter Visit Diagnoses Not on filedocumented in this encounter Additional Health Concerns Infection Onset Date Last Indicated Resolved Time CoV-Risk 04/25/2025 04/25/2025 05/06/2025 1:21 AM EDT Resp-Risk 08/23/2025 08/23/2025 documented as of this encounter Care Teams Chemical Checker Relationship Specialty Start Date End Date Isi Royal NP 70 [place] [address] PCP - General Family Medicine 07/03/18 07/08/24 Courtney Judge NP 70 [place] [address] PCP - General Nurse Practitioner 07/09/24 Raul Howard DO 30 [place] [address] [email or web address] Primary Oncologist Hematology and Oncology 07/28/18 Karely Cabrera PA-C [address] [place] [address] [email or web address] Physician Cable Television Program Director Hematology 10/18/20 Raul Howard DO [address] [place] [address] [email or web address] Primary Oncologist Hematology and Oncology 07/31/22 documented as of this encounter Additional Source Comments The information contained in this document represents components of the legal health record. It is not the complete legal health record.[facility]
--- OUTSIDE RECORDS SUMMARY | 2025-08-31 17:55 | XMS_ITS | Encounter Summary ---
Author Organization [facility] Address [address] [place] [address] Phone Care Team Providers Care Hat Brusher Machine Name Role Phone Ayad Vera MD Primary Care Provider [phone] Isi Royal NP Primary Care Provider [phone] Raul Howard DO Unavailable [phone] Karely Cabrera PA-C Unavailable [phone] Raul Howard DO Unavailable [phone] Courtney Judge AUDIT CLERKS SUPERVISOR Primary Care Provider Encounter Details Date Type Department Care Team (Late st Contact Info) Description 06/04/2018 Procedure Pass [facility] Endoscopy Admitting Dept Virtual Department 30 [place], [place] [phone] Social History Tobacco Use Types Packs/Day Years [...] Pulmonary, Allergy and Critical Care Medicine 10 [place] [address] Juan Ventura MD [address] [address] [email or web address] 02/24/2026 8:30 AM EDT Office Visit [facility] Neurology [address] [place] [address] Rafael España MD [address] [place] [address] [email or web address] documented as of this encounter Visit Diagnoses Not on filedocumented in this encounter Additional Health Concerns Infection Onset Date Last Indicated Resolved Time CoV-Risk 04/25/2025 04/25/2025 05/06/2025 1:21 AM EDT Resp-Risk 08/23/2025 08/23/2025 documented as of this encounter Care Teams Hat Brusher Machine Relationship Specialty Start Date End Date Ayad Vera MD 70 [place] [address] [email or web address] PCP - General 07/22/17 07/02/18 Isi Royal NP 70 [place] [address] PCP - General Family Medicine 07/03/18 07/08/24 Courtney Judge NP 70 [place] [address] PCP - General Nurse Practitioner 07/09/24 Raul Howard DO [address] [place] [address] [email or web address] Primary Oncologist Hematology and Oncology 07/28/18 Karely Cabrera PA-C [address] [place] [address] [email or web address] Physician Audience Development Manager Hematology 10/18/20 Raul Howard DO [address] [place] [address] [email or web address] Primary Oncologist Hematology and Oncology 07/31/22 documented as of this encounter Additional Source Comments The information contained in this document represents components of the legal health record. It is not the complete legal health record.[facility]
--- OUTSIDE RECORDS SUMMARY | 2025-08-31 17:55 | XMS_ITS | Encounter Summary ---
Author Organization [facility] Address [address] [facility] [address] [place] [address] Phone Care Team Providers Care Archery Equipment Hay Sorter Name Role Phone Lee Raul Pedroza DO Unavailable [phone] Karely Cabrera PA-C Unavailable [phone] Lee Raul Pedroza DO Unavailable Courtney Judge INFORMATION RESOURCES DIRECTOR Primary Care Provider [phone] Encounter Details Date Type Department Care Team (Late st Contact Info) Description 08/23/2025 Procedure Pass [facility], Ct Scan - [facility] 30 [place] [address] Social History Tobacco Use Types Packs/Day Years [...] 08/23/2025 6:27 PM Jojo Eastman RN * [place] Suicide Severity Rating Scale (Screener/Recent Self-Report) Question [...] Pulmonary, Allergy and Critical Care Medicine 10 [place] [address] Juan Ventura MD [address] [address] [email or web address] 02/24/2026 8:30 AM EDT Office Visit [facility] Neurology [address] [place] [address] Rafael España MD [address] [place] [address] documented as of this encounter Visit Diagnoses Not on filedocumented in this encounter Additional Health Concerns Infection Onset Date Last Indicated Resolved Time Resp-Risk 08/23/2025 08/23/2025 documented as of this encounter Care Teams Archery Equipment Hay Sorter Relationship Specialty Start Date End Date Courtney Judge NP 70 [place] [address] PCP - General Nurse Practitioner 07/09/24 Raul Howard DO [address] [place] [address] [email or web address] Primary Oncologist Hematology and Oncology 07/28/18 Karely Cabrera PA-C [address] [place] [address] [email or web address] Physician Civil Process Server Hematology 10/18/20 Raul Howard DO [address] [place] [address] [email or web address] Primary Oncologist Hematology and Oncology 07/31/22 documented as of this encounter Additional Source Comments The information contained in this document represents components of the legal health record. It is not the complete legal health record.[facility]
--- OUTSIDE RECORDS SUMMARY | 2025-08-31 17:55 | XMS_ITS | Encounter Summary ---
Author Organization [facility] Address [address] [place] [address] Phone Care Team Providers Care Tire Fabric Impregnating Range Tender Name Role Phone Isi Royal ELECTRIC SCOOP OPERATOR Primary Care Provider Raul Howard DO Unavailable [phone] Karely Cabrera PA-C Unavailable [phone] Raul Howard DO Unavailable [phone] Courtney Judge ELECTRIC SCOOP OPERATOR Primary Care Provider Encounter Details Date Type Department Care Team (Latest Contact Info) Description 11/09/2019 Transcribe Orders [facility] Phleb [facility] [address] [place] [address] [phone] Liliana Arenas CNP [address] [place] [address] [phone] [email or web address] Duodenal ulcer (Primary Dx); Iron deficiency anemia [...] CD Pulmonary, Allergy and Critical Care Medicine [address] [place] [address] Juan Ventura MD [address] [place] [address] [email or web address] 02/24/2026 8:30 AM EDT Office Visit [facility] Neurology [address] [place] [phone] Rafael España MD [address] [place] [phone] [email or web address] documented as of this encounter Results * Vitamin B12 (11/09/2019 2:01 PM EST) VITAMIN B12 556 232 - 1,245 pg/mL [facility] Blood 11/09/2019 2:01 PM EST 11/09/2019 2:05 PM EST us Liliana Arenas INVESTIGATIONS MANAGER LAB BLOOD BKR ORDERABLES F inal Result [facility] [address] [place] [address] * Ferritin (11/09/2019 2:01 PM EST) FERRITIN 18 13 - 150 ug/L [facility] Blood 11/09/2019 2:01 PM EST 11/09/2019 2:05 PM EST Liliana Arenas [facility] LAB BLOOD BKR ORDERABLES F inal Result Performing Organization Address [facility]/ZIP Co de Phone Number [address] [address] * Folate (11/09/2019 2:01 PM EST) FOLIC ACID 8.8 4.2 - 19.9 ng/mL [facility] Blood 11/09/2019 2:01 PM EST 11/09/2019 2:05 PM EST Liliana Arenas [facility] LAB BLOOD BKR ORDERABLES F inal Result Performing Organization Address [facility]/ZIP Co de Phone Number [address] [address] * (ABNORMAL) Iron and iron binding capacity (11/09/2019 2:01 PM EST) Pathologist [facility] IRON 20(L) 30 - 160 ug/dL [facility] IRON BINDING CAPACITY 266 228 - 428 ug/dL [facility] TRANSFERRIN SATURAT. 8(L) 15 - 50 % [facility] Blood 11/09/2019 2:01 PM EST 11/09/2019 2:05 PM EST Liliana Arenas [facility] LAB BLOOD BKR ORDERABLES F inal Result Performing Organization Address [facility]/ZIP Co de Phone Number [address] [address] * (ABNORMAL) Comprehensive metabolic panel (11/09/2019 2:01 PM EST) SODIUM 138 133 - 146 mmol/L [facility] POTASSIUM 4.8 3.3 - 5.1 mmol/L [facility] CHLORIDE 102 96 - 108 mmol/L [facility] CO2 24 21 - 35 mmol/L [facility] BUN 15 6 - 19 mg/dL [facility] CREATININE 1.10 0.5 - 1.5 mg/dL [facility] GLUCOSE 131(H) 70 - 99 mg/dL [facility] ALBUMIN 3.7(L) 3.9 - 4.8 g/dL [facility] TOTAL PROTEIN 7.4 6.5 - 8.0 g/dL [facility] CALCIUM 9.6 8.4 - 10.3 mg/dL [facility] ALKALINE PHOSPHATASE 117 39 - 117 U/L [facility] TOTAL BILIRUBIN 0.3 0.0 - 1.2 mg/dL [facility] AST 19 0 - 37 U/L [facility] ALT 8 0 - 40 U/L [facility] GLOBULIN 3.7 1 - 4.8 g/dL [facility] EGFR 48(L) >59 mL/min/1.7 3m2 [facility] Comment:If patient is black, multiply result by 1.159. Estimated glomerular filtration rate calculated using the CKD-EPI equation. ANION GAP 17 10 - 20 mmol/L [facility] Blood 11/09/2019 2:01 PM EST 11/09/2019 2:05 PM EST us Liliana Arenas [facility] LAB BLOOD BKR ORDERABLES F inal Result [facility] [address] [place] [address] * (ABNORMAL) CBC and differential (11/09/2019 2:01 PM EST) WBC 11.69(H) 4.00 - 11.00 K/uL [facility] Comment:Note Reference Range updates to all CBC and Differential results. RBC 4.65 3.72 - 5.30 M/uL [facility] HGB 11.0(L) 11.4 - 15.9 g/dL [facility] Comment:Note updated Referen ce Ranges for all CBC and Differential results. HCT 37.1 34.2 - 46.8 % [facility] PLT 720(H) 140 - 430 K/uL [facility] MCV 79.8 78.0 - 97.0 fL [facility] MCH 23.7(L) 25.0 - 33.0 pg [facility] MCHC 29.6(L) 32.0 - 36.0 g/dL [facility] RDW 18.0(H) 11.0 - 16.0 % [facility] MPV 10.6 8.4 - 12.8 fl [facility] NRBC 0.00 0 /100 WBCs [facility] ABSOLUTE NRBC 0.00 0 K/uL [facility] DIFF METHOD Auto [facility] NEUTS 72.9 43.0 - 75.0 % [facility] LYMPHS 16.1(L) 18.2 - 47.4 % [facility] MONOS 7.1 4.00 - 11.00 % [facility] EOS 2.8 0.0 - 8.0 % [facility] BASOS 0.8 0.0 - 2.0 % [facility] Granulocytes, immature (%) 0.3 0.0 - 0.9 % [facility] ABSOLUTE NEUTS 8.52(H) 1.80 - 7.70 K/uL [facility] ABSOLUTE LYMPHS 1.88 1.00 - 3.10 K/uL [facility] ABSOLUTE MONOS 0.83(H) 0.20 - 0.80 K/uL [facility] ABSOLUTE EOS 0.33 0.00 - 0.80 K/uL [facility] ABSOLUTE BASOS 0.09 0.00 - 0.09 K/uL [facility] Granulocytes, immature 0.04 0.00 - 0.05 K/uL [facility] Blood 11/09/2019 2:01 PM EST 11/09/2019 2:05 PM EST us Liliana Arenas CNP LAB BLOOD BKR ORDERABLES F inal Result [facility] [address] [place] [address] documented in this encounter Visit Diagnoses Diagnosis Duodenal ulcer- Primary Iron deficiency anemia secondary to blood loss (chronic) documented in this encounter Additional Health Concerns Infection Onset Date Last Indicated Resolved Time CoV-Risk 04/25/2025 04/25/2025 05/06/2025 1:21 AM EDT Resp-Risk 08/23/2025 08/23/2025 documented as of this encounter Care Teams T[employer] Fab[employer] Impregnating Range Tender Relationship Specialty Start Date End Date Isi Royal NP [address] [place] [address] PCP - General Family Medicine 07/03/18 07/08/24 Courtney Judge, TAHIRA [address] [place] [address] PCP - General Nurse Practitioner 07/09/24 Raul Howard DO [address] [place] [address] [email or web address] Primary Oncologist Hematology and Oncology 07/28/18 Karely Cabrera PA-C [address] [place] [address] [email or web address] Physician Multi Skilled Operator Hematology 10/18/20 Raul Howard DO [address] [place] [address] [email or web address] Primary Oncologist Hematology and Oncology 07/31/22 documented as of this encounter Additional Source Comments The information contained in this document represents components of the legal health record. It is not the complete legal health record.[facility]
--- OUTSIDE RECORDS SUMMARY | 2025-08-31 17:55 | XMS_ITS | Encounter Summary ---
Author Organization [facility] Address [address] [place] [address] [address] [place] [address] Phone Care Team Providers Care Control Room Tender Name Role Phone Isi Royal TRANSPORTATION CONSULTANT Primary Care Provider Raul Howard DO Unavailable [phone] Karely Cabrera PA-C Unavailable [phone] Raul oHward DO Unavailable [phone] Courtney Judge TRANSPORTATION CONSULTANT Primary Care Provider Encounter Details Date Type Department Care Team (Latest Contact Info) Description 03/19/2019 Transcribe Orders [facility] Phleb [facility] [address] [place] [address] Raul Howard DO [address] [place] [address] [email or web address] Screening for unspecified condition (Primary Dx) Social [...] [facility] Pulmonary, Allergy and Critical Care Medicine [address] [place] [address] Juan Ventura MD [address] [place] [phone] [email or web address] 02/24/2026 8:30 AM EDT Office Visit [facility] Neurology [address] [place] [phone] Rafael España MD [address] [place] [address] [email or web address] documented as of this encounter Visit Diagnoses Diagnosis Screening for unspecified condition- Primary documented in this encounter Additional Health Concerns Infection Onset Date Last Indicated Resolved Time CoV-Risk 04/25/2025 04/25/2025 05/06/2025 1:21 AM EDT Resp-Risk 08/23/2025 08/23/2025 documented as of this encounter Care Teams Control Room Tender Relationship Specialty Start Date End Date Isi Royal NP [address] [place] [address] PCP - General Family Medicine 07/03/18 07/08/24 Courtney Judge NP [address] [place] [address] PCP - General Nurse Practitioner 07/09/24 Raul Howard DO [address] [place] [address] [email or web address] Primary Oncologist Hematology and Oncology 07/28/18 Karely Cabrera PA-C [address] [place] [address] [email or web address] Physician Interior Painter Hematology 10/18/20 Raul Howard DO [address] [place] [phone] [email or web address] Primary Oncologist Hematology and Oncology 07/31/22 documented as of this encounter Additional Source Comments The information contained in this document represents components of the legal health record. It is not the complete legal health record.[facility]
== END 2025-08-31 13:59 | disposition home or self-care (01) ==
LOC: HO.CT 13:58
PROVIDERS: PCP Nurse Practitioner; Visit Provider Surgery Vascular Surgery
DX: I65.23 Occlusion and stenosis of bilateral carotid arteries (principal)
CPT/HCPCS: 70498; Q9967

== ENCOUNTER → 2025-08-31 14:00 | Outpatient (BNV) | payer MEDICARE, SELFPAY | PROVIDERS: PCP Nurse Practitioner; Visit Provider Radiology Diagnostic Radiology | DX: I65.23 Occlusion and stenosis of bilateral carotid arteries (principal); J43.2 Centrilobular emphysema; I70.0 Atherosclerosis of aorta | CPT/HCPCS: 70498 ==

== ENCOUNTER 2025-09-21 13:00 | Outpatient (AMB) | payer MEDICARE, SELFPAY ==
[2025-09-21 13:04] VITALS: BMI 34.4
--- NOTE | 2025-09-21 13:04 | MHC.OFFVIS ---
Vital Signs 09/21/25 13:04 Height 5 ft Weight 176 lb BMI 34.4 Intake Visit Reasons: Follow Up Carotid US Intake Note: follow up CTA Neck 08/31/25, pt was seen at [facility] for pneumonia. Water Reclamation Systems Operator Required: No Accompanied by: Family/Other Allergies codeine Allergy (Mild, Verified 09/21/25 13:06) Itching [facility] HPI Follow Up Carotid US: Details: The patient is an 85-year-old female presenting for evaluation of carotid stenosis. She has a known history of carotid stenosis noted on a prior ultrasound and a history of old strokes. A CT angiogram of the head and neck was recently performed, and her neurologist, Dr. Ferrer, referred her for surgical consultation. The patient was recently hospitalized for pneumonia at [facility] for three days, and this was preceded by another three-day admission for the same reason two days prior. During the visit, she developed new-onset weakness and shaking. Her medical history is significant for anemia, for which she recently received an iron transfusion. 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 Fisher, with a biopsy planned. She has a remote history of a blood clot in her leg. She reports deteriorating memory. Her current medications include baby aspirin and a cholesterol pill. She was previously on Plavix, but the prescription ended and it also interfered with other medications. She also takes medication for her thyroid. [facility] Medical History S/P angiogram of extremity (07/17/23) COPD (chronic obstructive pulmonary disease) Hypertension TONI (acute kidney injury) Diverticulitis DVT (deep venous thrombosis) Surgical History History of appendectomy Social History Patient Tobacco Use Status: Former Tobacco user Review of Systems Const All systems reviewed & are unremarkable except as noted in HPI and below Reports no additional complaints ENT Reports Normal hearing present Card Denies chest pain, Denies chest pain at rest, Denies chest pain with activity and Denies pedal edema Resp Denies cough GI Denies abdominal pain Musc Denies abnormal gait, Denies muscle cramps and Denies radiating pain into limb Skin/Breast Denies skin ulcer and Denies wounds Neuro Reports Normal hearing present and Denies abnormal gait Psych Reports no additional complaints Physical Exam Vital Signs: BMI result Body Mass Index 34.4 Const General: cooperative, healthy appearing and comfortable Orientation/consciousness: oriented to person, oriented to place and oriented to time HEENT Head: Yes normal to inspection Neck Neck: Yes normal visual inspection Carotids: no bruits Chest Chest palpation & inspection: normal inspection of the chest Resp Effort & Inspection: normal respiratory effort and able to speak in complete sentences Auscultation: clear to auscultation bilaterally, no crackles, no rales, no rhonchi and no wheezes Cardio Rate: regular rate Rhythm: regular rhythm Heart sounds: S1 normal heart sound present and S2 normal heart sound present Bruits: no carotid bruits Peripheral pulses: Peripheral pulses 2+ throughout GI Inspection: Yes normal to inspection Skin Wounds: no wounds Hair: normal Neuro General: oriented to person, oriented to place and oriented to time Cranial nerves: Yes CN's II-XII intact bilaterally and Yes Normal hearing present Cognition (Neuro): normal cognition Motor exam (neuro): 5/5 motor strength present throughout Extrem Other: venous exam: No significant superficial varicosities or spider telangiectasias, minimal edema General: No clubbing, No cyanosis and No edema Psych Appearance: grossly normal Mental Status: mental status grossly normal Speech and movement: Normal speech and movement present Results Reviewed Results Reviewed: CT angio was reviewed and demonstrates left carotid 95% stenosis right carotid 50% stenosis Assessment & Plan Assessment & Plan (1) PAD (peripheral artery disease): Comment: 07/17/2023 - left common iliac plasty Code(s): I73.9 - Peripheral vascular disease, unspecified Category: Medical Plan: Stable for now ambulating well (2) Carotid stenosis: Code(s): I65.29 - Occlusion and stenosis of unspecified carotid artery Category: Medical Plan: I discussed with the patient and her family that she has a tight blockage in her left carotid artery, which puts her at risk for a stroke. I explained that while surgery could reduce this risk, her current poor health state following recent pneumonia makes the procedure too dangerous at this time. I also clarified that a less invasive stent procedure is not an option due to the curve in her artery and the severity of the blockage. We agreed to postpone any surgical decision to allow her to recover fully. I emphasized that the purpose of any future surgery is strictly for stroke prevention and would not improve her memory or alleviate her neck pain. I instructed them on the specific stroke symptoms to watch for, such as right-sided weakness, vision loss in the left eye, or garbled speech, and to go to the hospital immediately if these occur. I mentioned that before we could ever proceed with an operation, she would need to be cleared by a heart doctor. We will plan for a follow-up ultrasound in a proximally 2 months time. Hopefully she will be recovered from her medical issues and pneumonia by then. Thank you for allowing us to assist in her care. Orders: Orders US carotid duplex BI 2 Months I65.29 - Occlusion and stenosis of unspecified carotid artery Coding Level of Care Code Est Pt Level 4 (16507) Diagnoses PAD (peripheral artery disease) I73.9 Carotid stenosis I65.29
--- OUTSIDE RECORDS SUMMARY | 2025-09-21 16:54 | XMS_ITS | Data Portability ---
Author Organization [place] [facility], Allergy Address [address] [facility] [address] [place] [phone] Care Team Providers Care Case Management Assistant Name Role Phone SILVANO JEAN Primary Care Provider [phone] Assessment Encounter Date Assessment Date Assessment LastModified [...] contr ast No observ ation record ed. [email or web address] Not Available 10/2024 14:20:10 Result Notes None recorded. Problems Name Problem SNOMED Code Status Onset Date Resolution Date Notes Provider Name and Address Organization Details Recorded Time Closed fracture of nasal bones 48630637 Active 025 CAITLYN WEINER MD [address] [facility] [facility] [place], [address], [facility] - [facility] 5 11:52:00 Deviated nasal septum 188938237 Active 025 CAITLYN WEINER MD [address] [facility], [facility] [place], [address], [facility] - [facility] 5 11:52:05 Pulmonary emphysema 50673448 Active 025 CAITLYN WEINER MD [address] [facility], [facility] [place], [address], [facility] - [facility] 5 11:52:28 Problem Notes None recorded. Medical Equipment None Reported. Allergies Allergen ID Allergen Name Allergen Category Reaction Reaction Severity Criticality Documentation Date Start Date Code Code System Note Provider Name and Address Organization Details Recorded Time 254810 codeine medicatio n Not available Not available Not available 05/04/2025 2670 RxNorm ABDIEL felipe [place] - [facility] 5 11:41:28 Medications Name Sig Start [...] Updated DateTime 05/04/2025 152.4 cm 34.2 kg/m2 42620.66 g ABDIEL QUINN [place] - [facility] 05/04/2025 11:41:23 Social History None recorded. Functional Status None recorded. Mental Status None recorded. Family History Nothing Reported. Medical History No medical history recorded. Gynecological HistoryNo gynecological history recorded. Obstetrics History GPAL:G 0 P 0 0 0 0 Past Encounters Encounter ID Performer Location Encounter Start Date Encounter Closed Date Diagnosis/Indication Diagnosis SNOMED-CT Code Diagnosis ICD10 Code Diagnosis IMO Codes Diagnosis Note [id number] CAITLYN WEINER MD [facility] [address] [address] 05/04/2025 11:18:48 05/04/2025 11:53:56 Closed fracture of nasal bones 54399353 S02.2XXA 9157535 Deviated nasal septum 12 3067709 J34.2 570909 Pulmonary emphysema 8743 3001 J43.9 [id number] Health Concerns Section Related Observation LastModified by Organization Detai ls LastModified Time None Recorded Concern Status LastModified by Organization Details LastModified Time None Recorded Advance Directives Directive None Recorded Payers Insurance Date Sequence Insurance Name Policy Number Policy Lara Covered Member ID Lara Member ID Guarantor Name 05/04/2025 1 [facility]UE (MEDICARE REPLACEMENT PPO) [id number] Chika Jerry [id number] Chika Jerry Notes Date Note Type [...] bony and cartilaginous septum CAITLYN WEINER MD [address] [place] [address], [place], [address], [place] - [facility] 05/04/2025 11:55:06 OBGyn Episode No OBEpisode recorded.
== END 2025-09-21 13:48 | disposition home or self-care (01) ==
LOC: HO.HVS 13:00
PROVIDERS: PCP Nurse Practitioner; Visit Provider Surgery Vascular Surgery
DX: I73.9 Peripheral vascular disease, unspecified (principal); I65.29 Occlusion and stenosis of unspecified carotid artery
CPT/HCPCS: 99214

== ENCOUNTER → 2025-09-21 13:00 | Outpatient (BNVA) | payer MEDICARE, SELFPAY | PROVIDERS: PCP Nurse Practitioner; Visit Provider Surgery Vascular Surgery | DX: I65.22 Occlusion and stenosis of left carotid artery (principal); I73.9 Peripheral vascular disease, unspecified; I10 Essential (primary) hypertension; Z87.891 Personal history of nicotine dependence | CPT/HCPCS: 99212 ==